=== PATIENT | female | born 1955 | race Caucasian/White ===

== ENCOUNTER → 2017-12-30 | Outpatient (CLI) | payer OTHER ==
[~2017-12-30] MED LIST: ACYC200 PO; ACYC400 PO; ACYC5TO15G TOP; ACYC800 PO; ALBU3IS INH; ALBU90I INH; ALBU90OI INH; ALBU90OI61 PO; AMIT50 PO; AMOX500 PO; ASPI325 PO; ASPI81CH PO; ASPI81EC PO; ATOR10 PO; ATOR20 PO; ATOR40TA PO; ATOR80 PO; AZIT250; AZIT250 PO; BENZ100A PO; BP MED; BUDE6HFA INH; CHOLESTEROL; CHOLESTEROL LOWERING; CHOLESTEROL MED; CHOLESTROL MED; CIPR250 PO; CIPR500 PO; CIPRO500 MG PO; CLON.2 PO; CLON2; CLOP75 PO; CONEST.625; CYCL10 PO; Crutch1 EACH MISC; DIPATR PO; DOCU100 PO; DOXY100 PO; Duoneb 2.5-0.5 M3 ML INH; ESOM20; ESOM20 PO; FAMO20 PO; FISH1000 PO; FLUT220OIA IH; FOLI1 PO; Flexeril 10 mg10 MG PO; GABA300 PO; GABA600 PO; GEMF600 PO; GLIP5 PO; HYDACE10B PO; HYDACE5 PO; HYDGUAL120 PO; HYDHCL25 PO; HYDMOR4 PO; HYDR1TAB94 PO; IBUP200 PO; IBUP800; IBUP800 PO; INS70/30I SC; INS70/30PN SC; INSDET100 SC; INSLI100I SC; INSR10I SC; INSU100I6 SC; INSU7030P SC; INSUASPI SC; INSULANI SC; INSULANPEN; INSULANPEN SC; INSULIN; INSULIN REG; LANS30EC PO; LAVAP17G PO; LEVFLO500 PO; LEVO750 PO; LIDO2L PO; LISI20 PO; LISI5 PO; LOPE2C PO; LORA.5 PO; MAGOXI400 PO; METF500; METF500 PO; METH10; METH10 PO; METO10 PO; METO50 PO; METO50ER PO; METR500 PO; MULVITA PO; MULVITMIND PO; Magnesium500 MG PO; NAPR220; NAPR500 PO; NAPR500EC PO; NAPR550 PO; NYSTRITC TOP; Novolog100 UNIT/2 SC; OMEP10ER; OMEP10ER PO; OMEP20ER PO; OMEP40CA12 PO; ONDA4ODT MM; OXYACE5T PO; OXYACE7.5T PO; OXYC10ER PO; OXYC10TA19 PO; OXYC1TAB11 PO; Omeprazole20 M1 PO; PANT20 PO; PANT40 PO; PENVK500 PO; PHENA100 PO; PIOG15; PIOG30; POTCHL20ER PO; PRAV20 PO; PRED10 PO; PRED20 PO; PRILOSEC; PROC10 PO; PROM25 PO; PROM25S PR; Percocet 10-321 EACH PO; Prednisone20 MG PO; Prednisone50 MG PO; Prinivil10 MG PO; Protonix40 MG PO; Pyridium200 MG PO; RANI150; RANI150 PO; ROBITUSSIN100 MG/5 M PO; RXCYCL10 PO; RXHYDACE PO; RXHYDGUAS PO; RXHYDMOR2 PO; RXONDA4ODT MM; RXOXYACE PO; RXPROM25 PO; RXTRAM50 PO; SUCR1 PO; SULTRIDS PO; TOPI25 PO; TOUJEO SOL300 UNIT/1 SC; TRAM50 PO; UNKNOWN CHOLESTEROL; Ultram50 MG PO; VITAMENS; VITORIN; Ventolin Soln3 ML INH; ZOLP5 PO; Zithromax250 MG PO; Zofran Odt4 MG PO; Zofran Odt4 MG SL; Zofran Odt8 MG SL; [UNRECOGNIZED DRUG - OTHER]; [UNRECOGNIZED DRUG - REMARK]
[2017-12-30 19:14] LABS: Specimen Source VAG
[2017-12-31 12:02] LABS: Source Vaginal/Cervical
== END | disposition home or self-care (01) ==
LOC: LAB UCHC 14:00
PROVIDERS: Physician Assistant
DX: R21 Rash and other nonspecific skin eruption (principal)
CPT/HCPCS: 87070; 87147; 87205; 87252; 87254; 87491; 87591

== ENCOUNTER 2018-01-12 15:26 | Emergency (ER) | payer OTHER ==
[~2018-01-12] VITALS: Ht 157.5 cm; Wt 63.5 kg
[~2018-01-12 15:26] MED LIST changes: -BUDE6HFA INH; -HYDHCL25 PO; -NYSTRITC TOP; -Prednisone50 MG PO; -Protonix40 MG PO
[2018-01-12 17:05] LABS: BASOPHILS PERCENT AUTO 1 % (0-2); EOSINOPHILS ABSOLUTE AUTO 0.44 K/mm3 (0.00-0.68); EOSINOPHILS PERCENT AUTO 4 % (0-6); Hematocrit 37.5 % (33.0-51.0); Hemoglobin 12.1 g/dL (11.5-16.0); IMMATURE GRAN ABSOLUTE AUTO 0.04 K/mm3 (0.00-0.10); IMMATURE GRAN PERCENT AUTO 0 % (0-1); LYMPHOCYTES ABSOLUTE AUTO 3.82 K/mm3 (0.84-5.20); LYMPHOCYTES PERCENT AUTO 37 % (21-46); MONOCYTES ABSOLUTE AUTO 0.89 K/mm3 (0.16-1.47); MONOCYTES PERCENT AUTO 9 % (4-13); Mean Corpuscular HGB 26.4 pg (26.0-34.0); Mean Corpuscular HGB Conc 32.3 g/dL (31.5-36.5); Mean Corpuscular Volume 82 fL (80-100); NEUTROPHILS PERCENT AUTO 49 % (41-73); RDW Coefficient Variation 14.4 % (11.7-14.2); RDW Standard Deviation 41.9 fL (35.1-46.3); Red Blood Cell Count 4.58 M/mm3 (3.80-5.20); White Blood Cell Count 10.29 K/mm3 (4.00-11.30)
[2018-01-12 17:09] LABS: Mean Platelet Volume 10.1 fL (9.1-12.4); Platelet Count 258 K/mm3 (150-400)
[2018-01-12 17:25] LABS: Alanine Aminotransfer (ALT/SGP 23 U/L (12-78); Albumin, Blood 3.4 g/dL (3.4-5.0); Albumin/Globulin Ratio 0.9 (0.8-1.8); Alk Phos 126 U/L (50-136); Anion Gap 10 mmol/L (6-16); Aspartate Aminotrans (AST/SGOT 25 U/L (12-37); Bilirubin, Total 0.2 mg/dL (0.1-1.0); Blood Urea Nitrogen 22 mg/dL (8-24); Bun/Creatinine Ratio 25.4 (12.0-20.0); CO2, Blood 22 mmol/L (21-32); Calcium, Blood 9.4 mg/dL (8.5-10.1); Chloride, Blood 108 mmol/L (98-108); Creatinine, Blood 0.87 mg/dL (0.40-1.00); Globulin, Blood 3.7 g/dL (2.2-4.0); Glomerular Filtration Rate >60 (60-); Glucose, Blood 116 mg/dL (70-99); Potassium, Blood 4.4 mmol/L (3.5-5.5); Sodium, Blood 140 mmol/L (136-145); Total Protein, Blood 7.1 g/dL (6.4-8.2)
== END 2018-01-12 18:41 | disposition home or self-care (01) ==
LOC: ER 15:26
PROVIDERS: Emergency Medicine
DX: R10.9 Unspecified abdominal pain (principal); Z88.1 Allergy status to other antibiotic agents; Z88.5 Allergy status to narcotic agent; Z88.6 Allergy status to analgesic agent; Z88.8 Allergy status to other drugs, medicaments and biological substances; Z79.899 Other long term (current) drug therapy; Z79.82 Long term (current) use of aspirin; Z79.4 Long term (current) use of insulin; Z79.891 Long term (current) use of opiate analgesic; E11.40 Type 2 diabetes mellitus with diabetic neuropathy, unspecified; K21.9 Gastro-esophageal reflux disease without esophagitis; I25.10 Atherosclerotic heart disease of native coronary artery without angina pectoris; J44.9 Chronic obstructive pulmonary disease, unspecified; E78.00 Pure hypercholesterolemia, unspecified; F17.200 Nicotine dependence, unspecified, uncomplicated
CPT/HCPCS: 36415; 74176; 80053; 81000; 83690; 85025; 96374; 96375; 99284; J1200; J2765

== ENCOUNTER 2018-10-05 12:02 | Emergency (ER) | payer OTHER ==
[~2018-10-05] VITALS: Ht 160 cm; Wt 72.6 kg
[~2018-10-05 12:02] MED LIST changes: +BUDE6HFA INH; +HYDHCL25 PO; +NYSTRITC TOP; +Protonix40 MG PO
[2018-10-05 12:53] LABS: BASOPHILS PERCENT AUTO 1 % (0-2); EOSINOPHILS ABSOLUTE AUTO 0.59 K/mm3 (0.00-0.68); EOSINOPHILS PERCENT AUTO 5 % (0-6); Hematocrit 38.3 % (33.0-51.0); Hemoglobin 12.4 g/dL (11.5-16.0); IMMATURE GRAN ABSOLUTE AUTO 0.05 K/mm3 (0.00-0.10); IMMATURE GRAN PERCENT AUTO 0 % (0-1); LYMPHOCYTES ABSOLUTE AUTO 3.13 K/mm3 (0.84-5.20); LYMPHOCYTES PERCENT AUTO 24 % (21-46); MONOCYTES ABSOLUTE AUTO 1.51 K/mm3 (0.16-1.47); MONOCYTES PERCENT AUTO 12 % (4-13); Mean Corpuscular HGB Conc 32.4 g/dL (31.5-36.5); Mean Corpuscular Volume 87 fL (80-100); Mean Platelet Volume 9.4 fL (9.1-12.4); NEUTROPHILS ABSOLUTE AUTO 7.74 K/mm3 (1.96-9.15); NEUTROPHILS PERCENT AUTO 59 % (41-73); Platelet Count 341 K/mm3 (150-400); RDW Coefficient Variation 13.2 % (11.7-14.2); RDW Standard Deviation 41.3 fL (35.1-46.3); Red Blood Cell Count 4.43 M/mm3 (3.80-5.20); White Blood Cell Count 13.12 K/mm3 (4.00-11.30)
[2018-10-05 13:50] LABS: Alanine Aminotransfer (ALT/SGP 24 U/L (12-78); Albumin, Blood 3.3 g/dL (3.4-5.0); Albumin/Globulin Ratio 0.8 (0.8-1.8); Alk Phos 137 U/L (50-136); Anion Gap 10 mmol/L (6-16); Aspartate Aminotrans (AST/SGOT 18 U/L (12-37); Bilirubin, Total 0.5 mg/dL (0.1-1.0); Blood Urea Nitrogen 12 mg/dL (8-24); Bun/Creatinine Ratio 17.3 (12.0-20.0); CO2, Blood 22 mmol/L (21-32); Calcium, Blood 9.4 mg/dL (8.5-10.1); Chloride, Blood 105 mmol/L (98-108); Creatinine, Blood 0.69 mg/dL (0.40-1.00); Globulin, Blood 4.3 g/dL (2.2-4.0); Glomerular Filtration Rate >60 (60-); Glucose, Blood 282 mg/dL (70-99); Potassium, Blood 4.1 mmol/L (3.5-5.5); Sodium, Blood 137 mmol/L (136-145); Total Protein, Blood 7.6 g/dL (6.4-8.2)
[2018-10-05] MEDS ORDERED: BENZ100A PO (15:02)
[2018-10-05] MEDS ORDERED: Zithromax250 MG PO (15:02)
[2018-10-05] MEDS ORDERED: Prednisone50 MG PO (15:02)
== END 2018-10-05 13:37 | disposition home or self-care (01) ==
LOC: ER 12:02
PROVIDERS: Physician Assistant
DX: J44.1 Chronic obstructive pulmonary disease with (acute) exacerbation (principal); B34.9 Viral infection, unspecified; E11.40 Type 2 diabetes mellitus with diabetic neuropathy, unspecified; K21.9 Gastro-esophageal reflux disease without esophagitis; I25.10 Atherosclerotic heart disease of native coronary artery without angina pectoris; I10 Essential (primary) hypertension; E78.00 Pure hypercholesterolemia, unspecified; Z79.899 Other long term (current) drug therapy; Z79.82 Long term (current) use of aspirin; Z79.4 Long term (current) use of insulin; Z79.01 Long term (current) use of anticoagulants; Z88.1 Allergy status to other antibiotic agents; Z88.5 Allergy status to narcotic agent; Z88.8 Allergy status to other drugs, medicaments and biological substances; Z87.891 Personal history of nicotine dependence
CPT/HCPCS: 36415; 71046; 80053; 85025; 93005; 93010; 94640; 96374; 99284-25; J2405

== ENCOUNTER 2018-10-24 13:54 | Observation (INO) | payer OTHER ==
[~2018-10-24] VITALS: Ht 160 cm; Wt 74.7 kg
[~2018-10-24 13:54] MED LIST changes: +Prednisone50 MG PO
[2018-10-24 15:24] LABS: BASOPHILS ABSOLUTE AUTO 0.14 K/mm3 (0.00-0.23); BASOPHILS PERCENT AUTO 1 % (0-2); EOSINOPHILS ABSOLUTE AUTO 0.43 K/mm3 (0.00-0.68); EOSINOPHILS PERCENT AUTO 3 % (0-6); Hematocrit 42.8 % (33.0-51.0); Hemoglobin 13.4 g/dL (11.5-16.0); IMMATURE GRAN ABSOLUTE AUTO 0.06 K/mm3 (0.00-0.10); IMMATURE GRAN PERCENT AUTO 1 % (0-1); LYMPHOCYTES ABSOLUTE AUTO 3.71 K/mm3 (0.84-5.20); LYMPHOCYTES PERCENT AUTO 29 % (21-46); MONOCYTES ABSOLUTE AUTO 1.14 K/mm3 (0.16-1.47); MONOCYTES PERCENT AUTO 9 % (4-13); Mean Corpuscular HGB 27.3 pg (26.0-34.0); Mean Corpuscular HGB Conc 31.3 g/dL (31.5-36.5); Mean Corpuscular Volume 87 fL (80-100); Mean Platelet Volume 9.5 fL (9.1-12.4); NEUTROPHILS ABSOLUTE AUTO 7.32 K/mm3 (1.96-9.15); NEUTROPHILS PERCENT AUTO 57 % (41-73); Platelet Count 359 K/mm3 (150-400); RDW Coefficient Variation 13.2 % (11.7-14.2); RDW Standard Deviation 41.8 fL (35.1-46.3); Red Blood Cell Count 4.91 M/mm3 (3.80-5.20)
[2018-10-24 15:44] LABS: Alanine Aminotransfer (ALT/SGP 25 U/L (12-78); Albumin, Blood 3.7 g/dL (3.4-5.0); Albumin/Globulin Ratio 0.9 (0.8-1.8); Alk Phos 176 U/L (50-136); Anion Gap 11 mmol/L (6-16); Aspartate Aminotrans (AST/SGOT 16 U/L (12-37); Bilirubin, Total 0.3 mg/dL (0.1-1.0); Blood Urea Nitrogen 19 mg/dL (8-24); CO2, Blood 20 mmol/L (21-32); Calcium, Blood 9.6 mg/dL (8.5-10.1); Chloride, Blood 101 mmol/L (98-108); Creatinine, Blood 0.73 mg/dL (0.40-1.00); Globulin, Blood 4.2 g/dL (2.2-4.0); Glomerular Filtration Rate >60 (60-); Glucose, Blood 331 mg/dL (70-99); Potassium, Blood 4.6 mmol/L (3.5-5.5); Sodium, Blood 132 mmol/L (136-145); Total Protein, Blood 7.9 g/dL (6.4-8.2); Troponin I <0.015 ng/mL (0.000-0.040)
--- NOTE | 2018-10-24 22:00 | NUR ---
ASSUMED CARE- PT ARRIVES TO PCU2 FROM ER AT APPROXIMATELY 2130. PT IS AOX4. VSS. AMBULATES WITH STANDBY ASSIST TO HOSPITAL BED WITH MINIMAL DIFFICULTY. PT CURRENTLY COMPLAINING OF MID STERNAL/EPIGASTRIC PAIN OF 8/10 AT THIS TIME. PT TO BE MEDICATED WITH FENTANYL WHILE AWAITING ORDERED GI COCKTAIL FROM PHARMACY. 2L O2 VIA NASAL CANNULA PLACED ON PATIENT FOR COMFORT- PT REPORTS THAT O2 HELPS HER RELAX AND "MAKES HER CHEST PAIN FEEL BETTER WHEN IT IS ON". PT REQUESTING SOMETHING TO EAT AND REPORTING HUNGER ON ARRIVAL TO FLOOR- PT PROVIDED WITH CRACKERS AND JALEESA MIST DUE TO NATURE OF ILLNESS. PT ORIENTED TO ROOM AND CALL LIGHT SYSTEM. WILL CONTINUE WITH ADMISSION AND MONITORING.
[2018-10-25] MEDS ORDERED: ASPI325 PO (00:05)
[2018-10-25 02:15] LABS: Hematocrit 38.7 % (33.0-51.0); Hemoglobin 12.5 g/dL (11.5-16.0); Mean Corpuscular HGB 27.6 pg (26.0-34.0); Mean Corpuscular HGB Conc 32.3 g/dL (31.5-36.5); Mean Corpuscular Volume 85 fL (80-100); Mean Platelet Volume 9.3 fL (9.1-12.4); Platelet Count 307 K/mm3 (150-400); RDW Coefficient Variation 13.1 % (11.7-14.2); RDW Standard Deviation 41.1 fL (35.1-46.3); Red Blood Cell Count 4.53 M/mm3 (3.80-5.20); White Blood Cell Count 13.17 K/mm3 (4.00-11.30)
[2018-10-25 02:37] LABS: Anion Gap 9 mmol/L (6-16); Blood Urea Nitrogen 20 mg/dL (8-24); Bun/Creatinine Ratio 22.2 (12.0-20.0); CO2, Blood 23 mmol/L (21-32); Calcium, Blood 8.7 mg/dL (8.5-10.1); Chloride, Blood 102 mmol/L (98-108); Glomerular Filtration Rate >60 (60-); Glucose, Blood 321 mg/dL (70-99); Potassium, Blood 4.1 mmol/L (3.5-5.5); Sodium, Blood 134 mmol/L (136-145)
--- NOTE | 2018-10-25 05:10 | NUR ---
PHYSICIAN CONTACTED- PT CONTINUES TO HAVE MIDSTERNAL/EPIGASTRIC PAIN THAT RATES 8/10 ON PAIN SCALE. CONTACTED DR THOMSON AND DISCUSSED PATIENT STATUS AND POSSIBILITY OF INCREASING PAIN MEDICATION FREQUENCY. PHYSICIAN INPUT ORDERS FOR MAALOX FOR GI UPSET. WILL ADMINISTER TO PATIENT AND CONTINUE TO MONITOR.
--- NOTE | 2018-10-25 06:52 | NUR ---
SHIFT SUMMARY- PT HAS REMAINED AOX4 THROUGHOUT SHIFT. VSS. PLEASANT AND COOPERATIVE WITH CARE. PT CONTINUES TO REPORT 7/10 PAIN TO MID STERNUM/ EPIGASTRIC AREA THAT IS HEAVY AND CONSTANT. STATES THAT PAIN DOES NOT RADIATE ANYWHERE, DENIES SHORTNESS OF BREATH OR NAUSEA. REPORTS THAT PAIN ONLY RELIEVES SLIGHTLY WITH ORDERED FENTANYL. PT ALSO REPORTS THAT OTHER MEDICATIONS GIVEN INCLUDING NITRO, MAALOX, GI COCKTAIL, REGLAN, AND PROTONIX DID NOT HELP WITH THE PAIN. PT DID REPORT THAT WARM BLANKET DID HELP WITH SOME OF THE DISCOMFORT, BUT DID NOT DECREASE IT VERY MUCH. PT ALSO STATED THAT SHE HAS NOT EVER BEEN GIVEN THIS TYPE OF PAIN MEDICATION BEFORE, BUT THAT IT IS HELPFUL FOR A LITTLE WHILE BUT THE PAIN ALWAYS COMES BACK. NO OTHER CHANGES NOTED FROM INTIIAL ASSESSMENT. WILL CONTINUE TO MONITOR AND REPORT TO ONCOMING RN. BED IN LOW POSITION, CALL LIGHT IN REACH.
[2018-10-25] MEDS ORDERED: OXYC5 (07:05)
--- NOTE | 2018-10-25 16:52 | NUR ---
Echocardiogram completed.
[2018-11-29] MEDS ORDERED: Lopressor 50 mg50 MG PO (14:41)
[2018-11-29] MEDS ORDERED: Neurontin600 MG PO (14:41)
[2018-11-29] MEDS ORDERED: Prinivil10 MG PO (14:41)
[2018-11-29] MEDS ORDERED: ATOR20 PO (14:41)
[2018-11-29] MEDS ORDERED: SUCR1 PO (14:42)
[2018-11-29] MEDS ORDERED: TOUJEO SOL300 UNIT/1 SC (14:42)
[2018-11-29] MEDS ORDERED: PANT40 PO (14:42)
[2018-11-29] MEDS ORDERED: CLOP75 PO (14:42)
[2018-11-29] MEDS ORDERED: ASPI325 PO (14:43)
[2018-11-29] MEDS ORDERED: Novolog Fl100 UNIT/1 SC (14:43)
[2018-11-29] MEDS ORDERED: Hydroxyzine HCl50 MG PO (14:44)
[2018-11-29] MEDS ORDERED: ALBU90OI61 INH (14:44)
[2018-11-29] MEDS ORDERED: Pedi-Dri 100,0060 GM TOP (14:44)
[2018-11-29] MEDS ORDERED: BUDE6HFA INH (14:45)
[2018-11-29] MEDS ORDERED: ALBU3IS INH (14:46)
== END 2018-10-25 11:06 | disposition home or self-care (01) ==
LOC: ER 13:54 → PCU 13:55
PROVIDERS: Nurse Practitioner Acute Care; Physician Assistant; ADMIT Internal Medicine
DX: R07.9 Chest pain, unspecified (principal); I10 Essential (primary) hypertension; E11.40 Type 2 diabetes mellitus with diabetic neuropathy, unspecified; M19.90 Unspecified osteoarthritis, unspecified site; E78.5 Hyperlipidemia, unspecified; K57.90 Diverticulosis of intestine, part unspecified, without perforation or abscess without bleeding; I73.9 Peripheral vascular disease, unspecified; J44.9 Chronic obstructive pulmonary disease, unspecified; K21.9 Gastro-esophageal reflux disease without esophagitis; Z88.5 Allergy status to narcotic agent; Z79.82 Long term (current) use of aspirin; Z79.4 Long term (current) use of insulin; Z79.899 Other long term (current) drug therapy; Z88.8 Allergy status to other drugs, medicaments and biological substances; N20.0 Calculus of kidney; K76.0 Fatty (change of) liver, not elsewhere classified; R16.0 Hepatomegaly, not elsewhere classified
CPT/HCPCS: 36415; 71046; 74176; 80048; 80053; 82947; 83036; 83880; 84484; 85025; 85027; 85379; 87081; 93005; 93010; 93306; 94640; 94760; 96372; 96374; 96375; 96376; 99285-25; G0378; J1650; J2405; J2765; J3010

== ENCOUNTER 2018-11-22 11:34 | Emergency (ER) | payer OTHER ==
[~2018-11-22] VITALS: Ht 160 cm; Wt 81.7 kg
[~2018-11-22 11:34] MED LIST changes: +OXYC5
[2018-11-22 16:11] LABS: BASOPHILS PERCENT AUTO 1 % (0-2); EOSINOPHILS ABSOLUTE AUTO 0.57 K/mm3 (0.00-0.68); EOSINOPHILS PERCENT AUTO 8 % (0-6); Hematocrit 38.8 % (33.0-51.0); Hemoglobin 12.4 g/dL (11.5-16.0); IMMATURE GRAN ABSOLUTE AUTO 0.02 K/mm3 (0.00-0.10); IMMATURE GRAN PERCENT AUTO 0 % (0-1); LYMPHOCYTES ABSOLUTE AUTO 2.33 K/mm3 (0.84-5.20); LYMPHOCYTES PERCENT AUTO 32 % (21-46); MONOCYTES ABSOLUTE AUTO 0.74 K/mm3 (0.16-1.47); MONOCYTES PERCENT AUTO 10 % (4-13); Mean Corpuscular HGB 26.6 pg (26.0-34.0); Mean Corpuscular Volume 83 fL (80-100); Mean Platelet Volume 9.2 fL (9.1-12.4); NEUTROPHILS ABSOLUTE AUTO 3.53 K/mm3 (1.96-9.15); NEUTROPHILS PERCENT AUTO 48 % (41-73); Platelet Count 268 K/mm3 (150-400); RDW Standard Deviation 39.3 fL (35.1-46.3); Red Blood Cell Count 4.66 M/mm3 (3.80-5.20); White Blood Cell Count 7.29 K/mm3 (4.00-11.30)
[2018-11-22 16:32] LABS: Alanine Aminotransfer (ALT/SGP 32 U/L (12-78); Albumin, Blood 3.6 g/dL (3.4-5.0); Albumin/Globulin Ratio 0.9 (0.8-1.8); Alk Phos 136 U/L (50-136); Anion Gap 10 mmol/L (6-16); Aspartate Aminotrans (AST/SGOT 23 U/L (12-37); Bilirubin, Total 0.4 mg/dL (0.1-1.0); Blood Urea Nitrogen 17 mg/dL (8-24); Bun/Creatinine Ratio 19.8 (12.0-20.0); CO2, Blood 24 mmol/L (21-32); Calcium, Blood 9.4 mg/dL (8.5-10.1); Chloride, Blood 105 mmol/L (98-108); Creatinine, Blood 0.86 mg/dL (0.40-1.00); Globulin, Blood 3.8 g/dL (2.2-4.0); Glomerular Filtration Rate >60 (60-); Glucose, Blood 251 mg/dL (70-99); Potassium, Blood 3.9 mmol/L (3.5-5.5); Sodium, Blood 139 mmol/L (136-145); Total Protein, Blood 7.4 g/dL (6.4-8.2); Troponin I <0.015 ng/mL (0.000-0.040)
[2018-11-23] MEDS ORDERED: LIDO700A20 TOP (08:00)
[2018-11-29] MEDS ORDERED: Prinivil10 MG PO (14:41)
[2018-11-29] MEDS ORDERED: Lopressor 50 mg50 MG PO (14:41)
[2018-11-29] MEDS ORDERED: ATOR20 PO (14:41)
[2018-11-29] MEDS ORDERED: Neurontin600 MG PO (14:41)
[2018-11-29] MEDS ORDERED: CLOP75 PO (14:42)
[2018-11-29] MEDS ORDERED: TOUJEO SOL300 UNIT/1 SC (14:42)
[2018-11-29] MEDS ORDERED: SUCR1 PO (14:42)
[2018-11-29] MEDS ORDERED: PANT40 PO (14:42)
[2018-11-29] MEDS ORDERED: ASPI325 PO (14:43)
[2018-11-29] MEDS ORDERED: Novolog Fl100 UNIT/1 SC (14:43)
[2018-11-29] MEDS ORDERED: ALBU90OI61 INH (14:44)
[2018-11-29] MEDS ORDERED: Pedi-Dri 100,0060 GM TOP (14:44)
[2018-11-29] MEDS ORDERED: Hydroxyzine HCl50 MG PO (14:44)
[2018-11-29] MEDS ORDERED: BUDE6HFA INH (14:45)
[2018-11-29] MEDS ORDERED: ALBU3IS INH (14:46)
== END 2018-11-22 17:05 | disposition home or self-care (01) ==
LOC: ER 11:34
PROVIDERS: Physician Assistant
DX: M25.512 Pain in left shoulder (principal); G89.29 Other chronic pain; E11.9 Type 2 diabetes mellitus without complications; K21.9 Gastro-esophageal reflux disease without esophagitis; J44.9 Chronic obstructive pulmonary disease, unspecified; I10 Essential (primary) hypertension; E78.00 Pure hypercholesterolemia, unspecified; Z88.1 Allergy status to other antibiotic agents; Z88.5 Allergy status to narcotic agent; Z88.6 Allergy status to analgesic agent; Z88.8 Allergy status to other drugs, medicaments and biological substances; Z79.899 Other long term (current) drug therapy; Z79.4 Long term (current) use of insulin; Z79.82 Long term (current) use of aspirin; Z79.891 Long term (current) use of opiate analgesic
CPT/HCPCS: 36415; 73030; 80053; 84484; 85025; 93005; 93010; 96374; 99284-25; J3010

== ENCOUNTER 2018-11-23 06:32 | Emergency (ER) | payer OTHER ==
[~2018-11-23] VITALS: Ht 160 cm; Wt 70.3 kg
[2018-11-23] MEDS ORDERED: LIDO700A20 TOP (08:00)
[2018-11-29] MEDS ORDERED: Prinivil10 MG PO (14:41)
[2018-11-29] MEDS ORDERED: Neurontin600 MG PO (14:41)
[2018-11-29] MEDS ORDERED: Lopressor 50 mg50 MG PO (14:41)
[2018-11-29] MEDS ORDERED: ATOR20 PO (14:41)
[2018-11-29] MEDS ORDERED: PANT40 PO (14:42)
[2018-11-29] MEDS ORDERED: CLOP75 PO (14:42)
[2018-11-29] MEDS ORDERED: SUCR1 PO (14:42)
[2018-11-29] MEDS ORDERED: TOUJEO SOL300 UNIT/1 SC (14:42)
[2018-11-29] MEDS ORDERED: Novolog Fl100 UNIT/1 SC (14:43)
[2018-11-29] MEDS ORDERED: ASPI325 PO (14:43)
[2018-11-29] MEDS ORDERED: ALBU90OI61 INH (14:44)
[2018-11-29] MEDS ORDERED: Pedi-Dri 100,0060 GM TOP (14:44)
[2018-11-29] MEDS ORDERED: Hydroxyzine HCl50 MG PO (14:44)
[2018-11-29] MEDS ORDERED: BUDE6HFA INH (14:45)
[2018-11-29] MEDS ORDERED: ALBU3IS INH (14:46)
== END 2018-11-23 08:12 | disposition home or self-care (01) ==
LOC: ER 06:32
DX: M25.512 Pain in left shoulder (principal); I10 Essential (primary) hypertension; E11.40 Type 2 diabetes mellitus with diabetic neuropathy, unspecified; K21.9 Gastro-esophageal reflux disease without esophagitis; I25.10 Atherosclerotic heart disease of native coronary artery without angina pectoris; J44.9 Chronic obstructive pulmonary disease, unspecified; E78.5 Hyperlipidemia, unspecified; Z88.1 Allergy status to other antibiotic agents; Z88.5 Allergy status to narcotic agent; Z88.8 Allergy status to other drugs, medicaments and biological substances; Z79.899 Other long term (current) drug therapy; Z79.4 Long term (current) use of insulin; Z79.82 Long term (current) use of aspirin; Z79.01 Long term (current) use of anticoagulants; Z87.442 Personal history of urinary calculi; Z87.891 Personal history of nicotine dependence
CPT/HCPCS: 71046; 99283-25

== ENCOUNTER 2019-02-07 11:56 | Emergency (ER) | payer OTHER ==
[~2019-02-07] VITALS: Ht 160 cm; Wt 74.4 kg
[~2019-02-07 11:56] MED LIST changes: +ALBU90OI61 INH; +Hydroxyzine HCl50 MG PO; +LIDO700A20 TOP; +Lopressor 50 mg50 MG PO; +NOVOLOG FL100 UNIT/1 SC; +Neurontin600 MG PO; +Pedi-Dri 100,0060 GM TOP
[2019-02-07 12:55] LABS: BASOPHILS PERCENT AUTO 1 % (0-2); EOSINOPHILS ABSOLUTE AUTO 0.76 K/mm3 (0.00-0.68); EOSINOPHILS PERCENT AUTO 10 % (0-6); Hematocrit 36.7 % (33.0-51.0); Hemoglobin 11.9 g/dL (11.5-16.0); IMMATURE GRAN ABSOLUTE AUTO 0.03 K/mm3 (0.00-0.10); IMMATURE GRAN PERCENT AUTO 0 % (0-1); LYMPHOCYTES ABSOLUTE AUTO 2.75 K/mm3 (0.84-5.20); LYMPHOCYTES PERCENT AUTO 35 % (21-46); MONOCYTES ABSOLUTE AUTO 0.61 K/mm3 (0.16-1.47); MONOCYTES PERCENT AUTO 8 % (4-13); Mean Corpuscular HGB 28.2 pg (26.0-34.0); Mean Corpuscular HGB Conc 32.4 g/dL (31.5-36.5); Mean Corpuscular Volume 87 fL (80-100); Mean Platelet Volume 9.8 fL (9.1-12.4); NEUTROPHILS ABSOLUTE AUTO 3.66 K/mm3 (1.96-9.15); NEUTROPHILS PERCENT AUTO 46 % (41-73); Platelet Count 316 K/mm3 (150-400); RDW Coefficient Variation 15.6 % (11.7-14.2); RDW Standard Deviation 49.3 fL (35.1-46.3); Red Blood Cell Count 4.22 M/mm3 (3.80-5.20); White Blood Cell Count 7.91 K/mm3 (4.00-11.30)
[2019-02-07 13:27] LABS: Alanine Aminotransfer (ALT/SGP 22 U/L (12-78); Albumin, Blood 3.5 g/dL (3.4-5.0); Alk Phos 136 U/L (50-136); Anion Gap 8 mmol/L (6-16); Aspartate Aminotrans (AST/SGOT 21 U/L (12-37); Bilirubin, Total 0.4 mg/dL (0.1-1.0); Blood Urea Nitrogen 21 mg/dL (8-24); Bun/Creatinine Ratio 29.7 (12.0-20.0); CO2, Blood 23 mmol/L (21-32); Calcium, Blood 9.6 mg/dL (8.5-10.1); Chloride, Blood 109 mmol/L (98-108); Creatinine, Blood 0.71 mg/dL (0.40-1.00); Globulin, Blood 3.4 g/dL (2.2-4.0); Glomerular Filtration Rate >60 (60-); Glucose, Blood 235 mg/dL (70-99); Potassium, Blood 4.3 mmol/L (3.5-5.5); Sodium, Blood 140 mmol/L (136-145); Total Protein, Blood 6.9 g/dL (6.4-8.2); Troponin I <0.015 ng/mL (0.000-0.040)
[2019-02-07] MEDS ORDERED: OXYC5 PO (13:51)
== END 2019-02-07 16:40 | disposition home or self-care (01) ==
LOC: ER 11:56
PROVIDERS: Emergency Medicine
DX: R07.9 Chest pain, unspecified (principal); M25.512 Pain in left shoulder; E11.42 Type 2 diabetes mellitus with diabetic polyneuropathy; E11.51 Type 2 diabetes mellitus with diabetic peripheral angiopathy without gangrene; E78.00 Pure hypercholesterolemia, unspecified; I25.10 Atherosclerotic heart disease of native coronary artery without angina pectoris; J44.9 Chronic obstructive pulmonary disease, unspecified; K21.9 Gastro-esophageal reflux disease without esophagitis; Z87.442 Personal history of urinary calculi; Z87.891 Personal history of nicotine dependence; Z88.5 Allergy status to narcotic agent; Z88.1 Allergy status to other antibiotic agents; Z88.8 Allergy status to other drugs, medicaments and biological substances; Z79.4 Long term (current) use of insulin; Z79.899 Other long term (current) drug therapy; Z79.82 Long term (current) use of aspirin
CPT/HCPCS: 36415; 71045; 80053; 83880; 84484; 85025; 93005; 93010; 96361; 96374; 99285-25; J2405; J7030

== ENCOUNTER 2019-04-29 07:05 | Emergency (ER) | payer OTHER ==
[~2019-04-29] VITALS: Ht 160 cm; Wt 74.8 kg
[~2019-04-29 07:05] MED LIST changes: +Aspirin EC81 MG PO; +OXYC5 PO
[2019-04-29 08:32] LABS: BASOPHILS ABSOLUTE AUTO 0.12 K/mm3 (0.00-0.23); BASOPHILS PERCENT AUTO 1 % (0-2); EOSINOPHILS ABSOLUTE AUTO 0.69 K/mm3 (0.00-0.68); EOSINOPHILS PERCENT AUTO 7 % (0-6); Hematocrit 34.9 % (33.0-51.0); Hemoglobin 11.2 g/dL (11.5-16.0); IMMATURE GRAN ABSOLUTE AUTO 0.05 K/mm3 (0.00-0.10); IMMATURE GRAN PERCENT AUTO 1 % (0-1); LYMPHOCYTES ABSOLUTE AUTO 3.29 K/mm3 (0.84-5.20); LYMPHOCYTES PERCENT AUTO 35 % (21-46); MONOCYTES ABSOLUTE AUTO 0.98 K/mm3 (0.16-1.47); MONOCYTES PERCENT AUTO 10 % (4-13); Mean Corpuscular HGB 28.5 pg (26.0-34.0); Mean Corpuscular HGB Conc 32.1 g/dL (31.5-36.5); Mean Corpuscular Volume 89 fL (80-100); NEUTROPHILS ABSOLUTE AUTO 4.29 K/mm3 (1.96-9.15); NEUTROPHILS PERCENT AUTO 46 % (41-73); RDW Coefficient Variation 13.8 % (11.7-14.2); RDW Standard Deviation 45.1 fL (35.1-46.3); Red Blood Cell Count 3.93 M/mm3 (3.80-5.20); White Blood Cell Count 9.42 K/mm3 (4.00-11.30)
[2019-04-29 08:50] LABS: Alanine Aminotransfer (ALT/SGP 23 U/L (12-78); Albumin, Blood 3.1 g/dL (3.4-5.0); Albumin/Globulin Ratio 0.8 (0.8-1.8); Alk Phos 137 U/L (50-136); Anion Gap 8 mmol/L (6-16); Aspartate Aminotrans (AST/SGOT 27 U/L (12-37); Bilirubin, Total 0.3 mg/dL (0.1-1.0); Blood Urea Nitrogen 16 mg/dL (8-24); Bun/Creatinine Ratio 23.1 (12.0-20.0); CO2, Blood 24 mmol/L (21-32); Chloride, Blood 107 mmol/L (98-108); Creatinine, Blood 0.69 mg/dL (0.40-1.00); Globulin, Blood 3.7 g/dL (2.2-4.0); Glomerular Filtration Rate >60 (60-); Glucose, Blood 193 mg/dL (70-99); Potassium, Blood 3.8 mmol/L (3.5-5.5); Sodium, Blood 139 mmol/L (136-145); Total Protein, Blood 6.8 g/dL (6.4-8.2); Troponin I <0.015 ng/mL (0.000-0.040)
[2019-04-29 08:54] LABS: Mean Platelet Volume 9.6 fL (9.1-12.4); Platelet Count 377 K/mm3 (150-400)
== END 2019-04-29 09:36 | disposition home or self-care (01) ==
LOC: ER 07:05
PROVIDERS: Physician Assistant
DX: R07.9 Chest pain, unspecified (principal); E11.51 Type 2 diabetes mellitus with diabetic peripheral angiopathy without gangrene; I73.9 Peripheral vascular disease, unspecified; Z88.1 Allergy status to other antibiotic agents; Z88.5 Allergy status to narcotic agent; Z88.8 Allergy status to other drugs, medicaments and biological substances; Z79.899 Other long term (current) drug therapy; Z79.4 Long term (current) use of insulin; Z79.82 Long term (current) use of aspirin; J44.9 Chronic obstructive pulmonary disease, unspecified; E78.5 Hyperlipidemia, unspecified; K21.9 Gastro-esophageal reflux disease without esophagitis; E11.9 Type 2 diabetes mellitus without complications; I25.10 Atherosclerotic heart disease of native coronary artery without angina pectoris; Z87.891 Personal history of nicotine dependence
CPT/HCPCS: 36415; 71046; 80053; 84484; 85025; 93005; 93010; 99285-25

== ENCOUNTER 2019-05-05 15:01 | Inpatient (IN) | payer OTHER ==
[~2019-05-05] VITALS: Ht 162.6 cm; Wt 74.1 kg
[2019-05-05 15:48] LABS: BASOPHILS ABSOLUTE AUTO 0.13 K/mm3 (0.00-0.23); BASOPHILS PERCENT AUTO 1 % (0-2); EOSINOPHILS ABSOLUTE AUTO 0.08 K/mm3 (0.00-0.68); EOSINOPHILS PERCENT AUTO 1 % (0-6); Hematocrit 40.7 % (33.0-51.0); Hemoglobin 13.2 g/dL (11.5-16.0); IMMATURE GRAN ABSOLUTE AUTO 0.09 K/mm3 (0.00-0.10); IMMATURE GRAN PERCENT AUTO 1 % (0-1); LYMPHOCYTES ABSOLUTE AUTO 1.91 K/mm3 (0.84-5.20); LYMPHOCYTES PERCENT AUTO 13 % (21-46); MONOCYTES ABSOLUTE AUTO 0.83 K/mm3 (0.16-1.47); MONOCYTES PERCENT AUTO 5 % (4-13); Mean Corpuscular HGB 28.8 pg (26.0-34.0); Mean Corpuscular HGB Conc 32.4 g/dL (31.5-36.5); Mean Corpuscular Volume 89 fL (80-100); Mean Platelet Volume 9.6 fL (9.1-12.4); NEUTROPHILS ABSOLUTE AUTO 12.22 K/mm3 (1.96-9.15); NEUTROPHILS PERCENT AUTO 80 % (41-73); Platelet Count 396 K/mm3 (150-400); RDW Coefficient Variation 13.8 % (11.7-14.2); RDW Standard Deviation 44.4 fL (35.1-46.3); Red Blood Cell Count 4.59 M/mm3 (3.80-5.20); White Blood Cell Count 15.26 K/mm3 (4.00-11.30)
[2019-05-05 16:04] LABS: International Normalized Ratio 1.02; Prothrombin Time Results 10.8 Sec (9.7-11.5)
[2019-05-05 16:06] LABS: Alanine Aminotransfer (ALT/SGP 26 U/L (12-78); Albumin, Blood 3.3 g/dL (3.4-5.0); Albumin/Globulin Ratio 0.9 (0.8-1.8); Alk Phos 169 U/L (50-136); Anion Gap 9 mmol/L (6-16); Aspartate Aminotrans (AST/SGOT 22 U/L (12-37); Bilirubin, Total 0.3 mg/dL (0.1-1.0); Blood Urea Nitrogen 19 mg/dL (8-24); Bun/Creatinine Ratio 28.7 (12.0-20.0); CO2, Blood 19 mmol/L (21-32); Calcium, Blood 9.6 mg/dL (8.5-10.1); Chloride, Blood 109 mmol/L (98-108); Creatinine, Blood 0.66 mg/dL (0.40-1.00); Globulin, Blood 3.7 g/dL (2.2-4.0); Glomerular Filtration Rate >60 (60-); Glucose, Blood 296 mg/dL (70-99); Potassium, Blood 4.5 mmol/L (3.5-5.5); Sodium, Blood 137 mmol/L (136-145)
[2019-05-05] MEDS ORDERED: BACL10 PO (16:55)
[2019-05-05] MEDS ORDERED: ALPR.5 PO (17:07)
[2019-05-05] MEDS ORDERED: BRINTELLIX10 MG PO (17:07)
--- NOTE | 2019-05-05 20:38 | NUR ---
1930: ASSUMED CARE OF PATIENT. POWERGLIDE IS TO BE INSTALLED. 20:20: PT C/O ABD PAIN 8/10 NUMERIC SCALE. SPOKE TO MAINFRAME DEVELOPER HOSPITALIST.
[2019-05-06 05:21] LABS: Hematocrit 36.5 % (33.0-51.0); Hemoglobin 11.8 g/dL (11.5-16.0); Mean Corpuscular HGB 28.7 pg (26.0-34.0); Mean Corpuscular HGB Conc 32.3 g/dL (31.5-36.5); Mean Corpuscular Volume 89 fL (80-100); Mean Platelet Volume 9.7 fL (9.1-12.4); Platelet Count 321 K/mm3 (150-400); RDW Coefficient Variation 14.1 % (11.7-14.2); RDW Standard Deviation 45.5 fL (35.1-46.3); Red Blood Cell Count 4.11 M/mm3 (3.80-5.20); White Blood Cell Count 10.98 K/mm3 (4.00-11.30)
[2019-05-06 05:38] LABS: Source, Urine Clean Catch
[2019-05-06 05:41] LABS: Bilirubin, Urine Neg (Neg); Blood, Urine 2+ (Neg); Glucose Qualitative, Urine 4+ (Neg); Ketones, Urine 1+ (Neg); Leukocyte Esterase, Urine 3+ (Neg); Nitrite, Urine Neg (Neg); Protein, Urine 1+ (Neg); Specific Gravity, Urine 1.015 (1.003-1.022); Urobilinogen, Urine NORM (Normal)
[2019-05-06 05:44] LABS: Anion Gap 7 mmol/L (6-16); Blood Urea Nitrogen 15 mg/dL (8-24); Bun/Creatinine Ratio 19.4 (12.0-20.0); CO2, Blood 21 mmol/L (21-32); Chloride, Blood 108 mmol/L (98-108); Creatinine, Blood 0.77 mg/dL (0.40-1.00); Glomerular Filtration Rate >60 (60-); Glucose, Blood 154 mg/dL (70-99); Magnesium, Blood 1.6 mg/dL (1.6-2.4); Potassium, Blood 3.9 mmol/L (3.5-5.5); Sodium, Blood 136 mmol/L (136-145)
[2019-05-06 05:45] LABS: Appearance, Urine Cloudy (Clear); Color, Urine Yellow (P-Yellow)
[2019-05-06 05:48] LABS: White Blood Cells, Urine TNTC /hpf (0-5)
[2019-05-06 05:49] LABS: Bacteria Many /hpf; Red Blood Cells, Urine 0-2 /hpf (0-2); Squamous Epithelial Cells Few /hpf (Few)
[2019-05-06 14:26] LABS: Adenovirus F 40/41 Not Detected (NOT DETECT); Astrovirus Not Detected (NOT DETECT); Campylobacter Sp Not Detected (NOT DETECT); Cryptosporidium Not Detected (NOT DETECT); Cyclospora Cayetanensis Not Detected (NOT DETECT); E. Coli O157 Not Detected (NOT DETECT); Entamoeba Histolytica Not Detected (NOT DETECT); Enteroaggregative E. coli-EAEC Not Detected (NOT DETECT); Enteropathogenic E. coli-EPEC Detected (NOT DETECT); Enterotoxigenic E. coli-ETEC Not Detected (NOT DETECT); Giardia Lamblia Not Detected (NOT DETECT); Norovirus GI/GII Not Detected (NOT DETECT); Plesiomonas Shigelloides Not Detected (NOT DETECT); Rotavirus A Not Detected (NOT DETECT); Salmonella Sp Not Detected (NOT DETECT); Sapovirus Not Detected (NOT DETECT); Shiga Toxin-prod E. coli-STEC Not Detected (NOT DETECT); Shigella/Enteroin E. coli-EIEC Not Detected (NOT DETECT); Vibrio Cholerae Not Detected (NOT DETECT); Vibrio Sp Not Detected (NOT DETECT); Yersinia Enterocolitica Not Detected (NOT DETECT)
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
--- NOTE | 2019-05-06 20:14 | NUR ---
1845: ASSUMED CARE OF PATIENT. GAVE 1ST DOSE OF PO VANCO. PAT STATES PAIN 03/26, DISCUSSED PAIN MED AVAILABILTY. SHIFT ASSESSMENT COMPLETED. WILL CONTINUE TO MONITOR CALL ALFRED WITHIN REACH
[2019-05-07 08:37] LABS: BASOPHILS ABSOLUTE AUTO 0.09 K/mm3 (0.00-0.23); BASOPHILS PERCENT AUTO 1 % (0-2); EOSINOPHILS ABSOLUTE AUTO 0.41 K/mm3 (0.00-0.68); EOSINOPHILS PERCENT AUTO 5 % (0-6); Hematocrit 33.3 % (33.0-51.0); Hemoglobin 10.6 g/dL (11.5-16.0); IMMATURE GRAN ABSOLUTE AUTO 0.03 K/mm3 (0.00-0.10); IMMATURE GRAN PERCENT AUTO 0 % (0-1); LYMPHOCYTES ABSOLUTE AUTO 3.27 K/mm3 (0.84-5.20); LYMPHOCYTES PERCENT AUTO 38 % (21-46); MONOCYTES ABSOLUTE AUTO 0.76 K/mm3 (0.16-1.47); MONOCYTES PERCENT AUTO 9 % (4-13); Mean Corpuscular HGB 28.1 pg (26.0-34.0); Mean Corpuscular HGB Conc 31.8 g/dL (31.5-36.5); Mean Corpuscular Volume 88 fL (80-100); Mean Platelet Volume 9.7 fL (9.1-12.4); NEUTROPHILS ABSOLUTE AUTO 3.99 K/mm3 (1.96-9.15); NEUTROPHILS PERCENT AUTO 47 % (41-73); Platelet Count 291 K/mm3 (150-400); RDW Coefficient Variation 14.2 % (11.7-14.2); RDW Standard Deviation 45.3 fL (35.1-46.3); Red Blood Cell Count 3.77 M/mm3 (3.80-5.20); White Blood Cell Count 8.55 K/mm3 (4.00-11.30)
[2019-05-07 09:53] LABS: Alanine Aminotransfer (ALT/SGP 24 U/L (12-78); Albumin/Globulin Ratio 0.9 (0.8-1.8); Alk Phos 118 U/L (50-136); Anion Gap 7 mmol/L (6-16); Aspartate Aminotrans (AST/SGOT 30 U/L (12-37); Bilirubin, Total 0.5 mg/dL (0.1-1.0); Blood Urea Nitrogen 9 mg/dL (8-24); Bun/Creatinine Ratio 13.8 (12.0-20.0); CO2, Blood 21 mmol/L (21-32); Calcium, Blood 8.6 mg/dL (8.5-10.1); Chloride, Blood 111 mmol/L (98-108); Creatinine, Blood 0.65 mg/dL (0.40-1.00); Globulin, Blood 3.2 g/dL (2.2-4.0); Glomerular Filtration Rate >60 (60-); Glucose, Blood 171 mg/dL (70-99); Potassium, Blood 3.7 mmol/L (3.5-5.5); Sodium, Blood 139 mmol/L (136-145); Total Protein, Blood 6.2 g/dL (6.4-8.2)
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
--- NOTE | 2019-05-07 19:37 | NUR ---
SHIFT SUMMARY: NO ACUTE CHANGES TO REPORT THIS SHIFT. PT A&O; CALM AND COOPERATIVE WITH CARE; INDEPENDENT TO BATHROOM. MEDICATED FOR LLQ PAIN PER EMAR; CLEAR LIQUIDS CONTINUING. EXPECTED GI SCOPE ONCE BLOOD THINNERS HAVE CLEARED. REPORT GIVEN TO ONCOMING RN.
[2019-05-08 05:21] LABS: BASOPHILS ABSOLUTE AUTO 0.09 K/mm3 (0.00-0.23); BASOPHILS PERCENT AUTO 1 % (0-2); EOSINOPHILS ABSOLUTE AUTO 0.44 K/mm3 (0.00-0.68); EOSINOPHILS PERCENT AUTO 5 % (0-6); Hematocrit 32.9 % (33.0-51.0); Hemoglobin 10.6 g/dL (11.5-16.0); IMMATURE GRAN ABSOLUTE AUTO 0.03 K/mm3 (0.00-0.10); IMMATURE GRAN PERCENT AUTO 0 % (0-1); LYMPHOCYTES PERCENT AUTO 40 % (21-46); MONOCYTES ABSOLUTE AUTO 0.83 K/mm3 (0.16-1.47); MONOCYTES PERCENT AUTO 9 % (4-13); Mean Corpuscular HGB 28.2 pg (26.0-34.0); Mean Corpuscular HGB Conc 32.2 g/dL (31.5-36.5); Mean Corpuscular Volume 88 fL (80-100); Mean Platelet Volume 9.5 fL (9.1-12.4); NEUTROPHILS ABSOLUTE AUTO 4.06 K/mm3 (1.96-9.15); NEUTROPHILS PERCENT AUTO 45 % (41-73); Platelet Count 315 K/mm3 (150-400); RDW Coefficient Variation 13.6 % (11.7-14.2); RDW Standard Deviation 43.5 fL (35.1-46.3); Red Blood Cell Count 3.76 M/mm3 (3.80-5.20); White Blood Cell Count 9.05 K/mm3 (4.00-11.30)
[2019-05-08 05:46] LABS: Alanine Aminotransfer (ALT/SGP 26 U/L (12-78); Albumin/Globulin Ratio 0.9 (0.8-1.8); Alk Phos 118 U/L (50-136); Anion Gap 8 mmol/L (6-16); Aspartate Aminotrans (AST/SGOT 30 U/L (12-37); Bilirubin, Total 0.7 mg/dL (0.1-1.0); Blood Urea Nitrogen 9 mg/dL (8-24); Bun/Creatinine Ratio 14.2 (12.0-20.0); CO2, Blood 22 mmol/L (21-32); Calcium, Blood 8.7 mg/dL (8.5-10.1); Chloride, Blood 111 mmol/L (98-108); Creatinine, Blood 0.63 mg/dL (0.40-1.00); Globulin, Blood 3.2 g/dL (2.2-4.0); Glomerular Filtration Rate >60 (60-); Glucose, Blood 124 mg/dL (70-99); Potassium, Blood 3.5 mmol/L (3.5-5.5); Sodium, Blood 141 mmol/L (136-145); Total Protein, Blood 6.2 g/dL (6.4-8.2)
--- NOTE | 2019-05-08 07:01 | NUR ---
SHIFT SUMMARY PT A/O INDEPENDENT. C/O PAIN X3 AND MEDICATED PER EMAR.SHE DENIED ANY BLOOD IN STOOL. SHE WAS ABLE TO DOZE ON AND OFF T/O NIGHT. CALL LIGHT IN REACH.
--- NOTE | 2019-05-08 11:08 | NUR ---
Patient is lying in bed and resting, but easily awakens to the sound of her name. I continue our conversation from the prior day and discuss negotiating through all the grief, financial pressure, family dynamics and health issues. I listen empathically, provide emotional support and prayer. Patient voices appreciation for the visit and states that I can come backk anytime.
--- NOTE | 2019-05-08 19:29 | NUR ---
SHIFT SUMMARY: NO ACUTE CHANGES TO REPORT THIS SHIFT. PT A&O; ANXIETY R/T RECENT LOSS; COOPERATIVE WITH CARE. MEDICATED FOR LLQ PAIN PER EMAR; GI MEDS PER EMAR; FULL LIQUID DIET-PT TOLERATING WELL. GI (DR MC) RESTARTED ASA 81 & PLAVIX THIS SHIFT - MONITOR FOR NEW GI BLEEDS. REPORT GIVEN TO ONCOMING RN.
[2019-05-09 05:00] LABS: BASOPHILS ABSOLUTE AUTO 0.12 K/mm3 (0.00-0.23); BASOPHILS PERCENT AUTO 1 % (0-2); EOSINOPHILS ABSOLUTE AUTO 0.45 K/mm3 (0.00-0.68); EOSINOPHILS PERCENT AUTO 5 % (0-6); Hematocrit 34.4 % (33.0-51.0); IMMATURE GRAN ABSOLUTE AUTO 0.03 K/mm3 (0.00-0.10); IMMATURE GRAN PERCENT AUTO 0 % (0-1); LYMPHOCYTES ABSOLUTE AUTO 3.47 K/mm3 (0.84-5.20); LYMPHOCYTES PERCENT AUTO 41 % (21-46); MONOCYTES ABSOLUTE AUTO 0.84 K/mm3 (0.16-1.47); MONOCYTES PERCENT AUTO 10 % (4-13); Mean Corpuscular HGB 28.2 pg (26.0-34.0); Mean Corpuscular Volume 88 fL (80-100); NEUTROPHILS ABSOLUTE AUTO 3.65 K/mm3 (1.96-9.15); NEUTROPHILS PERCENT AUTO 43 % (41-73); Platelet Count 267 K/mm3 (150-400); RDW Coefficient Variation 14.5 % (11.7-14.2); RDW Standard Deviation 43.2 fL (35.1-46.3); White Blood Cell Count 8.56 K/mm3 (4.00-11.30)
--- NOTE | 2019-05-09 06:54 | NUR ---
SHIFT SUMMARY NO ACUTE EVENTS OVERNIGHT. PATIENT PLACED ON CONTACT PRECAUTIONS FOR ESBL. PATEINT REQUIRED PAIN MEDICATIONS OFTEN ORDERED. PATEINT WALKED IN HALLWAY APPROX 30 FEET. NO BM OVERNIGHT
[2019-05-09 08:05] LABS: Alanine Aminotransfer (ALT/SGP 38 U/L (12-78); Albumin, Blood 3.3 g/dL (3.4-5.0); Alk Phos 156 U/L (50-136); Anion Gap 5 mmol/L (6-16); Aspartate Aminotrans (AST/SGOT 56 U/L (12-37); Bilirubin, Total 0.5 mg/dL (0.1-1.0); Blood Urea Nitrogen 9 mg/dL (8-24); Bun/Creatinine Ratio 14.4 (12.0-20.0); CO2, Blood 24 mmol/L (21-32); Calcium, Blood 9.3 mg/dL (8.5-10.1); Chloride, Blood 110 mmol/L (98-108); Creatinine, Blood 0.63 mg/dL (0.40-1.00); Globulin, Blood 3.4 g/dL (2.2-4.0); Glomerular Filtration Rate >60 (60-); Glucose, Blood 136 mg/dL (70-99); Potassium, Blood 3.6 mmol/L (3.5-5.5); Sodium, Blood 139 mmol/L (136-145); Total Protein, Blood 6.7 g/dL (6.4-8.2)
[2019-05-09] MEDS ORDERED: Lipitor20 MG PO (14:16)
[2019-05-09] MEDS ORDERED: Bactrim Ds Tab1 EACH PO (14:17)
--- NOTE | 2019-05-09 14:51 | NUR ---
D/C INSTRUCTIONS PROVIDED AND EXPLAINED TO PT. POWER GLIDE REMOVED. PT D/C VIA WHEELCHAIR WITH JOB COACHING AT 1450.
== END 2019-05-09 14:50 | disposition home or self-care (01) | DRG 372 ==
LOC: ER 15:01 → MEDS 15:02
PROVIDERS: Nurse Practitioner Acute Care; Physician Assistant; ADMIT Internal Medicine
DX: A04.72 Enterocolitis due to Clostridium difficile, not specified as recurrent (principal); K55.9 Vascular disorder of intestine, unspecified; I69.351 Hemiplegia and hemiparesis following cerebral infarction affecting right dominant side; R65.10 Systemic inflammatory response syndrome (SIRS) of non-infectious origin without acute organ dysfunction; A04.0 Enteropathogenic Escherichia coli infection; Z79.01 Long term (current) use of anticoagulants; Z79.4 Long term (current) use of insulin; Z79.82 Long term (current) use of aspirin; I25.10 Atherosclerotic heart disease of native coronary artery without angina pectoris; K21.9 Gastro-esophageal reflux disease without esophagitis; J44.9 Chronic obstructive pulmonary disease, unspecified; E11.51 Type 2 diabetes mellitus with diabetic peripheral angiopathy without gangrene; K44.9 Diaphragmatic hernia without obstruction or gangrene; E78.5 Hyperlipidemia, unspecified; Z95.5 Presence of coronary angioplasty implant and graft; E66.3 Overweight; Z68.24 Body mass index [BMI] 24.0-24.9, adult; F41.1 Generalized anxiety disorder; Z99.81 Dependence on supplemental oxygen; I10 Essential (primary) hypertension; K57.30 Diverticulosis of large intestine without perforation or abscess without bleeding; F17.210 Nicotine dependence, cigarettes, uncomplicated
CPT/HCPCS: 0097U; 36415; 71046; 74176; 80048; 80053; 81001; 82947; 83735; 85025; 85027; 85610; 85730; 87077; 87086; 87186; 87324; 94640; 94760; 96361; 96374; 96375; 96376; 99285-25; A9270; C9113; G0378; J1170; J2405; J3010; J7030

== ENCOUNTER 2019-05-23 13:18 | Inpatient (IN) | payer OTHER ==
[~2019-05-23] VITALS: Ht 160 cm; Wt 74.2 kg
[~2019-05-23 13:18] MED LIST changes: +ALPR.5 PO; +BACL10 PO; +BRINTELLIX10 MG PO; +Bactrim Ds Tab1 EACH PO; +Lipitor20 MG PO
[2019-05-23 13:50] LABS: Calcium, Ionized (POC) 0.97 mmol/L (1.10-1.46); Chloride (POC) 111 mmol/L (98-108); Creatinine (POC) 0.9 mg/dL (0.6-1.0); Glucose (ISTAT POC) 612 mg/dL (70-99); Hemoglobin (POC) 17.3 g/dL (12.0-16.0); Potassium (POC) 5.2 mmol/L (3.5-5.5); Sodium (POC) 130 mmol/L (135-148); Total CO2 (POC) 13 mmol/L (21-32)
[2019-05-23 14:11] LABS: BASOPHILS ABSOLUTE AUTO 0.09 K/mm3 (0.00-0.23); BASOPHILS PERCENT AUTO 1 % (0-2); EOSINOPHILS ABSOLUTE AUTO 0.43 K/mm3 (0.00-0.68); EOSINOPHILS PERCENT AUTO 3 % (0-6); Hematocrit 43.7 % (33.0-51.0); Hemoglobin 14.2 g/dL (11.5-16.0); IMMATURE GRAN ABSOLUTE AUTO 0.09 K/mm3 (0.00-0.10); IMMATURE GRAN PERCENT AUTO 1 % (0-1); LYMPHOCYTES ABSOLUTE AUTO 4.64 K/mm3 (0.84-5.20); LYMPHOCYTES PERCENT AUTO 33 % (21-46); MONOCYTES ABSOLUTE AUTO 0.79 K/mm3 (0.16-1.47); MONOCYTES PERCENT AUTO 6 % (4-13); Mean Corpuscular HGB 28.5 pg (26.0-34.0); Mean Corpuscular HGB Conc 32.5 g/dL (31.5-36.5); Mean Corpuscular Volume 88 fL (80-100); Mean Platelet Volume 10.2 fL (9.1-12.4); NEUTROPHILS PERCENT AUTO 57 % (41-73); Platelet Count 418 K/mm3 (150-400); RDW Coefficient Variation 13.7 % (11.7-14.2); RDW Standard Deviation 43.9 fL (35.1-46.3); Red Blood Cell Count 4.99 M/mm3 (3.80-5.20); White Blood Cell Count 14.14 K/mm3 (4.00-11.30)
[2019-05-23 14:29] LABS: Alanine Aminotransfer (ALT/SGP 26 U/L (12-78); Albumin, Blood 3.3 g/dL (3.4-5.0); Albumin/Globulin Ratio 0.9 (0.8-1.8); Alk Phos 182 U/L (50-136); Anion Gap 12 mmol/L (6-16); Aspartate Aminotrans (AST/SGOT 30 U/L (12-37); Bilirubin, Total 0.3 mg/dL (0.1-1.0); Blood Urea Nitrogen 30 mg/dL (8-24); Bun/Creatinine Ratio 32.6 (12.0-20.0); CO2, Blood 18 mmol/L (21-32); Calcium, Blood 9.6 mg/dL (8.5-10.1); Chloride, Blood 104 mmol/L (98-108); Creatinine, Blood 0.92 mg/dL (0.40-1.00); Globulin, Blood 3.6 g/dL (2.2-4.0); Glomerular Filtration Rate >60 (60-); Glucose, Blood 640 mg/dL (70-99); Sodium, Blood 134 mmol/L (136-145); Total Protein, Blood 6.9 g/dL (6.4-8.2)
[2019-05-23] MEDS ORDERED: NOVOLOG FL100 UNIT/1 SC (16:01)
--- NOTE | 2019-05-23 21:30 | NUR ---
Carter of Care: Patient arrived to unit via stretcher, accompanied by ED nurse. Stood and transferred to ICU bed without difficulty. Denies dyspnea/SOB, O2-94-96% on RA, VSS. C/o Lt mid/upper ABD pain 7-10. Patient states prn fentanyl given in ED was helpful but still requiring additional pain interventions. Ice pack given at this time, plan to call hospitalist to request change in fentanyl frequency. Power-glide to LISA patent and intact. Infusing NS at 125ml/hr without difficulty. Removed bilateral 18g IV's in patient feet upon arrival. Patient voided using toilet in ED, will monitor. Call light in reach, able to adjust own position in bed. Will continue to monitor for pain, comfort, safety.
--- NOTE | 2019-05-23 21:45 | NUR ---
Call to Simona Lama: Call placed to Simona CITY PLANT SUPERVISOR regarding patient's continue pain and nausea. Simona change prn fentanyl order from 25-50mcg q4 to q2hr. Will give additional prn fentanyl dose and monitor for effect.
--- NOTE | 2019-05-24 02:30 | NUR ---
Pain/ Call to Dr. Queen: Call placed to Dr. Queen, patient continues in moderate to severe pain. Prn fentanyl effective for only short amount of time. Patient also continues to be nauseous, prn Zofran also only effective for short amount of time. Received orders for prn Dilaudid and prn phenergan. Will give new prn orders and monitor for effect.
[2019-05-24 04:35] LABS: Hematocrit 35.1 % (33.0-51.0); Hemoglobin 11.4 g/dL (11.5-16.0); Mean Corpuscular HGB 28.6 pg (26.0-34.0); Mean Corpuscular HGB Conc 32.5 g/dL (31.5-36.5); Mean Corpuscular Volume 88 fL (80-100); Mean Platelet Volume 9.9 fL (9.1-12.4); Platelet Count 308 K/mm3 (150-400); RDW Standard Deviation 45.1 fL (35.1-46.3); Red Blood Cell Count 3.99 M/mm3 (3.80-5.20); White Blood Cell Count 10.12 K/mm3 (4.00-11.30)
[2019-05-24 04:56] LABS: Alanine Aminotransfer (ALT/SGP 24 U/L (12-78); Albumin, Blood 3.1 g/dL (3.4-5.0); Alk Phos 114 U/L (50-136); Anion Gap 12 mmol/L (6-16); Aspartate Aminotrans (AST/SGOT 22 U/L (12-37); Bilirubin, Total 0.2 mg/dL (0.1-1.0); Blood Urea Nitrogen 21 mg/dL (8-24); Bun/Creatinine Ratio 28.8 (12.0-20.0); CO2, Blood 20 mmol/L (21-32); Calcium, Blood 8.4 mg/dL (8.5-10.1); Chloride, Blood 111 mmol/L (98-108); Creatinine, Blood 0.73 mg/dL (0.40-1.00); Globulin, Blood 3.1 g/dL (2.2-4.0); Glomerular Filtration Rate >60 (60-); Glucose, Blood 237 mg/dL (70-99); Sodium, Blood 143 mmol/L (136-145); Total Protein, Blood 6.2 g/dL (6.4-8.2)
--- NOTE | 2019-05-24 06:22 | NUR ---
Shift Summary: Patient slept on/off throughout shift. Requiring frequent prn doses of dilaudid of fentanyl for ABD pain control. Dilaudid appears to be more effective and longer lasting. Patient also received x3 doses of prn antinausea medications with good effect noted, no vomiting. Insulin gtt started at 2230 hr, titrated between 1-2.5u/hr, blood glucose decreased to low 200's. Will continue to monitor blood glucose and d/c insulin gtt when sugars below 200. Voiding using toilet in bed without difficulty. Call light in reach, makes needs known. Will continue to monitor until report to day shift RN.
--- NOTE | 2019-05-24 07:30 | NUR ---
BEGINNING OF SHIFT Assumed care at 0700 with Radha RETANA. Bedside report received from Ryan RETANA. Pt on room air. Fine bibasilar crackles noted. IS provided to pt. Pt instructed on use and demonstrates correct usage. Pt verbalizes understanding of importance for using IS. SR per monitor. BP 140s-150s systolic. Pt states abdominal pain and nausea. No emesis. Plan to administer nausea and pain meds per orders. Pt receives phone call from daughter and becomes tearful; pt states she misses her boyfriend and wishes he was here. Pt tells this RN that she does not have any family locally. She states that her daughter, Lindsey, who lives on the [facility] is her decision-maker. This RN placed call to Dr Escobar to notify of positive blood cultures. New orders given.
--- NOTE | 2019-05-24 09:27 | NUR ---
AM MEDICATIONS PO medications held as pt continues to experience nausea and severe abdominal pain. Additionally, potential for surgical intervention today. Plan to manage hypertension/tachycardia with IV medication, if necessary.
--- NOTE | 2019-05-24 10:24 | NUR ---
UPDATE Dr Motta in to see patient at 1015. Provider states no plans for surgical intervention at this time. Provider aware that pt has GI consultation; states pt likely needs colonoscopy. Pt asks provider if she can have ice chips, provider states "yes". Dr Escobar in to see pt 1022. Discussed S1 murmur auscultated during shift assessment. Orders for echocardiogram. Plans to start subcutaneous insulin and DC drip. Potential to transfer to PCU today. Provider states pt okay for clear liquid diet. Provider states pt okay to have ASA and plavix. Lovenox to be discontinued. SCDs to be placed for VTE prophylaxis.
--- NOTE | 2019-05-24 10:45 | NUR ---
CALL PLACED TO DR CROCKER Provider states he is aware of consult and plans on visiting pt this evening. Case discussed, no plans for endoscopy today.
--- NOTE | 2019-05-24 12:25 | NUR ---
UPDATE GIVEN TO PT'S DAUGHTER Pt in room speaking to daughter on phone. Pt hands phone to this RN and requests daughter is updated on plan of care. Daughter updated. No additional requests from pt or daughter at this time.
--- NOTE | 2019-05-24 12:30 | NUR ---
CALL PLACED TO DR RODRIGUEZ Provider entered order for dilaudid. This RN clarified order as pt is already receiving dilaudid. Discussed amount of medication pt is requiring for pain managment. Provider states to discontinue most recent order.
--- NOTE | 2019-05-24 13:14 | NUR ---
MUSIC THERAPY Dionisio is at patient's bedside, providing music for pt per her request.
--- NOTE | 2019-05-24 14:13 | NUR ---
CALL PLACED TO DR RODRIGUEZ Updated provider on pt condition. Provider states pt okay to be medical floor status with telemetry. Pt updated. Pt requests this RN updates her sister, Sharon. This RN updated sister to pt and sister's satisfaction.
--- NOTE | 2019-05-24 15:02 | NUR ---
Per admit trigger, I met with Disha to offer prayer and spiritual children counselor. She told me about the loss of her SO just a few weeks ago. She was tearful and said she felt forgotten by God. I provided bereavement children counselor and spiritual direction to good effect. We prayed together for healing. I will continue to see Disha as schedule permits.
--- NOTE | 2019-05-24 18:10 | NUR ---
SUMMARY Pt has not had any visitors this shift. Remains on room air. Pt had one full cup of broth today. States she is not having nausea, however she states her abdomial pain is not improving with pain medication. PO fluids taken away. Pt verbalizes understanding. Pt has not had any emesis this shift. Pt has not had visitors this shift.
--- NOTE | 2019-05-24 19:48 | NUR ---
Jim [place]ogg of Care: Patient alert and oriented x4, sitting upright in bed watching T.V. Denies dyspnea/SOB, O2-97% on RA, VSS. Denies N/V at this time, tolerating PO fluids without difficulty. Continues to c/o pain to ABD, but states pain has been much better controlled throughout the day. X1 dose prn Dilaudid given at this time. Power-glide to LISA patent and intact. Voids using toilet in room without difficulty. Call light in reach, makes needs known. Will continue to monitor for pain, comfort, safety.
[2019-05-25 03:53] LABS: BASOPHILS ABSOLUTE AUTO 0.07 K/mm3 (0.00-0.23); BASOPHILS PERCENT AUTO 1 % (0-2); EOSINOPHILS ABSOLUTE AUTO 0.69 K/mm3 (0.00-0.68); EOSINOPHILS PERCENT AUTO 7 % (0-6); Hematocrit 30.6 % (33.0-51.0); Hemoglobin 9.7 g/dL (11.5-16.0); IMMATURE GRAN ABSOLUTE AUTO 0.03 K/mm3 (0.00-0.10); IMMATURE GRAN PERCENT AUTO 0 % (0-1); LYMPHOCYTES ABSOLUTE AUTO 3.15 K/mm3 (0.84-5.20); LYMPHOCYTES PERCENT AUTO 31 % (21-46); MONOCYTES PERCENT AUTO 8 % (4-13); Mean Corpuscular HGB 28.4 pg (26.0-34.0); Mean Corpuscular HGB Conc 31.7 g/dL (31.5-36.5); Mean Corpuscular Volume 90 fL (80-100); Mean Platelet Volume 9.4 fL (9.1-12.4); NEUTROPHILS ABSOLUTE AUTO 5.53 K/mm3 (1.96-9.15); NEUTROPHILS PERCENT AUTO 54 % (41-73); Platelet Count 232 K/mm3 (150-400); RDW Coefficient Variation 14.2 % (11.7-14.2); Red Blood Cell Count 3.42 M/mm3 (3.80-5.20); White Blood Cell Count 10.27 K/mm3 (4.00-11.30)
[2019-05-25 04:12] LABS: Alanine Aminotransfer (ALT/SGP 19 U/L (12-78); Alk Phos 95 U/L (50-136); Anion Gap 5 mmol/L (6-16); Aspartate Aminotrans (AST/SGOT 21 U/L (12-37); Bilirubin, Total 0.3 mg/dL (0.1-1.0); Blood Urea Nitrogen 12 mg/dL (8-24); Bun/Creatinine Ratio 19.7 (12.0-20.0); CO2, Blood 23 mmol/L (21-32); Calcium, Blood 8.4 mg/dL (8.5-10.1); Chloride, Blood 113 mmol/L (98-108); Creatinine, Blood 0.61 mg/dL (0.40-1.00); Globulin, Blood 2.9 g/dL (2.2-4.0); Glomerular Filtration Rate >60 (60-); Glucose, Blood 103 mg/dL (70-99); Potassium, Blood 4.5 mmol/L (3.5-5.5); Sodium, Blood 141 mmol/L (136-145); Total Protein, Blood 5.9 g/dL (6.4-8.2)
--- NOTE | 2019-05-25 05:56 | NUR ---
Shift Summary: Patient slept on/off throughout shift. VSS, O2-96-98% on RA. Pain better controlled throughout shift r/t last NOC. PRN Dilaudid 1mg doses effective to manage c/o ABD pain. X1 prn dose of phenergan effective to manage c/o nausea. Tolerating PO fluids without difficulty. Transferring to toilet in room without difficulty. Adjusting own position in bed, makes needs known. Will continue monitor until report to day shift RN.
--- NOTE | 2019-05-25 09:00 | NUR ---
ASSESSMENT- PT AWAKE, ALERT, COOPERATIVE. C/O PAIN ACROSS ABDOMEN, VERY TENDER TO TOUCH. REQUESTING RX-GIVEN. EXPLAINED PLAN OF CARE, NEED FOR INCREASED ACTIVITY TO ASSIST WITH GAS RELIEF, STATES UNDERSTANDING. NO S/S BLEEDING. VSS. BLOOD SUGAR STABLE. ANTIBIOTICS STARTED
--- NOTE | 2019-05-25 10:26 | NUR ---
REPORT TO VICENTA RETANA, PT TRANSFERRED TO MEDICAL FLOOR IN WHEELCHAIR. TOLERATED WELL. STATES PAIN BETTER, HAS BEEN ABLE TO SLEEP.
--- NOTE | 2019-05-25 17:27 | NUR ---
SHIFT SUMMARY NO ACUTE CONCERNS AT THIS ITME. SHE IS FOCUSED ON PAIN MANAGEMENT. SHE GOT ONE TIME DOSE OF 2MG OF DILAUDID AND IS MANAGED NOW WITH THE 1MG OF DILAUDID Q2. AT THIS TIME SHE IS COMFORTABLE. SHE WAS RECENTLY MEDICATED.
--- NOTE | 2019-05-26 03:32 | NUR ---
NOC SHIFT SUMMARY PT IS PLEASANT AND COOPERATIVE WITH CARE. SHE HAS SLEPT OFF AND ON THROUGH THE NIGHT. HER ONGOING ABD PAIN HAS BEEN TREATED PER EMAR. PASSING FLATUS. STATES SHE "HAS NEVER BEEN THIS GASY BEFORE". PRESENTLY DOES NOT APPEARS IN ANY ACUTE DISTRESS. WILL CONTINUE TO MONITOR.
[2019-05-26 07:22] LABS: BASOPHILS ABSOLUTE AUTO 0.07 K/mm3 (0.00-0.23); BASOPHILS PERCENT AUTO 1 % (0-2); EOSINOPHILS ABSOLUTE AUTO 0.58 K/mm3 (0.00-0.68); EOSINOPHILS PERCENT AUTO 8 % (0-6); Hemoglobin 9.9 g/dL (11.5-16.0); IMMATURE GRAN ABSOLUTE AUTO 0.02 K/mm3 (0.00-0.10); IMMATURE GRAN PERCENT AUTO 0 % (0-1); LYMPHOCYTES ABSOLUTE AUTO 2.56 K/mm3 (0.84-5.20); LYMPHOCYTES PERCENT AUTO 35 % (21-46); MONOCYTES ABSOLUTE AUTO 0.79 K/mm3 (0.16-1.47); MONOCYTES PERCENT AUTO 11 % (4-13); Mean Corpuscular HGB 28.4 pg (26.0-34.0); Mean Corpuscular HGB Conc 31.9 g/dL (31.5-36.5); Mean Corpuscular Volume 89 fL (80-100); Mean Platelet Volume 9.7 fL (9.1-12.4); NEUTROPHILS PERCENT AUTO 46 % (41-73); Platelet Count 246 K/mm3 (150-400); RDW Coefficient Variation 13.7 % (11.7-14.2); RDW Standard Deviation 44.8 fL (35.1-46.3); Red Blood Cell Count 3.48 M/mm3 (3.80-5.20); White Blood Cell Count 7.42 K/mm3 (4.00-11.30)
[2019-05-26 07:43] LABS: Alanine Aminotransfer (ALT/SGP 20 U/L (12-78); Albumin/Globulin Ratio 0.9 (0.8-1.8); Alk Phos 113 U/L (50-136); Anion Gap 6 mmol/L (6-16); Aspartate Aminotrans (AST/SGOT 29 U/L (12-37); Bilirubin, Total 0.3 mg/dL (0.1-1.0); Blood Urea Nitrogen 9 mg/dL (8-24); Bun/Creatinine Ratio 15.1 (12.0-20.0); CO2, Blood 25 mmol/L (21-32); Calcium, Blood 9.3 mg/dL (8.5-10.1); Chloride, Blood 111 mmol/L (98-108); Globulin, Blood 3.3 g/dL (2.2-4.0); Glomerular Filtration Rate >60 (60-); Glucose, Blood 170 mg/dL (70-99); Magnesium, Blood 1.6 mg/dL (1.6-2.4); Potassium, Blood 4.6 mmol/L (3.5-5.5); Sodium, Blood 142 mmol/L (136-145); Total Protein, Blood 6.3 g/dL (6.4-8.2)
--- NOTE | 2019-05-26 13:12 | NUR ---
AFTER LUNCH PATIENT COMPLAINED OF SIGNIFICANT PAIN IN HER ABDOMEN, RATING THIS PAIN 10/10 INSTEAD OF THE REGULAR 8/10. THE PATIENT IS UNDER SIGNIFICANT EMOTIONAL DISTRESS AT THIS TIME, OBVIOUSLY ANXIOUS, AND NOTED HER ABDOMEN HURT MORE AFTER EATING. THIS TIME I SPOKE WITH THE PATIENT AND SHE NEEDED THE FENTANYL WHICH SHE HAS NOT BEEN USING.
--- NOTE | 2019-05-26 16:51 | NUR ---
SHIFT SUMMARY PATIENT IS DOING WELL TODAY. NOT IN MUCH NEED OF PAIN MEDICATION. SHE WAS GIVEN GAS MEDICATION THIS AFTERNOON WHICH HAS SEEMED TO HELP WITH THE PATIENTS PAIN AT THIS TIME, NO ACTE CONCERNS OF RIGHT NOW.
--- NOTE | 2019-05-27 03:44 | NUR ---
NOC SHIFT SUMMARY PT PLEASANT AND COOPERATIVE WITH CARE. SHE HAS BEEN TREATED THROUGHOUT THE NIGHT FOR PAIN AND GAS PER EMAR. VSS. TELE PRESENLTY NSR RATE 68 PER FOREST ECONOMIST. PT IS PRESENTLY SNORING SOFTLY AND APPEARS IN NO ACUTE DISTRESS. WILL CONTINUE TO MONITOR.
[2019-05-27 04:36] LABS: BASOPHILS ABSOLUTE AUTO 0.05 K/mm3 (0.00-0.23); BASOPHILS PERCENT AUTO 1 % (0-2); EOSINOPHILS ABSOLUTE AUTO 0.54 K/mm3 (0.00-0.68); EOSINOPHILS PERCENT AUTO 8 % (0-6); Hematocrit 31.2 % (33.0-51.0); Hemoglobin 10.2 g/dL (11.5-16.0); IMMATURE GRAN ABSOLUTE AUTO 0.02 K/mm3 (0.00-0.10); IMMATURE GRAN PERCENT AUTO 0 % (0-1); LYMPHOCYTES ABSOLUTE AUTO 2.83 K/mm3 (0.84-5.20); LYMPHOCYTES PERCENT AUTO 41 % (21-46); MONOCYTES ABSOLUTE AUTO 0.75 K/mm3 (0.16-1.47); MONOCYTES PERCENT AUTO 11 % (4-13); Mean Corpuscular HGB 28.4 pg (26.0-34.0); Mean Corpuscular HGB Conc 32.7 g/dL (31.5-36.5); Mean Corpuscular Volume 87 fL (80-100); Mean Platelet Volume 9.8 fL (9.1-12.4); NEUTROPHILS ABSOLUTE AUTO 2.64 K/mm3 (1.96-9.15); NEUTROPHILS PERCENT AUTO 39 % (41-73); Platelet Count 277 K/mm3 (150-400); RDW Coefficient Variation 13.4 % (11.7-14.2); RDW Standard Deviation 42.5 fL (35.1-46.3); Red Blood Cell Count 3.59 M/mm3 (3.80-5.20); White Blood Cell Count 6.83 K/mm3 (4.00-11.30)
[2019-05-27 04:55] LABS: Alanine Aminotransfer (ALT/SGP 27 U/L (12-78); Albumin/Globulin Ratio 0.9 (0.8-1.8); Alk Phos 147 U/L (50-136); Anion Gap 6 mmol/L (6-16); Aspartate Aminotrans (AST/SGOT 36 U/L (12-37); Bilirubin, Total 0.3 mg/dL (0.1-1.0); Blood Urea Nitrogen 12 mg/dL (8-24); CO2, Blood 27 mmol/L (21-32); Calcium, Blood 9.9 mg/dL (8.5-10.1); Chloride, Blood 107 mmol/L (98-108); Creatinine, Blood 0.63 mg/dL (0.40-1.00); Globulin, Blood 3.5 g/dL (2.2-4.0); Glomerular Filtration Rate >60 (60-); Glucose, Blood 220 mg/dL (70-99); Potassium, Blood 4.3 mmol/L (3.5-5.5); Sodium, Blood 140 mmol/L (136-145); Total Protein, Blood 6.5 g/dL (6.4-8.2)
--- NOTE | 2019-05-27 17:53 | NUR ---
SHIFT SUMMARY PATIENT HAS BEEN PLEASANT. ALERT AND ORIENTED IN THE ROOM. NO ACUTE CONCERNS FROM THE PATIENT. SHE HAS BEEN MEDICATED AND IS EATING WELL. SHE IS DOING BETTER WITH HER PSYCHOSOCIAL DISTRESS TODAY SHE HAS WORKED ON ALTERNATIVE THERAPIES IN THE ROOM SHE WAS ALREADY PRACTICING MEDITATION.
--- NOTE | 2019-05-28 03:16 | NUR ---
NOC SHIFT SUMMARY PT IS PLEASANT AND COOPERATIVE WITH CARE. SHE HAS BEEN TREATED THROUGH THE NIGHT FOR NAUSEA, PAIN, AND GAS PER EMAR. SHE RELATED THAT THE SIMETHICONE HAS HELPED QUITE A LOT WITH THE GAS. SHE HAS SLEPT ON AND OFF THIS NIGHT. VSS. WAS BROUGHT A WARM BLANKET TO HELP HER SLEEP. PRESENTLY APPEARS IN NO ACUTE DISTRESS. WILL CONTINUE TO MONITOR.
[2019-05-28 04:25] LABS: BASOPHILS ABSOLUTE AUTO 0.07 K/mm3 (0.00-0.23); BASOPHILS PERCENT AUTO 1 % (0-2); EOSINOPHILS ABSOLUTE AUTO 0.64 K/mm3 (0.00-0.68); EOSINOPHILS PERCENT AUTO 9 % (0-6); Hematocrit 32.7 % (33.0-51.0); Hemoglobin 10.8 g/dL (11.5-16.0); IMMATURE GRAN ABSOLUTE AUTO 0.01 K/mm3 (0.00-0.10); IMMATURE GRAN PERCENT AUTO 0 % (0-1); LYMPHOCYTES ABSOLUTE AUTO 3.57 K/mm3 (0.84-5.20); LYMPHOCYTES PERCENT AUTO 48 % (21-46); MONOCYTES ABSOLUTE AUTO 0.79 K/mm3 (0.16-1.47); MONOCYTES PERCENT AUTO 11 % (4-13); Mean Corpuscular HGB 28.7 pg (26.0-34.0); Mean Corpuscular Volume 87 fL (80-100); Mean Platelet Volume 9.4 fL (9.1-12.4); NEUTROPHILS ABSOLUTE AUTO 2.35 K/mm3 (1.96-9.15); NEUTROPHILS PERCENT AUTO 32 % (41-73); Platelet Count 302 K/mm3 (150-400); RDW Coefficient Variation 13.5 % (11.7-14.2); RDW Standard Deviation 42.1 fL (35.1-46.3); Red Blood Cell Count 3.76 M/mm3 (3.80-5.20); White Blood Cell Count 7.43 K/mm3 (4.00-11.30)
[2019-05-28 04:48] LABS: Alanine Aminotransfer (ALT/SGP 36 U/L (12-78); Albumin, Blood 3.2 g/dL (3.4-5.0); Albumin/Globulin Ratio 0.9 (0.8-1.8); Alk Phos 167 U/L (50-136); Anion Gap 5 mmol/L (6-16); Aspartate Aminotrans (AST/SGOT 46 U/L (12-37); Bilirubin, Total 0.3 mg/dL (0.1-1.0); Blood Urea Nitrogen 17 mg/dL (8-24); Bun/Creatinine Ratio 26.4 (12.0-20.0); CO2, Blood 31 mmol/L (21-32); Chloride, Blood 105 mmol/L (98-108); Creatinine, Blood 0.65 mg/dL (0.40-1.00); Globulin, Blood 3.6 g/dL (2.2-4.0); Glomerular Filtration Rate >60 (60-); Glucose, Blood 90 mg/dL (70-99); Potassium, Blood 3.8 mmol/L (3.5-5.5); Sodium, Blood 141 mmol/L (136-145); Total Protein, Blood 6.8 g/dL (6.4-8.2)
--- NOTE | 2019-05-28 19:31 | NUR ---
SHIFT SUMMARY MEDICATED FOR PAIN SEVERAL TIMES THIS SHIFT PER EMAR. PT C/O NAUSEA THIS SHIFT BUT NO EMESIS. PT AMBULATED IN [place] X1 THIS SHIFT AND FELT WEAK AFTER. ENCOURAGED PT TO MOVE MORE. NO ACUTE CHANGES THIS SHIFT. WILL CONTINUE TO MONITOR AND REPORT TO ONCOMING RN. CALL LIGHT IN REACH.
[2019-05-28 20:10] LABS: Vancomycin, Trough 23.1 ug/mL (5.0-10.0)
[2019-05-29 05:17] LABS: BASOPHILS PERCENT AUTO 1 % (0-2); EOSINOPHILS ABSOLUTE AUTO 0.77 K/mm3 (0.00-0.68); EOSINOPHILS PERCENT AUTO 8 % (0-6); Hematocrit 35.4 % (33.0-51.0); Hemoglobin 11.2 g/dL (11.5-16.0); IMMATURE GRAN ABSOLUTE AUTO 0.04 K/mm3 (0.00-0.10); IMMATURE GRAN PERCENT AUTO 0 % (0-1); LYMPHOCYTES ABSOLUTE AUTO 4.35 K/mm3 (0.84-5.20); LYMPHOCYTES PERCENT AUTO 43 % (21-46); MONOCYTES ABSOLUTE AUTO 1.05 K/mm3 (0.16-1.47); MONOCYTES PERCENT AUTO 11 % (4-13); Mean Corpuscular HGB 28.5 pg (26.0-34.0); Mean Corpuscular HGB Conc 31.6 g/dL (31.5-36.5); Mean Platelet Volume 9.5 fL (9.1-12.4); NEUTROPHILS ABSOLUTE AUTO 3.71 K/mm3 (1.96-9.15); NEUTROPHILS PERCENT AUTO 37 % (41-73); Platelet Count 371 K/mm3 (150-400); RDW Coefficient Variation 13.5 % (11.7-14.2); RDW Standard Deviation 44.1 fL (35.1-46.3); Red Blood Cell Count 3.93 M/mm3 (3.80-5.20); White Blood Cell Count 10.02 K/mm3 (4.00-11.30)
[2019-05-29 05:19] LABS: Mean Corpuscular Volume 90 fL (80-100)
[2019-05-29 05:35] LABS: Alanine Aminotransfer (ALT/SGP 38 U/L (12-78); Albumin, Blood 3.4 g/dL (3.4-5.0); Albumin/Globulin Ratio 0.9 (0.8-1.8); Alk Phos 179 U/L (50-136); Anion Gap 6 mmol/L (6-16); Aspartate Aminotrans (AST/SGOT 50 U/L (12-37); Bilirubin, Total 0.2 mg/dL (0.1-1.0); Blood Urea Nitrogen 16 mg/dL (8-24); Bun/Creatinine Ratio 24.1 (12.0-20.0); CO2, Blood 30 mmol/L (21-32); Calcium, Blood 9.6 mg/dL (8.5-10.1); Chloride, Blood 105 mmol/L (98-108); Creatinine, Blood 0.66 mg/dL (0.40-1.00); Globulin, Blood 3.8 g/dL (2.2-4.0); Glomerular Filtration Rate >60 (60-); Glucose, Blood 157 mg/dL (70-99); Sodium, Blood 141 mmol/L (136-145); Total Protein, Blood 7.2 g/dL (6.4-8.2)
[2019-05-29 05:36] LABS: Vancomycin, Random 14.3 ug/mL
--- NOTE | 2019-05-29 06:01 | NUR ---
SUMMARY: A/OX4, SPECIFIES NEEDS AND COOPERATIVE W/CARE. SHE CONT'S TO BE ANXIOUS AND CALLS FREQUENTLY FOR ASSIST AND MEDS. PT WAS MEDICATED REGULARLY T/O NOCTE FOR LLQ ABDO PAIN W/DILUADID IV X3 DOSES AND FENTANYL IV X2 DOSES PRN. SHE ALSO RECIVED XANAX PRN AT BEDTIME TO "HELP HER SHUT DOWN HER MIND". SHE WAS TEARFUL THIS SHIFT RE: THE RECENT PASSING OF HER SIGNIFICANT OTHER W/SUPPORT PROVIDED. PT USED BSC W/SBA TO VOID AND HAD X2 SOFT BM'S THIS SHIFT. VANCOMYCIN WAS HELD D/T CRITICAL VANC TROUGH OF 23.1 BUT MEROPENUM WAS RECIEVED. NO ACUTE CHANGES, VSS AND AFEBRILE. WCTM AND REPORT TO DAY RN.
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
--- NOTE | 2019-05-29 16:39 | NUR ---
SHIFT SUMMARY MEDICATED FOR PAIN SEVERAL TIMES THIS SHIFT PER EMAR. PT HAS BEEN CHANGED TO SOFT FOOD AND TOLERATING IT WELL. PT TOOK A SHOWER THIS AFTERNOON. NO ACUTE CHANGES THIS SHIFT. PLANS FOR PT TO HAVE PROCEDURE WITH DR. CANALES IN THE AM. PT TO BE NPO AFTER MIDNIGHT AND PT AWARE OF THIS. CALL LIGHT IN REACH. WILL CONTINUE TO MONITOR AND REPORT TO ONCOMING RN.
[2019-05-30 05:20] LABS: BASOPHILS ABSOLUTE AUTO 0.09 K/mm3 (0.00-0.23); BASOPHILS PERCENT AUTO 1 % (0-2); EOSINOPHILS ABSOLUTE AUTO 0.61 K/mm3 (0.00-0.68); EOSINOPHILS PERCENT AUTO 8 % (0-6); Hematocrit 31.4 % (33.0-51.0); Hemoglobin 10.2 g/dL (11.5-16.0); IMMATURE GRAN ABSOLUTE AUTO 0.03 K/mm3 (0.00-0.10); IMMATURE GRAN PERCENT AUTO 0 % (0-1); LYMPHOCYTES ABSOLUTE AUTO 3.22 K/mm3 (0.84-5.20); LYMPHOCYTES PERCENT AUTO 40 % (21-46); MONOCYTES ABSOLUTE AUTO 0.81 K/mm3 (0.16-1.47); MONOCYTES PERCENT AUTO 10 % (4-13); Mean Corpuscular HGB 28.4 pg (26.0-34.0); Mean Corpuscular HGB Conc 32.5 g/dL (31.5-36.5); Mean Corpuscular Volume 88 fL (80-100); Mean Platelet Volume 9.5 fL (9.1-12.4); NEUTROPHILS ABSOLUTE AUTO 3.28 K/mm3 (1.96-9.15); NEUTROPHILS PERCENT AUTO 41 % (41-73); Platelet Count 317 K/mm3 (150-400); RDW Coefficient Variation 13.4 % (11.7-14.2); RDW Standard Deviation 42.8 fL (35.1-46.3); Red Blood Cell Count 3.59 M/mm3 (3.80-5.20); White Blood Cell Count 8.04 K/mm3 (4.00-11.30)
[2019-05-30 05:48] LABS: Alanine Aminotransfer (ALT/SGP 29 U/L (12-78); Albumin/Globulin Ratio 0.8 (0.8-1.8); Alk Phos 177 U/L (50-136); Anion Gap 6 mmol/L (6-16); Aspartate Aminotrans (AST/SGOT 21 U/L (12-37); Bilirubin, Total 0.2 mg/dL (0.1-1.0); Blood Urea Nitrogen 21 mg/dL (8-24); Bun/Creatinine Ratio 35.4 (12.0-20.0); CO2, Blood 29 mmol/L (21-32); Calcium, Blood 9.6 mg/dL (8.5-10.1); Chloride, Blood 104 mmol/L (98-108); Creatinine, Blood 0.59 mg/dL (0.40-1.00); Globulin, Blood 3.6 g/dL (2.2-4.0); Glomerular Filtration Rate >60 (60-); Glucose, Blood 283 mg/dL (70-99); Sodium, Blood 139 mmol/L (136-145); Total Protein, Blood 6.6 g/dL (6.4-8.2)
--- NOTE | 2019-05-30 06:23 | NUR ---
SHIFT SUMMARY: 58 Y/O FEMALE RESTED COMFORTABLY ALL SHIFT, PT ABD ABD PAIN X 2 LAST NIGHT RATED 6/10 WITH NORCO 5/325MG X 2 TABLETS PO GIVEN WITH RELIEF FELT, NPO AFTER MIDNIGHT FOR ANGIO PROCEDURE TODAY, HAPPY AND COOPERATIVE, DENIES NAUSEA, BED LOW POSITION, CALL LIGHT AT SIDE.
[2019-05-30 11:40] LABS: C DIFFICILE BY DNA AMP Positive (Negative)
--- NOTE | 2019-05-30 13:45 | NUR ---
PT. TO WIRE MESH GATE ASSEMBLER FOR ANGIOGRAM MESENTERIC, DR. SANCHEZ NOTIFIED ALSO LET HER KNOW PT. CAME BACK POSITIVE FOR C-DIFF AND THAT SHE WILL BE GOING TO PCU AFTER PROCEDURE.
--- NOTE | 2019-05-30 15:18 | NUR ---
PT ARRIVAL. PT ARRIVED ON UNIT VIA HER BED, PT IS S/P ANGIO WITH RIGHT GROIN SITE AND STENT PLACEMENT TO THE ILLIAC AXIS. RIGHT GROIN SITE IS C/D/I, NO SWELLING, BLOOD OR HEMATOMA NOTED. PT DENIES PAIN TO THE SITE. PER ORDERS IS TO BE FLAT UNTIL 1800. PT IS C/O OF PAIN TO THE LLQ. WILL CONTINUE TO MONITOR.
--- NOTE | 2019-05-30 15:46 | NUR ---
PT. IN ROOM PCU-2 CALLED REPORT TO BONNIE ABDALLA RN. MEDS TUBED TO PCU FLOOR. PT. TRANSFERRED AFTER MESENTERIC ANGIOGRAM.
--- NOTE | 2019-05-30 16:25 | NUR ---
Pal Spiritual CAre inital note: Disha was tearful when I entered room. She expressed fear of upcoming proceedure. She also spoke at length about the loss of her SO just a few weeks ago. Disha is know to me from previous hospitalizations and is deeply appreciaitve of spiritual quitline counselor and prayer. I was able to calm her down and we prayed together for a successful proceedure. I was with her when staff came to take her for intervention. She has very little support here as her biological family mostly live in [place]. Disha would benefit from on-going bereavement quitline counselor. I will continue to visit as schedule permits.
--- NOTE | 2019-05-30 18:16 | NUR ---
SHIFT SUMMARY. NO ACUTE CHANGES NOTED SINCE PT TRANSFER TO THIS UNIT. PT'S VS STABLE. PT'S GROIN SITE STABLE, NO BLEEDING, SWELLING OR HEMATOMA NOTED. PT IS C/O OF SEVERE PAIN 7/10 TO HER LEFT LOWER ABD AREA, ABD IS SLIGHLTY FIRM AND LLQ IS TENDER TO TOUCH PER PT. PT HAS BEEN MEDICATED PER EMAR WITH "NO RESULTS" PER PT. PT WAS SEEN RESTING PEACEFULLY AND RELAXED WITH EYES CLOSED PRIOR TO PT MAKING THE THAT STATEMENT. WILL CONTINUE TO MONITOR UNTIL REPORT IS GIVEN TO ONCOMING RN.
[2019-05-31 03:45] LABS: BASOPHILS PERCENT AUTO 1 % (0-2); EOSINOPHILS ABSOLUTE AUTO 0.56 K/mm3 (0.00-0.68); EOSINOPHILS PERCENT AUTO 7 % (0-6); Hematocrit 32.7 % (33.0-51.0); Hemoglobin 10.3 g/dL (11.5-16.0); IMMATURE GRAN ABSOLUTE AUTO 0.03 K/mm3 (0.00-0.10); IMMATURE GRAN PERCENT AUTO 0 % (0-1); LYMPHOCYTES ABSOLUTE AUTO 3.04 K/mm3 (0.84-5.20); LYMPHOCYTES PERCENT AUTO 40 % (21-46); MONOCYTES ABSOLUTE AUTO 0.77 K/mm3 (0.16-1.47); MONOCYTES PERCENT AUTO 10 % (4-13); Mean Corpuscular HGB 28.5 pg (26.0-34.0); Mean Corpuscular HGB Conc 31.5 g/dL (31.5-36.5); Mean Corpuscular Volume 91 fL (80-100); Mean Platelet Volume 9.5 fL (9.1-12.4); NEUTROPHILS PERCENT AUTO 42 % (41-73); Platelet Count 307 K/mm3 (150-400); RDW Coefficient Variation 13.4 % (11.7-14.2); RDW Standard Deviation 44.9 fL (35.1-46.3); Red Blood Cell Count 3.61 M/mm3 (3.80-5.20)
[2019-05-31 04:04] LABS: Alanine Aminotransfer (ALT/SGP 30 U/L (12-78); Albumin, Blood 3.1 g/dL (3.4-5.0); Albumin/Globulin Ratio 0.9 (0.8-1.8); Alk Phos 179 U/L (50-136); Anion Gap 8 mmol/L (6-16); Aspartate Aminotrans (AST/SGOT 26 U/L (12-37); Bilirubin, Total 0.1 mg/dL (0.1-1.0); Blood Urea Nitrogen 18 mg/dL (8-24); CO2, Blood 26 mmol/L (21-32); Chloride, Blood 105 mmol/L (98-108); Creatinine, Blood 0.55 mg/dL (0.40-1.00); Globulin, Blood 3.4 g/dL (2.2-4.0); Glomerular Filtration Rate >60 (60-); Glucose, Blood 359 mg/dL (70-99); Potassium, Blood 4.1 mmol/L (3.5-5.5); Sodium, Blood 139 mmol/L (136-145); Total Protein, Blood 6.5 g/dL (6.4-8.2)
--- NOTE | 2019-05-31 05:18 | NUR ---
SHIFT SUMMARY PT SLEEPING IN ROOM COMFORTABLY AT THIS TIME. OPT HAD NO ACUTE CHANGES T/O NIGHT. PT DID C/O PAIN IN L ABD EARLY IN SHIFT AND CONTINUED TO ASK FOR IV PAIN MEDS. PT WAS FINALLY ABLE TO PASS LARGE AMOUNT OF FLATUS AND REPORTED "WOW THAT FEELS SO MUCH BETTER NOW!". PT WAS MEDICATED ONCE MORE FOR PAIN PER REQUEST, AND GIVEN ICE PACK PT REPORTS "THE ICE JUST FEELS GOOD ON MY STOMACHE". RESP EVEN UNLBAORED ON RA W/ SATS >92%. ANGIO-EAL SITE TO R GROIN WNL, NO HEMATOMAS NOTED. PT WAS ABLE TO STAND AND AMBULATE TO RR AND ANGIO SITE REMAINED WNL, NO BLEEDING. CALL LIGHT IN REACH.
--- NOTE | 2019-05-31 09:25 | NUR ---
AM NOTE. ASSUMED CARE OF PT APROX 0700, PT IS A&Ox4 AND IND IN THE ROOM. PT IS S/P STENT PLACEMENT W/RIGHT GROIN ACCESS AND ANGIO SEAL. SITE IS C/D/I, NO SWELLING, REDNESS, BLEEDING OR HEMATOMA NOTE. PT DENIES CHEST PAIN/PRESSURE, N/V OR SOB. VS STABLE AT THIS TIME. PT C/O OF 7/10 PAIN TO THE LLQ OF HER ABD. PT IS ON CONTACT ISO FOR C.DIFF, BT HYPERACTIVE, ABD IS SLIGHTLY FRIM AND TENDER TO PALP IN THE LLQ. FIRMNESS HAS IMPROVED FROM YESTERDAY. CALL LIGHT IN REACH, BED IS LOCKED AND LOW WILL CONTINUE TO MONITOR.
--- NOTE | 2019-05-31 14:47 | NUR ---
Pal Spiritual Care note: Disha was relaxed and tired. She tells me she feels releif that proceedure went well and she feels hope for the future. We prayed together for continued healing. No concerns or fears presented. She is appreciaitive of spiritual support. Plan to D/C tomorrow. Direct Marketing Manager services will remain available.
--- NOTE | 2019-05-31 18:28 | NUR ---
PT TRANSFER TO MED FLOOR. REPORT WAS CALLED TO RECEIVING RN. PT'S BELONGINGS AND MEDS WERE PACKED AND PT WAS TRANSFERED TO MEDICAL FLOOR. VS STABLE.
--- NOTE | 2019-05-31 18:37 | NUR ---
PT. ARRIVED TO FLOOR FROM PCU-2 VIA AT 1820. A&O, INDEPENDANT. PT, IS POST MESENTERIC ANGIOGRAM FROM YESTERDAY.STINT PLACED IN INCELIAC ACCESS.
--- NOTE | 2019-06-01 04:29 | NUR ---
SHIFT SUMMARY: 63 Y/O FEMALE RESTED COMFORTABLY ALL SHIFT, C/O FREQUENT ABD PAIN RATED 6/10 WITH NORCO 5/325 GIVEN WITH PAIN RELIEF FELT, ABLE TRANSFER AND AMBULATE BATHROOM PER SELF WITH GAIT SLOW AND STEADY, RIGHT GROIN DRESSING DRY AND INTACT, BED LOW POSITION, CALL LIGHT AT SIDE, REPORT GIVEN TO LAINEY HOLLIS.
--- NOTE | 2019-06-01 04:30 | NUR ---
SHIFT SUMMARY PT CARE TRANSFERED TO THIS RN AT 0415. PT IS AWAKE IN NO DISTRESS. NO ISSUES REPORTED. CALL LIGHT IN REACH.
[2019-06-01 05:43] LABS: BASOPHILS ABSOLUTE AUTO 0.08 K/mm3 (0.00-0.23); BASOPHILS PERCENT AUTO 1 % (0-2); EOSINOPHILS ABSOLUTE AUTO 0.56 K/mm3 (0.00-0.68); EOSINOPHILS PERCENT AUTO 7 % (0-6); Hematocrit 30.3 % (33.0-51.0); IMMATURE GRAN ABSOLUTE AUTO 0.02 K/mm3 (0.00-0.10); IMMATURE GRAN PERCENT AUTO 0 % (0-1); LYMPHOCYTES ABSOLUTE AUTO 3.18 K/mm3 (0.84-5.20); LYMPHOCYTES PERCENT AUTO 42 % (21-46); MONOCYTES ABSOLUTE AUTO 0.85 K/mm3 (0.16-1.47); MONOCYTES PERCENT AUTO 11 % (4-13); Mean Corpuscular HGB 29.4 pg (26.0-34.0); Mean Corpuscular Volume 89 fL (80-100); Mean Platelet Volume 9.6 fL (9.1-12.4); NEUTROPHILS ABSOLUTE AUTO 2.87 K/mm3 (1.96-9.15); NEUTROPHILS PERCENT AUTO 38 % (41-73); Platelet Count 318 K/mm3 (150-400); RDW Coefficient Variation 13.3 % (11.7-14.2); RDW Standard Deviation 43.4 fL (35.1-46.3); White Blood Cell Count 7.56 K/mm3 (4.00-11.30)
[2019-06-01 06:06] LABS: Alanine Aminotransfer (ALT/SGP 29 U/L (12-78); Albumin/Globulin Ratio 0.9 (0.8-1.8); Alk Phos 211 U/L (50-136); Anion Gap 10 mmol/L (6-16); Aspartate Aminotrans (AST/SGOT 24 U/L (12-37); Bilirubin, Total 0.2 mg/dL (0.1-1.0); Blood Urea Nitrogen 22 mg/dL (8-24); Bun/Creatinine Ratio 40.7 (12.0-20.0); CO2, Blood 27 mmol/L (21-32); Calcium, Blood 8.8 mg/dL (8.5-10.1); Chloride, Blood 103 mmol/L (98-108); Creatinine, Blood 0.54 mg/dL (0.40-1.00); Globulin, Blood 3.4 g/dL (2.2-4.0); Glomerular Filtration Rate >60 (60-); Glucose, Blood 328 mg/dL (70-99); Potassium, Blood 3.9 mmol/L (3.5-5.5); Sodium, Blood 140 mmol/L (136-145); Total Protein, Blood 6.4 g/dL (6.4-8.2)
[2019-06-01] MEDS ORDERED: CITA20 PO (10:44)
[2019-06-01] MEDS ORDERED: HYDR1TAB94 PO (10:44)
[2019-06-01] MEDS ORDERED: Lopressor 25 mg25 MG PO (10:45)
[2019-06-01] MEDS ORDERED: ONDA4ODT MM (10:46)
[2019-06-01] MEDS ORDERED: Gas Relief80 MG PO (10:46)
--- NOTE | 2019-06-01 11:58 | NUR ---
DISCHARGE SUMMARY PATIENT IS PLEASANT, ALL DISCAHRGE INSTRUCTIONS GIVNE TO THE PATIENT AND HER NEW MEDICATION LIST. ALL QUESTIONS ANSWERED PRIOR TO DISCHARGE. PATIENTS POWERGLIDE WAS REMOVED AND FOLLOW UP APPOINTMENT DONE PRIOR TO DISCHARGE WELL. PATIENT IS AWARE THAT HER DOCTORS OFFICE WILL CALL IF ANYTHING CHANGES.
== END 2019-06-01 11:07 | disposition home or self-care (01) | DRG 854 ==
LOC: ER 13:18 → ICUW 19:22 → PCU 19:22 → ICUE 19:22 → MEDS 05-25 10:08 → PCU 05-30 15:22 → MEDS 05-31 18:21 → ENPENDDIS 06-01 09:50 → MEDS 06-01 11:07
PROVIDERS: Emergency Medicine; Internal Medicine; ADMIT Internal Medicine
PROC: 04713DZ Dilation of Celiac Artery with Intraluminal Device, Percutaneous Approach (ICD-10-PCS; principal; 2019-05-30)
DX: A41.9 Sepsis, unspecified organism (principal); K55.9 Vascular disorder of intestine, unspecified; I77.4 Celiac artery compression syndrome; I25.10 Atherosclerotic heart disease of native coronary artery without angina pectoris; I10 Essential (primary) hypertension; E11.51 Type 2 diabetes mellitus with diabetic peripheral angiopathy without gangrene; Z79.4 Long term (current) use of insulin; K21.9 Gastro-esophageal reflux disease without esophagitis; J44.9 Chronic obstructive pulmonary disease, unspecified; Z86.73 Personal history of transient ischemic attack (TIA), and cerebral infarction without residual deficits; K57.30 Diverticulosis of large intestine without perforation or abscess without bleeding; E11.65 Type 2 diabetes mellitus with hyperglycemia
CPT/HCPCS: 36415; 37236; 74174; 74176; 75625; 75726; 80047; 80053; 80202; 82272; 82947; 83690; 83735; 85014; 85025; 85027; 86850; 86900; 86901; 87040; 87324; 87493; 93306; 94640; 94760; 96361; 96365; 96375; 96376; 99152; 99153; 99285-25; A9270; A9270-GY; C1751; C1760; C1769; C1876; C1887; C1894; J1170; J1644; J1815; J1956; J2185; J2250; J2405; J2550; J3010; J3370; J7030; J7050; Q9967

== ENCOUNTER → 2019-06-05 | Outpatient (CLI) | payer OTHER ==
[~2019-06-05] MED LIST changes: +CITA20 PO; +Gas Relief80 MG PO; +Lopressor 25 mg25 MG PO
== END | disposition home or self-care (01) ==
LOC: LAB 19:27 → LAB SHORT 19:27
DX: R30.0 Dysuria (principal)
CPT/HCPCS: 87077; 87086; 87186

== ENCOUNTER 2019-08-30 15:01 | Emergency (ER) | payer OTHER ==
[~2019-08-30] VITALS: Ht 160 cm; Wt 78.9 kg
[2019-08-30 17:19] LABS: BASOPHILS ABSOLUTE AUTO 0.12 K/mm3 (0.00-0.23); BASOPHILS PERCENT AUTO 1 % (0-2); EOSINOPHILS ABSOLUTE AUTO 0.58 K/mm3 (0.00-0.68); EOSINOPHILS PERCENT AUTO 6 % (0-6); Hematocrit 33.8 % (33.0-51.0); Hemoglobin 10.3 g/dL (11.5-16.0); IMMATURE GRAN ABSOLUTE AUTO 0.08 K/mm3 (0.00-0.10); IMMATURE GRAN PERCENT AUTO 1 % (0-1); LYMPHOCYTES ABSOLUTE AUTO 3.63 K/mm3 (0.84-5.20); LYMPHOCYTES PERCENT AUTO 34 % (21-46); MONOCYTES ABSOLUTE AUTO 0.88 K/mm3 (0.16-1.47); MONOCYTES PERCENT AUTO 8 % (4-13); Mean Corpuscular HGB 25.7 pg (26.0-34.0); Mean Corpuscular HGB Conc 30.5 g/dL (31.5-36.5); Mean Corpuscular Volume 84 fL (80-100); Mean Platelet Volume 10.1 fL (9.1-12.4); NEUTROPHILS PERCENT AUTO 50 % (41-73); Platelet Count 333 K/mm3 (150-400); RDW Coefficient Variation 14.6 % (11.7-14.2); RDW Standard Deviation 44.8 fL (35.1-46.3); Red Blood Cell Count 4.01 M/mm3 (3.80-5.20); White Blood Cell Count 10.59 K/mm3 (4.00-11.30)
[2019-08-30 17:43] LABS: Troponin I <0.015 ng/mL (0.000-0.040)
[2019-08-30 17:51] LABS: Alanine Aminotransfer (ALT/SGP 46 U/L (12-78); Albumin, Blood 3.3 g/dL (3.4-5.0); Albumin/Globulin Ratio 0.9 (0.8-1.8); Alk Phos 123 U/L (50-136); Anion Gap 10 mmol/L (6-16); Aspartate Aminotrans (AST/SGOT 89 U/L (12-37); Bilirubin, Total 0.3 mg/dL (0.1-1.0); Blood Urea Nitrogen 25 mg/dL (8-24); Bun/Creatinine Ratio 32.4 (12.0-20.0); CO2, Blood 19 mmol/L (21-32); Calcium, Blood 9.2 mg/dL (8.5-10.1); Chloride, Blood 107 mmol/L (98-108); Creatinine, Blood 0.77 mg/dL (0.40-1.00); Globulin, Blood 3.5 g/dL (2.2-4.0); Glomerular Filtration Rate >60 (60-); Glucose, Blood 264 mg/dL (70-99); Potassium, Blood 4.2 mmol/L (3.5-5.5); Sodium, Blood 136 mmol/L (136-145); Total Protein, Blood 6.8 g/dL (6.4-8.2)
[2019-08-30 18:15] LABS: Source, Urine Clean Catch
[2019-08-30 18:32] LABS: Bilirubin, Urine Neg (Neg); Blood, Urine Neg (Neg); Glucose Qualitative, Urine 4+ (Neg); Ketones, Urine 2+ (Neg); Leukocyte Esterase, Urine Neg (Neg); Nitrite, Urine Neg (Neg); Protein, Urine Neg (Neg); Urobilinogen, Urine NORM (Normal)
[2019-08-30 18:49] LABS: Appearance, Urine Clear (Clear); Color, Urine Yellow (P-Yellow)
[2019-08-30] MEDS ORDERED: ONDA4ODT MM (19:03)
== END 2019-08-30 19:24 | disposition home or self-care (01) ==
LOC: ER 15:01
PROVIDERS: Emergency Medicine
DX: K76.0 Fatty (change of) liver, not elsewhere classified (principal); K57.30 Diverticulosis of large intestine without perforation or abscess without bleeding; I25.10 Atherosclerotic heart disease of native coronary artery without angina pectoris; I10 Essential (primary) hypertension; J44.9 Chronic obstructive pulmonary disease, unspecified; E11.40 Type 2 diabetes mellitus with diabetic neuropathy, unspecified; E78.00 Pure hypercholesterolemia, unspecified; Z87.442 Personal history of urinary calculi; Z86.73 Personal history of transient ischemic attack (TIA), and cerebral infarction without residual deficits; Z87.891 Personal history of nicotine dependence; Z88.5 Allergy status to narcotic agent; Z88.1 Allergy status to other antibiotic agents; Z88.8 Allergy status to other drugs, medicaments and biological substances; Z79.899 Other long term (current) drug therapy; Z79.4 Long term (current) use of insulin; Z79.82 Long term (current) use of aspirin; Z79.891 Long term (current) use of opiate analgesic
CPT/HCPCS: 74176; 80053; 81003; 83690; 84484; 85025; 93005; 93010; 96361; 96374; 96375; 96376; 99284-25; J1170; J2405; J2765; J7120

== ENCOUNTER 2019-10-28 15:04 | Emergency (ER) | payer OTHER ==
[~2019-10-28] VITALS: Ht 160 cm; Wt 77.1 kg
[2019-10-28] MEDS ORDERED: METPRE4DP PO (16:40)
== END 2019-10-28 17:13 | disposition home or self-care (01) ==
LOC: ER 15:04
DX: M54.12 Radiculopathy, cervical region (principal); I10 Essential (primary) hypertension; E11.40 Type 2 diabetes mellitus with diabetic neuropathy, unspecified; I25.10 Atherosclerotic heart disease of native coronary artery without angina pectoris; K21.9 Gastro-esophageal reflux disease without esophagitis; J44.9 Chronic obstructive pulmonary disease, unspecified; Z88.1 Allergy status to other antibiotic agents; Z88.5 Allergy status to narcotic agent; Z88.8 Allergy status to other drugs, medicaments and biological substances; Z79.899 Other long term (current) drug therapy; Z79.4 Long term (current) use of insulin; Z79.01 Long term (current) use of anticoagulants; Z79.51 Long term (current) use of inhaled steroids; Z95.5 Presence of coronary angioplasty implant and graft
CPT/HCPCS: 96372; 99283-25; J1100; J1170

== ENCOUNTER 2019-10-28 19:30 | Emergency (ER) | payer OTHER ==
[~2019-10-28] VITALS: Ht 160 cm; Wt 77.1 kg
[~2019-10-28 19:30] MED LIST changes: +METPRE4DP PO
[2019-10-28 21:46] LABS: BASOPHILS ABSOLUTE AUTO 0.08 K/mm3 (0.00-0.23); BASOPHILS PERCENT AUTO 1 % (0-2); EOSINOPHILS ABSOLUTE AUTO 0.06 K/mm3 (0.00-0.68); EOSINOPHILS PERCENT AUTO 1 % (0-6); Hematocrit 38.4 % (33.0-51.0); Hemoglobin 11.7 g/dL (11.5-16.0); IMMATURE GRAN ABSOLUTE AUTO 0.03 K/mm3 (0.00-0.10); IMMATURE GRAN PERCENT AUTO 0 % (0-1); LYMPHOCYTES ABSOLUTE AUTO 1.25 K/mm3 (0.84-5.20); LYMPHOCYTES PERCENT AUTO 18 % (21-46); MONOCYTES PERCENT AUTO 2 % (4-13); Mean Corpuscular HGB 25.8 pg (26.0-34.0); Mean Corpuscular HGB Conc 30.5 g/dL (31.5-36.5); Mean Corpuscular Volume 85 fL (80-100); Mean Platelet Volume 10.1 fL (9.1-12.4); NEUTROPHILS ABSOLUTE AUTO 5.29 K/mm3 (1.96-9.15); NEUTROPHILS PERCENT AUTO 78 % (41-73); Platelet Count 378 K/mm3 (150-400); RDW Coefficient Variation 15.9 % (11.7-14.2); RDW Standard Deviation 48.8 fL (35.1-46.3); Red Blood Cell Count 4.54 M/mm3 (3.80-5.20); White Blood Cell Count 6.81 K/mm3 (4.00-11.30)
[2019-10-28 22:02] LABS: Alanine Aminotransfer (ALT/SGP 43 U/L (12-78); Albumin, Blood 3.7 g/dL (3.4-5.0); Albumin/Globulin Ratio 0.8 (0.8-1.8); Alk Phos 130 U/L (50-136); Anion Gap 9 mmol/L (6-16); Aspartate Aminotrans (AST/SGOT 76 U/L (12-37); Beta-hydroxybutyrate 2.2 mg/dL (0.2-2.8); Bilirubin, Total 0.2 mg/dL (0.1-1.0); Blood Urea Nitrogen 24 mg/dL (8-24); CO2, Blood 20 mmol/L (21-32); Calcium, Blood 10.1 mg/dL (8.5-10.1); Chloride, Blood 105 mmol/L (98-108); Creatinine, Blood 0.86 mg/dL (0.40-1.00); Globulin, Blood 4.5 g/dL (2.2-4.0); Glomerular Filtration Rate >60 (60-); Glucose, Blood 422 mg/dL (70-99); Potassium, Blood 4.6 mmol/L (3.5-5.5); Sodium, Blood 134 mmol/L (136-145); Total Protein, Blood 8.2 g/dL (6.4-8.2)
== END 2019-10-28 22:30 | disposition home or self-care (01) ==
LOC: ER 19:30
PROVIDERS: Physician Assistant
DX: E11.65 Type 2 diabetes mellitus with hyperglycemia (principal); M54.5 Low back pain; I10 Essential (primary) hypertension; K21.9 Gastro-esophageal reflux disease without esophagitis; I25.10 Atherosclerotic heart disease of native coronary artery without angina pectoris; J44.9 Chronic obstructive pulmonary disease, unspecified; Z88.1 Allergy status to other antibiotic agents; Z88.5 Allergy status to narcotic agent; Z88.8 Allergy status to other drugs, medicaments and biological substances; Z79.899 Other long term (current) drug therapy; Z79.4 Long term (current) use of insulin; Z79.01 Long term (current) use of anticoagulants; Z79.82 Long term (current) use of aspirin; Z79.51 Long term (current) use of inhaled steroids; Z87.442 Personal history of urinary calculi; Z95.5 Presence of coronary angioplasty implant and graft; Z86.73 Personal history of transient ischemic attack (TIA), and cerebral infarction without residual deficits; Z87.891 Personal history of nicotine dependence
CPT/HCPCS: 80053; 82010; 82947; 85025; 96374; 96375; 99283-25; J1885; J2405

== ENCOUNTER 2019-11-14 23:09 | Emergency (ER) | payer OTHER ==
[~2019-11-14] VITALS: Ht 160 cm; Wt 77.1 kg
[2019-11-14] MEDS ORDERED: Metoprolol Tart50 MG PO (23:22)
[2019-11-15 00:43] LABS: BASOPHILS ABSOLUTE AUTO 0.09 K/mm3 (0.00-0.23); BASOPHILS PERCENT AUTO 1 % (0-2); EOSINOPHILS ABSOLUTE AUTO 0.45 K/mm3 (0.00-0.68); EOSINOPHILS PERCENT AUTO 5 % (0-6); Hematocrit 34.5 % (33.0-51.0); Hemoglobin 10.7 g/dL (11.5-16.0); IMMATURE GRAN ABSOLUTE AUTO 0.03 K/mm3 (0.00-0.10); IMMATURE GRAN PERCENT AUTO 0 % (0-1); LYMPHOCYTES ABSOLUTE AUTO 4.31 K/mm3 (0.84-5.20); LYMPHOCYTES PERCENT AUTO 44 % (21-46); MONOCYTES PERCENT AUTO 11 % (4-13); Mean Corpuscular HGB 26.2 pg (26.0-34.0); Mean Corpuscular Volume 84 fL (80-100); NEUTROPHILS ABSOLUTE AUTO 3.87 K/mm3 (1.96-9.15); NEUTROPHILS PERCENT AUTO 39 % (41-73); RDW Coefficient Variation 15.6 % (11.7-14.2); RDW Standard Deviation 48.3 fL (35.1-46.3); Red Blood Cell Count 4.09 M/mm3 (3.80-5.20); White Blood Cell Count 9.85 K/mm3 (4.00-11.30)
[2019-11-15 00:48] LABS: Mean Platelet Volume 10.5 fL (9.1-12.4); Platelet Count 346 K/mm3 (150-400)
[2019-11-15 01:00] LABS: Alanine Aminotransfer (ALT/SGP 23 U/L (12-78); Albumin, Blood 3.6 g/dL (3.4-5.0); Albumin/Globulin Ratio 0.9 (0.8-1.8); Alk Phos 135 U/L (50-136); Anion Gap 9 mmol/L (6-16); Aspartate Aminotrans (AST/SGOT 25 U/L (12-37); Bilirubin, Total 0.2 mg/dL (0.1-1.0); Blood Urea Nitrogen 22 mg/dL (8-24); Bun/Creatinine Ratio 29.9 (12.0-20.0); CO2, Blood 22 mmol/L (21-32); Calcium, Blood 9.7 mg/dL (8.5-10.1); Chloride, Blood 107 mmol/L (98-108); Creatinine, Blood 0.74 mg/dL (0.40-1.00); Globulin, Blood 3.9 g/dL (2.2-4.0); Glomerular Filtration Rate >60 (60-); Glucose, Blood 203 mg/dL (70-99); Potassium, Blood 4.3 mmol/L (3.5-5.5); Sodium, Blood 138 mmol/L (136-145); Total Protein, Blood 7.5 g/dL (6.4-8.2)
== END 2019-11-15 01:52 | disposition home or self-care (01) ==
LOC: ER 23:09
PROVIDERS: Emergency Medicine
DX: R10.12 Left upper quadrant pain (principal); E11.40 Type 2 diabetes mellitus with diabetic neuropathy, unspecified; K21.9 Gastro-esophageal reflux disease without esophagitis; J44.9 Chronic obstructive pulmonary disease, unspecified; I10 Essential (primary) hypertension; Z86.73 Personal history of transient ischemic attack (TIA), and cerebral infarction without residual deficits; Z87.891 Personal history of nicotine dependence; Z88.1 Allergy status to other antibiotic agents; Z88.5 Allergy status to narcotic agent; Z88.8 Allergy status to other drugs, medicaments and biological substances; Z79.4 Long term (current) use of insulin; Z79.899 Other long term (current) drug therapy; Z79.82 Long term (current) use of aspirin
CPT/HCPCS: 36415; 80053; 83690; 85025; 93005; 93010; 96374; 99284-25; J1630; J2405

== ENCOUNTER 2020-01-25 13:16 | Emergency (ER) | payer OTHER ==
[~2020-01-25] VITALS: Ht 160 cm; Wt 75.3 kg
[~2020-01-25 13:16] MED LIST changes: +Augmentin 500-1 EACH PO; +Metoprolol Tart50 MG PO
[2020-01-25 14:50] LABS: BASOPHILS PERCENT AUTO 1 % (0-2); EOSINOPHILS ABSOLUTE AUTO 0.42 K/mm3 (0.00-0.68); EOSINOPHILS PERCENT AUTO 5 % (0-6); Hematocrit 33.1 % (33.0-51.0); IMMATURE GRAN ABSOLUTE AUTO 0.03 K/mm3 (0.00-0.10); IMMATURE GRAN PERCENT AUTO 0 % (0-1); LYMPHOCYTES ABSOLUTE AUTO 3.07 K/mm3 (0.84-5.20); LYMPHOCYTES PERCENT AUTO 34 % (21-46); MONOCYTES ABSOLUTE AUTO 0.75 K/mm3 (0.16-1.47); MONOCYTES PERCENT AUTO 8 % (4-13); Mean Corpuscular HGB Conc 30.2 g/dL (31.5-36.5); Mean Corpuscular Volume 83 fL (80-100); Mean Platelet Volume 10.5 fL (9.1-12.4); NEUTROPHILS ABSOLUTE AUTO 4.57 K/mm3 (1.96-9.15); NEUTROPHILS PERCENT AUTO 51 % (41-73); Platelet Count 385 K/mm3 (150-400); RDW Coefficient Variation 14.6 % (11.7-14.2); RDW Standard Deviation 44.2 fL (35.1-46.3); White Blood Cell Count 8.94 K/mm3 (4.00-11.30)
[2020-01-25 15:11] LABS: Alanine Aminotransfer (ALT/SGP 33 U/L (12-78); Albumin, Blood 3.3 g/dL (3.4-5.0); Albumin/Globulin Ratio 0.9 (0.8-1.8); Alk Phos 157 U/L (50-136); Anion Gap 9 mmol/L (6-16); Aspartate Aminotrans (AST/SGOT 37 U/L (12-37); Bilirubin, Total 0.2 mg/dL (0.1-1.0); Blood Urea Nitrogen 21 mg/dL (8-24); Bun/Creatinine Ratio 24.6 (12.0-20.0); CO2, Blood 23 mmol/L (21-32); Calcium, Blood 9.3 mg/dL (8.5-10.1); Chloride, Blood 107 mmol/L (98-108); Creatinine, Blood 0.85 mg/dL (0.40-1.00); Globulin, Blood 3.6 g/dL (2.2-4.0); Glomerular Filtration Rate >60 (60-); Glucose, Blood 316 mg/dL (70-99); Potassium, Blood 4.1 mmol/L (3.5-5.5); Sodium, Blood 139 mmol/L (136-145); Total Protein, Blood 6.9 g/dL (6.4-8.2); Troponin I <0.015 ng/mL (0.000-0.040)
[2020-01-25 18:25] LABS: Appearance, Urine Clear (Clear); Bilirubin, Urine Neg (Neg); Blood, Urine Neg (Neg); Color, Urine Yellow (P-Yellow); Glucose Qualitative, Urine 4+ (Neg); Ketones, Urine Neg (Neg); Leukocyte Esterase, Urine Neg (Neg); Nitrite, Urine Neg (Neg); Protein, Urine Neg (Neg); Urobilinogen, Urine NORM (Normal)
== END 2020-01-25 17:09 | disposition home or self-care (01) ==
LOC: ER 13:16
PROVIDERS: Emergency Medicine; Physician Assistant
DX: E11.65 Type 2 diabetes mellitus with hyperglycemia (principal); N39.0 Urinary tract infection, site not specified; J44.9 Chronic obstructive pulmonary disease, unspecified; I10 Essential (primary) hypertension; M54.5 Low back pain; G89.29 Other chronic pain; I25.10 Atherosclerotic heart disease of native coronary artery without angina pectoris; Z87.891 Personal history of nicotine dependence; Z88.5 Allergy status to narcotic agent; Z88.1 Allergy status to other antibiotic agents; Z88.8 Allergy status to other drugs, medicaments and biological substances; Z79.4 Long term (current) use of insulin; Z79.82 Long term (current) use of aspirin; Z79.899 Other long term (current) drug therapy
CPT/HCPCS: 80053; 81003; 83690; 84484; 85025; 93005; 93010; 96365; 96375; 99284-25; J1335; J2405; J7030

== ENCOUNTER 2020-01-25 14:08 | Day surgery (SDC) | payer OTHER | END 2020-01-25 22:36 | disposition home or self-care (01) | LOC: ATC 14:08 | DX: N39.0 Urinary tract infection, site not specified (principal); I12.9 Hypertensive chronic kidney disease with stage 1 through stage 4 chronic kidney disease, or unspecified chronic kidney disease; N18.2 Chronic kidney disease, stage 2 (mild); D63.1 Anemia in chronic kidney disease; E11.22 Type 2 diabetes mellitus with diabetic chronic kidney disease; N25.81 Secondary hyperparathyroidism of renal origin; D50.9 Iron deficiency anemia, unspecified; I70.1 Atherosclerosis of renal artery; G60.9 Hereditary and idiopathic neuropathy, unspecified; Z79.02 Long term (current) use of antithrombotics/antiplatelets; Z79.4 Long term (current) use of insulin; Z79.51 Long term (current) use of inhaled steroids; Z79.82 Long term (current) use of aspirin; Z79.899 Other long term (current) drug therapy; Z88.1 Allergy status to other antibiotic agents; Z88.5 Allergy status to narcotic agent | CPT/HCPCS: J1335 ==

== ENCOUNTER 2020-03-10 12:41 | Emergency (ER) | payer OTHER ==
[~2020-03-10] VITALS: Ht 160 cm; Wt 77.1 kg
[2020-03-10 14:58] LABS: BASOPHILS ABSOLUTE AUTO 0.12 K/mm3 (0.00-0.23); BASOPHILS PERCENT AUTO 1 % (0-2); EOSINOPHILS ABSOLUTE AUTO 0.53 K/mm3 (0.00-0.68); EOSINOPHILS PERCENT AUTO 5 % (0-6); Hematocrit 35.6 % (33.0-51.0); Hemoglobin 10.7 g/dL (11.5-16.0); IMMATURE GRAN ABSOLUTE AUTO 0.03 K/mm3 (0.00-0.10); IMMATURE GRAN PERCENT AUTO 0 % (0-1); LYMPHOCYTES ABSOLUTE AUTO 3.59 K/mm3 (0.84-5.20); LYMPHOCYTES PERCENT AUTO 35 % (21-46); MONOCYTES PERCENT AUTO 9 % (4-13); Mean Corpuscular HGB 23.6 pg (26.0-34.0); Mean Corpuscular HGB Conc 30.1 g/dL (31.5-36.5); Mean Corpuscular Volume 79 fL (80-100); Mean Platelet Volume 9.9 fL (9.1-12.4); NEUTROPHILS ABSOLUTE AUTO 5.22 K/mm3 (1.96-9.15); NEUTROPHILS PERCENT AUTO 50 % (41-73); Platelet Count 336 K/mm3 (150-400); RDW Coefficient Variation 14.9 % (11.7-14.2); RDW Standard Deviation 42.7 fL (35.1-46.3); Red Blood Cell Count 4.53 M/mm3 (3.80-5.20); White Blood Cell Count 10.39 K/mm3 (4.00-11.30)
[2020-03-10 15:17] LABS: Alanine Aminotransfer (ALT/SGP 31 U/L (12-78); Albumin, Blood 3.4 g/dL (3.4-5.0); Albumin/Globulin Ratio 0.9 (0.8-1.8); Alk Phos 142 U/L (50-136); Anion Gap 9 mmol/L (6-16); Aspartate Aminotrans (AST/SGOT 36 U/L (12-37); Bilirubin, Total 0.3 mg/dL (0.1-1.0); Blood Urea Nitrogen 19 mg/dL (8-24); Bun/Creatinine Ratio 26.9 (12.0-20.0); CO2, Blood 23 mmol/L (21-32); Calcium, Blood 9.2 mg/dL (8.5-10.1); Chloride, Blood 105 mmol/L (98-108); Creatinine, Blood 0.71 mg/dL (0.40-1.00); Globulin, Blood 3.8 g/dL (2.2-4.0); Glomerular Filtration Rate >60 (60-); Glucose, Blood 294 mg/dL (70-99); Potassium, Blood 4.4 mmol/L (3.5-5.5); Sodium, Blood 137 mmol/L (136-145); Total Protein, Blood 7.2 g/dL (6.4-8.2)
[2020-03-11] MEDS ORDERED: Bactrim Ds Tab1 EACH PO (21:21)
== END 2020-03-10 15:56 | disposition home or self-care (01) ==
LOC: ER 12:41
PROVIDERS: Emergency Medicine
DX: R10.30 Lower abdominal pain, unspecified (principal); I10 Essential (primary) hypertension; E11.9 Type 2 diabetes mellitus without complications; I25.10 Atherosclerotic heart disease of native coronary artery without angina pectoris; E78.5 Hyperlipidemia, unspecified; K21.9 Gastro-esophageal reflux disease without esophagitis; J44.9 Chronic obstructive pulmonary disease, unspecified; Z88.1 Allergy status to other antibiotic agents; Z88.5 Allergy status to narcotic agent; Z88.8 Allergy status to other drugs, medicaments and biological substances; Z79.899 Other long term (current) drug therapy; Z79.4 Long term (current) use of insulin; Z79.02 Long term (current) use of antithrombotics/antiplatelets; Z79.82 Long term (current) use of aspirin; Z87.891 Personal history of nicotine dependence
CPT/HCPCS: 36415; 80053; 83690; 85025; 93005; 93010; 96361; 96374; 99284-25; J2405; J7030

== ENCOUNTER 2020-03-11 18:21 | Emergency (ER) | payer OTHER ==
[~2020-03-11] VITALS: Ht 160 cm; Wt 77.1 kg
[2020-03-11 19:06] LABS: BASOPHILS ABSOLUTE AUTO 0.11 K/mm3 (0.00-0.23); BASOPHILS PERCENT AUTO 1 % (0-2); EOSINOPHILS ABSOLUTE AUTO 0.44 K/mm3 (0.00-0.68); EOSINOPHILS PERCENT AUTO 5 % (0-6); Hematocrit 32.7 % (33.0-51.0); Hemoglobin 9.9 g/dL (11.5-16.0); IMMATURE GRAN ABSOLUTE AUTO 0.03 K/mm3 (0.00-0.10); IMMATURE GRAN PERCENT AUTO 0 % (0-1); LYMPHOCYTES ABSOLUTE AUTO 3.19 K/mm3 (0.84-5.20); LYMPHOCYTES PERCENT AUTO 36 % (21-46); MONOCYTES ABSOLUTE AUTO 0.68 K/mm3 (0.16-1.47); MONOCYTES PERCENT AUTO 8 % (4-13); Mean Corpuscular HGB Conc 30.3 g/dL (31.5-36.5); Mean Corpuscular Volume 79 fL (80-100); Mean Platelet Volume 10.4 fL (9.1-12.4); NEUTROPHILS ABSOLUTE AUTO 4.48 K/mm3 (1.96-9.15); NEUTROPHILS PERCENT AUTO 50 % (41-73); Platelet Count 321 K/mm3 (150-400); RDW Standard Deviation 43.6 fL (35.1-46.3); Red Blood Cell Count 4.13 M/mm3 (3.80-5.20); White Blood Cell Count 8.93 K/mm3 (4.00-11.30)
[2020-03-11 19:17] LABS: Alanine Aminotransfer (ALT/SGP 33 U/L (12-78); Albumin, Blood 3.2 g/dL (3.4-5.0); Albumin/Globulin Ratio 0.9 (0.8-1.8); Alk Phos 146 U/L (50-136); Anion Gap 12 mmol/L (6-16); Aspartate Aminotrans (AST/SGOT 46 U/L (12-37); Bilirubin, Total 0.1 mg/dL (0.1-1.0); Blood Urea Nitrogen 16 mg/dL (8-24); Bun/Creatinine Ratio 19.1 (12.0-20.0); CO2, Blood 18 mmol/L (21-32); Calcium, Blood 9.4 mg/dL (8.5-10.1); Chloride, Blood 106 mmol/L (98-108); Creatinine, Blood 0.84 mg/dL (0.40-1.00); Globulin, Blood 3.7 g/dL (2.2-4.0); Glomerular Filtration Rate >60 (60-); Glucose, Blood 311 mg/dL (70-99); Sodium, Blood 136 mmol/L (136-145); Total Protein, Blood 6.9 g/dL (6.4-8.2)
[2020-03-11 20:58] LABS: Source, Urine Clean Catch
[2020-03-11 21:00] LABS: Bilirubin, Urine Neg (Neg); Blood, Urine 1+ (Neg); Glucose Qualitative, Urine 4+ (Neg); Ketones, Urine Neg (Neg); Leukocyte Esterase, Urine 3+ (Neg); Nitrite, Urine Pos (Neg); Protein, Urine Neg (Neg); Urobilinogen, Urine NORM (Normal)
[2020-03-11 21:06] LABS: Appearance, Urine Hazy (Clear); Color, Urine Yellow (P-Yellow)
[2020-03-11 21:07] LABS: Bacteria Many /hpf; Squamous Epithelial Cells Rare /hpf (Few); White Blood Cells, Urine 25-50 /hpf (0-5)
[2020-03-11 21:08] LABS: Red Blood Cells, Urine 0-2 /hpf (0-2)
[2020-03-11] MEDS ORDERED: Bactrim Ds Tab1 EACH PO (21:21)
== END 2020-03-11 21:51 | disposition home or self-care (01) ==
LOC: ER 18:21
PROVIDERS: Physician Assistant
DX: K52.9 Noninfective gastroenteritis and colitis, unspecified (principal); N39.0 Urinary tract infection, site not specified; E11.40 Type 2 diabetes mellitus with diabetic neuropathy, unspecified; E11.51 Type 2 diabetes mellitus with diabetic peripheral angiopathy without gangrene; I73.9 Peripheral vascular disease, unspecified; I10 Essential (primary) hypertension; K21.9 Gastro-esophageal reflux disease without esophagitis; I25.10 Atherosclerotic heart disease of native coronary artery without angina pectoris; J44.9 Chronic obstructive pulmonary disease, unspecified; E78.5 Hyperlipidemia, unspecified; F17.210 Nicotine dependence, cigarettes, uncomplicated; Z88.1 Allergy status to other antibiotic agents; Z88.5 Allergy status to narcotic agent; Z88.8 Allergy status to other drugs, medicaments and biological substances; Z79.899 Other long term (current) drug therapy; Z79.4 Long term (current) use of insulin; Z79.82 Long term (current) use of aspirin; Z79.02 Long term (current) use of antithrombotics/antiplatelets
CPT/HCPCS: 74177; 80053; 81001; 82947; 83690; 85025; 87077; 87086; 87186; 93005; 93010; 96374-59; 96375; 96376; 99285-25; A9270-GY; J1170; J2405; Q9967

== ENCOUNTER 2020-06-09 14:43 | Emergency (ER) | payer OTHER ==
[~2020-06-09] VITALS: Ht 160 cm; Wt 77.1 kg
[2020-06-09 15:26] LABS: BASOPHILS ABSOLUTE AUTO 0.11 K/mm3 (0.00-0.23); BASOPHILS PERCENT AUTO 1 % (0-2); EOSINOPHILS ABSOLUTE AUTO 0.91 K/mm3 (0.00-0.68); EOSINOPHILS PERCENT AUTO 8 % (0-6); Hematocrit 44.3 % (33.0-51.0); Hemoglobin 14.6 g/dL (11.5-16.0); IMMATURE GRAN ABSOLUTE AUTO 0.03 K/mm3 (0.00-0.10); IMMATURE GRAN PERCENT AUTO 0 % (0-1); LYMPHOCYTES ABSOLUTE AUTO 3.84 K/mm3 (0.84-5.20); LYMPHOCYTES PERCENT AUTO 33 % (21-46); MONOCYTES ABSOLUTE AUTO 1.17 K/mm3 (0.16-1.47); MONOCYTES PERCENT AUTO 10 % (4-13); Mean Corpuscular HGB 28.9 pg (26.0-34.0); Mean Corpuscular Volume 88 fL (80-100); Mean Platelet Volume 10.6 fL (9.1-12.4); NEUTROPHILS ABSOLUTE AUTO 5.66 K/mm3 (1.96-9.15); NEUTROPHILS PERCENT AUTO 48 % (41-73); Platelet Count 317 K/mm3 (150-400); RDW Coefficient Variation 19.3 % (11.7-14.2); RDW Standard Deviation 60.7 fL (35.1-46.3); Red Blood Cell Count 5.06 M/mm3 (3.80-5.20); White Blood Cell Count 11.72 K/mm3 (4.00-11.30)
[2020-06-09 15:59] LABS: Alanine Aminotransfer (ALT/SGP 38 U/L (12-78); Albumin, Blood 3.7 g/dL (3.4-5.0); Albumin/Globulin Ratio 0.9 (0.8-1.8); Alk Phos 161 U/L (50-136); Anion Gap 9 mmol/L (6-16); Aspartate Aminotrans (AST/SGOT 41 U/L (12-37); Bilirubin, Total 0.2 mg/dL (0.1-1.0); Blood Urea Nitrogen 16 mg/dL (8-24); Bun/Creatinine Ratio 24.6 (12.0-20.0); CO2, Blood 23 mmol/L (21-32); Calcium, Blood 9.8 mg/dL (8.5-10.1); Chloride, Blood 106 mmol/L (98-108); Creatinine, Blood 0.65 mg/dL (0.40-1.00); Globulin, Blood 4.2 g/dL (2.2-4.0); Glomerular Filtration Rate >60 (60-); Glucose, Blood 349 mg/dL (70-99); Potassium, Blood 3.6 mmol/L (3.5-5.5); Sodium, Blood 138 mmol/L (136-145); Total Protein, Blood 7.9 g/dL (6.4-8.2); Troponin I <0.015 ng/mL (0.000-0.040)
[2020-06-09 17:19] LABS: Percent Saturation 43.5 % (15.0-50.0)
[2020-06-09 19:08] LABS: Source, Urine Clean Catch
[2020-06-09 19:21] LABS: Bilirubin, Urine Neg (Neg); Blood, Urine 1+ (Neg); Glucose Qualitative, Urine 4+ (Neg); Ketones, Urine Neg (Neg); Leukocyte Esterase, Urine 2+ (Neg); Nitrite, Urine Neg (Neg); Protein, Urine Neg (Neg); Specific Gravity, Urine 1.015 (1.003-1.022); Urobilinogen, Urine NORM (Normal)
[2020-06-09 19:27] LABS: Appearance, Urine Cloudy (Clear); Color, Urine Yellow (P-Yellow); White Blood Cells, Urine TNTC /hpf (0-5)
[2020-06-09 19:28] LABS: Bacteria Many /hpf; Squamous Epithelial Cells Few /hpf (Few)
[2020-06-09] MEDS ORDERED: CIPR500 PO (19:34)
== END 2020-06-09 20:06 | disposition home or self-care (01) ==
LOC: ER 14:43
PROVIDERS: Emergency Medicine
DX: N39.0 Urinary tract infection, site not specified (principal); R53.1 Weakness; Z20.828 Contact with and (suspected) exposure to other viral communicable diseases; Z88.1 Allergy status to other antibiotic agents; Z88.5 Allergy status to narcotic agent; Z88.8 Allergy status to other drugs, medicaments and biological substances; Z91.09 Other allergy status, other than to drugs and biological substances; Z79.899 Other long term (current) drug therapy; Z79.4 Long term (current) use of insulin; Z79.82 Long term (current) use of aspirin; E11.9 Type 2 diabetes mellitus without complications; K21.9 Gastro-esophageal reflux disease without esophagitis; I10 Essential (primary) hypertension; E78.5 Hyperlipidemia, unspecified; J44.9 Chronic obstructive pulmonary disease, unspecified; F17.210 Nicotine dependence, cigarettes, uncomplicated
CPT/HCPCS: 36415; 71046; 80053; 81001; 82728; 82947; 83540; 83550; 84484; 85025; 85379; 87077; 87086; 87186; 93005; 93010; 96374; 99285-25; J2405; U0003

== ENCOUNTER 2020-07-20 02:50 | Emergency (ER) | payer OTHER ==
[~2020-07-20] VITALS: Ht 160 cm; Wt 77.1 kg
[2020-07-20] MEDS ORDERED: MYRBETRIQ50 MG PO (06:47)
[2020-07-20] MEDS ORDERED: PREGABALIN50 MG PO (06:47)
[2020-07-20] MEDS ORDERED: NOVOLOG FL100 UNIT/3 SC (06:48)
[2020-07-20] MEDS ORDERED: ALLERCLEAR10 MG PO (06:50)
[2020-07-20] MEDS ORDERED: ACYCLOVIR400 MG PO (06:50)
[2020-07-20] MEDS ORDERED: PRED20 PO (08:49)
[2020-07-20] MEDS ORDERED: Robaxin-750750 MG PO (08:49)
[2020-07-20] MEDS ORDERED: TRAM50 PO (08:49)
== END 2020-07-20 09:24 | disposition home or self-care (01) ==
LOC: ER 02:50
DX: M54.12 Radiculopathy, cervical region (principal); K21.9 Gastro-esophageal reflux disease without esophagitis; E11.9 Type 2 diabetes mellitus without complications; I25.10 Atherosclerotic heart disease of native coronary artery without angina pectoris; I10 Essential (primary) hypertension; E78.5 Hyperlipidemia, unspecified; J44.9 Chronic obstructive pulmonary disease, unspecified; Z88.1 Allergy status to other antibiotic agents; Z88.6 Allergy status to analgesic agent; Z88.5 Allergy status to narcotic agent; Z88.8 Allergy status to other drugs, medicaments and biological substances; Z79.4 Long term (current) use of insulin; Z79.51 Long term (current) use of inhaled steroids; Z79.02 Long term (current) use of antithrombotics/antiplatelets; Z79.82 Long term (current) use of aspirin; Z95.5 Presence of coronary angioplasty implant and graft; Z91.041 Radiographic dye allergy status; Z79.899 Other long term (current) drug therapy
CPT/HCPCS: 72040; 93005; 93010; 99284-25; J7512

== ENCOUNTER 2020-09-17 19:18 | Emergency (ER) | payer OTHER ==
[~2020-09-17] VITALS: Ht 165.1 cm; Wt 65.8 kg
[~2020-09-17 19:18] MED LIST changes: +ACYCLOVIR400 MG PO; +ALLERCLEAR10 MG PO; +MYRBETRIQ50 MG PO; +NOVOLOG FL100 UNIT/3 SC; +PREGABALIN50 MG PO; +Robaxin-750750 MG PO
[2020-09-17] MEDS ORDERED: GABA100 PO (20:00)
== END 2020-09-17 21:23 | disposition home or self-care (01) ==
LOC: ER 19:18
DX: S06.0X0A Concussion without loss of consciousness, initial encounter (principal); J44.9 Chronic obstructive pulmonary disease, unspecified; E11.9 Type 2 diabetes mellitus without complications; K21.9 Gastro-esophageal reflux disease without esophagitis; I25.10 Atherosclerotic heart disease of native coronary artery without angina pectoris; I10 Essential (primary) hypertension; F17.200 Nicotine dependence, unspecified, uncomplicated; Z79.4 Long term (current) use of insulin; Z79.82 Long term (current) use of aspirin; Z79.02 Long term (current) use of antithrombotics/antiplatelets; Z88.1 Allergy status to other antibiotic agents; Z88.5 Allergy status to narcotic agent; Z88.6 Allergy status to analgesic agent; Z91.041 Radiographic dye allergy status; Z79.899 Other long term (current) drug therapy; Z95.5 Presence of coronary angioplasty implant and graft; W20.8XXA Other cause of strike by thrown, projected or falling object, initial encounter
CPT/HCPCS: 70450; 82947; 99284-25; A9270-GY

== ENCOUNTER 2020-10-07 02:49 | Emergency (ER) | payer OTHER ==
[~2020-10-07] VITALS: Ht 160 cm; Wt 72.6 kg
[~2020-10-07 02:49] MED LIST changes: +GABA100 PO
[2020-10-07 03:56] LABS: Source, Urine Clean Catch
[2020-10-07 03:59] LABS: Bilirubin, Urine Neg (Neg); Blood, Urine Neg (Neg); Glucose Qualitative, Urine 4+ (Neg); Ketones, Urine Neg (Neg); Leukocyte Esterase, Urine Neg (Neg); Nitrite, Urine Neg (Neg); Protein, Urine 1+ (Neg); Specific Gravity, Urine 1.015 (1.003-1.022); Urobilinogen, Urine NORM (Normal)
[2020-10-07 04:15] LABS: Appearance, Urine Clear (Clear); Color, Urine Yellow (P-Yellow)
[2020-10-07] MEDS ORDERED: DICY20 PO (05:07)
== END 2020-10-07 05:32 | disposition home or self-care (01) ==
LOC: ER 02:49
PROVIDERS: Emergency Medicine
DX: R10.32 Left lower quadrant pain (principal); R11.0 Nausea; K21.9 Gastro-esophageal reflux disease without esophagitis; E11.9 Type 2 diabetes mellitus without complications; I25.10 Atherosclerotic heart disease of native coronary artery without angina pectoris; I10 Essential (primary) hypertension; E78.5 Hyperlipidemia, unspecified; J44.9 Chronic obstructive pulmonary disease, unspecified; F17.200 Nicotine dependence, unspecified, uncomplicated; Z95.5 Presence of coronary angioplasty implant and graft; Z79.4 Long term (current) use of insulin; Z79.51 Long term (current) use of inhaled steroids; Z79.02 Long term (current) use of antithrombotics/antiplatelets; Z79.82 Long term (current) use of aspirin; Z79.899 Other long term (current) drug therapy
CPT/HCPCS: 36415; 74176; 93005; 93010; 99284-25; A9270

== ENCOUNTER 2020-11-28 11:31 | Emergency (ER) | payer OTHER ==
[~2020-11-28] VITALS: Ht 160 cm; Wt 77.1 kg
[~2020-11-28 11:31] MED LIST changes: +CLOP75; +DICY20 PO
[2020-11-28 12:26] LABS: BASOPHILS ABSOLUTE AUTO 0.13 K/mm3 (0.00-0.23); BASOPHILS PERCENT AUTO 1 % (0-2); EOSINOPHILS ABSOLUTE AUTO 0.71 K/mm3 (0.00-0.68); EOSINOPHILS PERCENT AUTO 8 % (0-6); Hematocrit 41.8 % (33.0-51.0); Hemoglobin 14.1 g/dL (11.5-16.0); IMMATURE GRAN ABSOLUTE AUTO 0.04 K/mm3 (0.00-0.10); IMMATURE GRAN PERCENT AUTO 0 % (0-1); LYMPHOCYTES ABSOLUTE AUTO 3.17 K/mm3 (0.84-5.20); LYMPHOCYTES PERCENT AUTO 34 % (21-46); MONOCYTES ABSOLUTE AUTO 0.84 K/mm3 (0.16-1.47); MONOCYTES PERCENT AUTO 9 % (4-13); Mean Corpuscular HGB 30.6 pg (26.0-34.0); Mean Corpuscular HGB Conc 33.7 g/dL (31.5-36.5); Mean Corpuscular Volume 91 fL (80-100); Mean Platelet Volume 10.7 fL (9.1-12.4); NEUTROPHILS ABSOLUTE AUTO 4.35 K/mm3 (1.96-9.15); NEUTROPHILS PERCENT AUTO 47 % (41-73); Platelet Count 270 K/mm3 (150-400); RDW Coefficient Variation 12.5 % (11.7-14.2); RDW Standard Deviation 41.1 fL (35.1-46.3); Red Blood Cell Count 4.61 M/mm3 (3.80-5.20); White Blood Cell Count 9.24 K/mm3 (4.00-11.30)
[2020-11-28 12:32] LABS: Alanine Aminotransfer (ALT/SGP 46 U/L (12-78); Albumin, Blood 3.5 g/dL (3.4-5.0); Albumin/Globulin Ratio 0.9 (0.8-1.8); Alk Phos 167 U/L (50-136); Anion Gap 12 mmol/L (6-16); Aspartate Aminotrans (AST/SGOT 65 U/L (12-37); Bilirubin, Total 0.3 mg/dL (0.1-1.0); Blood Urea Nitrogen 22 mg/dL (8-24); Bun/Creatinine Ratio 29.3 (12.0-20.0); CO2, Blood 20 mmol/L (21-32); Calcium, Blood 9.6 mg/dL (8.5-10.1); Chloride, Blood 105 mmol/L (98-108); Creatinine, Blood 0.75 mg/dL (0.40-1.00); Glomerular Filtration Rate >60 (60-); Glucose, Blood 301 mg/dL (70-99); Potassium, Blood 4.5 mmol/L (3.5-5.5); Sodium, Blood 137 mmol/L (136-145); Total Protein, Blood 7.5 g/dL (6.4-8.2)
[2020-11-28 13:03] LABS: Source, Urine Clean Catch
[2020-11-28 13:15] LABS: Appearance, Urine Clear (Clear); Bilirubin, Urine Neg (Neg); Blood, Urine Neg (Neg); Color, Urine Yellow (P-Yellow); Glucose Qualitative, Urine 4+ (Neg); Ketones, Urine Neg (Neg); Leukocyte Esterase, Urine Neg (Neg); Nitrite, Urine Neg (Neg); Protein, Urine Neg (Neg); Specific Gravity, Urine 1.015 (1.003-1.022); Urobilinogen, Urine NORM (Normal)
== END 2020-11-28 17:02 | disposition home or self-care (01) ==
LOC: ER 11:31
PROVIDERS: Emergency Medicine
DX: K59.00 Constipation, unspecified (principal); K44.9 Diaphragmatic hernia without obstruction or gangrene; K21.9 Gastro-esophageal reflux disease without esophagitis; E11.9 Type 2 diabetes mellitus without complications; I10 Essential (primary) hypertension; I25.10 Atherosclerotic heart disease of native coronary artery without angina pectoris; E78.5 Hyperlipidemia, unspecified; J44.9 Chronic obstructive pulmonary disease, unspecified; F17.200 Nicotine dependence, unspecified, uncomplicated; Z79.02 Long term (current) use of antithrombotics/antiplatelets; Z79.82 Long term (current) use of aspirin; Z88.1 Allergy status to other antibiotic agents; Z88.5 Allergy status to narcotic agent; Z88.6 Allergy status to analgesic agent; Z88.8 Allergy status to other drugs, medicaments and biological substances; Z79.4 Long term (current) use of insulin; Z91.041 Radiographic dye allergy status; Z79.899 Other long term (current) drug therapy
CPT/HCPCS: 36415; 74177; 80053; 81003; 83690; 85025; 93005; 93010; 96374-59; 96375; 99284-25; J1170; J1200; J2405; J2765; Q9967

== ENCOUNTER 2020-12-28 15:33 | Emergency (ER) | payer OTHER ==
[~2020-12-28] VITALS: Ht 162.6 cm; Wt 63.5 kg
[2020-12-28] MEDS ORDERED: Levaquin750 MG PO (17:56)
[2020-12-28] MEDS ORDERED: ONDA4ODT MM (17:56)
[2020-12-28 18:09] LABS: BASOPHILS ABSOLUTE AUTO 0.08 K/mm3 (0.00-0.23); BASOPHILS PERCENT AUTO 1 % (0-2); EOSINOPHILS ABSOLUTE AUTO 0.24 K/mm3 (0.00-0.68); EOSINOPHILS PERCENT AUTO 1 % (0-6); Hematocrit 45.9 % (33.0-51.0); Hemoglobin 15.5 g/dL (11.5-16.0); IMMATURE GRAN ABSOLUTE AUTO 0.13 K/mm3 (0.00-0.10); IMMATURE GRAN PERCENT AUTO 1 % (0-1); LYMPHOCYTES ABSOLUTE AUTO 2.22 K/mm3 (0.84-5.20); LYMPHOCYTES PERCENT AUTO 13 % (21-46); MONOCYTES ABSOLUTE AUTO 1.99 K/mm3 (0.16-1.47); MONOCYTES PERCENT AUTO 11 % (4-13); Mean Corpuscular HGB Conc 33.8 g/dL (31.5-36.5); Mean Corpuscular Volume 89 fL (80-100); Mean Platelet Volume 11.2 fL (9.1-12.4); NEUTROPHILS ABSOLUTE AUTO 13.11 K/mm3 (1.96-9.15); NEUTROPHILS PERCENT AUTO 74 % (41-73); Platelet Count 274 K/mm3 (150-400); RDW Coefficient Variation 12.5 % (11.7-14.2); RDW Standard Deviation 40.8 fL (35.1-46.3); Red Blood Cell Count 5.16 M/mm3 (3.80-5.20); White Blood Cell Count 17.77 K/mm3 (4.00-11.30)
== END 2020-12-28 19:47 | disposition home or self-care (01) ==
LOC: ER 15:33
PROVIDERS: Physician Assistant
DX: J18.9 Pneumonia, unspecified organism (principal); Z79.02 Long term (current) use of antithrombotics/antiplatelets; Z79.82 Long term (current) use of aspirin; Z79.899 Other long term (current) drug therapy; Z79.4 Long term (current) use of insulin
CPT/HCPCS: 36415; 71046; 85025; 93005; 93010; 94640; 96374; 99285-25; A9270; J2405

== ENCOUNTER 2021-01-05 13:30 | Observation (INO) | payer OTHER ==
[~2021-01-05] VITALS: Ht 160 cm; Wt 71.7 kg
[~2021-01-05 13:30] MED LIST changes: +Levaquin750 MG PO
[2021-01-05 14:54] LABS: BASOPHILS PERCENT AUTO 1 % (0-2); EOSINOPHILS ABSOLUTE AUTO 0.32 K/mm3 (0.00-0.68); EOSINOPHILS PERCENT AUTO 3 % (0-6); Hemoglobin 13.6 g/dL (11.5-16.0); IMMATURE GRAN ABSOLUTE AUTO 0.15 K/mm3 (0.00-0.10); IMMATURE GRAN PERCENT AUTO 1 % (0-1); LYMPHOCYTES ABSOLUTE AUTO 3.02 K/mm3 (0.84-5.20); LYMPHOCYTES PERCENT AUTO 27 % (21-46); MONOCYTES ABSOLUTE AUTO 0.79 K/mm3 (0.16-1.47); MONOCYTES PERCENT AUTO 7 % (4-13); Mean Corpuscular HGB 30.5 pg (26.0-34.0); Mean Corpuscular HGB Conc 34.9 g/dL (31.5-36.5); Mean Corpuscular Volume 87 fL (80-100); Mean Platelet Volume 10.1 fL (9.1-12.4); NEUTROPHILS ABSOLUTE AUTO 6.65 K/mm3 (1.96-9.15); NEUTROPHILS PERCENT AUTO 60 % (41-73); Platelet Count 476 K/mm3 (150-400); RDW Coefficient Variation 12.2 % (11.7-14.2); RDW Standard Deviation 39.2 fL (35.1-46.3); Red Blood Cell Count 4.46 M/mm3 (3.80-5.20); White Blood Cell Count 11.03 K/mm3 (4.00-11.30)
[2021-01-05 15:07] LABS: Prothrombin Time Results 10.7 Sec (9.7-11.5)
[2021-01-05 15:15] LABS: Troponin I <0.015 ng/mL (0.000-0.040)
[2021-01-05 15:26] LABS: Alanine Aminotransfer (ALT/SGP 35 U/L (12-78); Albumin, Blood 2.8 g/dL (3.4-5.0); Albumin/Globulin Ratio 0.6 (0.8-1.8); Alk Phos 371 U/L (50-136); Anion Gap 10 mmol/L (6-16); Aspartate Aminotrans (AST/SGOT 37 U/L (12-37); Bilirubin, Total 0.2 mg/dL (0.1-1.0); Blood Urea Nitrogen 35 mg/dL (8-24); Bun/Creatinine Ratio 44.1 (12.0-20.0); CO2, Blood 23 mmol/L (21-32); Calcium, Blood 10.2 mg/dL (8.5-10.1); Chloride, Blood 100 mmol/L (98-108); Creatinine, Blood 0.79 mg/dL (0.40-1.00); Globulin, Blood 4.6 g/dL (2.2-4.0); Glomerular Filtration Rate >60 (60-); Glucose, Blood 632 mg/dL (70-99); Potassium, Blood 4.5 mmol/L (3.5-5.5); Sodium, Blood 133 mmol/L (136-145); Total Protein, Blood 7.4 g/dL (6.4-8.2)
[2021-01-05] MEDS ORDERED: ALPR.5 PO (16:02)
[2021-01-05] MEDS ORDERED: LISI10 PO (16:03)
[2021-01-05] MEDS ORDERED: NOVOLOG FL100 UNIT/3 SC (16:03)
[2021-01-05] MEDS ORDERED: ALBU90OI INH (16:04)
[2021-01-05] MEDS ORDERED: OXYC5 PO (16:05)
[2021-01-05] MEDS ORDERED: PANT40 PO (16:05)
[2021-01-05] MEDS ORDERED: ACYCLOVIR400 MG PO (16:06)
[2021-01-05] MEDS ORDERED: CLOP75 PO (16:06)
[2021-01-05] MEDS ORDERED: TOUJEO SOL300 UNIT/2 SC (16:06)
[2021-01-05] MEDS ORDERED: METO50 PO (16:07)
[2021-01-05] MEDS ORDERED: Aspir 8181 MG PO (16:08)
[2021-01-05] MEDS ORDERED: FERROUS SULFAT325 M3 PO (16:08)
[2021-01-05] MEDS ORDERED: SYMBICORT 160-4.6 GM INH (16:08)
[2021-01-05] MEDS ORDERED: IPRAT-ALBUT 0.5-3 ML NEB (16:09)
--- NOTE | 2021-01-05 17:26 | NUR ---
Echocardiogram completed.
--- NOTE | 2021-01-05 17:26 | NUR ---
Echocardiogram completed.
--- NOTE | 2021-01-05 18:52 | NUR ---
PT ADMIT TO PCU FROM ER VIA STRETCHER AT 1755. TRANSFER FROM BED WITH SBA. ON ROOM AIR SATING ABOVE 92%. TELE SHOWING SINUS WITH HR 69. DENIES ANY CHEST PAIN. PAIN VIA LEFT LEG THAT IS DESCRIBED SHARP AND SHOOTING. PT ALSO COMPLAINS OF HEADACHE. DR. WOODS NOTIFIED, NEW ORDERS PLACED TO RESUME HOME NARCOTICS. RIGHT ANKLE IV SALINE FLUSHED AND NS INFUSING AT 125 ML/HR. VITAL SIGNS STABLE. TALKING ON PHONE WITH FAMILY. PT EDUCATED FORMING ROLL OPERATOR LIGHT, UNIT, FALL PREVENTION, SAFETY AND MEDICATIONS. REPORTED OFF TO ROUTE DRIVER SALESPERSON NURSE.
--- NOTE | 2021-01-06 06:20 | NUR ---
SHIFT SUMMARY PATIENT IS ALERT AND ORIENTED X4, CAN BE FORGETFUL. PATIENT UP TO BSC, ASSISTANCE WITH REPOSITIONING NEEDED. CBG [phone] @[phone] CALLED TO HOSPITALIST, MEDICATED PER EMAR, CBG 295 @3655. PATIENT MEDICATED FOR LEFT FOOT PAIN AND HEADACHE, SEE EMAR. SLIGHT LEFT SIDED WEAKNESS. NO CHANGES THROUGHOUT SHIFT. VSS, NO ACUTE CHANGES. 02 SATS >95% ON RA. CALL LIGHT IN REACH.
--- NOTE | 2021-01-06 13:36 | NUR ---
Spiritual care visit conduted. Patient is lying in bed and alert. Patient tells me about her stroke, her recent illness and then the falls that led to this hospitalization. Patient talks at length about her daughter and all she has accomplished and the trip they will take together in April. She tells me about her [employer] upbringing and how she still leans on the jose as she deals with her medical issues. Patient repeats herself in our conversation enough to make me notice but not terribly. I normalize patient's expeience and provide therapeutic listening and prayer. Patient responds well and shows signs of an elevated mood. She voices appreciation for the visit. I will continue to remain available to patient and family
--- NOTE | 2021-01-06 14:57 | NUR ---
PT DECLINING MRI, STATING SHE IS SCARED DUE TO THE STENTS AND BEING DENIED FOR MRI IN THE PAST. EDUCATED PT ON STENT REVIEW. NOTIFIED DR WOODS. WILL CONTINUE TO MONITOR.
--- NOTE | 2021-01-06 16:34 | NUR ---
TRANSFER NOTED DAUGHTER AT BEDSIDE, EXPRESSING CONCERNS REGARDING PT TESTING FOR COVID 2 WEEKS AGO AND PNEUMONIA 1 WEEK AGO AND UNSURE IF PATIENT COMPLETED ANTIBIOTICS. DAUGHTER EXPRESSED CONCERNS REGARDING CHANGES TO PT VOICE OVER THE LAST COUPLE OF DAYS. NOTIFIED DR WOODS; NEW ORDERS FOR COVID TEST, CHEST XRAY AND SPEECH THERAPY EVAL. PT BEING TRANSFERED TO ROOM 343. REPORT GIVEN TO LAINEY DUARTE. PT A&Ox4; FORGETFUL AT TIMES. PT 1 PERSON ASSIST TO BSC/CHAIR. PT REPROTS BURNING, SHARP PAIN TO LEFT FOOT; MEDICATED PER EMAR. PT REPORTS LIGHTHEADEDNESS WHEN INITIALLY SITTING UP; VSS. PT DENIES SOB AND NAUSEA. NO OTHER ACUTE CHANGES NOTED. PT LEFT ROOM AT 1632 VIA BED.
[2021-01-06 17:35] LABS: Influenza A, PCR NEGATIVE (NEGATIVE); Influenza B, PCR NEGATIVE (NEGATIVE); Resp Syncytial Virus, PCR NEGATIVE (NEGATIVE); SARS-Cov-2 (COVID-19) PCR, MMC NEGATIVE (NEGATIVE)
--- NOTE | 2021-01-06 18:28 | NUR ---
SHIFT SUMMARY PT AXO, PLEASANT AND COOPERATIVE WITH CARE THOUGH PT'S DAUGHTER STATES THAT IS IS FORGETFUL. PT COMPLAINS OF PAIN IN HER RIGHT FLANK AND LEFT FOOT, STATES THAT SHE "FEELS LIKE SHE MIGHT BE GETTING A UTI." MEDICATED FOR PAIN PER EMAR. PT TRANSFERRED FROM PCU THIS SHIFT. BED IN LOW POSITION, CALL LIGHT WITHIN REACH. TELE ON, NSR AT 80. DR WOODS NOTIFIED OF CBG OF 449, MEDICATED PER EMAR.
--- NOTE | 2021-01-06 19:53 | NUR ---
RETURNED FROM X RAY, VOICED PAIN IN LEFT FOOT. RECEIVED TYLENOL PER MD ORDERS - SEE MAR FOR DETAILS. HOB AT 30 DEGREES. WATCHING TV. CALL LIGHT IN REACH
[2021-01-07] MEDS ORDERED: ALPR.5 PO (04:58)
--- NOTE | 2021-01-07 05:56 | NUR ---
SHIFT SUMMARY HAS BEEN RESTING QUIETLY WIT INTERMITTENT VOICED COMPLAINTS OF PAIN IN FOOT. SEE MAR FOR DETAILS WHEN MEDICATED FOR PAIN. CALL LIGHT IN REACH, CURRENTLY AWAKE AND VOICED FELT "BETTER".
--- NOTE | 2021-01-07 09:00 | NUR ---
PT PLEASANT COOP A/O STATES WANTS TO GO HOME, BOYFRIEND THERE. STATES FEELS HAS MUCH TO DO AT HOME. H/R REG, NO MURMER NOTED. PER TELE NSR AT 62. LUNGS CLEAR UPPER AND MID, CRACKLES LOW BILAT. RESP EASY, UNLABORED. ON R.A. BT X4 LAST BM TODAY. VIODS PER BATHOOM. 1 ASST FWW TO BATHROOM. BED IN LOW POSITION, CALL LITE IN REACH, CALLS APPROP
--- NOTE | 2021-01-07 12:50 | NUR ---
PT AMBULATED TO BATHROOM SBA WITH FWW. NO ISSUES NOTED.
[2021-01-07] MEDS ORDERED: GABA100 PO (12:52)
[2021-01-07] MEDS ORDERED: Prinivil10 MG PO (12:53)
[2021-01-07] MEDS ORDERED: LIDO700A20 TOP (12:53)
--- NOTE | 2021-01-07 14:24 | NUR ---
IV PULLED INTACT. TELE REMOVED AND RETURNED. DISCHARGE REVIVEWED WITH PT AND DAUGHTER (WITH VERBAL AUTH.) PT VERBALIZED UNDERSTANDING MEDS AND INST. HANDED RX FOR OXY. DAUGHTER PLACED IN HER BAG. TRANSPORT CALLED AND WILL WHEEL PT TO DOOR. OUT AT [phone]
== END 2021-01-07 14:28 | disposition home health service (06) ==
LOC: ER 13:30 → MEDS 13:31 → PCU 13:31 → ER 16:24 → PCU 17:14 → MEDS 01-06 16:35
PROVIDERS: Emergency Medicine; ADMIT Internal Medicine
DX: R53.1 Weakness (principal); M79.605 Pain in left leg; E11.51 Type 2 diabetes mellitus with diabetic peripheral angiopathy without gangrene; I73.9 Peripheral vascular disease, unspecified; E11.65 Type 2 diabetes mellitus with hyperglycemia; I25.10 Atherosclerotic heart disease of native coronary artery without angina pectoris; F19.90 Other psychoactive substance use, unspecified, uncomplicated; Z87.891 Personal history of nicotine dependence; Z79.4 Long term (current) use of insulin; Z88.1 Allergy status to other antibiotic agents; Z88.5 Allergy status to narcotic agent; Z88.8 Allergy status to other drugs, medicaments and biological substances; Z20.822 Contact with and (suspected) exposure to COVID-19; Z86.73 Personal history of transient ischemic attack (TIA), and cerebral infarction without residual deficits
CPT/HCPCS: 0241U; 36415; 70450; 71046; 80053; 82947; 84145; 84484; 85025; 85610; 85730; 92523; 93005; 93010; 93306; 97110; 97116; 97162; 97166; 97530; 97535; 99285-25; A9270; G0008; G0378; J1815; J7030; Q2038

== ENCOUNTER 2021-02-20 18:05 | Emergency (ER) | payer OTHER ==
[~2021-02-20] VITALS: Ht 160 cm; Wt 77.1 kg
[~2021-02-20 18:05] MED LIST changes: +Aspir 8181 MG PO; +FERROUS SULFAT325 M3 PO; +IPRAT-ALBUT 0.5-3 ML NEB; +LISI10 PO; +SYMBICORT 160-4.6 GM INH; +TOUJEO SOL300 UNIT/2 SC
[2021-02-20 18:43] LABS: BASOPHILS ABSOLUTE AUTO 0.11 K/mm3 (0.00-0.23); BASOPHILS PERCENT AUTO 1 % (0-2); EOSINOPHILS ABSOLUTE AUTO 0.59 K/mm3 (0.00-0.68); EOSINOPHILS PERCENT AUTO 6 % (0-6); Hematocrit 42.3 % (33.0-51.0); Hemoglobin 13.9 g/dL (11.5-16.0); IMMATURE GRAN ABSOLUTE AUTO 0.03 K/mm3 (0.00-0.10); IMMATURE GRAN PERCENT AUTO 0 % (0-1); LYMPHOCYTES ABSOLUTE AUTO 3.34 K/mm3 (0.84-5.20); LYMPHOCYTES PERCENT AUTO 35 % (21-46); MONOCYTES ABSOLUTE AUTO 0.94 K/mm3 (0.16-1.47); MONOCYTES PERCENT AUTO 10 % (4-13); Mean Corpuscular HGB 30.7 pg (26.0-34.0); Mean Corpuscular HGB Conc 32.9 g/dL (31.5-36.5); Mean Corpuscular Volume 93 fL (80-100); Mean Platelet Volume 10.4 fL (9.1-12.4); NEUTROPHILS ABSOLUTE AUTO 4.58 K/mm3 (1.96-9.15); NEUTROPHILS PERCENT AUTO 48 % (41-73); Platelet Count 275 K/mm3 (150-400); RDW Coefficient Variation 13.2 % (11.7-14.2); RDW Standard Deviation 45.3 fL (35.1-46.3); Red Blood Cell Count 4.53 M/mm3 (3.80-5.20); White Blood Cell Count 9.59 K/mm3 (4.00-11.30)
[2021-02-20 19:27] LABS: Alanine Aminotransfer (ALT/SGP 30 U/L (12-78); Albumin, Blood 3.2 g/dL (3.4-5.0); Albumin/Globulin Ratio 0.8 (0.8-1.8); Alk Phos 180 U/L (50-136); Anion Gap 8 mmol/L (6-16); Aspartate Aminotrans (AST/SGOT 26 U/L (12-37); Bilirubin, Total 0.3 mg/dL (0.1-1.0); Blood Urea Nitrogen 18 mg/dL (8-24); Bun/Creatinine Ratio 23.9 (12.0-20.0); CO2, Blood 24 mmol/L (21-32); Calcium, Blood 9.1 mg/dL (8.5-10.1); Chloride, Blood 104 mmol/L (98-108); Creatinine, Blood 0.75 mg/dL (0.40-1.00); Globulin, Blood 3.9 g/dL (2.2-4.0); Glomerular Filtration Rate >60 (60-); Glucose, Blood 333 mg/dL (70-99); Potassium, Blood 4.2 mmol/L (3.5-5.5); Sodium, Blood 136 mmol/L (136-145); Total Protein, Blood 7.1 g/dL (6.4-8.2)
== END 2021-02-20 19:18 | disposition left against medical advice (07) ==
LOC: ER 18:05
PROVIDERS: Physician Assistant
DX: R10.32 Left lower quadrant pain (principal); Z53.21 Procedure and treatment not carried out due to patient leaving prior to being seen by health care provider; Z79.02 Long term (current) use of antithrombotics/antiplatelets; Z79.899 Other long term (current) drug therapy; Z79.82 Long term (current) use of aspirin; Z79.4 Long term (current) use of insulin
CPT/HCPCS: 36415; 80053; 83690; 85025; 99283

== ENCOUNTER → 2021-05-13 | Outpatient (CLI) | payer OTHER | END | disposition home or self-care (01) | LOC: LAB 13:36 → LAB SHORT 13:36 | DX: L60.2 Onychogryphosis (principal); B35.1 Tinea unguium | CPT/HCPCS: 88305; 88312 ==

== ENCOUNTER 2021-05-20 08:28 | Day surgery (SDC) | payer OTHER ==
[~2021-05-20] VITALS: Ht 162.6 cm; Wt 79.5 kg
--- NOTE | 2021-05-20 09:42 | NUR ---
05/20/21 0942 True,Elton FIRST IV IN RIGHT HAND BLEW SECOND IV IN LEFT HAND BLEW THIRD IV IN LEFT HAND BLEW FOURTH IV IN RIGHT FOOT WORKED
== END 2021-05-20 10:51 | disposition home or self-care (01) ==
LOC: ORSCSDS 08:28
PROVIDERS: Internal Medicine Gastroenterology
PROC: 0D757ZZ Dilation of Esophagus, Via Natural or Artificial Opening (ICD-10-PCS; principal; 2021-05-20 10:00)
PROC: 0D758ZZ Dilation of Esophagus, Via Natural or Artificial Opening Endoscopic (ICD-10-PCS; principal; 2021-05-20 10:00)
DX: R13.10 Dysphagia, unspecified (principal); D64.9 Anemia, unspecified; R10.13 Epigastric pain; K44.9 Diaphragmatic hernia without obstruction or gangrene; K22.2 Esophageal obstruction; E11.9 Type 2 diabetes mellitus without complications; K76.0 Fatty (change of) liver, not elsewhere classified; I10 Essential (primary) hypertension; F17.210 Nicotine dependence, cigarettes, uncomplicated; Z79.82 Long term (current) use of aspirin; Z79.4 Long term (current) use of insulin; Z79.899 Other long term (current) drug therapy
CPT/HCPCS: 82947; C1726; J2704; J7120

== ENCOUNTER → 2021-07-22 | Outpatient (CLI) | payer OTHER | LOC: LAB SHORT 19:09 → LAB 19:09 | DX: N39.0 Urinary tract infection, site not specified (principal) | CPT/HCPCS: 87077; 87086; 87186 ==

== ENCOUNTER 2021-08-14 | Emergency (ER) | payer OTHER ==
[~2021-08-14] VITALS: Ht 162.6 cm; Wt 74.8 kg
[2021-08-14] MEDS ORDERED: HYDR1TAB94 PO (02:17)
== END 2021-08-14 03:44 | disposition home or self-care (01) ==
LOC: ER
DX: M25.551 Pain in right hip (principal); M54.6 Pain in thoracic spine; I25.10 Atherosclerotic heart disease of native coronary artery without angina pectoris; J44.9 Chronic obstructive pulmonary disease, unspecified; E11.51 Type 2 diabetes mellitus with diabetic peripheral angiopathy without gangrene; I10 Essential (primary) hypertension; K21.9 Gastro-esophageal reflux disease without esophagitis; Z87.891 Personal history of nicotine dependence; Z88.5 Allergy status to narcotic agent; Z88.1 Allergy status to other antibiotic agents; Z91.048 Other nonmedicinal substance allergy status; Z88.8 Allergy status to other drugs, medicaments and biological substances; Z79.899 Other long term (current) drug therapy; Z79.4 Long term (current) use of insulin; Z79.82 Long term (current) use of aspirin
CPT/HCPCS: 72100; 73502; 96372; 99283-25; A9270

== ENCOUNTER 2021-08-24 01:45 | Emergency (ER) | payer OTHER ==
[~2021-08-24] VITALS: Ht 160 cm; Wt 74.8 kg
[2021-08-24 03:02] LABS: BASOPHILS ABSOLUTE AUTO 0.07 K/mm3 (0.00-0.23); BASOPHILS PERCENT AUTO 1 % (0-2); EOSINOPHILS ABSOLUTE AUTO 0.63 K/mm3 (0.00-0.68); EOSINOPHILS PERCENT AUTO 8 % (0-6); Hematocrit 41.4 % (33.0-51.0); IMMATURE GRAN ABSOLUTE AUTO 0.03 K/mm3 (0.00-0.10); IMMATURE GRAN PERCENT AUTO 0 % (0-1); LYMPHOCYTES ABSOLUTE AUTO 2.87 K/mm3 (0.84-5.20); LYMPHOCYTES PERCENT AUTO 34 % (21-46); MONOCYTES ABSOLUTE AUTO 0.88 K/mm3 (0.16-1.47); MONOCYTES PERCENT AUTO 11 % (4-13); Mean Corpuscular HGB 29.7 pg (26.0-34.0); Mean Corpuscular HGB Conc 33.8 g/dL (31.5-36.5); Mean Corpuscular Volume 88 fL (80-100); NEUTROPHILS ABSOLUTE AUTO 3.86 K/mm3 (1.96-9.15); NEUTROPHILS PERCENT AUTO 46 % (41-73); RDW Coefficient Variation 11.9 % (11.7-14.2); RDW Standard Deviation 38.4 fL (35.1-46.3); Red Blood Cell Count 4.71 M/mm3 (3.80-5.20); White Blood Cell Count 8.34 K/mm3 (4.00-11.30)
[2021-08-24 03:08] LABS: Mean Platelet Volume 10.9 fL (9.1-12.4); Platelet Count 181 K/mm3 (150-400)
[2021-08-24 03:22] LABS: Alanine Aminotransfer (ALT/SGP 33 U/L (12-78); Albumin, Blood 3.2 g/dL (3.4-5.0); Albumin/Globulin Ratio 0.8 (0.8-1.8); Alk Phos 241 U/L (50-136); Anion Gap 9 mmol/L (6-16); Aspartate Aminotrans (AST/SGOT 41 U/L (12-37); Bilirubin, Total 0.2 mg/dL (0.1-1.0); Blood Urea Nitrogen 23 mg/dL (8-24); Bun/Creatinine Ratio 32.3 (12.0-20.0); CO2, Blood 22 mmol/L (21-32); Calcium, Blood 9.5 mg/dL (8.5-10.1); Chloride, Blood 106 mmol/L (98-108); Creatinine, Blood 0.71 mg/dL (0.40-1.00); Globulin, Blood 3.8 g/dL (2.2-4.0); Glomerular Filtration Rate >60 (60-); Glucose, Blood 340 mg/dL (70-99); Magnesium, Blood 1.3 mg/dL (1.6-2.4); Potassium, Blood 4.2 mmol/L (3.5-5.5); Sodium, Blood 137 mmol/L (136-145); Troponin I <0.015 ng/mL (0.000-0.040)
== END 2021-08-24 07:02 | disposition home or self-care (01) ==
LOC: ER 01:45
PROVIDERS: Student in an Organized Health Care Education/Training Program
DX: E83.42 Hypomagnesemia (principal); R00.2 Palpitations; K21.9 Gastro-esophageal reflux disease without esophagitis; E11.9 Type 2 diabetes mellitus without complications; I10 Essential (primary) hypertension; E78.5 Hyperlipidemia, unspecified; J44.9 Chronic obstructive pulmonary disease, unspecified; F17.200 Nicotine dependence, unspecified, uncomplicated; Z88.5 Allergy status to narcotic agent; Z79.899 Other long term (current) drug therapy
CPT/HCPCS: 80053; 82947; 83735; 84484; 85025; 93005; 93010; 96365; 96366; 99285-25; A9270; J3475

== ENCOUNTER → 2021-09-03 | Outpatient (CLI) | payer OTHER | END | disposition home or self-care (01) | LOC: LAB SHORT 18:54 → LAB 18:54 | DX: R30.9 Painful micturition, unspecified (principal) | CPT/HCPCS: 87086 ==

== ENCOUNTER 2021-12-28 03:18 | Inpatient (IN) | payer OTHER ==
[~2021-12-28] VITALS: Ht 160 cm; Wt 79.4 kg
[2021-12-28 04:11] LABS: Alanine Aminotransfer (ALT/SGP 36 U/L (12-78); Albumin, Blood 3.1 g/dL (3.4-5.0); Albumin/Globulin Ratio 0.8 (0.8-1.8); Alk Phos 201 U/L (50-136); Anion Gap 11 mmol/L (6-16); Aspartate Aminotrans (AST/SGOT 46 U/L (12-37); Bilirubin, Total 0.3 mg/dL (0.1-1.0); Blood Urea Nitrogen 22 mg/dL (8-24); Bun/Creatinine Ratio 29.2 (12.0-20.0); CO2, Blood 20 mmol/L (21-32); Calcium, Blood 9.5 mg/dL (8.5-10.1); Chloride, Blood 106 mmol/L (98-108); Creatinine, Blood 0.75 mg/dL (0.40-1.00); Globulin, Blood 3.9 g/dL (2.2-4.0); Glomerular Filtration Rate >60 (60-); Glucose, Blood 309 mg/dL (70-99); Potassium, Blood 4.4 mmol/L (3.5-5.5); Sodium, Blood 137 mmol/L (136-145)
[2021-12-28 04:22] LABS: BASOPHILS ABSOLUTE AUTO 0.14 K/mm3 (0.00-0.23); BASOPHILS PERCENT AUTO 1 % (0-2); EOSINOPHILS ABSOLUTE AUTO 0.63 K/mm3 (0.00-0.68); EOSINOPHILS PERCENT AUTO 6 % (0-6); Hematocrit 42.3 % (33.0-51.0); Hemoglobin 13.8 g/dL (11.5-16.0); Mean Corpuscular HGB 28.7 pg (26.0-34.0); Mean Corpuscular HGB Conc 32.6 g/dL (31.5-36.5); Mean Corpuscular Volume 88 fL (80-100); Mean Platelet Volume 10.4 fL (9.1-12.4); Platelet Count 275 K/mm3 (150-400); RDW Coefficient Variation 13.2 % (11.7-14.2); RDW Standard Deviation 43.1 fL (35.1-46.3); Red Blood Cell Count 4.81 M/mm3 (3.80-5.20); White Blood Cell Count 10.75 K/mm3 (4.00-11.30)
[2021-12-28 04:24] LABS: IMMATURE GRAN ABSOLUTE AUTO 0.04 K/mm3 (0.00-0.10); IMMATURE GRAN PERCENT AUTO 0 % (0-1); LYMPHOCYTES ABSOLUTE AUTO 4.46 K/mm3 (0.84-5.20); LYMPHOCYTES PERCENT AUTO 42 % (21-46); MONOCYTES ABSOLUTE AUTO 0.88 K/mm3 (0.16-1.47); MONOCYTES PERCENT AUTO 8 % (4-13); NEUTROPHILS PERCENT AUTO 43 % (41-73)
[2021-12-28 07:20] LABS: Cholesterol 295 mg/dL (50-200); HDL Cholesterol 37 mg/dL (>39); LDL/HDL RATIO Unable to Calculate; Low Density Lipoprotein Chol Unable to Calculate mg/dL (0-110); Triglycerides 483 mg/dL (30-160); Very Low Density Lipoprot Chol Unable to Calculate mg/dL (6-32)
[2021-12-28 08:01] LABS: Source, Urine Clean Catch
[2021-12-28 08:06] LABS: Appearance, Urine Clear (Clear); Bilirubin, Urine Neg (Neg); Blood, Urine Neg (Neg); Color, Urine Yellow (P-Yellow); Glucose Qualitative, Urine 4+ (Neg); Ketones, Urine Neg (Neg); Leukocyte Esterase, Urine Neg (Neg); Nitrite, Urine Neg (Neg); Protein, Urine Neg (Neg); Specific Gravity, Urine 1.015 (1.003-1.022); Urobilinogen, Urine NORM (Normal)
--- NOTE | 2021-12-28 08:20 | NUR ---
PT ARRIVED TO THE UNIT AT APPROXIMATELY 0820. PAIN MANAGED WITH IV PAIN MEDICATION. PT REPORTED MILD NAUSEA BUT NO VOMITING. PT IS A SBA IN THE ROOM. WILL CONTINUE TO MONITOR.
[2021-12-28] MEDS ORDERED: GLIP10 PO (09:32)
--- NOTE | 2021-12-28 10:47 | NUR ---
Upon receiving a spiritual care referral, I visit pt. Pt is lying in bed and alert. She immediately tells me about her current symptoms and the hopes she has moving forward. We talk about the stress she has due to being in a hospital and being unsure what to expect. We explore activities and people that inspire and encourage her, her spiritual journey and what is meaningful to her today. I encourage self-care, reinforce helpful attitudes and perspectives and provide therapeutic listening, gentle nurses' association counselor and prayer. Pt states that the prayer is what is meaningful and states her appreciation for it. I will continue to remain available to patient and family.
--- NOTE | 2021-12-28 18:48 | NUR ---
SHIFT SUMMARY PT REMAINS IN THE HOSPITAL FOR MEDICAL MANAGEMENT. SHE IS INDEPENDENT IN HER ROOM. PAIN MANAGED WITH IV PAIN MEDICATION. PT TRIED A REGULAR DIET WHICH CAUSED INCREASED PAIN AND NAUSEA. PT CHANGED TO CLEAR LIQUID DIET AND ADVANCE TOLERATED. PT EDUCATED TO REMAIN NPO IF FOOD/FLUIDS INCREASE PAIN AND NAUSEA. WILL MONITOR UNTIL REPORT TO NOC RN.
--- NOTE | 2021-12-29 01:09 | NUR ---
0050: BERE FROM TELE CALLED STATING PT HAD AN EPISODE OF 12B RUNNING SVT. CAME TO SEE PT IN ROOM. PT REPORTS EPIGASTRIC BURNING PAIN. SHE STS THAT SHE FELT HER HEART RACING WHEN SHE WOKE UP AND NAUSEATED. PT DENIES CHEST PAIN, SOB, NUMBNESS, TINGLING SENSATION. VITALS CHECKED. 150/60 BP, 67 HR, CALLED TELE AFTER 2 MINS REASSESSING PT. TELE CONFIRM THAT PT IS BACK ON NSR. MEDICATED PT WITH PAIN, FENTANYL 50MCG AND REGLAN 5MG. MILD RELIEF WITH PAIN. AND NAUSEA RESOLVED. PT ALERT AND ORIENTED X4. VERY RESPONSIVE. CALLED DR. PAUL. NOTIFIED OF THE INCIDENT. WILL KEEP MONITORING PT. CALL LIGHT WITHIN REACH.
--- NOTE | 2021-12-29 03:42 | NUR ---
SHIFT SUMMARY PT ADMITTED FOR LUQ PAIN UNK ETIOLOGY R/O PEPTIC ULCER VS ISCHEMIC COLITIS VS PANCREATITIS. PT REMAIN TO BE PAINFUL T/O SHIFT. PAIN LEVEL FROM 6-9/10 PAIN LEVEL. PAIN MANAGED WITH FENTANYL 25-50MCG Q2. WITH MINIMAL RELIEF. PT REPORTS MILD NAUSEA INTERMITTENTLY. ZOFRAN AND PHENEGRAN ADMINISTERED. DENIES VOMITING. BT PRESENT. FLUIDS INFUSING. NPO AFTER MIDNIGHT. PT ALSO HAD 1 EPISODE OF SVT (SEE EMR FOR NOTES). DENIES CHEST PAIN AND SOB. NOTIFIED HOSPITALIST (DR. PAUL). PT CONVERT BACK TO NSR RIGHT AWAY. I ALSO BROUGHT KPAD FOR PAIN RELIEF. AMBULATES IN THE BATHROOM, SBA. VOIDING WITHOUT ISSUE. CALL LIGHT WITHIN REACH. WILL PROVIDE REPORT TO ONCOMING NURSE.
[2021-12-29 08:50] LABS: Hematocrit 42.9 % (33.0-51.0); Hemoglobin 13.7 g/dL (11.5-16.0); Mean Corpuscular HGB 28.5 pg (26.0-34.0); Mean Corpuscular HGB Conc 31.9 g/dL (31.5-36.5); Mean Corpuscular Volume 89 fL (80-100); Mean Platelet Volume 10.1 fL (9.1-12.4); Platelet Count 254 K/mm3 (150-400); RDW Coefficient Variation 13.2 % (11.7-14.2); RDW Standard Deviation 43.7 fL (35.1-46.3); Red Blood Cell Count 4.81 M/mm3 (3.80-5.20)
[2021-12-29] MEDS ORDERED: PREG50 PO (10:15)
[2021-12-29] MEDS ORDERED: Norco 5-325 Ta1 EACH PO (10:47)
[2021-12-29] MEDS ORDERED: HYDHCL25 PO (10:48)
[2021-12-29] MEDS ORDERED: ALLERCLEAR10 MG PO (10:48)
--- NOTE | 2021-12-29 13:52 | NUR ---
SPOKE WITH DR. CASTILLO REGARDING PT'S CONTINUED ELEVATED PAIN LEVELS. SHE CONTINUES TO REPORT LUQ PAIN. PT REPORTS HER PAIN IS CONSTANT SHE APPEARS TO DISTRACT FROM PAIN WHEN TALKING WITH STAFF BUT DOES APPEAR TO HAVE INTERMITTENT INTENSE PAINS. DR. CASTILLO ORDERED DILAUDID X1 TO SEE IF PT PAIN RESPONDS TO THAT MEDICATION. DR. CASTILLO NOTIFIED THAT PT REPORTS DISCOMFORT WHEN SWALLOWING CLEAR LIQUIDS AND PILLS AND THE SENSATION OF FEELING THAT A PILL IS STUCK IN HER THROAT. DR. CASTILLO VERBALIZED HE WOULD ATTEMPT TO CONTACT GI SINCE GI IS NOT MGMT CONSULTANT UNTIL 01/01. WILL CONTINUE TO MONITOR.
--- NOTE | 2021-12-29 17:38 | NUR ---
SHIFT SUMMARY PT CONTINUES TO HAVE LUQ PAIN. PT WAS GETTING FENTANYL FOR PAIN WITH LITTLE RELIEF, CHANGED TO DILAUDID PT APPEARS MORE COMFORTABLE AND REPORTS BETTER PAIN MANAGEMENT. SHE APPEARS TO HAVE INCREASED PAIN PAIN WHEN SHE TAKES PO, SHE HAS ONLY TAKEN CLEAR LIQUIDS WITH MEDICATIONS TODAY. SHE IS ATTEMPTING SOME SIPS OF WATER THIS EVENING. PT HAS BEEN A SBA TO HELP WITH LINES AND TUBES WHILE OOB. PLAN FOR DR. MC TO CONSULT TOMORROW. WILL MONITOR UNTIL REPORT TO NOC RN.
--- NOTE | 2021-12-29 19:27 | NUR ---
PT WAS GIVEN A FULL LIQUID DIET FOR DINNER PER DR. MC'S ORDERS. PT IS NOW COMPLAINING OF INCREASED PAIN AND NAUSEA AFTER EATING. NOC LAINEY TAYLOR UPDATED REGARDING NAUSEA AND PAIN.
--- NOTE | 2021-12-29 21:14 | NUR ---
BP: PT BP CONT TO TREND UP. CALL PLACED TO HOSPITALISTY, DISCUSSED VITALS AND HOME MEDS W/DR SCHRADER. NEW ORDER FOR HOME DOSE OF LISINOPRIL REC.
--- NOTE | 2021-12-30 06:20 | NUR ---
PT AWAKE IN ROOM THIS AM. BP IMPROVED AFTER LISINOPRIL GIVEN. PT CONT TO C/O LUQ ABD PAIN, REP RELIEF W/PRN MEDS. PT C/O NAUSEA AND OCC BURNING SENSATION THIS AM. PT NPO X ICE CHIPS POST MIDNIGHT FOR EGD THIS AFTERNOON. IVF CONT PER ORDERS, PT INDEP IN ROOM
[2021-12-30 08:19] LABS: Influenza A, PCR NEGATIVE (NEGATIVE); Influenza B, PCR NEGATIVE (NEGATIVE); Resp Syncytial Virus, PCR NEGATIVE (NEGATIVE); SARS-Cov-2 (COVID-19) PCR, MMC NEGATIVE (NEGATIVE)
--- NOTE | 2021-12-30 10:51 | NUR ---
LOWER BACK PAIN PATIENT REPORTED LOWER BACK PAIN UNCONTROLLED BY IV PAIN MEDS. SHOP MANAGER VENUS RAMIRES CALLED DR GROVES AND OBTAINED ORDERS FOR 0.5 DILAUDID IV NOW AND A LIDOCAINE PATCH FOR HER LOWER BACK. BOTH ADMINISTERED. WILL CONTINUE TO MONITOR.
--- NOTE | 2021-12-30 16:08 | NUR ---
Patient immediately tells me that she is having nausea and pain. She says that she has received medications for these syptoms but is not feeling the relief she had hoped for yet. I say a quick prayer and allow her to return to her meditative state to work through it. I will continue to remain available.
--- NOTE | 2021-12-30 16:47 | NUR ---
THE PATIENT WAS BROUGHT TO DAY SURGERY FOR HER PROCEDURE
--- NOTE | 2021-12-30 18:06 | NUR ---
12/30/21 1806 Roshan Seals PATIENT DETERMINED TO BE ASA APPROPRIATE FOR PROPOFOL SEDATION PRIOR TO START OF PROCEDURE BY DR. guerra. Bite Block Placed 3-LEAD EKG REVIEWED WITH PHYSICIAN PRIOR TO START OF PROCEDURE. Patient to ENDO 1 History, Chart, Medications and Allergies reviewed before start of procedure. MONITOR INTACT WITH CONTINUOUS PULSE OXIMETRY AND INTERMITTENT BP. O2 VIA N/C INTACT THROUGHOUT SEDATION/PROCEDURE.
--- NOTE | 2021-12-30 19:42 | NUR ---
SHIFT SUMMARY PATIENT ALERT AND ORIENTED THROUGHOUT SHIFT. ABD MILDLY DISTENDED AND TENDER. SEVERE LOWER BACK PAIN COMES AND GOES. TRAVELS THROUGH BUTTOCKS INTO THIGHS BILAT. LYRICA TID ORDERED, NORCO ORDERED. EGD WITH DR MC NEGATIVE. PLAN TO DISCHARGE PATIENT 12/31/21. SBA IN ROOM TO BATHROOM. REPORT GIVEN TO SEWER CLEANER RN.
--- NOTE | 2021-12-31 01:15 | NUR ---
SHIFT SUMMARY: PT. IS AOX4, AMBULATES TO THE COMMODE ON SBA WITHOUT PROBLEMS. PAIN CONTROL IS A BIG ISSUE PT. WOULD SUDDENLY CALL & CRYING FOR SO MUCH PAIN WHEN PAIN MED WAS JUST GIVEN 2 HRS AGO. NOT ENOUGH PRN PAIN MEDICINE THAT COULD CONTROL HER PAIN. AT TIMES PT. WOULD REPOSITION SELF & SEEMED HELPING THE PIN, ADVISED TO FIND A GOOD POSITION FOR HER TO ALLEVIATE THE PAIN, PT. VERBALIZED UNDERSTANDING. VOIDING WELL AT THE BSC. NEEDS ATTENDED TO, ROUNDING PER PROTOCOL DONE.NO S/S OF RESP./CV DISTRESS NOTED.
--- NOTE | 2021-12-31 13:41 | NUR ---
DISCHARGE SUMMARY A/O X4, VSS, TOLERATING PO, AMBULATING, VOIDING, PAIN MANAGED PER EMAR. DISCUSSED DISCHARGE INSTRUCTIONS, HOME CARE, AND FOLLOW UP REFERRALS c PT. PT REPORTED ALREADY CALLING HER PCP AND JUST WAITING ON A CALL BACK FOR AN APPOINTMENT. HARD SCRIPT GIVEN FOR PAIN MEDICATIONS, ALL OTHER HOME MEDICATIONS CONTINUED c NO ADDITIONAL MEDICATIONS ORDERED AT THIS TIME. PT REPORTS UNDERSTANDING ALL INSTRUCTIONS AND HAS NO QUESTIONS AT THIS TIME. IV ACCESS REMOVED AND NO OTHER ACCESS DEVICES IN PLACE. PT ESCORTED OUT VIA WC WITH ALL PERSONAL POSSESSIONS.
== END 2021-12-31 13:12 | disposition home health service (06) | DRG 394 ==
LOC: ER 03:18 → SURS 03:19 → MEDS 03:19 → SURS 08:25
PROVIDERS: Hospitalist; Internal Medicine Gastroenterology; Student in an Organized Health Care Education/Training Program; ADMIT Family Medicine
PROC: 0DB78ZX Excision of Stomach, Pylorus, Via Natural or Artificial Opening Endoscopic, Diagnostic (ICD-10-PCS; principal; 2021-12-30 15:30)
DX: K55.9 Vascular disorder of intestine, unspecified (principal); E87.2 Acidosis; R10.12 Left upper quadrant pain; K21.9 Gastro-esophageal reflux disease without esophagitis; I25.10 Atherosclerotic heart disease of native coronary artery without angina pectoris; I10 Essential (primary) hypertension; E78.5 Hyperlipidemia, unspecified; K31.7 Polyp of stomach and duodenum; M54.10 Radiculopathy, site unspecified; J44.9 Chronic obstructive pulmonary disease, unspecified; G89.29 Other chronic pain; F32.A Depression, unspecified; E66.9 Obesity, unspecified; M19.90 Unspecified osteoarthritis, unspecified site; E11.42 Type 2 diabetes mellitus with diabetic polyneuropathy; Z20.822 Contact with and (suspected) exposure to COVID-19; F41.1 Generalized anxiety disorder; E11.51 Type 2 diabetes mellitus with diabetic peripheral angiopathy without gangrene; F17.210 Nicotine dependence, cigarettes, uncomplicated; M54.50 Low back pain, unspecified; Z91.041 Radiographic dye allergy status; Z95.1 Presence of aortocoronary bypass graft; Z88.5 Allergy status to narcotic agent; Z79.899 Other long term (current) drug therapy; Z91.09 Other allergy status, other than to drugs and biological substances; Z88.1 Allergy status to other antibiotic agents; Z79.2 Long term (current) use of antibiotics; Z79.82 Long term (current) use of aspirin; Z79.4 Long term (current) use of insulin; Z86.73 Personal history of transient ischemic attack (TIA), and cerebral infarction without residual deficits; Z98.890 Other specified postprocedural states; Z90.710 Acquired absence of both cervix and uterus; Z87.442 Personal history of urinary calculi; Z68.31 Body mass index [BMI] 31.0-31.9, adult
CPT/HCPCS: 0241U; 36415; 74176; 80053; 80061; 81003; 82947; 83036; 83605; 83690; 84484; 85025; 85027; 88305; 88342; 93005; 93010; 94760; 96365; 96366; 96375; 96376; 99285-25; A9270; C9113; G0378; J1170; J1650; J1815; J2405; J2543; J2704; J2765; J3010; J7030; J7120

== ENCOUNTER 2022-02-05 01:12 | Inpatient (IN) | payer OTHER ==
[~2022-02-05] VITALS: Ht 160 cm; Wt 79.2 kg
[~2022-02-05 01:12] MED LIST changes: +GLIP5ER PO; +PREG50 PO
[2022-02-05 03:36] LABS: BASOPHILS ABSOLUTE AUTO 0.07 K/mm3 (0.00-0.23); BASOPHILS PERCENT AUTO 0 % (0-2); EOSINOPHILS ABSOLUTE AUTO 0.06 K/mm3 (0.00-0.68); EOSINOPHILS PERCENT AUTO 0 % (0-6); Hemoglobin 14.8 g/dL (11.5-16.0); IMMATURE GRAN ABSOLUTE AUTO 0.07 K/mm3 (0.00-0.10); IMMATURE GRAN PERCENT AUTO 0 % (0-1); LYMPHOCYTES ABSOLUTE AUTO 4.52 K/mm3 (0.84-5.20); LYMPHOCYTES PERCENT AUTO 29 % (21-46); MONOCYTES ABSOLUTE AUTO 1.56 K/mm3 (0.16-1.47); MONOCYTES PERCENT AUTO 10 % (4-13); Mean Corpuscular HGB 28.9 pg (26.0-34.0); Mean Corpuscular HGB Conc 32.9 g/dL (31.5-36.5); Mean Corpuscular Volume 88 fL (80-100); Mean Platelet Volume 10.7 fL (9.1-12.4); NEUTROPHILS ABSOLUTE AUTO 9.37 K/mm3 (1.96-9.15); NEUTROPHILS PERCENT AUTO 60 % (41-73); Platelet Count 328 K/mm3 (150-400); RDW Coefficient Variation 13.2 % (11.7-14.2); RDW Standard Deviation 42.5 fL (35.1-46.3); Red Blood Cell Count 5.12 M/mm3 (3.80-5.20); White Blood Cell Count 15.65 K/mm3 (4.00-11.30)
[2022-02-05 04:11] LABS: Alanine Aminotransfer (ALT/SGP 44 U/L (12-78); Albumin, Blood 3.9 g/dL (3.4-5.0); Albumin/Globulin Ratio 0.8 (0.8-1.8); Alk Phos 326 U/L (50-136); Anion Gap 11 mmol/L (6-16); Aspartate Aminotrans (AST/SGOT 45 U/L (12-37); Bilirubin, Total 0.4 mg/dL (0.1-1.0); Blood Urea Nitrogen 32 mg/dL (8-24); CO2, Blood 24 mmol/L (21-32); Calcium, Blood 10.4 mg/dL (8.5-10.1); Chloride, Blood 99 mmol/L (98-108); Creatinine, Blood 0.87 mg/dL (0.40-1.00); Globulin, Blood 4.7 g/dL (2.2-4.0); Glomerular Filtration Rate >60 (60-); Glucose, Blood 569 mg/dL (70-99); Potassium, Blood 4.4 mmol/L (3.5-5.5); Sodium, Blood 134 mmol/L (136-145); Total Protein, Blood 8.6 g/dL (6.4-8.2)
[2022-02-05 04:13] LABS: Ethanol (Alcohol), Blood, Med <3 mg/dL
--- NOTE | 2022-02-05 08:30 | NUR ---
PT ARRIVED TO ROOM 303 FROM ER VIA GURNEY, TRANSFERRED TO BED USING SLIDER, C/O OF PAIN TO LEFT LEG AND ABD. PT WAS MEDICATED WITH IV FENTANYL BEFORE LEAVING ER. IVF BOLUS INFUSING, PT A/O, ORIENTED TO ROOM, PHONES AND CALL SYSTEM. CALL ALFRED IN REACH AND BED IN LOWEST POSITION. WILL CONTINUE TO MONITOR
[2022-02-05] MEDS ORDERED: ROSUVASTATIN CAL5 MG PO (11:01)
[2022-02-05 13:00] LABS: Glucose, Blood 584 mg/dL (70-99)
[2022-02-05 17:35] LABS: Source, Urine Clean Catch
[2022-02-05 18:06] LABS: Appearance, Urine Clear (Clear); Bilirubin, Urine Neg (Neg); Blood, Urine Neg (Neg); Color, Urine Yellow (P-Yellow); Glucose Qualitative, Urine 4+ (Neg); Ketones, Urine Neg (Neg); Leukocyte Esterase, Urine Neg (Neg); Nitrite, Urine Neg (Neg); Protein, Urine Neg (Neg); Urobilinogen, Urine NORM (Normal)
[2022-02-05 18:30] LABS: U Amphetamine Screen Not Detected; U Barbituate Screen Not Detected; U Benzodiazapine Screen Not Detected; U Buprenorphine Screen Not Detected; U Cannabinoids Screen Not Detected; U Cocaine Screen Not Detected; U Methadone Screen Not Detected; U Methamphetamine Screen Not Detected; U Opiates Screen DETECTED; U Oxycodone Screen Not Detected; U Phencyclidine Screen Not Detected; U Propoxyphene Screen Not Detected
--- NOTE | 2022-02-05 20:30 | NUR ---
CRADIAC: SCORED A 2 ON VIEWS FOR BRADYCARDIA, 49, APICAL [address] RODRIGUEZ WAS NOTIFIED OF HEART RATE AND UNABLE TO GIVE LOPRESSOR DUE TO BRADYCARDIA. REQUESTED PARAMETERS FOR ADMIN OF FENTANYL WITH BRADYCARDIA PRESENT. ORDER FOR TELI IS OBTAINED AND ORDER TO GIVE FENTANYL REGUARDLESS OT HEART RATE WITH TELI IN PLACE.
--- NOTE | 2022-02-06 06:28 | NUR ---
SHIFT SUMMARY: PATIENT CONTINUES TO HAVE LLE BURNING PAIN. PRN NORCO AND IV FENTANYL WERE GIVE WITH GOOD EFFECT. NAUSEA X1 EPISODE WAS TREATED WITH ZOFRAN WITH GOOD EFFECT. UNABLE TO GIVEN LOPRESSOR AT HS DUE TO BRADYCARDIA, PT HAS BEEN ASYMPTOMATIC. HS BLOOD GLUCOSE WAS 425. DR RODRIGUEZ WAS NOTIFIED, NO NEW ORDERS GIVEN. GAVE SCHEDULED LONG ACTING AND 6 UNITS PER SCALE.
[2022-02-06] MEDS ORDERED: ACYC400 PO (11:50)
[2022-02-06] MEDS ORDERED: ANASPAZ0.125 MG PO (11:51)
[2022-02-06] MEDS ORDERED: Prinivil10 MG PO (11:51)
--- NOTE | 2022-02-06 14:47 | NUR ---
DISCHARGE SUMMARY IV AND TELE REMOVED PRIOR TO DISCHARGE. DISCHARGE EDUCATION REVIEWED WITH AND SIGNED BY PATIENT. PT TRANSPORTED VIA WHEELCHAIR BY TRANSPORTATION COMPANY TO TRANSPORTATION [facility] WITH PERSONAL BELONGINGS. PAPER RX SENT HOME WITH PT FOR PAIN MEDICATION VIA MD, OTHER MEDS FAXED INTO PHARMACY.
== END 2022-02-06 14:00 | disposition home health service (06) | DRG 556 ==
LOC: ER 01:12 → MEDS 06:35
PROVIDERS: Internal Medicine; Student in an Organized Health Care Education/Training Program; ADMIT Internal Medicine
DX: M62.81 Muscle weakness (generalized) (principal); E86.0 Dehydration; E83.52 Hypercalcemia; M79.606 Pain in leg, unspecified; R10.9 Unspecified abdominal pain; I25.10 Atherosclerotic heart disease of native coronary artery without angina pectoris; E11.65 Type 2 diabetes mellitus with hyperglycemia; M54.50 Low back pain, unspecified; G89.29 Other chronic pain; I10 Essential (primary) hypertension; E78.5 Hyperlipidemia, unspecified; J44.9 Chronic obstructive pulmonary disease, unspecified; K21.9 Gastro-esophageal reflux disease without esophagitis; F17.200 Nicotine dependence, unspecified, uncomplicated; Z88.1 Allergy status to other antibiotic agents; Z88.8 Allergy status to other drugs, medicaments and biological substances; Z88.5 Allergy status to narcotic agent; Z86.73 Personal history of transient ischemic attack (TIA), and cerebral infarction without residual deficits; Z91.041 Radiographic dye allergy status; Z79.4 Long term (current) use of insulin; Z79.02 Long term (current) use of antithrombotics/antiplatelets; Z79.82 Long term (current) use of aspirin; Z79.899 Other long term (current) drug therapy; Z98.890 Other specified postprocedural states; Z90.710 Acquired absence of both cervix and uterus; Z95.5 Presence of coronary angioplasty implant and graft
CPT/HCPCS: 36415; 70450; 70496; 70498; 70551; 74018; 80053; 81003; 82947; 85025; 85730; 93005; 93010; 93306; 93971; 94760; 96374-59; 96375-59; 97110; 97162; 97166; 97530; 97535; 99285-25; A9270; G0480; J1200; J1650; J1815; J2405; J2930; J3010; J7030; Q9967

== ENCOUNTER 2022-04-04 20:29 | Emergency (ER) | payer OTHER ==
[~2022-04-04] VITALS: Ht 162.6 cm; Wt 77.1 kg
[~2022-04-04 20:29] MED LIST changes: +ANASPAZ0.125 MG PO; +ROSUVASTATIN CAL5 MG PO
[2022-04-04 20:55] LABS: Hemoglobin 14.5 g/dL (11.5-16.0); Mean Corpuscular HGB 28.6 pg (26.0-34.0); Mean Corpuscular Volume 87 fL (80-100); Mean Platelet Volume 10.3 fL (9.1-12.4); Platelet Count 351 K/mm3 (150-400); RDW Coefficient Variation 13.1 % (11.7-14.2); RDW Standard Deviation 41.1 fL (35.1-46.3); Red Blood Cell Count 5.07 M/mm3 (3.80-5.20); White Blood Cell Count 10.82 K/mm3 (4.00-11.30)
[2022-04-04 21:12] LABS: Albumin, Blood 3.5 g/dL (3.4-5.0); Albumin/Globulin Ratio 0.8 (0.8-1.8); Bilirubin, Total 0.2 mg/dL (0.1-1.0); Bun/Creatinine Ratio 30.2 (12.0-20.0); Calcium, Blood 10.2 mg/dL (8.5-10.1); Creatinine, Blood 0.8 mg/dL (0.40-1.00); Globulin, Blood 4.3 g/dL (2.2-4.0); Potassium, Blood 4.2 mmol/L (3.5-5.5); Total Protein, Blood 7.8 g/dL (6.4-8.2)
[2022-04-04 21:16] LABS: BASOPHILS PERCENT MAN 1 % (0-2); EOSINOPHILS ABSOLUTE MAN 0.43 K/mm3 (0.00-0.68); EOSINOPHILS PERCENT MAN 4 % (0-6); LYMPHOCYTES % ATYPICAL MANUAL 2 % (0-0); LYMPHOCYTES ABSOLUTE MAN 4.32 K/mm3 (0.84-5.20); LYMPHOCYTES PERCENT MAN 38 % (21-46); MONOCYTES ABSOLUTE MAN 0.86 K/mm3 (0.16-1.47); MONOCYTES PERCENT MAN 8 % (4-13); NEUTROPHILS ABSOLUTE MAN 5.08 K/mm3 (1.96-9.15); SEG NEUTROPHILS PERCENT MAN 47 % (41-73); TOTAL CELLS COUNTED 100
== END 2022-04-04 22:00 | disposition home or self-care (01) ==
LOC: ER 20:29
PROVIDERS: Emergency Medicine
DX: E11.65 Type 2 diabetes mellitus with hyperglycemia (principal); I10 Essential (primary) hypertension; K21.9 Gastro-esophageal reflux disease without esophagitis; I25.10 Atherosclerotic heart disease of native coronary artery without angina pectoris; J44.9 Chronic obstructive pulmonary disease, unspecified; F17.210 Nicotine dependence, cigarettes, uncomplicated; Z79.4 Long term (current) use of insulin; Z88.5 Allergy status to narcotic agent; Z88.6 Allergy status to analgesic agent; Z88.1 Allergy status to other antibiotic agents; Z91.041 Radiographic dye allergy status; Z79.899 Other long term (current) drug therapy
CPT/HCPCS: 80053; 82947; 85025

== ENCOUNTER 2022-05-24 11:22 | Inpatient (IN) | payer OTHER ==
[~2022-05-24] VITALS: Ht 162.6 cm; Wt 83.3 kg
[2022-05-24 11:46] LABS: BASOPHILS ABSOLUTE AUTO 0.11 K/mm3 (0.00-0.23); BASOPHILS PERCENT AUTO 1 % (0-2); EOSINOPHILS ABSOLUTE AUTO 0.37 K/mm3 (0.00-0.68); EOSINOPHILS PERCENT AUTO 4 % (0-6); Hemoglobin 14.1 g/dL (11.5-16.0); IMMATURE GRAN ABSOLUTE AUTO 0.06 K/mm3 (0.00-0.10); IMMATURE GRAN PERCENT AUTO 1 % (0-1); LYMPHOCYTES ABSOLUTE AUTO 2.66 K/mm3 (0.84-5.20); LYMPHOCYTES PERCENT AUTO 30 % (21-46); MONOCYTES ABSOLUTE AUTO 0.83 K/mm3 (0.16-1.47); MONOCYTES PERCENT AUTO 9 % (4-13); Mean Corpuscular HGB 28.4 pg (26.0-34.0); Mean Corpuscular HGB Conc 32.8 g/dL (31.5-36.5); Mean Corpuscular Volume 87 fL (80-100); Mean Platelet Volume 10.4 fL (9.1-12.4); NEUTROPHILS ABSOLUTE AUTO 4.76 K/mm3 (1.96-9.15); NEUTROPHILS PERCENT AUTO 54 % (41-73); Platelet Count 250 K/mm3 (150-400); RDW Coefficient Variation 12.5 % (11.7-14.2); RDW Standard Deviation 39.6 fL (35.1-46.3); Red Blood Cell Count 4.96 M/mm3 (3.80-5.20); White Blood Cell Count 8.79 K/mm3 (4.00-11.30)
[2022-05-24 12:22] LABS: Albumin, Blood 3.2 g/dL (3.4-5.0); Albumin/Globulin Ratio 0.9 (0.8-1.8); Bilirubin, Total 0.4 mg/dL (0.1-1.0); Bun/Creatinine Ratio 28.4 (12.0-20.0); Calcium, Blood 9.3 mg/dL (8.5-10.1); Creatinine, Blood 0.63 mg/dL (0.40-1.00); Globulin, Blood 3.7 g/dL (2.2-4.0); Potassium, Blood 3.9 mmol/L (3.5-5.5); Total Protein, Blood 6.9 g/dL (6.4-8.2)
[2022-05-24 14:00] LABS: CHOL/HDL RATIO 7.7; Cholesterol 293 mg/dL (50-200); HDL Cholesterol 38 mg/dL (>39); LDL/HDL RATIO Unable to Calculate; Low Density Lipoprotein Chol Unable to Calculate mg/dL (0-110); Triglycerides 467 mg/dL (30-160); Very Low Density Lipoprot Chol Unable to Calculate mg/dL (6-32)
--- NOTE | 2022-05-24 18:54 | NUR ---
SHIFT SUMMARY: PT A/O X4 BEDREST AT THIS TIME. PT ADMITTED TO MEDICAL FLOOR WITH SYMPTOMS OF R SIDE WEAKNESS. PT REPORTS L SIDE THROBBING MONTELONGO PAIN 04/25. FENTANYL WAS EFFECTIVE IN TREATING PAIN. PT DID REFUSE TYLENOL SUPPOSITORY WHEN OFFERED. R SIDE IS SLIGHTLY WEAKER THAN LEFT SIDE. PT SLURS WORDS SLIGHTLY. PT CBG AT 1800 WAS 107 AND REPORTED SHE FELT SHAKY. ORDER RECEIVED FOR HYPOGLYCEMIA PROTOCOL. WILL REPORT TO ONCOMING RN TO MONITOR FOR SYMPTOMS AND TREAT NEEDED. PT IN BED AT THIS TIME USING BEDPAN, BUSINESS ASSOCIATE IN WITH PT AT THIS TIME AND REPORTS MONTELONGO PAIN IS WORSENING. WILL OFFER TYLENOL SUPPOSITORY FOR PAIN AGAIN IT IS TOO EARLY TO GIVE PRN FENTANYL.
[2022-05-25] MEDS ORDERED: PREG150 PO (02:02)
[2022-05-25 04:52] LABS: Hematocrit 40.7 % (33.0-51.0); Hemoglobin 13.2 g/dL (11.5-16.0); Mean Corpuscular HGB Conc 32.4 g/dL (31.5-36.5); Mean Corpuscular Volume 86 fL (80-100); Mean Platelet Volume 10.6 fL (9.1-12.4); Platelet Count 259 K/mm3 (150-400); RDW Coefficient Variation 12.6 % (11.7-14.2); Red Blood Cell Count 4.71 M/mm3 (3.80-5.20); White Blood Cell Count 8.88 K/mm3 (4.00-11.30)
[2022-05-25 05:03] LABS: Bun/Creatinine Ratio 17.7 (12.0-20.0); Calcium, Blood 8.3 mg/dL (8.5-10.1); Creatinine, Blood 0.62 mg/dL (0.40-1.00); Magnesium, Blood 1.4 mg/dL (1.6-2.4); Potassium, Blood 4.4 mmol/L (3.5-5.5)
--- NOTE | 2022-05-25 05:21 | NUR ---
SUMMARY: PT A/OX4, IS PLEASANT AND COOPERATIVE W/CARE AND CALLS APPROPRIATELY TO SPECIFY NEEDS. SLURRED SPEECH HAS ENTIRELY RESOLVED AND BEDSIDE SWALLOW EVAL WAS COMPLETED PER D/T TRENDING DOWNWARD CBG. PT SHOWED NO DIFFICULTY SWALLOWING OR S/S ASPIRATION SO WAS COMMENCED ON CLEAR LIQ DIET (NO PO MEDS) PENDING ST EVAL THIS AM. PT HAD BROTH AND JUICE FOR IMPROVEMENT OF BLOOD SUGARS, NO INSULIN PROVIDED THIS SHIFT D/T HYPOGLYCEMIA W/SHAKINESS OBSERVED. NEURO OBS WERE STABLE. PT HAS SLIGHT R.SIDE WEAKNESS BUT IS ABLE TO USE R.HAND W/O ISSUE AND BEAR WT TO T/F TO BSC W/1PA. L.FRONTAL MONTELONGO HAS BEEN PERSISTANT T/O NOCTE W/PRN FENTANYL RECIEVED Q2-3H FOR BRIEF RELIEF. SHE ALSO RECIEVED X1 DOSE IMMITREX RECENTLY, AFFECT BEING ASSESSED. HER OTHER MAIN COMPLAINT IS 9/10 NUMBNESS/TINGLING TO HANDS AND FEET. PT TAKES LYRICA BID BUT BOTH DOSES WERE MISSED ON 05/24/22. MED WILL LIKELY NEED RESUMED IF PT CLEARS ST EVAL FENTANYL IS ONLY MILDLY EFFECTIVE TO RELIEVE THIS PAIN, WILL ENSURE DAY STAFF ARE AWARE. NO ACUTE CHANGES, VSS/AFEBRILE. SHE REMAINS NSR AT 60'S BPM ON TELEMETRY. WCTM AND REPORT TO DAY RN.
--- NOTE | 2022-05-25 15:34 | NUR ---
1440 PT C/O DIARRHEA TODAY. HAS TAKEN IMODIUM IN PAST. CALLED DR PALENCIA. ORDERS MADE.
--- NOTE | 2022-05-25 15:34 | NUR ---
Supportive visit this afternoon. Pt resting in bed and initially reports 4/10 headache. She reports current regimen is managing her pain. At end of visit Pt reports pain has decreased to 3/10. Offered therapeutic listening as Pt reports being unsure of therapy's recommendation for SNF. Discussed potential coonsequences, pros and cons. Pt reports having a supportive SO at. She reports her siblings and cousins all live in [facility]. Pt reports having one daughter who lives in [place]. Continued supportive visit. Spoke with Primary RN Tommy and discussed case. Palliative Care will remain available.
--- NOTE | 2022-05-25 18:58 | NUR ---
PT PLEASANT TODAY. PAIN MEDS WERE INCREASED TODAY. HAS STATED HEACACHE IS BIG CONCERN. IN SPEAKING TO DR, WE STARTED IMETREX. ALSO HAD BOUTS OF DIARRHEA TODAY. IMODIUM STARTED. PT HAS WEAKNESS IN RT HAND AND MINIMAL IN RT FOOT. N/T IN RT FACE, HAND, ARM, AND FOOT. STATES SOME IMPROVEMENT TODAY. NO OTHER CONCERNS NOTED TODAY. BED IN LOW POSITION, CALL LITE IN REACH, CALLS APPROP
--- NOTE | 2022-05-26 05:29 | NUR ---
AIRCRAFT MAINTENANCE TECHNICIAN SUMMARY PT A/OX4. PLEASANT AND COOPERATIVE. PT IS TEARY AT TIMES AND EXPRESSED FEAR/CONCERN OVER HEADACHE AND HAVING REPEAT CVA. PT HX OF CVA, CAD, HTN, COPD, DMT2. PT C/O OF INTENSE PAIN FROM HEADACHE. MANAGING PAIN W/PRN FENTANYL Q4 HOURS. PT RECIEVED IMATREXA AND REPORTED NO RELIEF. INJECTION SITE WAS SWOLLEN AND TENDER UNDER RIGHT ARM. PT NEURO ASSESSMENTS HAVE REMAINED CONSISTANT; RIGHT SIDED WEAKNESS IN HAND/FOOT. PT REPORTS NUMBNESS ON RT SIDE/FACE AND EXTREMITIES. PT REPORTS SUBSTANTIAL RELIEF WITH GABAPENTIN. SYS BP ABOVE 150. WILL PASS TO DAY SHIFT TO REVIEW W/DOC FOR BP MEDS. PT STATED SHE IS WILLING TO GO TO REHAB FOR CONT CARE. PT RECV NS 100MLS/HR. PT IS OREINTED TO CALL LIGHT AND USING APPROPRIATELY. PT IS 1 PERSON ASSIST TO BSC.
[2022-05-26 06:18] LABS: BASOPHILS PERCENT AUTO 1 % (0-2); EOSINOPHILS ABSOLUTE AUTO 0.37 K/mm3 (0.00-0.68); EOSINOPHILS PERCENT AUTO 5 % (0-6); Hematocrit 40.8 % (33.0-51.0); IMMATURE GRAN ABSOLUTE AUTO 0.03 K/mm3 (0.00-0.10); IMMATURE GRAN PERCENT AUTO 0 % (0-1); LYMPHOCYTES ABSOLUTE AUTO 3.11 K/mm3 (0.84-5.20); LYMPHOCYTES PERCENT AUTO 44 % (21-46); MONOCYTES ABSOLUTE AUTO 0.93 K/mm3 (0.16-1.47); MONOCYTES PERCENT AUTO 13 % (4-13); Mean Corpuscular HGB Conc 31.9 g/dL (31.5-36.5); Mean Corpuscular Volume 88 fL (80-100); Mean Platelet Volume 10.4 fL (9.1-12.4); NEUTROPHILS ABSOLUTE AUTO 2.53 K/mm3 (1.96-9.15); NEUTROPHILS PERCENT AUTO 36 % (41-73); Platelet Count 255 K/mm3 (150-400); RDW Coefficient Variation 12.3 % (11.7-14.2); RDW Standard Deviation 39.5 fL (35.1-46.3); Red Blood Cell Count 4.64 M/mm3 (3.80-5.20); White Blood Cell Count 7.07 K/mm3 (4.00-11.30)
[2022-05-26 06:40] LABS: Bun/Creatinine Ratio 16.5 (12.0-20.0); Calcium, Blood 8.9 mg/dL (8.5-10.1); Creatinine, Blood 0.55 mg/dL (0.40-1.00); Magnesium, Blood 1.8 mg/dL (1.6-2.4); Potassium, Blood 4.1 mmol/L (3.5-5.5)
--- NOTE | 2022-05-26 17:13 | NUR ---
SUMMARY PT SITTING UP IN BED TALKING ON THE PHONE AND WATCHING TV, PT HAS WORKED WITH PT/OT/ST TODAY, MED PER EMAR SEVERAL TIMES FOR A HEADACHE THAT PERSISTED FOR MOST OF THE DAY, PT EXPRESSING RELIEF JUST NOW, PT AGREEABLE TO GO TO SNF, CARE MANAGEMENT AWARE, PT HOPEFUL TO DC SOON, VSS, WILL CONT TO MONITOR
--- NOTE | 2022-05-26 20:15 | NUR ---
SPOKE TO DR. RODRIGUEZ VIA TELEPHONE - UPDATED ON CBG OF 391 WITH 4UNITS SLOW ACTING SS COVERAGE - NO NEW ORDERS.
[2022-05-27 05:05] LABS: Bun/Creatinine Ratio 26.5 (12.0-20.0); Calcium, Blood 9.3 mg/dL (8.5-10.1); Creatinine, Blood 0.68 mg/dL (0.40-1.00); Potassium, Blood 4.4 mmol/L (3.5-5.5)
--- NOTE | 2022-05-27 06:25 | NUR ---
SHIFT SUMMARY - PT MEDICATED SEVERAL TIMES THROUGHOUT THE NIGHT FOR HEADACHE PAIN/RIGHT HAND PAIN - SEE EMAR FOR PAIN MANAGEMENT. PT REQUESTED ICE PACKS TO HOLD ONTO FOR HER RIGHT HAND X2, MEDICATED WITH NEURONTIN X1. PT REQUESTING POPSICLES THROUGHOUT THE NIGHT. PT TO BE DISCHARGED TO SNF WHEN MEDICALLY READY. PT MEDICATED X1 FOR NAUSEA WITH GOOD RELIEF WITH ZOFRAN. FLUIDS AT BEDSIDE. CALL LIGHT WITHIN REACH. BED IN LOW POSITION. WILL CONTINUE TO MONITOR UNTIL AM SHIFT CHANGE.
[2022-05-27] MEDS ORDERED: ATOR80 PO (15:24)
[2022-05-27] MEDS ORDERED: Amitriptyline H10 MG PO (15:24)
[2022-05-27] MEDS ORDERED: Calcium Carbon500 MG PO (15:25)
[2022-05-27 15:59] LABS: Influenza A, PCR NEGATIVE (NEGATIVE); Influenza B, PCR NEGATIVE (NEGATIVE); Resp Syncytial Virus, PCR NEGATIVE (NEGATIVE); SARS-Cov-2 (COVID-19) PCR, MMC NEGATIVE (NEGATIVE)
--- NOTE | 2022-05-27 17:46 | NUR ---
SUMMARY/DISCHARGE PT DISCHARGED TO [facility] REPORT GIVEN TO JONATHAN RETANA, PT TAKEN SAFELY VIA WHEELCHAIR
== END 2022-05-27 17:34 | DRG 65 ==
LOC: ER 11:22 → MEDS 13:23
PROVIDERS: Emergency Medicine; Family Medicine; Internal Medicine; Nurse Practitioner Acute Care; ADMIT Internal Medicine
DX: I63.81 Other cerebral infarction due to occlusion or stenosis of small artery (principal); G81.91 Hemiplegia, unspecified affecting right dominant side; I25.10 Atherosclerotic heart disease of native coronary artery without angina pectoris; I77.9 Disorder of arteries and arterioles, unspecified; J44.9 Chronic obstructive pulmonary disease, unspecified; K21.9 Gastro-esophageal reflux disease without esophagitis; R51.9 Headache, unspecified; E78.00 Pure hypercholesterolemia, unspecified; I10 Essential (primary) hypertension; Z20.822 Contact with and (suspected) exposure to COVID-19; E83.42 Hypomagnesemia; E66.9 Obesity, unspecified; R13.10 Dysphagia, unspecified; E78.2 Mixed hyperlipidemia; R29.810 Facial weakness; M54.50 Low back pain, unspecified; G89.29 Other chronic pain; K58.9 Irritable bowel syndrome, unspecified; F17.210 Nicotine dependence, cigarettes, uncomplicated; E11.65 Type 2 diabetes mellitus with hyperglycemia; E11.51 Type 2 diabetes mellitus with diabetic peripheral angiopathy without gangrene; M51.36 Other intervertebral disc degeneration, lumbar region; Z88.5 Allergy status to narcotic agent; Z88.1 Allergy status to other antibiotic agents; Z88.8 Allergy status to other drugs, medicaments and biological substances; Z79.51 Long term (current) use of inhaled steroids; Z79.4 Long term (current) use of insulin; Z79.82 Long term (current) use of aspirin; Z95.828 Presence of other vascular implants and grafts; Z87.19 Personal history of other diseases of the digestive system; Z79.899 Other long term (current) drug therapy; Z79.891 Long term (current) use of opiate analgesic; Z79.811 Long term (current) use of aromatase inhibitors; Z79.2 Long term (current) use of antibiotics; Z87.442 Personal history of urinary calculi; Z68.29 Body mass index [BMI] 29.0-29.9, adult; Z98.890 Other specified postprocedural states; Z90.710 Acquired absence of both cervix and uterus; Z95.5 Presence of coronary angioplasty implant and graft
CPT/HCPCS: 0241U; 36415; 70450; 70551; 80048; 80053; 80061; 82947; 83735; 85025; 85027; 92526; 92610; 93005; 93010; 93880; 94640; 94664; 94760; 96374; 96375; 97110; 97112; 97116; 97162; 97165; 97530; 97535; 99285-25; A9270; C9113; J0780; J1200; J1650; J1815; J2405; J3010; J3030; J3475; J7030

== ENCOUNTER 2022-05-29 13:35 | Emergency (ER) | payer OTHER ==
[~2022-05-29] VITALS: Ht 162.6 cm; Wt 79.4 kg
[~2022-05-29 13:35] MED LIST changes: +Amitriptyline H10 MG PO; +Calcium Carbon500 MG PO; +PREG150 PO
[2022-05-29 14:37] LABS: BASOPHILS PERCENT AUTO 1 % (0-2); EOSINOPHILS ABSOLUTE AUTO 0.48 K/mm3 (0.00-0.68); EOSINOPHILS PERCENT AUTO 5 % (0-6); Hematocrit 37.7 % (33.0-51.0); Hemoglobin 12.2 g/dL (11.5-16.0); IMMATURE GRAN ABSOLUTE AUTO 0.04 K/mm3 (0.00-0.10); IMMATURE GRAN PERCENT AUTO 0 % (0-1); LYMPHOCYTES ABSOLUTE AUTO 2.88 K/mm3 (0.84-5.20); LYMPHOCYTES PERCENT AUTO 32 % (21-46); MONOCYTES ABSOLUTE AUTO 1.08 K/mm3 (0.16-1.47); MONOCYTES PERCENT AUTO 12 % (4-13); Mean Corpuscular HGB 28.3 pg (26.0-34.0); Mean Corpuscular HGB Conc 32.4 g/dL (31.5-36.5); Mean Corpuscular Volume 88 fL (80-100); Mean Platelet Volume 10.5 fL (9.1-12.4); NEUTROPHILS ABSOLUTE AUTO 4.47 K/mm3 (1.96-9.15); NEUTROPHILS PERCENT AUTO 50 % (41-73); Platelet Count 256 K/mm3 (150-400); RDW Coefficient Variation 12.6 % (11.7-14.2); RDW Standard Deviation 40.1 fL (35.1-46.3); Red Blood Cell Count 4.31 M/mm3 (3.80-5.20); White Blood Cell Count 9.05 K/mm3 (4.00-11.30)
[2022-05-29 14:44] LABS: Source, Urine Fem Cath
[2022-05-29] MEDS ORDERED: GABA300 PO (14:48)
[2022-05-29] MEDS ORDERED: HYDR1TAB94 PO (14:50)
[2022-05-29] MEDS ORDERED: PROAIR RESPICL90 MCG INH (14:52)
[2022-05-29 14:58] LABS: Albumin, Blood 2.9 g/dL (3.4-5.0); Albumin/Globulin Ratio 0.8 (0.8-1.8); Bilirubin, Total 0.2 mg/dL (0.1-1.0); Bun/Creatinine Ratio 35.9 (12.0-20.0); Calcium, Blood 9.2 mg/dL (8.5-10.1); Creatinine, Blood 0.86 mg/dL (0.40-1.00); Globulin, Blood 3.6 g/dL (2.2-4.0); Potassium, Blood 4.6 mmol/L (3.5-5.5); Total Protein, Blood 6.5 g/dL (6.4-8.2)
[2022-05-29 15:12] LABS: Appearance, Urine Clear (Clear); Bilirubin, Urine Neg (Neg); Blood, Urine Neg (Neg); Glucose Qualitative, Urine 4+ (Neg); Ketones, Urine Neg (Neg); Leukocyte Esterase, Urine Neg (Neg); Nitrite, Urine Neg (Neg); Protein, Urine Neg (Neg); Urobilinogen, Urine NORM (Normal)
[2022-05-29 16:01] LABS: Color, Urine Pale Yellow (P-Yellow)
== END 2022-05-29 17:50 | disposition home or self-care (01) ==
LOC: ER 13:35
PROVIDERS: Student in an Organized Health Care Education/Training Program
DX: M54.12 Radiculopathy, cervical region (principal); K21.9 Gastro-esophageal reflux disease without esophagitis; E11.9 Type 2 diabetes mellitus without complications; I25.10 Atherosclerotic heart disease of native coronary artery without angina pectoris; I10 Essential (primary) hypertension; E78.5 Hyperlipidemia, unspecified; J44.9 Chronic obstructive pulmonary disease, unspecified; F17.210 Nicotine dependence, cigarettes, uncomplicated; Z88.5 Allergy status to narcotic agent; Z91.041 Radiographic dye allergy status; Z88.8 Allergy status to other drugs, medicaments and biological substances; Z79.4 Long term (current) use of insulin; Z79.82 Long term (current) use of aspirin
CPT/HCPCS: 36415; 72125; 80053; 81003; 85025; 93005; 93010; A9270; J1815; J7030

== ENCOUNTER 2022-07-02 15:47 | Emergency (ER) | payer OTHER ==
[~2022-07-02] VITALS: Ht 162.6 cm; Wt 79.4 kg
[~2022-07-02 15:47] MED LIST changes: +NITR100CA PO; +PROAIR RESPICL90 MCG INH
[2022-07-02 16:58] LABS: Hematocrit 44.7 % (33.0-51.0); Hemoglobin 14.1 g/dL (11.5-16.0); Mean Corpuscular HGB 28.6 pg (26.0-34.0); Mean Corpuscular HGB Conc 31.5 g/dL (31.5-36.5); Mean Corpuscular Volume 91 fL (80-100); Mean Platelet Volume 10.4 fL (9.1-12.4); Platelet Count 280 K/mm3 (150-400); RDW Coefficient Variation 14.2 % (11.7-14.2); RDW Standard Deviation 47.3 fL (35.1-46.3); Red Blood Cell Count 4.93 M/mm3 (3.80-5.20); White Blood Cell Count 11.18 K/mm3 (4.00-11.30)
[2022-07-02 17:18] LABS: Albumin, Blood 3.7 g/dL (3.4-5.0); Albumin/Globulin Ratio 0.9 (0.8-1.8); Bilirubin, Total 0.4 mg/dL (0.1-1.0); Bun/Creatinine Ratio 31.1 (12.0-20.0); Creatinine, Blood 1.22 mg/dL (0.40-1.00); Globulin, Blood 4.1 g/dL (2.2-4.0); Potassium, Blood 5.4 mmol/L (3.5-5.5); Total Protein, Blood 7.8 g/dL (6.4-8.2)
[2022-07-02 18:25] LABS: Magnesium, Blood 1.4 mg/dL (1.6-2.4); Thyroid Stimulating Hormone 3.16 uIU/mL (0.360-4.800)
[2022-07-02 18:35] LABS: BASOPHILS ABSOLUTE MAN 0.11 K/mm3 (0.00-0.23); BASOPHILS PERCENT MAN 1 % (0-2); EOSINOPHILS PERCENT MAN 9 % (0-6); LYMPHOCYTES % ATYPICAL MANUAL 2 % (0-0); LYMPHOCYTES ABSOLUTE MAN 5.25 K/mm3 (0.84-5.20); LYMPHOCYTES PERCENT MAN 45 % (21-46); MONOCYTES PERCENT MAN 9 % (4-13); MYELOCYTE ABSOLUTE MAN 0.11 K/mm3 (0.00-0.00); MYELOCYTE PERCENT MAN 1 % (0-0); NEUTROPHILS ABSOLUTE MAN 3.68 K/mm3 (1.96-9.15); SEG NEUTROPHILS PERCENT MAN 33 % (41-73); TOTAL CELLS COUNTED 100
[2022-07-02 18:50] LABS: Source, Urine Straight Cath
[2022-07-02 18:57] LABS: Appearance, Urine Clear (Clear); Bilirubin, Urine Neg (Neg); Blood, Urine Neg (Neg); Color, Urine Yellow (P-Yellow); Glucose Qualitative, Urine Neg (Neg); Ketones, Urine Neg (Neg); Leukocyte Esterase, Urine 1+ (Neg); Nitrite, Urine Neg (Neg); Protein, Urine 1+ (Neg); Urobilinogen, Urine NORM (Normal)
[2022-07-02 19:13] LABS: Bacteria Few /hpf; Red Blood Cells, Urine 0-2 /hpf (0-2); Squamous Epithelial Cells Few /hpf (Few)
[2022-07-02 19:56] LABS: Influenza A, PCR NEGATIVE (NEGATIVE); Influenza B, PCR NEGATIVE (NEGATIVE); Resp Syncytial Virus, PCR NEGATIVE (NEGATIVE); SARS-Cov-2 (COVID-19) PCR, MMC NEGATIVE (NEGATIVE)
[2022-07-02] MEDS ORDERED: ONDA4ODT MM (23:25)
== END 2022-07-02 23:32 | disposition home or self-care (01) ==
LOC: ER 15:47
PROVIDERS: Student in an Organized Health Care Education/Training Program
DX: R51.9 Headache, unspecified (principal); N17.9 Acute kidney failure, unspecified; I95.9 Hypotension, unspecified; I25.10 Atherosclerotic heart disease of native coronary artery without angina pectoris; E11.9 Type 2 diabetes mellitus without complications; I10 Essential (primary) hypertension; E78.5 Hyperlipidemia, unspecified; J44.9 Chronic obstructive pulmonary disease, unspecified; Z95.5 Presence of coronary angioplasty implant and graft; F17.210 Nicotine dependence, cigarettes, uncomplicated; Z79.4 Long term (current) use of insulin; Z79.899 Other long term (current) drug therapy; Z79.82 Long term (current) use of aspirin; Z79.02 Long term (current) use of antithrombotics/antiplatelets; Z88.5 Allergy status to narcotic agent; Z88.6 Allergy status to analgesic agent; Z91.041 Radiographic dye allergy status; Z20.822 Contact with and (suspected) exposure to COVID-19
CPT/HCPCS: 0241U; 36415; 70450; 80053; 81001; 83605; 83735; 83880; 84443; 84484; 85025; 93005; 93010; J1200; J2405; J2765; J7030

== ENCOUNTER 2022-11-05 09:42 | Emergency (ER) | payer MEDICARE, OTHER ==
[~2022-11-05] VITALS: Ht 165.1 cm; Wt 79.4 kg
[2022-11-05 11:02] LABS: Albumin, Blood 3.6 g/dL (3.4-5.0); Albumin/Globulin Ratio 0.9 (0.8-1.8); Bilirubin, Total 0.3 mg/dL (0.1-1.0); Calcium, Blood 10.3 mg/dL (8.5-10.1); Creatinine, Blood 0.65 mg/dL (0.40-1.00); Potassium, Blood 4.1 mmol/L (3.5-5.5); Total Protein, Blood 7.6 g/dL (6.4-8.2)
[2022-11-05] MEDS ORDERED: Prednisone20 MG PO (12:14)
[2022-11-05] MEDS ORDERED: Norco 5-325 Ta1 EACH PO (12:14)
== END 2022-11-05 12:27 | disposition home or self-care (01) ==
LOC: ER 09:42
PROVIDERS: Emergency Medicine
DX: R09.1 Pleurisy (principal); K21.9 Gastro-esophageal reflux disease without esophagitis; E11.9 Type 2 diabetes mellitus without complications; I25.10 Atherosclerotic heart disease of native coronary artery without angina pectoris; I10 Essential (primary) hypertension; E78.5 Hyperlipidemia, unspecified; J44.9 Chronic obstructive pulmonary disease, unspecified; F17.210 Nicotine dependence, cigarettes, uncomplicated; Z88.5 Allergy status to narcotic agent; Z88.1 Allergy status to other antibiotic agents; Z91.041 Radiographic dye allergy status; Z88.8 Allergy status to other drugs, medicaments and biological substances; Z79.4 Long term (current) use of insulin; Z79.82 Long term (current) use of aspirin; Z79.899 Other long term (current) drug therapy; Z95.5 Presence of coronary angioplasty implant and graft
CPT/HCPCS: 71045; 80053; 93005; 93010; 94640; 94664; A9270

== ENCOUNTER 2023-03-25 13:46 | Emergency (ER) | payer OTHER ==
[~2023-03-25] VITALS: Ht 162.6 cm; Wt 77.1 kg
[~2023-03-25 13:46] MED LIST changes: +BACTRIM DS TAB1 EAC1 PO; +JARDIANCE10 MG; +Norco 5-325 Ta1 EACH PO; +Norco 7.5-3251 EACH
[2023-03-25] MEDS ORDERED: OXYC5 PO (15:23)
[2023-03-25] MEDS ORDERED: HYDMOR2 PO (15:23)
[2023-03-25 15:42] LABS: Source, Urine Clean Catch
[2023-03-25 15:52] LABS: Appearance, Urine Clear (Clear); Bilirubin, Urine Neg (Neg); Blood, Urine Neg (Neg); Color, Urine Yellow (P-Yellow); Glucose Qualitative, Urine 4+ (Neg); Ketones, Urine 1+ (Neg); Leukocyte Esterase, Urine Neg (Neg); Nitrite, Urine Neg (Neg); Protein, Urine 1+ (Neg); Specific Gravity, Urine 1.005 (1.003-1.022); Urobilinogen, Urine NORM (Normal)
[2023-03-25 16:11] LABS: BASOPHILS ABSOLUTE AUTO 0.12 K/mm3 (0.00-0.23); BASOPHILS PERCENT AUTO 1 % (0-2); EOSINOPHILS ABSOLUTE AUTO 0.51 K/mm3 (0.00-0.68); EOSINOPHILS PERCENT AUTO 3 % (0-6); Hematocrit 47.1 % (33.0-51.0); Hemoglobin 14.8 g/dL (11.5-16.0); IMMATURE GRAN ABSOLUTE AUTO 0.08 K/mm3 (0.00-0.10); IMMATURE GRAN PERCENT AUTO 1 % (0-1); LYMPHOCYTES ABSOLUTE AUTO 3.47 K/mm3 (0.84-5.20); LYMPHOCYTES PERCENT AUTO 21 % (21-46); MONOCYTES ABSOLUTE AUTO 2.17 K/mm3 (0.16-1.47); MONOCYTES PERCENT AUTO 13 % (4-13); Mean Corpuscular HGB 26.2 pg (26.0-34.0); Mean Corpuscular HGB Conc 31.4 g/dL (31.5-36.5); Mean Corpuscular Volume 83 fL (80-100); Mean Platelet Volume 9.7 fL (9.1-12.4); NEUTROPHILS ABSOLUTE AUTO 10.53 K/mm3 (1.96-9.15); NEUTROPHILS PERCENT AUTO 62 % (41-73); Platelet Count 410 K/mm3 (150-400); RDW Coefficient Variation 13.6 % (11.7-14.2); RDW Standard Deviation 41.5 fL (35.1-46.3); Red Blood Cell Count 5.65 M/mm3 (3.80-5.20); White Blood Cell Count 16.88 K/mm3 (4.00-11.30)
[2023-03-25 16:43] LABS: Albumin, Blood 3.1 g/dL (3.4-5.0); Albumin/Globulin Ratio 0.7 (0.8-1.8); Bilirubin, Total 0.4 mg/dL (0.1-1.0); Bun/Creatinine Ratio 24.5 (12.0-20.0); Calcium, Blood 9.9 mg/dL (8.5-10.1); Creatinine, Blood 0.74 mg/dL (0.40-1.00); Globulin, Blood 4.6 g/dL (2.2-4.0); Potassium, Blood 4.8 mmol/L (3.5-5.5); Total Protein, Blood 7.7 g/dL (6.4-8.2)
[2023-03-25] MEDS ORDERED: PROM25 PO (17:29)
[2023-03-25] MEDS ORDERED: METR500 PO (17:29)
[2023-03-25] MEDS ORDERED: CIPR500 PO (17:29)
[2023-03-25] MEDS ORDERED: Percocet 5-3251 EACH PO (17:29)
[2023-03-25 19:00] VITALS: BP 196/69
== END 2023-03-25 21:00 | disposition home or self-care (01) ==
LOC: ER 13:46
PROVIDERS: Emergency Medicine
DX: K57.32 Diverticulitis of large intestine without perforation or abscess without bleeding (principal); G89.18 Other acute postprocedural pain; E11.9 Type 2 diabetes mellitus without complications; I25.10 Atherosclerotic heart disease of native coronary artery without angina pectoris; E78.5 Hyperlipidemia, unspecified; K21.9 Gastro-esophageal reflux disease without esophagitis; J44.9 Chronic obstructive pulmonary disease, unspecified; Z87.442 Personal history of urinary calculi; Z88.5 Allergy status to narcotic agent; Z88.1 Allergy status to other antibiotic agents; Z88.8 Allergy status to other drugs, medicaments and biological substances; Z88.6 Allergy status to analgesic agent; Z91.041 Radiographic dye allergy status; Z79.82 Long term (current) use of aspirin; Z79.52 Long term (current) use of systemic steroids; Z79.02 Long term (current) use of antithrombotics/antiplatelets; Z79.4 Long term (current) use of insulin; Z79.84 Long term (current) use of oral hypoglycemic drugs; Z79.899 Other long term (current) drug therapy; Z87.891 Personal history of nicotine dependence
CPT/HCPCS: 74176; 80053; 83605; 83690; 85025; A9270; J1170; J3010; J7030

== ENCOUNTER 2023-04-26 08:24 | Emergency (ER) | payer OTHER ==
[~2023-04-26] VITALS: Ht 162.6 cm; Wt 74.8 kg
[~2023-04-26 08:24] MED LIST changes: +HYDMOR2 PO; +Percocet 5-3251 EACH PO
[2023-04-26 09:23] LABS: BASOPHILS ABSOLUTE AUTO 0.14 K/mm3 (0.00-0.23); BASOPHILS PERCENT AUTO 1 % (0-2); EOSINOPHILS PERCENT AUTO 9 % (0-6); Hematocrit 42.5 % (33.0-51.0); Hemoglobin 13.5 g/dL (11.5-16.0); IMMATURE GRAN ABSOLUTE AUTO 0.08 K/mm3 (0.00-0.10); IMMATURE GRAN PERCENT AUTO 1 % (0-1); LYMPHOCYTES ABSOLUTE AUTO 3.19 K/mm3 (0.84-5.20); LYMPHOCYTES PERCENT AUTO 30 % (21-46); MONOCYTES ABSOLUTE AUTO 1.15 K/mm3 (0.16-1.47); MONOCYTES PERCENT AUTO 11 % (4-13); Mean Corpuscular HGB 25.4 pg (26.0-34.0); Mean Corpuscular HGB Conc 31.8 g/dL (31.5-36.5); Mean Corpuscular Volume 80 fL (80-100); Mean Platelet Volume 9.7 fL (9.1-12.4); NEUTROPHILS ABSOLUTE AUTO 5.27 K/mm3 (1.96-9.15); NEUTROPHILS PERCENT AUTO 49 % (41-73); Platelet Count 404 K/mm3 (150-400); RDW Coefficient Variation 14.4 % (11.7-14.2); RDW Standard Deviation 41.7 fL (35.1-46.3); Red Blood Cell Count 5.32 M/mm3 (3.80-5.20); White Blood Cell Count 10.83 K/mm3 (4.00-11.30)
[2023-04-26 09:29] VITALS: BP 119/65
[2023-04-26 09:48] LABS: Albumin, Blood 2.8 g/dL (3.4-5.0); Albumin/Globulin Ratio 0.6 (0.8-1.8); Bilirubin, Total 0.3 mg/dL (0.1-1.0); Bun/Creatinine Ratio 24.7 (12.0-20.0); Calcium, Blood 9.4 mg/dL (8.5-10.1); Creatinine, Blood 0.77 mg/dL (0.40-1.00); Globulin, Blood 4.4 g/dL (2.2-4.0); Potassium, Blood 4.4 mmol/L (3.5-5.5); Total Protein, Blood 7.2 g/dL (6.4-8.2)
[2023-04-26] MEDS ORDERED: OXAYDO5 M1 PO (11:31)
[2023-04-26] MEDS ORDERED: AMOCLA875 PO (11:31)
== END 2023-04-26 11:44 | disposition home or self-care (01) ==
LOC: ER 08:24
PROVIDERS: Physician Assistant
DX: K57.92 Diverticulitis of intestine, part unspecified, without perforation or abscess without bleeding (principal); E11.9 Type 2 diabetes mellitus without complications; I25.10 Atherosclerotic heart disease of native coronary artery without angina pectoris; I10 Essential (primary) hypertension; E78.5 Hyperlipidemia, unspecified; J44.9 Chronic obstructive pulmonary disease, unspecified; Z87.891 Personal history of nicotine dependence; Z88.5 Allergy status to narcotic agent; Z88.1 Allergy status to other antibiotic agents; Z91.041 Radiographic dye allergy status; Z79.899 Other long term (current) drug therapy; Z79.4 Long term (current) use of insulin; Z79.82 Long term (current) use of aspirin
CPT/HCPCS: 74176; 80053; 85025; 96374; 96375; 99284-25; J2405; J3010

== ENCOUNTER 2023-05-10 13:57 | Emergency (ER) | payer OTHER ==
[~2023-05-10] VITALS: Ht 160 cm; Wt 73.0 kg
[~2023-05-10 13:57] MED LIST changes: +AMOCLA875 PO; +DULCOLAX400 MG/51 PO; -JARDIANCE10 MG; +JARDIANCE10 MG PO; -Norco 7.5-3251 EACH; +Norco 7.5-3251 EACH PO; +OXAYDO5 M1 PO; +VISBIOME 112.51 EACH PO
[2023-05-10 14:12] VITALS: BP 130/72
[2023-05-10] MEDS ORDERED: PROM25 PO (15:38)
== END 2023-05-10 15:53 | disposition home or self-care (01) ==
LOC: ER 13:57
DX: K57.92 Diverticulitis of intestine, part unspecified, without perforation or abscess without bleeding (principal); Z87.891 Personal history of nicotine dependence
CPT/HCPCS: 96374; 99283-25; A9270

== ENCOUNTER 2023-07-17 04:58 | Emergency (ER) | payer OTHER ==
[~2023-07-17] VITALS: Ht 162.6 cm; Wt 79.4 kg
[2023-07-17 06:29] LABS: BASOPHILS ABSOLUTE AUTO 0.14 K/mm3 (0.00-0.23); BASOPHILS PERCENT AUTO 1 % (0-2); EOSINOPHILS ABSOLUTE AUTO 0.77 K/mm3 (0.00-0.68); EOSINOPHILS PERCENT AUTO 8 % (0-6); Hematocrit 41.6 % (33.0-51.0); Hemoglobin 13.4 g/dL (11.5-16.0); IMMATURE GRAN ABSOLUTE AUTO 0.07 K/mm3 (0.00-0.10); IMMATURE GRAN PERCENT AUTO 1 % (0-1); LYMPHOCYTES ABSOLUTE AUTO 3.23 K/mm3 (0.84-5.20); LYMPHOCYTES PERCENT AUTO 33 % (21-46); MONOCYTES ABSOLUTE AUTO 1.23 K/mm3 (0.16-1.47); MONOCYTES PERCENT AUTO 13 % (4-13); Mean Corpuscular HGB 26.4 pg (26.0-34.0); Mean Corpuscular HGB Conc 32.2 g/dL (31.5-36.5); Mean Corpuscular Volume 82 fL (80-100); Mean Platelet Volume 9.6 fL (9.1-12.4); NEUTROPHILS ABSOLUTE AUTO 4.36 K/mm3 (1.96-9.15); NEUTROPHILS PERCENT AUTO 44 % (41-73); Platelet Count 392 K/mm3 (150-400); RDW Coefficient Variation 16.1 % (11.7-14.2); RDW Standard Deviation 47.8 fL (35.1-46.3); Red Blood Cell Count 5.07 M/mm3 (3.80-5.20)
[2023-07-17 06:46] LABS: Albumin, Blood 3.3 g/dL (3.4-5.0); Albumin/Globulin Ratio 0.8 (0.8-1.8); Bilirubin, Total 0.3 mg/dL (0.1-1.0); Bun/Creatinine Ratio 34.4 (12.0-20.0); Calcium, Blood 9.3 mg/dL (8.5-10.1); Creatinine, Blood 0.73 mg/dL (0.40-1.00); Potassium, Blood 4.4 mmol/L (3.5-5.5); Total Protein, Blood 7.3 g/dL (6.4-8.2)
[2023-07-17 08:47] LABS: Source, Urine Clean Catch
[2023-07-17 08:53] LABS: Appearance, Urine Clear (Clear); Bilirubin, Urine Neg (Neg); Blood, Urine Neg (Neg); Color, Urine Yellow (P-Yellow); Glucose Qualitative, Urine 4+ (Neg); Ketones, Urine Neg (Neg); Leukocyte Esterase, Urine Neg (Neg); Nitrite, Urine Neg (Neg); Protein, Urine Neg (Neg); Specific Gravity, Urine 1.015 (1.003-1.022); Urobilinogen, Urine NORM (Normal)
[2023-07-17 10:28] VITALS: BP 149/59
== END 2023-07-17 10:45 | disposition home or self-care (01) ==
LOC: ER 04:58
PROVIDERS: Emergency Medicine; Student in an Organized Health Care Education/Training Program
DX: K59.00 Constipation, unspecified (principal); Z88.5 Allergy status to narcotic agent; Z91.041 Radiographic dye allergy status; Z88.6 Allergy status to analgesic agent; Z88.8 Allergy status to other drugs, medicaments and biological substances; Z79.899 Other long term (current) drug therapy; Z79.4 Long term (current) use of insulin; Z79.82 Long term (current) use of aspirin; K21.9 Gastro-esophageal reflux disease without esophagitis; E11.9 Type 2 diabetes mellitus without complications; I25.10 Atherosclerotic heart disease of native coronary artery without angina pectoris; E78.5 Hyperlipidemia, unspecified; J44.9 Chronic obstructive pulmonary disease, unspecified; Z87.891 Personal history of nicotine dependence
CPT/HCPCS: 74177; 80053; 81003; 83690; 85025; 93005; 93010; 96374; 96375; 96376; 99284-25; A9270; J1170; J1200; J1885; J2405; J2930; J7030; Q9967

== ENCOUNTER 2023-08-15 11:44 | Day surgery (SDC) | payer OTHER ==
[~2023-08-15] VITALS: Ht 162.6 cm; Wt 74.5 kg
[2023-08-15] MEDS ORDERED: ACYC400 (12:40)
[2023-08-15] MEDS ORDERED: ONDA4 (12:42)
[2023-08-15 14:49] VITALS: BP 130/56
--- NOTE | 2023-08-15 14:55 | NUR ---
08/15/23 Grisel Calloway PT REPORTED SOME PAIN IN LEFT LOWER ABDOMEN AND STATED IT WAS THE SAME BEFORE THE PROCEDURE AND HAD NOT INCREASED OR CHANGED. PATIENT REPORTED SHE USUALLY HAS THAT PAIN AND SAID "ITS OKAY." PATIENT DOES NOT APPEAR CONCERNED. PATIENT SUPPLIED DISCHARGE INSTRUCTIONS AND INFORMED TO CALL DR CHAVEZ OFFICE WITH ANY ISSUES, PAIN/INCREASED PAIN, BLEEDING, OR DEVELOPMENT OF FEVER OR CHILLS. PATIENT VERBALIZED UNDERSTANDING AND EXPRESSED READINESS TO GO HOME.
== END 2023-08-15 14:15 | disposition home or self-care (01) ==
LOC: ORSCSDS 11:44
PROVIDERS: Specialist
PROC: 0DJD8ZZ Inspection of Lower Intestinal Tract, Via Natural or Artificial Opening Endoscopic (ICD-10-PCS; principal; 2023-08-15 13:30)
DX: R10.32 Left lower quadrant pain (principal); Z87.19 Personal history of other diseases of the digestive system; K21.9 Gastro-esophageal reflux disease without esophagitis; K64.8 Other hemorrhoids; I73.9 Peripheral vascular disease, unspecified; D50.9 Iron deficiency anemia, unspecified; I77.4 Celiac artery compression syndrome; E11.9 Type 2 diabetes mellitus without complications; I10 Essential (primary) hypertension; Z79.899 Other long term (current) drug therapy
CPT/HCPCS: 82947; J2704; J7120

== ENCOUNTER → 2023-08-16 | Outpatient (CLI) | payer OTHER ==
[~2023-08-16] MED LIST changes: +ACYC400; +ONDA4
[2023-08-16 17:14] LABS: Bacteria Mod /hpf; Mucus Light (0-Heavy); Red Blood Cells, Urine 0-2 /hpf (0-2); Squamous Epithelial Cells Rare /hpf (Few); White Blood Cells, Urine TNTC /hpf (0-5)
[2023-08-16 18:42] LABS: Candida species (DNA Probe) Positive (NEGATIVE); G. vaginalis (DNA Probe) Positive (NEGATIVE); T. vaginalis (DNA Probe) Negative (NEGATIVE)
[2023-08-18 01:07] LABS: CHLAMYDIA TRACHOMATIS, NAA Negative (Negative)
== END | disposition home or self-care (01) ==
LOC: LAB SHORT 15:00 → LAB 15:00
PROVIDERS: Family Medicine
DX: R10.2 Pelvic and perineal pain (principal)
CPT/HCPCS: 81015; 87086; 87480; 87491; 87510; 87591; 87660

== ENCOUNTER 2023-08-24 05:30 | Emergency (ER) | payer OTHER ==
[~2023-08-24] VITALS: Ht 160 cm; Wt 74.8 kg
[2023-08-24 06:10] LABS: BASOPHILS ABSOLUTE AUTO 0.12 K/mm3 (0.00-0.23); BASOPHILS PERCENT AUTO 1 % (0-2); EOSINOPHILS ABSOLUTE AUTO 0.45 K/mm3 (0.00-0.68); EOSINOPHILS PERCENT AUTO 3 % (0-6); Hematocrit 41.8 % (33.0-51.0); Hemoglobin 13.5 g/dL (11.5-16.0); IMMATURE GRAN ABSOLUTE AUTO 0.05 K/mm3 (0.00-0.10); IMMATURE GRAN PERCENT AUTO 0 % (0-1); LYMPHOCYTES ABSOLUTE AUTO 2.62 K/mm3 (0.84-5.20); LYMPHOCYTES PERCENT AUTO 18 % (21-46); MONOCYTES ABSOLUTE AUTO 1.65 K/mm3 (0.16-1.47); MONOCYTES PERCENT AUTO 11 % (4-13); Mean Corpuscular HGB 26.8 pg (26.0-34.0); Mean Corpuscular HGB Conc 32.3 g/dL (31.5-36.5); Mean Corpuscular Volume 83 fL (80-100); Mean Platelet Volume 10.3 fL (9.1-12.4); NEUTROPHILS ABSOLUTE AUTO 10.05 K/mm3 (1.96-9.15); NEUTROPHILS PERCENT AUTO 67 % (41-73); Platelet Count 349 K/mm3 (150-400); RDW Coefficient Variation 14.5 % (11.7-14.2); RDW Standard Deviation 43.2 fL (35.1-46.3); Red Blood Cell Count 5.04 M/mm3 (3.80-5.20); White Blood Cell Count 14.94 K/mm3 (4.00-11.30)
[2023-08-24 06:23] LABS: Alanine Aminotransfer (ALT/SGP 24 U/L (12-78); Albumin, Blood 3.1 g/dL (3.4-5.0); Albumin/Globulin Ratio 0.7 (0.8-1.8); Alk Phos 171 U/L (50-136); Anion Gap 10 mmol/L (6-16); Aspartate Aminotrans (AST/SGOT 33 U/L (12-37); Beta-hydroxybutyrate 14.5 mg/dL (0.2-2.8); Bilirubin, Total 0.4 mg/dL (0.1-1.0); Blood Urea Nitrogen 12 mg/dL (8-24); CO2, Blood 22 mmol/L (21-32); Calcium, Blood 9.7 mg/dL (8.5-10.1); Chloride, Blood 106 mmol/L (98-108); Creatinine, Blood 0.63 mg/dL (0.40-1.00); Ethanol (Alcohol), Blood, Med <3 mg/dL; Globulin, Blood 4.3 g/dL (2.2-4.0); Glomerular Filtration Rate 97 (60-); Glucose, Blood 368 mg/dL (70-99); Magnesium, Blood 1.5 mg/dL (1.6-2.4); Potassium, Blood 4.2 mmol/L (3.5-5.5); Sodium, Blood 138 mmol/L (136-145); Total Protein, Blood 7.4 g/dL (6.4-8.2)
[2023-08-24 07:45] VITALS: BP 162/56
== END 2023-08-24 09:08 | disposition home or self-care (01) ==
LOC: ER 05:30
PROVIDERS: Emergency Medicine
DX: R10.30 Lower abdominal pain, unspecified (principal); G89.29 Other chronic pain; K21.9 Gastro-esophageal reflux disease without esophagitis; E11.9 Type 2 diabetes mellitus without complications; I25.10 Atherosclerotic heart disease of native coronary artery without angina pectoris; J44.9 Chronic obstructive pulmonary disease, unspecified; Z88.5 Allergy status to narcotic agent; Z91.041 Radiographic dye allergy status; Z88.1 Allergy status to other antibiotic agents; Z88.8 Allergy status to other drugs, medicaments and biological substances; Z79.4 Long term (current) use of insulin; Z79.82 Long term (current) use of aspirin; Z79.899 Other long term (current) drug therapy; Z87.891 Personal history of nicotine dependence
CPT/HCPCS: 74176; 80053; 82010; 82947; 83605; 83690; 83735; 85025; 96361; 96374; 96375; 99284-25; J0780; J1170; J7030

== ENCOUNTER 2023-11-06 10:04 | Inpatient (IN) | payer OTHER ==
[2023-11-06] VITALS (15 sets, daily range): BP systolic 96–174; BP diastolic 49–95
[~2023-11-06] VITALS: Ht 162.6 cm; Wt 65.8 kg
[~2023-11-06 10:04] MED LIST changes: -ACYC400
[2023-11-06 11:26] LABS: SARS-Cov-2 (COVID-19) PCR, MMC NEGATIVE (NEGATIVE)
[2023-11-06 11:40] LABS: Influenza A Negative (NEGATIVE); Influenza B Negative (NEGATIVE)
[2023-11-06 11:47] LABS: Source, Urine Clean Catch
[2023-11-06 11:53] LABS: Appearance, Urine Clear (Clear); Bilirubin, Urine Neg (Neg); Blood, Urine 1+ (Neg); Color, Urine Yellow (P-Yellow); Glucose Qualitative, Urine 4+ (Neg); Ketones, Urine 4+ (Neg); Leukocyte Esterase, Urine Neg (Neg); Nitrite, Urine Neg (Neg); Protein, Urine 3+ (Neg); Urobilinogen, Urine NORM (Normal)
[2023-11-06 12:03] LABS: Bacteria Rare /hpf; Red Blood Cells, Urine 0-2 /hpf (0-2); Squamous Epithelial Cells Few /hpf (Few); White Blood Cells, Urine 0-2 /hpf (0-5)
[2023-11-06 12:04] LABS: Yeast/Fungi Urine Rare /hpf
[2023-11-06 12:34] LABS: BASOPHILS PERCENT AUTO 1 % (0-2); EOSINOPHILS ABSOLUTE AUTO 0.01 K/mm3 (0.00-0.68); EOSINOPHILS PERCENT AUTO 0 % (0-6); Hematocrit 47.9 % (33.0-51.0); Hemoglobin 15.4 g/dL (11.5-16.0); IMMATURE GRAN ABSOLUTE AUTO 0.11 K/mm3 (0.00-0.10); IMMATURE GRAN PERCENT AUTO 1 % (0-1); LYMPHOCYTES PERCENT AUTO 12 % (21-46); MONOCYTES ABSOLUTE AUTO 0.69 K/mm3 (0.16-1.47); MONOCYTES PERCENT AUTO 4 % (4-13); Mean Corpuscular HGB 25.4 pg (26.0-34.0); Mean Corpuscular HGB Conc 32.2 g/dL (31.5-36.5); Mean Corpuscular Volume 79 fL (80-100); Mean Platelet Volume 10.4 fL (9.1-12.4); NEUTROPHILS ABSOLUTE AUTO 13.58 K/mm3 (1.96-9.15); NEUTROPHILS PERCENT AUTO 83 % (41-73); Platelet Count 499 K/mm3 (150-400); RDW Coefficient Variation 14.2 % (11.7-14.2); Red Blood Cell Count 6.06 M/mm3 (3.80-5.20); White Blood Cell Count 16.39 K/mm3 (4.00-11.30)
[2023-11-06 13:00] LABS: Albumin, Blood 3.9 g/dL (3.4-5.0); Albumin/Globulin Ratio 0.8 (0.8-1.8); Bilirubin, Total 0.8 mg/dL (0.1-1.0); Bun/Creatinine Ratio 32.8 (12.0-20.0); Calcium, Blood 10.3 mg/dL (8.5-10.1); Creatinine, Blood 0.89 mg/dL (0.40-1.00); Globulin, Blood 4.9 g/dL (2.2-4.0); Potassium, Blood 4.6 mmol/L (3.5-5.5); Total Protein, Blood 8.8 g/dL (6.4-8.2)
[2023-11-06 13:32] LABS: Beta-hydroxybutyrate 94.8 mg/dL (0.2-2.8)
[2023-11-06 15:16] LABS: Glucose, Blood 578 mg/dL (70-99)
[2023-11-06 16:02] LABS: Glucose, Blood 550 mg/dL (70-99)
--- NOTE | 2023-11-06 18:17 | NUR ---
SHIFT SUMMARY PT RECEIVING INSULIN 6UNITS/HR AND NS 200ML/HR. PT ARRIVED TO ICU 15 AT 1520. PT TRANSFERRED SELF TO ICU BED WITH MINIMAL ASSISTANCE. SHE IS ALERT AND ORIENTED, ABLE TO ANSWER ADMISSION QUESTIONS. PT STS "MY HEART IS GOING TOO FAST". SINUS TACH ON MONITOR, RATE 112 AT TIME OF THIS STATEMENT. PROVIDED REASSURANCE AND ENCOURAGED DEEP BREATHING, PT REPORTS RELIEF. SHE REQUESTS WATER. PROVIDED SMALL CUP OF ICE CHIPS AND WATER. SHE REPORTS NOT FEELING WELL WITH NAUSEA AND VOMITING FOR APPROX 5-6 DAYS AND UNABLE TO EAT/DRINK SINCE THEN. SHE IS HAVING 8/10 EPIGASTRIC AND LUQ PAIN THAT IS DESCRIBED CRAMPING/STABBING. HR NOW 80S-90S, SBP 130S-140S. SHE DENIES CP. SHE IS ON RA WITH SPO2 >94%, DENIES SOB. PT PROVIDED DINNER TRAY AND INSTRUCTED TO DRINK SLOWLY. PT QUICKLY DRANK LIQUID, RESULTING IN NAUSEA AND ONE EPISODE OF 50ML EMESIS THAT WAS CLEAR AND BROWN LIQUID. TRAY AND FLUIDS REMOVED, SMALL AMOUNT OF ICE CHIPS LEFT WITH PT. PT ASSISTED WITH ATTENDS UPON ARRIVAL AND HAS NOT VOIDED SINCE ARRIVAL TO UNIT. PT REPORTS SHE FEELS THAT SHE CANNOT LIVE AT HOME ALONE MUCH LONGER AND STS HER DAUGHTER IN [place] HAS OFFERED PT TO LIVE WITH HER. BED IN LOW POSITION, CALL LIGHT WITHIN REACH.
[2023-11-06 18:38] LABS: Bun/Creatinine Ratio 39.7 (12.0-20.0); Calcium, Blood 9.2 mg/dL (8.5-10.1); Creatinine, Blood 0.73 mg/dL (0.40-1.00); Potassium, Blood 3.4 mmol/L (3.5-5.5)
--- NOTE | 2023-11-06 20:00 | NUR ---
ASSUMED CARE ASSUMED CARE AT 1900. PT A/O X 3. FOLLOWS COMMANDS . INSULIN GTT AT 6U/KG/HR AND NS AT 200ML/HR. LABS CALLED TO HOSP AND ORDER RECEIVED FOR 40MEQ KCL. IV INFILTRATED AND INSULIN STOPPED TO PLACE PG. CBG THEN GREATER THEN 500. AFTER PLACEMENT LABS DRAWN AND INSULIN RESTARTED. PT C/O PAIN IN LUQ/LLQ. MEDICATED PER EMAR. PT ALSO C/O "CRAMPING IN RECTUM". NO BM AT THIS TIME. AFEBRILE. VSS. ON RA. SR/SB 50'S-60'S. ONE PERSON ASSIST TO BSC. CALL LIGHT IN REACH.
[2023-11-06 22:11] LABS: Bun/Creatinine Ratio 35.6 (12.0-20.0); Calcium, Blood 8.7 mg/dL (8.5-10.1); Creatinine, Blood 0.9 mg/dL (0.40-1.00); Potassium, Blood 4.1 mmol/L (3.5-5.5)
[2023-11-07] VITALS (14 sets, daily range): BP systolic 109–153; BP diastolic 36–108
[2023-11-07 02:23] LABS: BASOPHILS ABSOLUTE AUTO 0.04 K/mm3 (0.00-0.23); BASOPHILS PERCENT AUTO 0 % (0-2); Base Excess Venous -4.3 mmol/L; Bicarbonate Venous 20.9 mmol/L (24.0-30.0); EOSINOPHILS ABSOLUTE AUTO 0.03 K/mm3 (0.00-0.68); EOSINOPHILS PERCENT AUTO 0 % (0-6); Hematocrit 36.1 % (33.0-51.0); Hemoglobin 11.5 g/dL (11.5-16.0); IMMATURE GRAN PERCENT AUTO 1 % (0-1); LYMPHOCYTES ABSOLUTE AUTO 3.12 K/mm3 (0.84-5.20); LYMPHOCYTES PERCENT AUTO 17 % (21-46); MONOCYTES ABSOLUTE AUTO 2.87 K/mm3 (0.16-1.47); MONOCYTES PERCENT AUTO 15 % (4-13); Mean Corpuscular HGB Conc 31.9 g/dL (31.5-36.5); Mean Corpuscular Volume 79 fL (80-100); Mean Platelet Volume 9.8 fL (9.1-12.4); NEUTROPHILS PERCENT AUTO 67 % (41-73); PCO2 Venous 40.7 mmHg (38-42); Platelet Count 374 K/mm3 (150-400); RDW Coefficient Variation 14.2 % (11.7-14.2); RDW Standard Deviation 40.8 fL (35.1-46.3); White Blood Cell Count 18.76 K/mm3 (4.00-11.30); pH Blood Venous 7.33 (7.34-7.37)
[2023-11-07 02:48] LABS: Bun/Creatinine Ratio 36.5 (12.0-20.0); Calcium, Blood 8.8 mg/dL (8.5-10.1); Creatinine, Blood 0.82 mg/dL (0.40-1.00)
--- NOTE | 2023-11-07 06:37 | NUR ---
SHIFT SUMMARY NO ACUTE EVENTS T/O NIGHT. REMAINS ON INSULIN GTT AND D5 1/2 NS. GAP CORRECTED. PT C/O PAIN T/O NIGHT. MEDICATED PER EMAR. MEDICATED FOR NAUSEA ONE TIME. VSS. SR/SB. PT C/O FEELING THE NEED TO VOID AND NOT BEING ABLE TO. BLADDER SCAN WITH 31MLS. ONE ASSIST TO BSC. CALL LIGHT IN REACH. WILL REPORT OFF TO ONCOMING RN.
[2023-11-07 06:59] LABS: Bun/Creatinine Ratio 33.5 (12.0-20.0); Calcium, Blood 8.6 mg/dL (8.5-10.1); Creatinine, Blood 0.78 mg/dL (0.40-1.00); Potassium, Blood 3.5 mmol/L (3.5-5.5)
--- NOTE | 2023-11-07 07:25 | NUR ---
ASSUMED CARE: PT RESTING IN BED AT THIS TIME, ON RA. SINUS EMILEE IN THE 50S ON TELE. D5 1/2NS RUNNING WELL INSULIN GTT AT 5 UNITS/ HOUR. DENIES NEEDS OR CONCERNS AT THIS TIME.
--- NOTE | 2023-11-07 08:12 | NUR ---
DR HENDERSON CAME TO SEE PT AND DISCUSSED WITH HIM TRANSITIONING OFF OF INSULIN GTT AND SWITCHING TO SQ. ALSO WAS TOLD THAT PT WAS REQUIRING DILAUDID FREQUENTLY. STATES HE WILL DISCUSS PT WITH SURGERY AND PLACE ORDERS FOR MEDS. EATING BREAKFAST AT THIS TIME. NO ACUTE NEEDS OR CONCERNS.
--- NOTE | 2023-11-07 09:15 | NUR ---
FAMILY CALLED STAFF TO BEDSIDE, UPSET THAT SCDS HAD NOT BEEN REMOVED AND THAT REPOSITIONING HAD NOT BEEN COMPLETED. STAFF REPOSITIONED PT AND COMPLETED MED PASS AND CALLED CARGO WORKER TO BEDSIDE. DIRECTOR HAS ALSO BEEN CALLED TO SPEAK WITH FAMILY. FAMILY AWARE THAT DR ALSTON IS NOT HERE YET TO DETERMINE IF HE OR IR WILL BE PLACING DIALYSIS CATH.
--- NOTE | 2023-11-07 11:00 | NUR ---
FAMILY CALLED STAFF IN BECAUSE ETT ADHESIVE AND SECUREMENT DEVICE WERE LOOSE. CALL TO RT. DR ALSTON AT BEDSIDE WITH ULTRASOUND TO DETERMINE PLACEMENT OF CATH. INSTRUCTED FOR 1L BOLUS OF FLUIDS AND ALBUMIN TO BE ADMINISTERED. ORDERS PLACED.
--- NOTE | 2023-11-07 11:32 | NUR ---
NURSE AT BEDSIDE TO START 1L BOLUS PER ORDERS. FAMILY DECLINED REPOSITION AND ORAL CARE AT THIS TIME BECAUSE THEY FELT PT LOOKED COMFORTABLE. AWAITING ALBUMIN TO START THAT MED WELL.
--- NOTE | 2023-11-07 12:05 | NUR ---
CALL TO DR HENDERSON TO RELAY LUNCH CBG. NEW ORDERS. STATUS CHANGE ORDERED, RAKER BUFFING WHEEL AWARE
--- NOTE | 2023-11-07 18:28 | NUR ---
SHIFT SUMMARY: PT RESTING IN BED, MEDICATED FOR PAIN AND NAUSEA SEVERAL TIMES THIS SHIFT. ON SC INSULIN AT THIS TIME AND TOLERATIN WELL. PAIN AND NAUSEA WITH CLEAR LIQUID DIET. NO VOMITING THIS SHIFT.
[2023-11-08 04:40] LABS: Hemoglobin 11.2 g/dL (11.5-16.0); Mean Corpuscular HGB 25.2 pg (26.0-34.0); Mean Corpuscular Volume 79 fL (80-100); Mean Platelet Volume 9.9 fL (9.1-12.4); Platelet Count 315 K/mm3 (150-400); RDW Coefficient Variation 14.2 % (11.7-14.2); RDW Standard Deviation 40.5 fL (35.1-46.3); Red Blood Cell Count 4.44 M/mm3 (3.80-5.20); White Blood Cell Count 12.55 K/mm3 (4.00-11.30)
--- NOTE | 2023-11-08 05:01 | NUR ---
PATIENT IS ALERT AND ORIENT, ON ROOM AIR. MAINTAINED ON CLEAR LIQUIDS. WITH ONGOING IV FLUIDS OF LR 1 L AT 150 ML/HR INFUSING WELL. BLOOD SUGAR CHECK DONE AND DUE INSULIN GIVEN. ON SBA AND USES BSC. COMPLAINT OF PAIN AND NAUSEA, MEDICATED ACCORDINGLY. SLEPT FAIRLY AFTER PAIN MEDS WERE GIVEN. NEEDS ATTENDED. CALL LIGHT WITHIN PATIENT'S REACH. WILL CONTINUE TO MONITOR.
[2023-11-08 05:14] LABS: Albumin, Blood 2.6 g/dL (3.4-5.0); Albumin/Globulin Ratio 0.8 (0.8-1.8); Bilirubin, Total 0.6 mg/dL (0.1-1.0); Bun/Creatinine Ratio 25.2 (12.0-20.0); Calcium, Blood 8.8 mg/dL (8.5-10.1); Creatinine, Blood 0.64 mg/dL (0.40-1.00); Globulin, Blood 3.3 g/dL (2.2-4.0)
[2023-11-08 05:15] LABS: Total Protein, Blood 5.9 g/dL (6.4-8.2)
[2023-11-08 07:29] LABS: BAND PERCENT MAN 1 % (0-8); BASOPHILS PERCENT MAN 0 % (0-2); EOSINOPHILS ABSOLUTE MAN 0.62 K/mm3 (0.00-0.68); EOSINOPHILS PERCENT MAN 5 % (0-6); LYMPHOCYTES ABSOLUTE MAN 4.39 K/mm3 (0.84-5.20); LYMPHOCYTES PERCENT MAN 35 % (21-46); MONOCYTES ABSOLUTE MAN 0.87 K/mm3 (0.16-1.47); MONOCYTES PERCENT MAN 7 % (4-13); NEUTROPHILS ABSOLUTE MAN 6.65 K/mm3 (1.96-9.15); SEG NEUTROPHILS PERCENT MAN 52 % (41-73); TOTAL CELLS COUNTED 100
[2023-11-08 08:26] VITALS: BP 155/46
[2023-11-08 14:59] VITALS: BP 133/42
--- NOTE | 2023-11-08 17:19 | NUR ---
SHIFT SUMMARY PT TRIALLED ON FULL LIQ DIET TODAY. ABD PAIN INCREASED AFTER THIS WITH NAUSEA. PT REQUIRING A LOT OF PAIN MEDS FOR MANAGEMENT. SEE EMAR. KPAD IN PLACE TO HELP WITH PAIN WELL. ABD CT COMPLETED TODAY. NO OTHER ACUTE CHANGES IN ASSESSMENT AT THIS TIME. VS REVIEWED. CALL LIGHT IN REACH. DENIES OTHER NEEDS AT THIS TIME. CALL LIGHT IN REACH.
[2023-11-08 20:03] VITALS: BP 134/50
[2023-11-09 05:13] VITALS: BP 120/96
--- NOTE | 2023-11-09 05:18 | NUR ---
Shift Summary Ms. Chavez complains of abdominal pain and continues to require frequent PRN pain medication. She has a power glide in her LISA and periferal line in LAC.LR is infusing to power glide at 125ml/hr. She is alert and oriented x 4. She uses her call light appropriately. Respirations are regular and unlabored on room air. Has has been asssisted up to void several times during the night. She has clear, yellow urine. Her bedtime blood sugar was 312. She got 3 units of Humulog in addition to her routine bedtime Glargine 30 u. Her bed is in low position and call light is in reach.
[2023-11-09 05:24] LABS: BASOPHILS ABSOLUTE AUTO 0.08 K/mm3 (0.00-0.23); BASOPHILS PERCENT AUTO 1 % (0-2); EOSINOPHILS ABSOLUTE AUTO 0.75 K/mm3 (0.00-0.68); EOSINOPHILS PERCENT AUTO 7 % (0-6); Hematocrit 33.1 % (33.0-51.0); Hemoglobin 10.7 g/dL (11.5-16.0); IMMATURE GRAN ABSOLUTE AUTO 0.02 K/mm3 (0.00-0.10); IMMATURE GRAN PERCENT AUTO 0 % (0-1); LYMPHOCYTES ABSOLUTE AUTO 5.04 K/mm3 (0.84-5.20); LYMPHOCYTES PERCENT AUTO 47 % (21-46); MONOCYTES ABSOLUTE AUTO 1.02 K/mm3 (0.16-1.47); MONOCYTES PERCENT AUTO 10 % (4-13); Mean Corpuscular HGB 25.4 pg (26.0-34.0); Mean Corpuscular HGB Conc 32.3 g/dL (31.5-36.5); Mean Corpuscular Volume 79 fL (80-100); NEUTROPHILS ABSOLUTE AUTO 3.75 K/mm3 (1.96-9.15); NEUTROPHILS PERCENT AUTO 35 % (41-73); Platelet Count 287 K/mm3 (150-400); RDW Coefficient Variation 13.9 % (11.7-14.2); RDW Standard Deviation 39.6 fL (35.1-46.3); Red Blood Cell Count 4.21 M/mm3 (3.80-5.20); White Blood Cell Count 10.66 K/mm3 (4.00-11.30)
[2023-11-09 06:13] LABS: Bun/Creatinine Ratio 18.3 (12.0-20.0); Calcium, Blood 8.9 mg/dL (8.5-10.1); Creatinine, Blood 0.6 mg/dL (0.40-1.00); Percent Saturation 30.7 % (15.0-50.0); Potassium, Blood 4.2 mmol/L (3.5-5.5)
[2023-11-09 07:19] VITALS: BP 155/57
[2023-11-09 14:53] VITALS: BP 139/45
--- NOTE | 2023-11-09 18:03 | NUR ---
NO ACUTE CHANGES, ENCOURAGED TO ONLY USE PO DIALUDID BY DR WOODS AND THIS RN, POSSIBLE DISCHARGE HOME TOMORROW, STAND BY ASSIST WITH FWW TO BATHROOM, DIET IS ADVANCE TOLERATE, NO NV ON FULL LIQUIDS, LR INFUSING 125 ML/HR, BS 250-376 COVERED WITH SHORT ACTING, MAKES NEEDS KNOWN, CALL LIGHT WITH IN REACH, WILL RELAY TO PM RN
[2023-11-09 20:07] VITALS: BP 143/48
[2023-11-10 03:30] VITALS: BP 156/58
--- NOTE | 2023-11-10 05:10 | NUR ---
Shift Summary Ms. Chavez is alert and oriented x 4. Respirations regular and unlabored. Patient is on room air. Skin is warm and dry.She has an IV in her left AC and a power glide in her left upper arm with Lactated Ringers infusing at 75ml/hr. She has required po pain medications throughout the night but has not needed the IV prn medication for pain. She is able to get up to the bedside commode with standby assistance. She is cooperative with care and uses her call light appropriately. Bed in low postion.
[2023-11-10 07:15] VITALS: BP 173/67
[2023-11-10] MEDS ORDERED: HYDMOR2 PO (12:37)
[2023-11-10] MEDS ORDERED: CIPR500 PO (12:38)
--- NOTE | 2023-11-10 15:40 | NUR ---
DISCHARGE NOTE: DISCHARGE DISCUSSED WITH PATIENT. HARD SCRIPT PROVIDED TO PATIENT AND NOTIFIED TO TAKE IT TO THE PHARMACY TO GET IT FILLED. PATIENT VOICED UNDERSTANDING. HER IV AND POWERGLIDE WERE D/C'D, HER BELONGINGS WERE COLLECTED AND SHE DRESSED HERSELF. [facility] ARRIVED FOR MEDICAL TRANSPORT AND FACESHEET PROVIDED. PATIENT WAS ABLE TO AMBULATE TO THE WHEELCHAIR. NO SIGNS OR SYMPTOMS OF DISTRESS DURING DISCHARGE.
== END 2023-11-10 15:36 | disposition home health service (06) | DRG 637 ==
LOC: ER 10:04 → ICUE 14:28 → MEDS 11-07 20:15
PROVIDERS: Emergency Medicine; Nurse Practitioner Acute Care; Student in an Organized Health Care Education/Training Program; ADMIT Internal Medicine
DX: E11.10 Type 2 diabetes mellitus with ketoacidosis without coma (principal); A41.9 Sepsis, unspecified organism; K65.9 Peritonitis, unspecified; K57.32 Diverticulitis of large intestine without perforation or abscess without bleeding; J44.9 Chronic obstructive pulmonary disease, unspecified; M19.90 Unspecified osteoarthritis, unspecified site; K52.9 Noninfective gastroenteritis and colitis, unspecified; Z87.442 Personal history of urinary calculi; G89.29 Other chronic pain; E78.5 Hyperlipidemia, unspecified; K21.9 Gastro-esophageal reflux disease without esophagitis; M54.50 Low back pain, unspecified; E11.51 Type 2 diabetes mellitus with diabetic peripheral angiopathy without gangrene; I25.10 Atherosclerotic heart disease of native coronary artery without angina pectoris; I10 Essential (primary) hypertension; E86.0 Dehydration; R10.12 Left upper quadrant pain; R10.13 Epigastric pain; R11.2 Nausea with vomiting, unspecified; Z11.52 Encounter for screening for COVID-19; Z87.19 Personal history of other diseases of the digestive system; Z86.73 Personal history of transient ischemic attack (TIA), and cerebral infarction without residual deficits; Z90.710 Acquired absence of both cervix and uterus; Z95.5 Presence of coronary angioplasty implant and graft; Z79.899 Other long term (current) drug therapy; Z88.1 Allergy status to other antibiotic agents; Z88.5 Allergy status to narcotic agent; Z88.8 Allergy status to other drugs, medicaments and biological substances; Z91.041 Radiographic dye allergy status; Z79.02 Long term (current) use of antithrombotics/antiplatelets; Z79.4 Long term (current) use of insulin; Z79.82 Long term (current) use of aspirin; Z79.891 Long term (current) use of opiate analgesic; Z87.891 Personal history of nicotine dependence
CPT/HCPCS: 36415; 71045; 74176; 80048; 80053; 81001; 82010; 82728; 82803; 82947; 83540; 83550; 83605; 83690; 83930; 84100; 85025; 86850; 86900; 86901; 87040; 87804; 87807; 93005; 93010; 94762; 96361; 96365; 96374; 96375; 96376; 97116; 97162; 99284-25; 99285-25; A9270; C1751; C9113; J0744; J1170; J1790; J1815; J2185; J2405; J3010; J3480; J7030; J7042; J7050; J7060; J7120; U0002

== ENCOUNTER 2024-02-03 23:08 | Emergency (ER) | payer OTHER ==
[~2024-02-03] VITALS: Ht 162.6 cm; Wt 77.1 kg
[~2024-02-03 23:08] MED LIST changes: +PROM12.5S PR; +PROMETHAZINE12.5 M1 PO
[2024-02-03 23:35] LABS: BASOPHILS PERCENT AUTO 1 % (0-2); EOSINOPHILS ABSOLUTE AUTO 0.25 K/mm3 (0.00-0.68); EOSINOPHILS PERCENT AUTO 2 % (0-6); Hematocrit 37.3 % (33.0-51.0); Hemoglobin 11.8 g/dL (11.5-16.0); IMMATURE GRAN ABSOLUTE AUTO 0.07 K/mm3 (0.00-0.10); IMMATURE GRAN PERCENT AUTO 1 % (0-1); LYMPHOCYTES ABSOLUTE AUTO 3.86 K/mm3 (0.84-5.20); LYMPHOCYTES PERCENT AUTO 31 % (21-46); MONOCYTES ABSOLUTE AUTO 1.22 K/mm3 (0.16-1.47); MONOCYTES PERCENT AUTO 10 % (4-13); Mean Corpuscular HGB 26.5 pg (26.0-34.0); Mean Corpuscular HGB Conc 31.6 g/dL (31.5-36.5); Mean Corpuscular Volume 84 fL (80-100); Mean Platelet Volume 9.8 fL (9.1-12.4); NEUTROPHILS ABSOLUTE AUTO 6.92 K/mm3 (1.96-9.15); NEUTROPHILS PERCENT AUTO 56 % (41-73); Platelet Count 418 K/mm3 (150-400); Red Blood Cell Count 4.45 M/mm3 (3.80-5.20); White Blood Cell Count 12.42 K/mm3 (4.00-11.30)
[2024-02-03] MEDS ORDERED: Ketorolac Tromethamine 30mg Vial IV ONE (23:35)
[2024-02-03] MEDS ORDERED: Lidocaine 4% 1 Patch TOP ONE (23:35)
[2024-02-03 23:40] LABS: Bicarbonate Venous 20.4 mmol/L (24.0-30.0); PCO2 Venous 36.5 mmHg (38-42); pH Blood Venous 7.35 (7.34-7.37)
[2024-02-03 23:41] LABS: Base Excess Venous -5.2 mmol/L
[2024-02-03 23:52] LABS: Magnesium, Blood 1.4 mg/dL (1.6-2.4)
[2024-02-04 00:01] LABS: Albumin, Blood 3.2 g/dL (3.4-5.0); Albumin/Globulin Ratio 0.8 (0.8-1.8); Bilirubin, Total 0.2 mg/dL (0.1-1.0); Bun/Creatinine Ratio 30.1 (12.0-20.0); Calcium, Blood 9.3 mg/dL (8.5-10.1); Creatinine, Blood 1.03 mg/dL (0.40-1.00); Total Protein, Blood 7.2 g/dL (6.4-8.2)
[2024-02-04] MEDS ORDERED: NS 1,000 ML IV SCH (00:10)
[2024-02-04] MEDS ORDERED: Mag Sulfate 1 GM/D5% 100ML 100 ML IV ONE (00:10)
[2024-02-04] MEDS ORDERED: Insulin Regular 100 Unit/ML 1ML Dose SC ONE (00:55)
[2024-02-04] MEDS ORDERED: HYDROmorphone HCl/Pf 1MG SYR IV ONE (01:00)
[2024-02-04 02:00] VITALS: BP 116/70
[2024-02-04] MEDS ORDERED: LIDO700A20 TOP (02:17)
== END 2024-02-04 03:03 | disposition home or self-care (01) ==
LOC: ER 23:08
PROVIDERS: Student in an Organized Health Care Education/Training Program
DX: M25.511 Pain in right shoulder (principal); E11.65 Type 2 diabetes mellitus with hyperglycemia; K21.9 Gastro-esophageal reflux disease without esophagitis; J44.9 Chronic obstructive pulmonary disease, unspecified; I10 Essential (primary) hypertension; E78.5 Hyperlipidemia, unspecified; Z88.5 Allergy status to narcotic agent; Z79.4 Long term (current) use of insulin; Z88.1 Allergy status to other antibiotic agents; Z88.8 Allergy status to other drugs, medicaments and biological substances; Z79.82 Long term (current) use of aspirin; Z79.899 Other long term (current) drug therapy; Z91.041 Radiographic dye allergy status
CPT/HCPCS: 73030; 80053; 82803; 82947; 83735; 85025; 93005; 93010; 96365; 96375; 99285-25; A9270; J1170; J1815; J1885; J3475; J7030

== ENCOUNTER 2024-07-27 14:30 | Emergency (ER) | payer OTHER ==
[~2024-07-27] VITALS: Ht 160 cm; Wt 78.5 kg
[~2024-07-27 14:30] MED LIST changes: +ESTRADIOL42.5 GM VAG; +GABAPENTIN600 MG PO; +HUMALOG KW100 UNIT/1 SC; +LANTUS SOL100 UNIT/1 SC; +LOSA25 PO; +METO25 PO; -TOUJEO SOL300 UNIT/2 SC
[2024-07-27 15:36] LABS: BASOPHILS PERCENT AUTO 1 % (0-2); EOSINOPHILS ABSOLUTE AUTO 0.36 K/mm3 (0.00-0.68); EOSINOPHILS PERCENT AUTO 4 % (0-6); Hematocrit 33.3 % (33.0-51.0); IMMATURE GRAN ABSOLUTE AUTO 0.07 K/mm3 (0.00-0.10); IMMATURE GRAN PERCENT AUTO 1 % (0-1); LYMPHOCYTES ABSOLUTE AUTO 2.81 K/mm3 (0.84-5.20); LYMPHOCYTES PERCENT AUTO 31 % (21-46); MONOCYTES ABSOLUTE AUTO 1.04 K/mm3 (0.16-1.47); MONOCYTES PERCENT AUTO 11 % (4-13); Mean Corpuscular HGB 27.4 pg (26.0-34.0); Mean Corpuscular Volume 83 fL (80-100); Mean Platelet Volume 10.4 fL (9.1-12.4); NEUTROPHILS PERCENT AUTO 52 % (41-73); NRBC ABSOLUTE 0.02 K/mm3 (0.00-0.02); NRBC Auto 0.2 /100 WBC (0.0-0.2); Platelet Count 227 K/mm3 (150-400); RDW Coefficient Variation 14.5 % (11.7-14.2); RDW Standard Deviation 43.8 fL (35.1-46.3); Red Blood Cell Count 4.02 M/mm3 (3.80-5.20); White Blood Cell Count 9.18 K/mm3 (4.00-11.30)
[2024-07-27 15:43] LABS: Albumin, Blood 3.1 g/dL (3.4-5.0); Albumin/Globulin Ratio 0.8 (0.8-1.8); Bilirubin, Total 0.3 mg/dL (0.1-1.0); Bun/Creatinine Ratio 31.7 (12.0-20.0); Creatinine, Blood 0.76 mg/dL (0.40-1.00); Globulin, Blood 3.9 g/dL (2.2-4.0); Potassium, Blood 4.3 mmol/L (3.5-5.5)
[2024-07-27] MEDS ORDERED: Insulin Regular 100 Unit/ML 1ML Dose SC ONE (16:05)
[2024-07-27 16:34] LABS: Source, Urine Clean Catch
[2024-07-27 16:49] LABS: Appearance, Urine Clear (Clear); Bilirubin, Urine Neg (Neg); Blood, Urine Neg (Neg); Color, Urine Yellow (P-Yellow); Glucose Qualitative, Urine 4+ (Neg); Ketones, Urine Neg (Neg); Leukocyte Esterase, Urine Neg (Neg); Nitrite, Urine Neg (Neg); Protein, Urine Neg (Neg); Specific Gravity, Urine 1.015 (1.003-1.022); Urobilinogen, Urine NORM (Normal)
[2024-07-27] MEDS ORDERED: Metoclopramide HCl 5MG / ML 2ML Vial IV ONE (17:05)
[2024-07-27] MEDS ORDERED: Ketorolac Tromethamine 15mg Vial IV ONE (17:05)
[2024-07-27] MEDS ORDERED: DiphenhydrAMINE HCl 50 MG/ML 1ML Vial IV ONE (17:05)
[2024-07-27] MEDS ORDERED: [UNRECOGNIZED DRUG - OTHER] SC ONE (17:35)
[2024-07-27] MEDS ORDERED: INSULIN NPH HUM SC ONE (17:35)
[2024-07-27 19:45] VITALS: BP 148/55
== END 2024-07-27 20:15 | disposition home or self-care (01) ==
LOC: ER 14:30
PROVIDERS: Emergency Medicine
DX: R51.9 Headache, unspecified (principal); R07.89 Other chest pain; E11.65 Type 2 diabetes mellitus with hyperglycemia; K21.9 Gastro-esophageal reflux disease without esophagitis; I10 Essential (primary) hypertension; E78.5 Hyperlipidemia, unspecified; J44.9 Chronic obstructive pulmonary disease, unspecified; Z87.891 Personal history of nicotine dependence; Z79.82 Long term (current) use of aspirin; Z79.4 Long term (current) use of insulin; Z79.02 Long term (current) use of antithrombotics/antiplatelets; Z79.899 Other long term (current) drug therapy; Z88.5 Allergy status to narcotic agent; Z91.041 Radiographic dye allergy status; Z88.6 Allergy status to analgesic agent; Z88.8 Allergy status to other drugs, medicaments and biological substances
CPT/HCPCS: 70450; 71045; 80053; 81003; 82947; 84484; 85025; 93005; 93010; 99285-25; J1200; J1815; J1885; J2765

== ENCOUNTER 2024-07-29 08:43 | Observation (INO) | payer OTHER ==
[~2024-07-29] VITALS: Ht 160 cm; Wt 77.3 kg
[2024-07-29] MEDS ORDERED: Ondansetron 4 MG SoluTab SL ONE (08:55)
[2024-07-29] MEDS ORDERED: Aspirin 325 MG Tab PO ONE (08:55)
[2024-07-29 09:26] LABS: BASOPHILS ABSOLUTE AUTO 0.08 K/mm3 (0.00-0.23); BASOPHILS PERCENT AUTO 1 % (0-2); EOSINOPHILS ABSOLUTE AUTO 0.47 K/mm3 (0.00-0.68); EOSINOPHILS PERCENT AUTO 6 % (0-6); Hematocrit 35.5 % (33.0-51.0); Hemoglobin 11.4 g/dL (11.5-16.0); IMMATURE GRAN ABSOLUTE AUTO 0.04 K/mm3 (0.00-0.10); IMMATURE GRAN PERCENT AUTO 1 % (0-1); LYMPHOCYTES ABSOLUTE AUTO 2.05 K/mm3 (0.84-5.20); LYMPHOCYTES PERCENT AUTO 24 % (21-46); MONOCYTES ABSOLUTE AUTO 0.98 K/mm3 (0.16-1.47); MONOCYTES PERCENT AUTO 12 % (4-13); Mean Corpuscular HGB 27.5 pg (26.0-34.0); Mean Corpuscular HGB Conc 32.1 g/dL (31.5-36.5); Mean Corpuscular Volume 86 fL (80-100); Mean Platelet Volume 9.9 fL (9.1-12.4); NEUTROPHILS ABSOLUTE AUTO 4.91 K/mm3 (1.96-9.15); NEUTROPHILS PERCENT AUTO 58 % (41-73); Platelet Count 273 K/mm3 (150-400); RDW Coefficient Variation 14.6 % (11.7-14.2); RDW Standard Deviation 45.1 fL (35.1-46.3); Red Blood Cell Count 4.14 M/mm3 (3.80-5.20); White Blood Cell Count 8.53 K/mm3 (4.00-11.30)
[2024-07-29] MEDS ORDERED: NS 1,000 ML IV SCH (09:40)
[2024-07-29 09:49] LABS: Albumin/Globulin Ratio 0.8 (0.8-1.8); Bilirubin, Total 0.3 mg/dL (0.1-1.0); Bun/Creatinine Ratio 35.4 (12.0-20.0); Calcium, Blood 10.2 mg/dL (8.5-10.1); Creatinine, Blood 0.73 mg/dL (0.40-1.00)
[2024-07-29] MEDS ORDERED: Nitroglycerin 1 INCH/GM PKT TOP ONE (11:05)
[2024-07-29] MEDS ORDERED: Zolpidem Tartrate 5 MG Tab PO PRN (11:25)
[2024-07-29] MEDS ORDERED: Ondansetron 4 MG TAB PO PRN (11:25)
[2024-07-29] MEDS ORDERED: FLU VACC TS2024-25(6MOS UP)/PF 45 MCG/0.5 ML SYRINGE IM SCH (11:25)
[2024-07-29] MEDS ORDERED: Magnesium Hydroxide Conc 10 ML UDC PO PRN (11:25)
[2024-07-29] MEDS ORDERED: Bisacodyl 10 MG Supp PR PRN (11:25)
[2024-07-29] MEDS ORDERED: Acetaminophen 325 MG TABLET PO PRN (11:30)
[2024-07-29] MEDS ORDERED: HYDROmorphone HCl/Pf 1MG SYR IV SCH (12:00)
[2024-07-29 14:01] VITALS: BP 128/50
[2024-07-29] MEDS ORDERED: HYDROmorphone HCl/Pf 1MG SYR IV PRN (14:58)
--- NOTE | 2024-07-29 15:04 | NUR ---
CALLED DR SAHU- PT STATED SHE HAD 7/10 PAIN IN HER HEAD WHEN SHE ARRIVED ON MEDICAL FLOOR. SHE HAS ALREADY RECIEVED IV DILAUDID AND TYLENOL WITH LITTLE TO NO EFFECT. NITRO PASTE IN PLACE ON THE LEFT CHEST. CRITICAL LAB TROPONIN OF [address] SAHU. RECIEVED A ORDER TO REMOVE NITRO PASTE. DR AWARE OF THE TROPONIN, NITRO PASTE IS LIKELY THE CAUSE OF THE PT HEADACHE. PT HAS NO NEW SYMPTOMS, SHE STATES SHE STILL HAS THE PRESSURE BUT NO REAL CHEST PAIN. NITRO PASTE REMOVED AT 1500.
[2024-07-29 16:25] VITALS: BP 146/59
[2024-07-29] MEDS ORDERED: Insulin Human Lispro 100 Units/ML 3ML Syringe SC SCH (16:30)
--- NOTE | 2024-07-29 19:10 | NUR ---
SHIFT SUMMARY- PT ADMITTED FOR CP THROUGH THE ED. DILAUDID AND TYLENOL DID NOT HELP THE HEADACHE THAT STARTED AFTER THE NITRO PATCH WAS PLACED. NITRO PATCH WAS DC'D AT 1500 PER MD ORDER. PT HAD A STAT CT HEAD TO R/O ACUTE STROKE. PT WAS MEDICATED AT THE TIME OF BEDSIDE REPORT WITH NIGHT RN . PT HAS ORDERS FOR A CARDIOLYTE STRESS TEST FOR TOMORROW. PT ALERT AND ORIENTED ALTHOUGH SHE WAS HAVING TROUBLE WITH HER HISTORY BECAUSE HER HEAD WAS HURTING SHE SAID. PT IN BED, CALL LIGHT IN REACH NO S&S OF DISTRESS AT THE TIME BEDSIDE RPEORT WAS COMPLETED, BED ALARM SET FOR SAFETY. PT ON TELE NSR IN THE 70'S WITH OCCASSIONAL PVC'S.
[2024-07-29 19:33] VITALS: BP 138/49
[2024-07-29] MEDS ORDERED: Famotidine 20 MG Tab PO SCH (21:00)
[2024-07-29] MEDS ORDERED: Metoprolol Tartrate 25 MG Tab PO SCH (21:00)
[2024-07-29] MEDS ORDERED: Gabapentin 300 MG Cap PO SCH (21:00)
[2024-07-29] MEDS ORDERED: Insulin Glargine-Yfgn 100 Unit/mL 3 ML SYR SC SCH (21:00)
[2024-07-29] MEDS ORDERED: Lactobacil 2-S.Thermo-Bifido 1 1 Cap PO SCH (21:00)
[2024-07-30 03:41] VITALS: BP 150/57
--- NOTE | 2024-07-30 05:32 | NUR ---
Patient alert and oriented x2-3 overnight, noting she "feels confused sometimes," also notes visual hallucinations of people walking through her room. VSS, patient requiring 2-3L oxygen at times while sleeping, continuous pulse ox in place. Patient able to stand and pivot with mod assistance to bedside commode, unsteady on feet, stumbling at times.
[2024-07-30 07:18] VITALS: BP 152/57
[2024-07-30 07:34] LABS: Calcium, Blood 9.5 mg/dL (8.5-10.1); Creatinine, Blood 0.66 mg/dL (0.40-1.00); Magnesium, Blood 1.4 mg/dL (1.6-2.4); Potassium, Blood 4.3 mmol/L (3.5-5.5)
[2024-07-30] MEDS ORDERED: Magnesium Sulf 2 GM/Water 50ML 50 ML IV STA (07:52)
[2024-07-30] MEDS ORDERED: Aspirin 81 MG Chew PO SCH (09:00)
[2024-07-30] MEDS ORDERED: Atorvastatin 40 MG Tab PO SCH (09:00)
[2024-07-30] MEDS ORDERED: Losartan Potassium 25 MG Tab PO SCH (09:00)
[2024-07-30] MEDS ORDERED: Heparin Sodium,Porcine 5,000 UNIT/0.5 ML SDV SC SCH (09:00)
[2024-07-30] MEDS ORDERED: Clopidogrel Bisulfate 75 MG Tab PO SCH (09:00)
[2024-07-30 11:51] LABS: BASOPHILS ABSOLUTE AUTO 0.08 K/mm3 (0.00-0.23); BASOPHILS PERCENT AUTO 1 % (0-2); EOSINOPHILS ABSOLUTE AUTO 0.54 K/mm3 (0.00-0.68); EOSINOPHILS PERCENT AUTO 6 % (0-6); Hematocrit 34.2 % (33.0-51.0); Hemoglobin 10.8 g/dL (11.5-16.0); IMMATURE GRAN ABSOLUTE AUTO 0.05 K/mm3 (0.00-0.10); IMMATURE GRAN PERCENT AUTO 1 % (0-1); LYMPHOCYTES ABSOLUTE AUTO 3.22 K/mm3 (0.84-5.20); LYMPHOCYTES PERCENT AUTO 37 % (21-46); MONOCYTES ABSOLUTE AUTO 1.03 K/mm3 (0.16-1.47); MONOCYTES PERCENT AUTO 12 % (4-13); Mean Corpuscular HGB 27.3 pg (26.0-34.0); Mean Corpuscular HGB Conc 31.6 g/dL (31.5-36.5); Mean Corpuscular Volume 87 fL (80-100); Mean Platelet Volume 9.9 fL (9.1-12.4); NEUTROPHILS ABSOLUTE AUTO 3.76 K/mm3 (1.96-9.15); NEUTROPHILS PERCENT AUTO 43 % (41-73); Platelet Count 281 K/mm3 (150-400); RDW Coefficient Variation 14.3 % (11.7-14.2); RDW Standard Deviation 45.6 fL (35.1-46.3); Red Blood Cell Count 3.95 M/mm3 (3.80-5.20); White Blood Cell Count 8.68 K/mm3 (4.00-11.30)
[2024-07-30] MEDS ORDERED: Regadenoson 0.4 MG/5 ML SYRINGE ONE (13:26)
[2024-07-30] MEDS ORDERED: Aminophylline 250MG / 10ML 10 ML Vial ONE (13:26)
--- NOTE | 2024-07-30 18:08 | NUR ---
PATIENT'S BLOOD SUGAR THIS EVENING 480. GIVEN 10u PER SLIDING SCALE. CALL TO DR. SAHU: TO FOR ADDITIONAL 5u FOR TOTAL OF 15u HUMALOG.
[2024-07-30 19:14] VITALS: BP 143/52
--- NOTE | 2024-07-30 19:24 | NUR ---
END OF SHIFT SUMMARY: A&Ox4. PLEASANT AND COOPERATIVE WITH CARE. CALLS APPROPRIATELY AND IS ABLE TO ADVOCATE NEEDS EFFECTIVELY. 1PA c FWW FOR AMBULATION; VERY UNSTEADY ON FEET. STAND-PIVOT TO BSC. BiOx FOR IV DILAUDID D/T C/O HEADACHE AND BODY ACHES. TELE NSR c PVCs. MEDS WHOLE WITH FLUIDS. STRESS TEST COMPLETED TODAY. POWERGLIDE PLACED LUE D/T BAD IV AND PATIENT DIFFICULTY WITH NEEDLESTICKS. BED IN LOWEST POSITION. CALL LIGHT WITHIN REACH. ALL NEEDS MET. REPORT TO ONCOMING NURSE.
[2024-07-31 03:29] VITALS: BP 164/57
--- NOTE | 2024-07-31 04:45 | NUR ---
SHIFT SUMMARY 68 YR F ADMITTED ON 07/29/24. FULL CODE. NO ACUTE CHANGES THIS SHIFT. PT C/O HEADACHE AND PAIN IN HER LEFT KNEE. PAIN MEDS GIVEN TWICE PER EMAR. PT IS PLEASANT AND COOPERATIVE WITH CARE. SHE STATES SHE IS WORRIED THAT SHE WILL HAVE TO MOVE OUT OF HER HOUSE BECAUSE SHE "CANT REMEMBER ANYTHING ANYMORE". NO C/O CHEST PAIN THIS SHIFT. NO ADVERSE EVENTS REPORTED BY IT LEAD. BED IN LOW POSITION AND CALL LIGHT IN REACH.
[2024-07-31 07:22] VITALS: BP 100/58
[2024-07-31 07:27] LABS: Magnesium, Blood 1.4 mg/dL (1.6-2.4)
[2024-07-31 07:28] LABS: Bun/Creatinine Ratio 24.3 (12.0-20.0); Creatinine, Blood 0.66 mg/dL (0.40-1.00); Potassium, Blood 3.6 mmol/L (3.5-5.5)
[2024-07-31 07:40] LABS: Hematocrit 33.8 % (33.0-51.0); Hemoglobin 10.7 g/dL (11.5-16.0)
[2024-07-31] MEDS ORDERED: Magnesium Sulf 2 GM/Water 50ML 50 ML IV ONE (08:20)
[2024-07-31] MEDS ORDERED: OxyCODONE HCL 5 MG TAB PO PRN (08:50)
[2024-07-31] MEDS ORDERED: Famotidine 20 MG Tab PO SCH (09:00)
[2024-07-31] MEDS ORDERED: HYDHCL25 PO (10:50)
[2024-07-31] MEDS ORDERED: Norco 7.5-3251 EACH PO (10:51)
[2024-07-31] MEDS ORDERED: ATOR20 PO (13:03)
--- NOTE | 2024-07-31 14:11 | NUR ---
DISCHARGE SUMMARY: A&Ox4. PLEASANT AND COOPERATIVE WITH CARE. CALLS APPROPRIATELY AND IS ABLE TO ADVOCATE NEEDS EFFECTIVELY. AMBULATED WITH PT TODAY AND DEEMED INDEPENDENT WT AMBULATION, BUT DOES NEED SOME WORK FOR STRENGTHENING; RECOMMENDED HOME HEALTH AT DISCHARGE. CONTINENT OF BOWEL AND BLADDER. LBM 07/30/24. MEDS WHOLE WITH FLUIDS. TELE SINUS IN 80s. CONTINUED C/O BODY PAIN AND HEADACHE FOR WHICH SHE WAS GIVEN ONE DOSE OF HYDROMORPHONE BEFORE CHANGED TO PO OXYCODONE. ONE DOSE OXYCODONE ADMINISTERED PRIOR TO LEAVING. MED REC FAXED TO [facility]. INSTRUCTED TO FOLLOW-UP WITH CARDIOLOGY 08/21/24 AND PCP THIS WEEK. LEFT FLOOR AT WITH ALL BELONGINGS AND DISCHARGE PACKET, ESCORTED BY [facility]. TRANSPORTATION PROVIDED BY [employer].
== END 2024-07-31 14:01 | disposition home health service (06) ==
LOC: ER 08:43 → MEDS 08:44 → ENPENDDIS 07-31 13:03 → MEDS 07-31 14:01
PROVIDERS: Emergency Medicine; ADMIT Hospitalist
DX: R07.89 Other chest pain (principal); I25.10 Atherosclerotic heart disease of native coronary artery without angina pectoris; E11.9 Type 2 diabetes mellitus without complications; K21.9 Gastro-esophageal reflux disease without esophagitis; J44.9 Chronic obstructive pulmonary disease, unspecified; I10 Essential (primary) hypertension; K58.9 Irritable bowel syndrome, unspecified; G89.29 Other chronic pain; R10.9 Unspecified abdominal pain; M54.50 Low back pain, unspecified; Z87.891 Personal history of nicotine dependence; Z79.82 Long term (current) use of aspirin; Z79.4 Long term (current) use of insulin; Z79.02 Long term (current) use of antithrombotics/antiplatelets; Z79.899 Other long term (current) drug therapy; Z91.041 Radiographic dye allergy status; Z88.5 Allergy status to narcotic agent; Z88.1 Allergy status to other antibiotic agents; Z88.8 Allergy status to other drugs, medicaments and biological substances; Z95.5 Presence of coronary angioplasty implant and graft; Z90.49 Acquired absence of other specified parts of digestive tract; Z86.73 Personal history of transient ischemic attack (TIA), and cerebral infarction without residual deficits
CPT/HCPCS: 36415; 70450; 71045; 78452; 80048; 80053; 82947; 83036; 83735; 84484; 85014; 85018; 85025; 93005; 93010; 93017; 94760; 94762; 96361; 96365; 96366; 96372; 96374; 96375; 96376; 97110; 97116; 97162; 97165; 99285-25; A9270; A9500; C1751; G0378; J0280; J1170; J1644; J1815; J2785; J3475; J7030

== ENCOUNTER 2024-08-08 14:45 | Inpatient (IN) | payer OTHER ==
[~2024-08-08] VITALS: Ht 160 cm; Wt 73.5 kg
[2024-08-08] MEDS ORDERED: NOVOLOG100 UNIT/3 SC (15:58)
[2024-08-08 16:28] LABS: BASOPHILS ABSOLUTE AUTO 0.17 K/mm3 (0.00-0.23); BASOPHILS PERCENT AUTO 1 % (0-2); EOSINOPHILS ABSOLUTE AUTO 0.73 K/mm3 (0.00-0.68); EOSINOPHILS PERCENT AUTO 5 % (0-6); Hemoglobin 13.1 g/dL (11.5-16.0); IMMATURE GRAN ABSOLUTE AUTO 0.07 K/mm3 (0.00-0.10); IMMATURE GRAN PERCENT AUTO 1 % (0-1); LYMPHOCYTES ABSOLUTE AUTO 4.31 K/mm3 (0.84-5.20); LYMPHOCYTES PERCENT AUTO 30 % (21-46); MONOCYTES ABSOLUTE AUTO 1.03 K/mm3 (0.16-1.47); MONOCYTES PERCENT AUTO 7 % (4-13); Mean Corpuscular HGB 27.3 pg (26.0-34.0); Mean Corpuscular HGB Conc 32.8 g/dL (31.5-36.5); Mean Corpuscular Volume 84 fL (80-100); Mean Platelet Volume 9.5 fL (9.1-12.4); NEUTROPHILS ABSOLUTE AUTO 8.25 K/mm3 (1.96-9.15); NEUTROPHILS PERCENT AUTO 57 % (41-73); Platelet Count 470 K/mm3 (150-400); RDW Coefficient Variation 14.2 % (11.7-14.2); RDW Standard Deviation 43.3 fL (35.1-46.3); Red Blood Cell Count 4.79 M/mm3 (3.80-5.20); White Blood Cell Count 14.56 K/mm3 (4.00-11.30)
[2024-08-08] MEDS ORDERED: FentaNYL Citrate 50 MCG/ML 2 ML Injection IV ONE ×2 (16:45→19:20)
[2024-08-08] MEDS ORDERED: Lidocaine 2% Viscous Soln 15 ML UDC PO ONE (16:50)
[2024-08-08 16:54] LABS: Albumin, Blood 3.2 g/dL (3.4-5.0); Albumin/Globulin Ratio 0.8 (0.8-1.8); Bilirubin, Total 0.5 mg/dL (0.1-1.0); Bun/Creatinine Ratio 24.1 (12.0-20.0); Calcium, Blood 9.4 mg/dL (8.5-10.1); Creatinine, Blood 0.87 mg/dL (0.40-1.00); Globulin, Blood 4.1 g/dL (2.2-4.0); Potassium, Blood 4.6 mmol/L (3.5-5.5); Total Protein, Blood 7.3 g/dL (6.4-8.2)
[2024-08-08] MEDS ORDERED: Acetaminophen 500 MG Tab PO ONE (19:20)
[2024-08-08] MEDS ORDERED: Ondansetron HCl 2 MG / ML 2ML Vial IV ONE (19:20)
[2024-08-08] MEDS ORDERED: Albuterol 2.5 MG/3 ML VIAL INH PRN (20:20)
[2024-08-08] MEDS ORDERED: NS 1,000 ML IV ONE (20:21)
[2024-08-08] MEDS ORDERED: HYDROcodone 7.5-APAP 325 TAB PO PRN (20:25)
[2024-08-08] MEDS ORDERED: Metoclopramide HCl 5MG / ML 2ML Vial IV PRN (20:25)
[2024-08-08] MEDS ORDERED: HydrOXYzine Pamoate 25 MG Cap PO PRN (20:25)
[2024-08-08 20:29] LABS: Source, Urine Clean Catch
[2024-08-08 20:34] LABS: Appearance, Urine Cloudy (Clear); Bilirubin, Urine Neg (Neg); Blood, Urine 1+ (Neg); Color, Urine Yellow (P-Yellow); Glucose Qualitative, Urine 4+ (Neg); Ketones, Urine Neg (Neg); Leukocyte Esterase, Urine 3+ (Neg); Nitrite, Urine Neg (Neg); Protein, Urine 2+ (Neg); Urobilinogen, Urine NORM (Normal)
[2024-08-08 20:36] LABS: C-REACTIVE PROTEIN, EXT RANGE <0.290 mg/dL (0.000-0.300)
[2024-08-08 20:44] LABS: Bacteria Many /hpf; Squamous Epithelial Cells Few /hpf (Few); White Blood Cells, Urine 25-50 /hpf (0-5)
[2024-08-08 20:49] LABS: Magnesium, Blood 1.1 mg/dL (1.6-2.4)
[2024-08-08] MEDS ORDERED: Magnesium Sulf 2 GM/Water 50ML 50 ML IV ONE (20:55)
[2024-08-08 20:59] LABS: Base Excess Venous -2.4 mmol/L; Bicarbonate Venous 22.2 mmol/L (24.0-30.0); PCO2 Venous 42.4 mmHg (38-42); pH Blood Venous 7.35 (7.34-7.37)
[2024-08-08] MEDS ORDERED: Gabapentin 300 MG Cap PO SCH (21:00)
[2024-08-08] MEDS ORDERED: Metoprolol Tartrate 25 MG Tab PO SCH (21:00)
[2024-08-08] MEDS ORDERED: Lactobacil 2-S.Thermo-Bifido 1 1 Cap PO SCH (21:00)
[2024-08-08] MEDS ORDERED: Insulin Glargine-Yfgn 100 Unit/mL 3 ML SYR SC SCH (21:00)
[2024-08-08] MEDS ORDERED: Insulin Human Lispro 100 Units/ML 3ML Syringe SC ONE (21:00)
[2024-08-08 21:36] VITALS: BP 109/58
[2024-08-08 21:46] LABS: Anti-Xa UFH, PHA Monitoring <0.10 IU/mL; International Normalized Ratio 1.08; Prothrombin Time Results 11.5 Sec (9.7-11.5)
[2024-08-08] MEDS ORDERED: Ciprofloxacin 400MG/D5 200ML 200 ML IV SCH (22:00)
[2024-08-08] MEDS ORDERED: Heparin Sodium,Porcine/0.5 NS 500 ML IV SCH (22:00)
[2024-08-08] MEDS ORDERED: Heparin Sodium 5000 Units/ML 1ML MDV IV ONE (22:00)
--- NOTE | 2024-08-08 22:16 | NUR ---
DISCUSSION WITH HOSPITALIST XIN REGARDING POSSILE PAIN MEDICATIONS FOR PT. PT WAS COMPLAINING OF CHEST/NECK PAIN, MANAGED VIA EMAR. DISCUSSED POSSIBILITY OF PT REQUESTING MORE PAIN MEDICATIONS BEFORE PREVIOUSLY ORDERED PAIN MEDICATION IS DUE AGAIN. XIN DIRECTED TO ORDER NITRO 0.4 MG Q 5 MINUTES X3 FOR COMPLAINTS OF CHEST PAIN, IF THIS DOES NOT ALLEVIATE PAIN OKAY TO ORDER FENTANYL 25-50 MCG Q4P FOR PAIN MANAGEMENT. DIRECTED TO TRY AND AVOID FENTANYL ADMINISTRATION UNLESS CURRENT PAIN MANAGEMENT PLAN IS INADEQUATE. CONTINUING TO MONITOR.
[2024-08-08] MEDS ORDERED: Nitroglycerin 0.4 MG SUBL SL PRN (22:20)
[2024-08-08] MEDS ORDERED: FentaNYL Citrate 50 MCG/ML 2 ML Injection IV PRN (22:20)
[2024-08-08] MEDS ORDERED: FLU VACC TS2024-25(6MOS UP)/PF 45 MCG/0.5 ML SYRINGE IM ONE (23:00)
[2024-08-08] MEDS ORDERED: NS 1,000 ML IV SCH (23:30)
[2024-08-08 23:41] VITALS: BP 122/67
[2024-08-09] VITALS (7 sets, daily range): BP systolic 90–133; BP diastolic 49–71
[2024-08-09] MEDS ORDERED: Insulin Human Lispro 100 Units/ML 3ML Syringe SC SCH
--- NOTE | 2024-08-09 00:11 | NUR ---
late note. pt arrived on unit @ 213. aox4, pleasant, cooperative, able to make needs known. very anxious. reporting significant chest pain. since alleviated via emar as pt rests comfortably at this time. administered 0.4 mg nitro sl ot but pt refused second dose as it caused her to have a mild headadche. pt npo @ 0000. continent. vitals stable. no tele. skin assessment unremarkable. admission assessment completed per protocol. pt now resting comfortably in bed . bed locked in lowest position. call light left within reach. continuing to monitor.
[2024-08-09 00:13] LABS: Bun/Creatinine Ratio 25.1 (12.0-20.0); Calcium, Blood 8.7 mg/dL (8.5-10.1); Creatinine, Blood 0.84 mg/dL (0.40-1.00); Potassium, Blood 4.2 mmol/L (3.5-5.5); Salicylate 2.2 mg/dL (2.8-20.0)
[2024-08-09] MEDS ORDERED: Insulin Human Lispro 100 Units/ML 3ML Syringe SC ONE ×2 (03:00→17:45)
--- NOTE | 2024-08-09 04:44 | NUR ---
PT SLEEPING IN ROOM AT TIME OF BEING WOKEN FOR 0400 VITALS. UPON BEING WOKEN, PT REPORTS 8/10 PAIN AND NAUSEA. TREATED VIA EMAR. HAS USED BATHROOM ONCE THIS SHIFT THUS FAR, WAS ABLE TO VOID BUT URINE WAS NOT MEASURED OR COLLECTED. URINE HAT PUT IN PLACE FOR FURTHER VOIDS AND FOR URINE COLLECTION FOR UNCOLLECTED SAMPLE. PT HAS BEEN NPO SINCE MIDNIGHT. VITALS REMAIN STABLE. PT REMAINS ORIENTED. BED LOCKED IN LOWEST POSITION. CALL LIGHT LEFT WITHIN REACH. CONTINUING TO MONITOR.
[2024-08-09 05:22] LABS: Hematocrit 32.3 % (33.0-51.0); Hemoglobin 10.6 g/dL (11.5-16.0); Mean Corpuscular HGB 27.5 pg (26.0-34.0); Mean Corpuscular HGB Conc 32.8 g/dL (31.5-36.5); Mean Corpuscular Volume 84 fL (80-100); Mean Platelet Volume 9.7 fL (9.1-12.4); Platelet Count 404 K/mm3 (150-400); RDW Coefficient Variation 14.3 % (11.7-14.2); RDW Standard Deviation 43.5 fL (35.1-46.3); Red Blood Cell Count 3.86 M/mm3 (3.80-5.20); White Blood Cell Count 10.63 K/mm3 (4.00-11.30)
[2024-08-09 05:48] LABS: Bun/Creatinine Ratio 26.1 (12.0-20.0); Calcium, Blood 8.7 mg/dL (8.5-10.1); Creatinine, Blood 0.81 mg/dL (0.40-1.00); Magnesium, Blood 1.6 mg/dL (1.6-2.4); Potassium, Blood 4.6 mmol/L (3.5-5.5)
[2024-08-09] MEDS ORDERED: Dose Adjust by Pharmacy XX STA (05:55)
[2024-08-09] MEDS ORDERED: Pantoprazole Sodium 40 MG Tab PO SCH (06:00)
[2024-08-09] MEDS ORDERED: Heparin Sodium 1000 Units/ML 10ML MDV ONE (08:57)
[2024-08-09] MEDS ORDERED: Verapamil HCL 2.5 MG/ML 2ML Injection ONE (08:57)
[2024-08-09] MEDS ORDERED: NS 1,000 ML IV ONE ×2 (08:57→09:05)
[2024-08-09] MEDS ORDERED: NS 250 ML IV ONE (08:57)
[2024-08-09] MEDS ORDERED: Nitroglycerin 2 MG/20 ML BTL ONE (08:58)
[2024-08-09] MEDS ORDERED: Aspirin 81 MG Chew PO SCH (09:00)
[2024-08-09] MEDS ORDERED: Enoxaparin 40 MG/0.4 ML SYR SC SCH (09:00)
[2024-08-09] MEDS ORDERED: Clopidogrel Bisulfate 75 MG Tab PO SCH (09:00)
[2024-08-09] MEDS ORDERED: Atorvastatin 40 MG Tab PO SCH (09:00)
[2024-08-09] MEDS ORDERED: FentaNYL Citrate 50 MCG/ML 2 ML Injection ONE (09:04)
[2024-08-09] MEDS ORDERED: Midazolam HCl 1MG / ML 2ML Vial ONE (09:04)
[2024-08-09] MEDS ORDERED: Hydrocortisone Sod Succinate 100 MG Vial ONE (09:21)
[2024-08-09] MEDS ORDERED: DiphenhydrAMINE HCl 50 MG/ML 1ML Vial ONE (09:21)
[2024-08-09] MEDS ORDERED: Famotidine 10 MG/ML 2ML Vial ONE (09:22)
[2024-08-09] MEDS ORDERED: Ondansetron HCl 2 MG / ML 2ML Vial ONE (09:28)
[2024-08-09 09:56] LABS: U Amphetamine Screen Not Detected; U Barbituate Screen Not Detected; U Benzodiazapine Screen Not Detected; U Buprenorphine Screen Not Detected; U Cannabinoids Screen Not Detected; U Cocaine Screen Not Detected; U Methadone Screen Not Detected; U Methamphetamine Screen Not Detected; U Opiates Screen DETECTED; U Oxycodone Screen Not Detected; U Phencyclidine Screen Not Detected
--- NOTE | 2024-08-09 09:56 | NUR ---
ASSUMPTION OF CARE PT ALERT AND ORIENTED, ANXIOUS, COOPERATIVE TO CARE, SKIN INTACT. TRANSFERS WITH SBA FOR CORD MANAGMENT, SHE IS ABLE TO EXPRESS HER NEEDS. HR IN THE 70'S SINUS RHYTHM, INTERMITTENT CP THAT RADIATES TO HER NECK, MEDICATING PER EMAR, 02 >92% ON RA, L/S CLEAR T/O, +BS, DENIES N/V AT THIS TIME. HEPARIN RUNNING PER ORDER. CARDIOLOGY TO BEDSIDE TO DISCUSS PLAN OF CARE FOR PT, DISCUSSED ANGIOGRAM AND PT AGREEABLE CONSENT SIGNED. ECHO TO BESIDE AND COMPLETED THIS AM. [facility] ARRIVED TO PCU, PT WAS TRANSPORTED TO [facility] AT APPROX 0920.
--- NOTE | 2024-08-09 10:33 | NUR ---
BEDSIDE REPORT GIVEN TO BABITA RETANA. ULNAR ARTERY TR BAND IN PLACE, SITE REVIEWED. SITE C/D/I SOFT/NONTENDER, NO EVIDENCE OF BLEEDING. VSS ON RA. PATIENT CONVERSING NORMALLY.
[2024-08-09 11:46] LABS: BASOPHILS ABSOLUTE AUTO 0.15 K/mm3 (0.00-0.23); BASOPHILS PERCENT AUTO 2 % (0-2); EOSINOPHILS PERCENT AUTO 6 % (0-6); Hematocrit 33.6 % (33.0-51.0); Hemoglobin 11.1 g/dL (11.5-16.0); IMMATURE GRAN ABSOLUTE AUTO 0.06 K/mm3 (0.00-0.10); IMMATURE GRAN PERCENT AUTO 1 % (0-1); LYMPHOCYTES ABSOLUTE AUTO 2.68 K/mm3 (0.84-5.20); LYMPHOCYTES PERCENT AUTO 32 % (21-46); MONOCYTES ABSOLUTE AUTO 0.43 K/mm3 (0.16-1.47); MONOCYTES PERCENT AUTO 5 % (4-13); Mean Corpuscular HGB 28.1 pg (26.0-34.0); Mean Corpuscular Volume 85 fL (80-100); Mean Platelet Volume 9.7 fL (9.1-12.4); NEUTROPHILS PERCENT AUTO 54 % (41-73); Platelet Count 427 K/mm3 (150-400); RDW Coefficient Variation 14.1 % (11.7-14.2); RDW Standard Deviation 43.9 fL (35.1-46.3); Red Blood Cell Count 3.95 M/mm3 (3.80-5.20); White Blood Cell Count 8.32 K/mm3 (4.00-11.30)
--- NOTE | 2024-08-09 12:39 | NUR ---
URIAH FROM [facility] PT ARRIVED TO PCU FROM [facility] AT APRROX 1028. RIGHT ULNAR ARTERY SITE, TR BAND IN PLACE, 9CC IN BAND, NO BLEEDING, BRUSING OR HEMATOMA NOTED, ARMBOARD IN PLACE. VSS. SEQUENCE VITALS SETUP. WILL DEFLATE TR BAND AFTER A FEW HOURS IF SITE STILL WNL. WILL MONITOR PT.
--- NOTE | 2024-08-09 18:36 | NUR ---
SHIFT SUMMARY PT ALERT AND ORIENTED, CALM, COOPERATIVE TO CARE. HR IN THE 60'S, INTEMITTENT CHEST PAIN/NECK PAIN, SBP'S HAVE SOFT IN THE 80'S TO 90'S FLUIDS WERE OFF, TURNED THEM BACK ON WITH SOME IMPROVEMENT IN SBP, PT ASYMPTOMATIC. PT WENT TO PLISSE MACHINE OPERATOR THIS AM, ANGIOGRAM COMPLETED, RIGHT ULNAR SITE, TR BAND FULLY RECOEVERD, CLEAR TEGADERM AND ARMBOARD IN PLACE, NO BLEEDING, BRUISING, OR HEMATOMA NOTED. [facility], RECEIVED ROOM PLACMENT FOR PT, AWAITING TRANSPORT TO BE SET UP, WILL MONITOR PT AND REPORT TO RN ASSUMING CARE FOR PT.
--- NOTE | 2024-08-09 19:15 | NUR ---
TRANSFER SUMMARY REPORT GIVEN TO SAUL SMITH RN AT 191. PT TRANSFERED FROM PCU BED TO [facility], PT LEFT AT 1900 VIA [facility]. PUMP TRANSPORTED WITH PT NS RUNNING AT 75 ML/HR.
== END 2024-08-09 19:00 | disposition short-term general hospital (02) | DRG 287 ==
LOC: ER 14:45 → PCU 14:46
PROVIDERS: Nurse Practitioner Acute Care; Student in an Organized Health Care Education/Training Program; ADMIT Student in an Organized Health Care Education/Training Program
PROC: 4A023N7 Measurement of Cardiac Sampling and Pressure, Left Heart, Percutaneous Approach (ICD-10-PCS; principal; 2024-08-09)
PROC: B2111ZZ Fluoroscopy of Multiple Coronary Arteries using Low Osmolar Contrast (ICD-10-PCS; 2024-08-09)
DX: T82.855A Stenosis of coronary artery stent, initial encounter (principal); E87.20 Acidosis, unspecified; I25.110 Atherosclerotic heart disease of native coronary artery with unstable angina pectoris; N39.0 Urinary tract infection, site not specified; I10 Essential (primary) hypertension; K21.9 Gastro-esophageal reflux disease without esophagitis; E83.42 Hypomagnesemia; J44.9 Chronic obstructive pulmonary disease, unspecified; F41.9 Anxiety disorder, unspecified; E11.42 Type 2 diabetes mellitus with diabetic polyneuropathy; E78.00 Pure hypercholesterolemia, unspecified; E11.51 Type 2 diabetes mellitus with diabetic peripheral angiopathy without gangrene; Z95.828 Presence of other vascular implants and grafts; Z95.5 Presence of coronary angioplasty implant and graft; Z79.4 Long term (current) use of insulin; Z86.73 Personal history of transient ischemic attack (TIA), and cerebral infarction without residual deficits; Z87.891 Personal history of nicotine dependence; Z79.82 Long term (current) use of aspirin; Z79.899 Other long term (current) drug therapy; Z88.1 Allergy status to other antibiotic agents; Z88.5 Allergy status to narcotic agent; Z88.8 Allergy status to other drugs, medicaments and biological substances; Z91.013 Allergy to seafood; Z79.02 Long term (current) use of antithrombotics/antiplatelets; Z86.19 Personal history of other infectious and parasitic diseases; Z90.49 Acquired absence of other specified parts of digestive tract
CPT/HCPCS: 71045; 76937; 80048; 80053; 81001; 82803; 82947; 83605; 83735; 84484; 85025; 85027; 85520; 85610; 85651; 85730; 86140; 93005; 93010; 93308; 93321; 93454; 94760; 96365; 96366; 96374; 96375; 96376; 99152; 99153; 99285-25; A9270; C1769; C1887; C1894; G0378; G0480; J0744; J1200; J1644; J1720; J1815; J2250; J2405; J2765; J3010; J3475; J7030; J7050; Q0177; Q9967

== ENCOUNTER 2024-08-14 17:21 | Inpatient (IN) | payer OTHER ==
[~2024-08-14] VITALS: Ht 160 cm; Wt 79.5 kg
[~2024-08-14 17:21] MED LIST changes: +Insulin Glargine-Yfgn 100 Unit/mL 3 ML SYR SC SCH; +NOVOLOG100 UNIT/3 SC
[2024-08-14] MEDS ORDERED: Ondansetron HCl 2 MG / ML 2ML Vial IV ONE (20:15)
[2024-08-14] MEDS ORDERED: FentaNYL Citrate 50 MCG/ML 2 ML Injection IV ONE (20:15)
[2024-08-14 20:43] LABS: Influenza A, PCR NEGATIVE (NEGATIVE); Influenza B, PCR NEGATIVE (NEGATIVE); Resp Syncytial Virus, PCR NEGATIVE (NEGATIVE); SARS-Cov-2 (COVID-19) PCR, MMC NEGATIVE (NEGATIVE)
[2024-08-14 21:49] LABS: BASOPHILS ABSOLUTE AUTO 0.18 K/mm3 (0.00-0.23); BASOPHILS PERCENT AUTO 1 % (0-2); EOSINOPHILS ABSOLUTE AUTO 0.89 K/mm3 (0.00-0.68); EOSINOPHILS PERCENT AUTO 6 % (0-6); Hematocrit 39.1 % (33.0-51.0); IMMATURE GRAN ABSOLUTE AUTO 0.08 K/mm3 (0.00-0.10); IMMATURE GRAN PERCENT AUTO 1 % (0-1); LYMPHOCYTES ABSOLUTE AUTO 7.33 K/mm3 (0.84-5.20); LYMPHOCYTES PERCENT AUTO 50 % (21-46); MONOCYTES ABSOLUTE AUTO 1.27 K/mm3 (0.16-1.47); MONOCYTES PERCENT AUTO 9 % (4-13); Mean Corpuscular HGB 27.8 pg (26.0-34.0); Mean Corpuscular HGB Conc 33.2 g/dL (31.5-36.5); Mean Corpuscular Volume 84 fL (80-100); Mean Platelet Volume 10.1 fL (9.1-12.4); NEUTROPHILS ABSOLUTE AUTO 5.01 K/mm3 (1.96-9.15); NEUTROPHILS PERCENT AUTO 34 % (41-73); Platelet Count 559 K/mm3 (150-400); RDW Coefficient Variation 14.2 % (11.7-14.2); RDW Standard Deviation 43.2 fL (35.1-46.3); Red Blood Cell Count 4.67 M/mm3 (3.80-5.20); White Blood Cell Count 14.76 K/mm3 (4.00-11.30)
[2024-08-14] MEDS ORDERED: DiphenhydrAMINE HCl 50 MG/ML 1ML Vial IV ONE (21:50)
[2024-08-14] MEDS ORDERED: Droperidol 5 mg/2 ml Vial IV ONE (21:50)
[2024-08-14 22:07] LABS: Anti-Xa UFH, PHA Monitoring <0.10 IU/mL; International Normalized Ratio 1.02; Prothrombin Time Results 10.9 Sec (9.7-11.5)
[2024-08-14 22:08] LABS: Albumin, Blood 3.3 g/dL (3.4-5.0); Albumin/Globulin Ratio 0.8 (0.8-1.8); Bilirubin, Total 0.4 mg/dL (0.1-1.0); Bun/Creatinine Ratio 25.4 (12.0-20.0); Calcium, Blood 9.8 mg/dL (8.5-10.1); Creatinine, Blood 0.83 mg/dL (0.40-1.00); Globulin, Blood 3.9 g/dL (2.2-4.0); Potassium, Blood 4.2 mmol/L (3.5-5.5); Total Protein, Blood 7.2 g/dL (6.4-8.2)
[2024-08-14] MEDS ORDERED: Ketorolac Tromethamine 30mg Vial IV ONE (23:40)
[2024-08-14] MEDS ORDERED: FLU VACC TS2024-25(6MOS UP)/PF 45 MCG/0.5 ML SYRINGE IM ONE (23:45)
[2024-08-14] MEDS ORDERED: Ondansetron HCl 2 MG / ML 2ML Vial IV PRN (23:55)
[2024-08-15] MEDS ORDERED: Acetaminophen 325 MG TABLET PO PRN (01:00)
[2024-08-15] MEDS ORDERED: Acetaminophen 325 MG TABLET PO ONE (01:00)
[2024-08-15 02:13] VITALS: BP 137/56
--- NOTE | 2024-08-15 02:33 | NUR ---
ADMIT NOTE ADMITTED FROM THE ER THIS SHIFT. HANDOFF RECEIVED FROM MANAGER COMPENSATION NELIA. PT ORIENTED TO UNIT. CALL BUTTON WITHIN REACH.
--- NOTE | 2024-08-15 03:52 | NUR ---
SHIFT SUMMARY ADMITTED THIS SHIFT FOR HYPERGLYCEMIA, STROKE-LIKE SYMPTOMS. DNR CODE. AC CBG'S. PLAN IS FOR AN MRI. SHE IS A&O X4. SHE IS ON RA. CARDIAC DIET. CT SCAN OF HEAD, AND CTA OF HEAD/NECK ARE WNL. TYLENOL GIVEN THIS SHIFT FOR HEADACHE. HX OF FALLS. SHE LIVES ALONE.
[2024-08-15 05:33] LABS: BASOPHILS ABSOLUTE AUTO 0.21 K/mm3 (0.00-0.23); BASOPHILS PERCENT AUTO 2 % (0-2); EOSINOPHILS ABSOLUTE AUTO 0.93 K/mm3 (0.00-0.68); EOSINOPHILS PERCENT AUTO 7 % (0-6); Hematocrit 39.1 % (33.0-51.0); Hemoglobin 12.8 g/dL (11.5-16.0); IMMATURE GRAN PERCENT AUTO 1 % (0-1); LYMPHOCYTES ABSOLUTE AUTO 4.87 K/mm3 (0.84-5.20); LYMPHOCYTES PERCENT AUTO 35 % (21-46); MONOCYTES ABSOLUTE AUTO 1.57 K/mm3 (0.16-1.47); MONOCYTES PERCENT AUTO 11 % (4-13); Mean Corpuscular HGB 27.4 pg (26.0-34.0); Mean Corpuscular HGB Conc 32.7 g/dL (31.5-36.5); Mean Corpuscular Volume 84 fL (80-100); Mean Platelet Volume 9.9 fL (9.1-12.4); NEUTROPHILS ABSOLUTE AUTO 6.23 K/mm3 (1.96-9.15); NEUTROPHILS PERCENT AUTO 45 % (41-73); Platelet Count 525 K/mm3 (150-400); RDW Coefficient Variation 14.2 % (11.7-14.2); RDW Standard Deviation 43.2 fL (35.1-46.3); Red Blood Cell Count 4.67 M/mm3 (3.80-5.20); White Blood Cell Count 13.91 K/mm3 (4.00-11.30)
[2024-08-15 05:39] VITALS: BP 146/62
[2024-08-15] MEDS ORDERED: Pantoprazole Sodium 40 MG Tab PO SCH (06:00)
[2024-08-15 06:01] LABS: Alanine Aminotransfer (ALT/SGP 20 U/L (12-78); Albumin, Blood 3.2 g/dL (3.4-5.0); Albumin/Globulin Ratio 0.8 (0.8-1.8); Alk Phos 170 U/L (50-136); Anion Gap 13 mmol/L (3-11); Aspartate Aminotrans (AST/SGOT 22 U/L (12-37); Bilirubin, Total 0.4 mg/dL (0.1-1.0); Blood Urea Nitrogen 19 mg/dL (8-24); Bun/Creatinine Ratio 24.5 (12.0-20.0); CHOL/HDL RATIO 4.6; CO2, Blood 19 mmol/L (21-32); Calcium, Blood 9.3 mg/dL (8.5-10.1); Chloride, Blood 110 mmol/L (98-108); Cholesterol 206 mg/dL (50-200); Creatinine, Blood 0.78 mg/dL (0.40-1.00); Globulin, Blood 3.8 g/dL (2.2-4.0); Glomerular Filtration Rate 82 (60-); Glucose, Blood 320 mg/dL (70-99); HDL Cholesterol 45 mg/dL (>39); LDL/HDL RATIO 2.3; Low Density Lipoprotein Chol 105 mg/dL (0-110); Magnesium, Blood 1.4 mg/dL (1.6-2.4); Sodium, Blood 138 mmol/L (136-145); Triglycerides 280 mg/dL (30-160); Very Low Density Lipoprot Chol 56 mg/dL (6-32)
[2024-08-15] MEDS ORDERED: Insulin Human Lispro 100 Units/ML 3ML Syringe SC SCH (07:30)
[2024-08-15 08:28] VITALS: BP 140/60
[2024-08-15] MEDS ORDERED: Atorvastatin 40 MG Tab PO SCH (09:00)
[2024-08-15] MEDS ORDERED: Aspirin 81 MG Chew PO SCH (09:00)
[2024-08-15] MEDS ORDERED: Metoprolol Tartrate 25 MG Tab PO SCH (09:00)
[2024-08-15] MEDS ORDERED: Gabapentin 300 MG Cap PO SCH (09:00)
[2024-08-15] MEDS ORDERED: Clopidogrel Bisulfate 75 MG Tab PO SCH (09:00)
[2024-08-15] MEDS ORDERED: HYDROcodone 7.5-APAP 325 TAB PO PRN (09:05)
[2024-08-15] MEDS ORDERED: SUMAtriptan succinate 50 MG Tab PO PRN (10:55)
--- NOTE | 2024-08-15 12:49 | NUR ---
Patient is sitting up in bed and alert. She explains about the events that led to her admission to the hospital and how she has improved already. She talk about her kittens and her concerns for them and about her Sabianist jose and requests that I say a prayer. I gladly provided prayer and patient voiced her appreciation for the kindness and prayers. I will contiue to remain available to patient and family.
[2024-08-15] MEDS ORDERED: Magnesium Sulf 2 GM/Water 50ML 50 ML IV ONE (15:50)
--- NOTE | 2024-08-15 19:10 | NUR ---
SHIFT SUMMARY: PT A&O X4. PLEASANT AND COOPERATIVE WITH CARE. TELE PLACED THIS SHIFT RUNNING SINUS TACH @100 BPM. MRI COMPLETED TODAY SHOWING INFARCT ON RIGHT AND LEFT SIDE; LEFT BIGGER THAN RIGHT. PT C/O MIGRAINE T/O SHIFT. SPOKE WITH DR. LAZO AND ABLE TO GET HOME NORCO ADDED TO EMAR WELL ONE TIME IMITREX. PT REFUSED IMITREX STATING SHE HAS TAKEN IT IN THE PAST AND MADE HER "FEEL WEIRD." DR. LAZO AWARE OF REFUSAL. BLOOD SUGARS REMAIN ELEVATED THIS SHIFT. EDUCATED PT ON DIET CHOICES SHE HAS BEEN ASKING FOR SNACKS T/O SHIFT. CALL LIGHT IN REACH. BED IN LOWEST POSITION.
[2024-08-15 19:21] VITALS: BP 140/57
[2024-08-15] MEDS ORDERED: Insulin Glargine-Yfgn 100 Unit/mL 3 ML SYR SC SCH (21:00)
[2024-08-16 01:17] VITALS: BP 138/56
--- NOTE | 2024-08-16 03:06 | NUR ---
0247 PT REQUESTED AND RECIEVED PAIN MEDS, WILL LET PRIMARY RN KNOW TO EVAL FOR EFFECT. DENIES NEED FOR ANYTHING ELSE. CALL LIGHT IS IN REACH.
--- NOTE | 2024-08-16 04:07 | NUR ---
SHIFT SUMMARY ADMITTED FOR HYPERGLYCEMIA. CVA R/O. DNR CODE. MRI REVEALS NEW AND SUBACUTE CVA'S. WE ARE ARE USING MEDICATIONS TO MANAGE THIS. SHE IS ON PLAVIX. TELEMETRY: NSR @ 87 BPM. ACHS CBG'S, MEDIUM SS. ST/PT/OT ARE ASSISTING WITH CARE. 1 ASSIST W/BRP. KAVYA IS SCHEDULED FOR PAIN. HX: STENTS, CVA X2. SHE LIVES ALONE. SHE HAS BEEN IN THIS HOSPITAL AND [facility] RECENTLY.
[2024-08-16 05:01] VITALS: BP 132/53
[2024-08-16 07:34] VITALS: BP 126/62
[2024-08-16 12:38] LABS: BASOPHILS ABSOLUTE AUTO 0.13 K/mm3 (0.00-0.23); BASOPHILS PERCENT AUTO 1 % (0-2); EOSINOPHILS ABSOLUTE AUTO 0.73 K/mm3 (0.00-0.68); EOSINOPHILS PERCENT AUTO 7 % (0-6); Hematocrit 34.5 % (33.0-51.0); Hemoglobin 11.4 g/dL (11.5-16.0); IMMATURE GRAN ABSOLUTE AUTO 0.04 K/mm3 (0.00-0.10); IMMATURE GRAN PERCENT AUTO 0 % (0-1); LYMPHOCYTES ABSOLUTE AUTO 4.44 K/mm3 (0.84-5.20); LYMPHOCYTES PERCENT AUTO 41 % (21-46); MONOCYTES ABSOLUTE AUTO 1.02 K/mm3 (0.16-1.47); MONOCYTES PERCENT AUTO 10 % (4-13); Mean Corpuscular HGB 27.3 pg (26.0-34.0); Mean Corpuscular Volume 83 fL (80-100); NEUTROPHILS ABSOLUTE AUTO 4.43 K/mm3 (1.96-9.15); NEUTROPHILS PERCENT AUTO 41 % (41-73); Platelet Count 443 K/mm3 (150-400); RDW Standard Deviation 42.3 fL (35.1-46.3); Red Blood Cell Count 4.17 M/mm3 (3.80-5.20); White Blood Cell Count 10.79 K/mm3 (4.00-11.30)
[2024-08-16] MEDS ORDERED: HYDROcodone 5-APAP 325 TAB PO PRN (13:45)
[2024-08-16] MEDS ORDERED: FentaNYL Citrate 50 MCG/ML 2 ML Injection IV ONE (14:00)
[2024-08-16 15:49] VITALS: BP 140/81
--- NOTE | 2024-08-16 16:16 | NUR ---
SHIFT SUMMARY PT A&OX4, COOPERATIVE, ABLE TO MAKE NEEDS KNOWN. MAIN COMPLAINT TODAY WAS CONSTANT HEADACHE NOT RELIEVED BY PAIN MEDICATION. THIS RN INFORMED , ADJUSTED EMAR TO ACCOMODATE PT NEEDS. NO SYMPTOMS OF STROKE NOTICED BY THIS RN BESIDES WEAKNESS IN BILATERAL EXTREMITIES. EXPRESSED DESIRE TO GO HOME, TALKED TO PT ABOUT STAYING OVERNIGHT. BED IN LOWEST POSITION, CALL LIGHT WITHIN REACH.
[2024-08-16] MEDS ORDERED: Insulin Human Lispro 100 Units/ML 3ML Syringe SC SCH (16:30)
[2024-08-16 19:50] LABS: Bun/Creatinine Ratio 34.4 (12.0-20.0); Calcium, Blood 9.3 mg/dL (8.5-10.1); Creatinine, Blood 0.81 mg/dL (0.40-1.00); Potassium, Blood 4.2 mmol/L (3.5-5.5)
[2024-08-16 19:54] VITALS: BP 137/65
[2024-08-16] MEDS ORDERED: Insulin Glargine-Yfgn 100 Unit/mL 3 ML SYR SC SCH (21:00)
[2024-08-17] MEDS ORDERED: HYDROcodone 7.5-APAP 325 TAB PO PRN (02:45)
[2024-08-17 03:03] VITALS: BP 140/54
--- NOTE | 2024-08-17 05:39 | NUR ---
SHIFT SUMMARY NOC PT A/O X 4. PLEASANT AND COOPERATIVE WITH CARE. VSS. HS CBG 299 AND SCHEDULED 60 UNITS LONG ACTING INSULIN GIVEN. PT PAIN BEING MANAGED PER EMAR. DOSAGE OF NORCO CHANGED BACK TO 7.5/325 WITH PT TOLERATING WELL WITHOUT ISSUE. PT ON TELE SINUS RHYTHM IN 80'S. PT REFUSED AM LABS DUE TO NOT WANTING NEEDLE STICK, PT EDUCATED ON IMPORTANCE OF LAB DRAW, BUT STILL DECLINED. PT CURRENTLY RESTING WITH BED IN LOWEST POSITION, AND CALL LIGHT WITHIN REACH.
[2024-08-17 07:23] VITALS: BP 141/60
[2024-08-17 11:38] LABS: Bun/Creatinine Ratio 39.2 (12.0-20.0); Calcium, Blood 9.1 mg/dL (8.5-10.1); Creatinine, Blood 0.77 mg/dL (0.40-1.00); Potassium, Blood 4.4 mmol/L (3.5-5.5)
[2024-08-17 12:21] LABS: BASOPHILS ABSOLUTE AUTO 0.14 K/mm3 (0.00-0.23); BASOPHILS PERCENT AUTO 1 % (0-2); EOSINOPHILS PERCENT AUTO 8 % (0-6); Hematocrit 35.7 % (33.0-51.0); Hemoglobin 11.6 g/dL (11.5-16.0); IMMATURE GRAN ABSOLUTE AUTO 0.06 K/mm3 (0.00-0.10); IMMATURE GRAN PERCENT AUTO 1 % (0-1); LYMPHOCYTES ABSOLUTE AUTO 4.03 K/mm3 (0.84-5.20); LYMPHOCYTES PERCENT AUTO 38 % (21-46); MONOCYTES ABSOLUTE AUTO 0.97 K/mm3 (0.16-1.47); MONOCYTES PERCENT AUTO 9 % (4-13); Mean Corpuscular HGB 27.6 pg (26.0-34.0); Mean Corpuscular HGB Conc 32.5 g/dL (31.5-36.5); Mean Corpuscular Volume 85 fL (80-100); Mean Platelet Volume 10.8 fL (9.1-12.4); NEUTROPHILS ABSOLUTE AUTO 4.72 K/mm3 (1.96-9.15); NEUTROPHILS PERCENT AUTO 44 % (41-73); Platelet Count 413 K/mm3 (150-400); RDW Coefficient Variation 13.9 % (11.7-14.2); Red Blood Cell Count 4.21 M/mm3 (3.80-5.20); White Blood Cell Count 10.72 K/mm3 (4.00-11.30)
[2024-08-17] MEDS ORDERED: Insulin Human Lispro 100 Units/ML 3ML Syringe SC ONE (12:40)
--- NOTE | 2024-08-17 15:38 | NUR ---
DISCHARGE NOTE PT DISCHARGED HOME AT 1530. PT PROVIDED W/ VERBAL AND WRITTEN INSTRUCTIONS AND REPORTED UNDERSTANDING. PER , THIS NURSE EDUCATED PT ON PAIN MANAGEMENT/SCRIPTS TO COME FROM ONE PROVIDER. PT STATED, "I CAN GET MY PAIN MEDICATION REFILLED ON THE . I HAVE AN APPT W/ MY PCP." PT A&OX4, VSS, AMB IND, TOLERATING PO, VOIDING, AND PAIN MANAGED PER EMAR. BELONGINGS WERE RETURNED AND PT ESCOURTED OUT VIA W/C BY BELLA JOHNSON.
[2024-08-18 11:23] LABS: HOMOCYSTEINE, TOTAL 12 umol/L (0-15)
[2024-08-18 12:23] LABS: PROTEIN S AG FREE 135 % (55-123)
[2024-08-18 13:31] LABS: PROTEIN C FUNCTIONAL 164 % (83-168)
[2024-08-18 13:31] LABS: PROTEIN S FUNCTIONAL 100 % (57-131)
[2024-08-18 14:16] LABS: FACTOR V LEIDEN BY PCR Not Done; FACV REF SPECIMEN Not Done
[2024-08-18 15:44] LABS: CARDIOLIPIN ANTIBODY IGG <10 GPL (<=14); CARDIOLIPIN ANTIBODY IGM 11 MPL (<=12)
[2024-08-18 18:02] LABS: B2GLYCOPROTEIN 1, IGG ANTIBODY <10 SGU (<=20); B2GLYCOPROTEIN 1, IGM ANTIBODY <10 SMU (<=20)
[2024-08-18 18:24] LABS: ANTITHROMBIN, ENZYMAT ACTIVITY 128 % (76-128)
[2024-08-20 20:38] LABS: ANTI-XA QUALITATIVE INTERP Not Performed (Not Present); ANTICOAG MEDICATION NEUTRALIZ Not Performed (Not Performed); DRVVT 1:1 MIX RATIO Not Performed (<=1.20); DRVVT CONFIRMATION RATIO Not Performed (<=1.20); DRVVT SCREEN RATIO 0.66 (<=1.20); HEXAGONAL PHOSPHOLIPID CONFIRM Not Performed s (<=7.9); NEUTRALIZED DRVVT SCREEN RATIO Not Performed (<=1.20); NEUTRALIZED PTT-LA RATIO Not Performed (<=1.20); PROTHROMBIN TIME (PT) 13.4 s (12.0-15.5); PTT-LA RATIO 0.63 (<=1.20); THROMBIN TIME (TT) Not Performed s (<=19.5)
[2024-08-21 16:55] LABS: FACTOR V LEIDEN F5 R506Q MUTAT Negative; FACV SPECIMEN Whole Blood
== END 2024-08-17 15:50 | disposition home health service (06) | DRG 66 ==
LOC: ER 17:21 → ERHOLD 17:22 → MEDS 17:22
PROVIDERS: Emergency Medicine; Family Medicine; Student in an Organized Health Care Education/Training Program; ADMIT Student in an Organized Health Care Education/Training Program
DX: I63.9 Cerebral infarction, unspecified (principal); E78.5 Hyperlipidemia, unspecified; I25.10 Atherosclerotic heart disease of native coronary artery without angina pectoris; I10 Essential (primary) hypertension; K21.9 Gastro-esophageal reflux disease without esophagitis; I65.21 Occlusion and stenosis of right carotid artery; K58.9 Irritable bowel syndrome, unspecified; J44.9 Chronic obstructive pulmonary disease, unspecified; I65.02 Occlusion and stenosis of left vertebral artery; R47.1 Dysarthria and anarthria; Z66 Do not resuscitate; E10.9 Type 1 diabetes mellitus without complications; M54.50 Low back pain, unspecified; G89.29 Other chronic pain; Z86.19 Personal history of other infectious and parasitic diseases; R29.702 NIHSS score 2; F41.9 Anxiety disorder, unspecified; Z90.710 Acquired absence of both cervix and uterus; Z90.722 Acquired absence of ovaries, bilateral; Z90.79 Acquired absence of other genital organ(s); Z98.890 Other specified postprocedural states; Z90.49 Acquired absence of other specified parts of digestive tract; Z88.5 Allergy status to narcotic agent; Z87.442 Personal history of urinary calculi; Z95.5 Presence of coronary angioplasty implant and graft; Z87.891 Personal history of nicotine dependence; Z88.8 Allergy status to other drugs, medicaments and biological substances; Z91.041 Radiographic dye allergy status; Z79.82 Long term (current) use of aspirin; Z79.02 Long term (current) use of antithrombotics/antiplatelets; Z79.4 Long term (current) use of insulin; Z79.891 Long term (current) use of opiate analgesic; Z79.899 Other long term (current) drug therapy; Z87.19 Personal history of other diseases of the digestive system; D75.839 Thrombocytosis, unspecified
CPT/HCPCS: 0241U; 36415; 70450; 70496; 70498; 70551; 71046; 80048; 80053; 80061; 82947; 83036; 83735; 84443; 84484; 85025; 85300; 85306; 85520; 85610; 85730; 92610; 93005; 93010; 93308; 93321; 96365; 96374-59; 96375; 96375-59; 97116; 97162; 97165; 97535; 99285-25; A9270; G0378; J1200; J1790; J1815; J1885; J3010; J3475; Q9967

== ENCOUNTER 2024-09-24 15:53 | Observation (INO) | payer OTHER ==
[~2024-09-24] VITALS: Ht 160 cm; Wt 74.3 kg
[~2024-09-24 15:53] MED LIST changes: -Insulin Glargine-Yfgn 100 Unit/mL 3 ML SYR SC SCH
[2024-09-24 17:15] LABS: BASOPHILS ABSOLUTE AUTO 0.12 K/mm3 (0.00-0.23); BASOPHILS PERCENT AUTO 1 % (0-2); EOSINOPHILS PERCENT AUTO 7 % (0-6); Hematocrit 40.4 % (33.0-51.0); Hemoglobin 12.7 g/dL (11.5-16.0); IMMATURE GRAN ABSOLUTE AUTO 0.08 K/mm3 (0.00-0.10); IMMATURE GRAN PERCENT AUTO 1 % (0-1); LYMPHOCYTES ABSOLUTE AUTO 3.62 K/mm3 (0.84-5.20); LYMPHOCYTES PERCENT AUTO 32 % (21-46); MONOCYTES ABSOLUTE AUTO 0.86 K/mm3 (0.16-1.47); MONOCYTES PERCENT AUTO 8 % (4-13); Mean Corpuscular HGB 26.2 pg (26.0-34.0); Mean Corpuscular HGB Conc 31.4 g/dL (31.5-36.5); Mean Corpuscular Volume 84 fL (80-100); Mean Platelet Volume 9.8 fL (9.1-12.4); NEUTROPHILS ABSOLUTE AUTO 5.86 K/mm3 (1.96-9.15); NEUTROPHILS PERCENT AUTO 52 % (41-73); Platelet Count 357 K/mm3 (150-400); RDW Coefficient Variation 13.2 % (11.7-14.2); RDW Standard Deviation 40.4 fL (35.1-46.3); Red Blood Cell Count 4.84 M/mm3 (3.80-5.20); White Blood Cell Count 11.34 K/mm3 (4.00-11.30)
[2024-09-24 17:52] LABS: Beta-hydroxybutyrate 1.7 mg/dL (0.2-2.8)
[2024-09-24 18:02] LABS: Albumin, Blood 3.2 g/dL (3.4-5.0); Albumin/Globulin Ratio 0.7 (0.8-1.8); Bilirubin, Total 0.3 mg/dL (0.1-1.0); Bun/Creatinine Ratio 28.7 (12.0-20.0); Calcium, Blood 9.9 mg/dL (8.5-10.1); Creatinine, Blood 0.7 mg/dL (0.40-1.00); Globulin, Blood 4.5 g/dL (2.2-4.0); Potassium, Blood 4.3 mmol/L (3.5-5.5); Total Protein, Blood 7.7 g/dL (6.4-8.2)
[2024-09-24] MEDS ORDERED: NS 1,000 ML IV SCH (21:35)
[2024-09-24] MEDS ORDERED: Prochlorperazine Edisylate 10 mg Vial IV ONE (21:55)
[2024-09-24] MEDS ORDERED: DiphenhydrAMINE HCl 50 MG/ML 1ML Vial IV ONE (21:55)
[2024-09-24] MEDS ORDERED: Aspirin 325 MG Tab PO ONE (22:15)
[2024-09-24] MEDS ORDERED: Insulin Human Regular 100 UNIT in NS 100 ML IV SCH (22:20)
[2024-09-24 22:31] LABS: Bun/Creatinine Ratio 24.5 (12.0-20.0); Calcium, Blood 10.4 mg/dL (8.5-10.1); Creatinine, Blood 0.82 mg/dL (0.40-1.00); Potassium, Blood 3.8 mmol/L (3.5-5.5)
[2024-09-24] MEDS ORDERED: Ibuprofen 600 MG Tab PO ONE (22:35)
[2024-09-24] MEDS ORDERED: FentaNYL Citrate 50 MCG/ML 2 ML Injection IV PRN (23:30)
[2024-09-24] MEDS ORDERED: FLU VACC TS2024-25(6MOS UP)/PF 45 MCG/0.5 ML SYRINGE IM ONE (23:30)
[2024-09-24] MEDS ORDERED: NS 1,000 ML IV ONE (23:35)
[2024-09-24] MEDS ORDERED: Ondansetron HCl 2 MG / ML 2ML Vial IV PRN (23:35)
[2024-09-24] MEDS ORDERED: Metoclopramide HCl 5MG / ML 2ML Vial IV PRN (23:35)
[2024-09-24] MEDS ORDERED: Insulin Glargine-Yfgn 100 Unit/mL 3 ML SYR SC ONE (23:45)
[2024-09-24] MEDS ORDERED: Diazepam 5 MG / ML 2ML SYR IV ONE (23:50)
[2024-09-25] MEDS ORDERED: Atorvastatin 40 MG Tab PO SCH
[2024-09-25] MEDS ORDERED: Clopidogrel Bisulfate 75 MG Tab PO SCH
[2024-09-25] MEDS ORDERED: Enoxaparin 40 MG/0.4 ML SYR SC SCH
[2024-09-25] MEDS ORDERED: HYDROmorphone HCl/Pf 1MG SYR IV ONE (04:25)
[2024-09-25 05:25] LABS: BASOPHILS ABSOLUTE AUTO 0.11 K/mm3 (0.00-0.23); BASOPHILS PERCENT AUTO 1 % (0-2); EOSINOPHILS ABSOLUTE AUTO 0.72 K/mm3 (0.00-0.68); EOSINOPHILS PERCENT AUTO 8 % (0-6); Hematocrit 31.1 % (33.0-51.0); Hemoglobin 10.2 g/dL (11.5-16.0); IMMATURE GRAN ABSOLUTE AUTO 0.03 K/mm3 (0.00-0.10); IMMATURE GRAN PERCENT AUTO 0 % (0-1); LYMPHOCYTES ABSOLUTE AUTO 3.11 K/mm3 (0.84-5.20); LYMPHOCYTES PERCENT AUTO 34 % (21-46); MONOCYTES ABSOLUTE AUTO 0.77 K/mm3 (0.16-1.47); MONOCYTES PERCENT AUTO 8 % (4-13); Mean Corpuscular HGB 26.7 pg (26.0-34.0); Mean Corpuscular HGB Conc 32.8 g/dL (31.5-36.5); Mean Corpuscular Volume 81 fL (80-100); Mean Platelet Volume 9.9 fL (9.1-12.4); NEUTROPHILS ABSOLUTE AUTO 4.51 K/mm3 (1.96-9.15); NEUTROPHILS PERCENT AUTO 49 % (41-73); Platelet Count 284 K/mm3 (150-400); RDW Coefficient Variation 13.4 % (11.7-14.2); RDW Standard Deviation 39.8 fL (35.1-46.3); Red Blood Cell Count 3.82 M/mm3 (3.80-5.20); White Blood Cell Count 9.25 K/mm3 (4.00-11.30)
[2024-09-25 06:06] LABS: Albumin, Blood 2.5 g/dL (3.4-5.0); Albumin/Globulin Ratio 0.8 (0.8-1.8); Bilirubin, Total 0.3 mg/dL (0.1-1.0); Bun/Creatinine Ratio 22.3 (12.0-20.0); Calcium, Blood 8.7 mg/dL (8.5-10.1); Creatinine, Blood 0.81 mg/dL (0.40-1.00); Globulin, Blood 3.1 g/dL (2.2-4.0); Potassium, Blood 4.1 mmol/L (3.5-5.5)
[2024-09-25 06:09] LABS: Total Protein, Blood 5.6 g/dL (6.4-8.2)
[2024-09-25] MEDS ORDERED: Acetaminophen 325 MG TABLET PO PRN (06:30)
[2024-09-25] MEDS ORDERED: Albuterol HFA200 ACT/6.7 GM INH INH PRN (07:10)
[2024-09-25] MEDS ORDERED: Insulin Human Lispro 100 Units/ML 3ML Syringe SC SCH ×5 (07:30→20:00)
[2024-09-25] MEDS ORDERED: Insulin Glargine-Yfgn 100 Unit/mL 3 ML SYR SC ONE (08:00)
[2024-09-25] MEDS ORDERED: HYDROcodone 7.5-APAP 325 TAB PO PRN ×2 (09:00→15:35)
[2024-09-25] MEDS ORDERED: Metoprolol Tartrate 25 MG Tab PO SCH (09:00)
[2024-09-25] MEDS ORDERED: Pantoprazole Sodium 40 MG Tab PO SCH (09:00)
[2024-09-25] MEDS ORDERED: Gabapentin 300 MG Cap PO SCH ×2 (09:00→21:00)
[2024-09-25] MEDS ORDERED: Aspirin 81 MG Chew PO SCH (09:00)
[2024-09-25 11:49] LABS: Bun/Creatinine Ratio 25.9 (12.0-20.0); Calcium, Blood 8.7 mg/dL (8.5-10.1); Creatinine, Blood 0.81 mg/dL (0.40-1.00); Potassium, Blood 4.4 mmol/L (3.5-5.5)
[2024-09-25 12:45] VITALS: BP 158/82
[2024-09-25 14:17] LABS: Glucose, Blood 555 mg/dL (70-99)
[2024-09-25] MEDS ORDERED: Insulin Human Lispro 100 Units/ML 3ML Syringe SC ONE (14:25)
[2024-09-25 14:32] LABS: Source, Urine Clean Catch
[2024-09-25 14:53] LABS: Bilirubin, Urine Neg (Neg); Blood, Urine Neg (Neg); Glucose Qualitative, Urine 4+ (Neg); Ketones, Urine Neg (Neg); Leukocyte Esterase, Urine 1+ (Neg); Nitrite, Urine Neg (Neg); Protein, Urine Neg (Neg); Urobilinogen, Urine NORM (Normal)
[2024-09-25 15:15] LABS: Appearance, Urine Hazy (Clear); Color, Urine Pale Yellow (P-Yellow)
[2024-09-25 15:16] LABS: Red Blood Cells, Urine 0-2 /hpf (0-2)
[2024-09-25 15:17] LABS: Bacteria Mod /hpf; Squamous Epithelial Cells Rare /hpf (Few); Yeast/Fungi Urine Few /hpf
[2024-09-25] MEDS ORDERED: Lactated Ringer's 1,000 ML IV ONE (16:00)
--- NOTE | 2024-09-25 17:41 | NUR ---
SHIFT SUMMARY PT A&OX3 W/ SOME CONFUSION, VSS, AMB W/ 2P ASSIST TO THE BSC, TOLERATING PO, VOIDING, AND PAIN MANAGED PER EMAR. PT REMAINS ON 4L O2 NC. INOCENTE AREA AND COCCYX IMPROVED FROM YESTERDAY. PLAN FOR BARIUM SWALLOW TOMORROW. NO OTHER ACUTE CHANGES. CALL LIGHT WITHIN REACH AND BED ALARM ON FOR SAFETY.
--- NOTE | 2024-09-25 17:50 | NUR ---
SHIFT SUMMARY PT A&OX4, VSS, AMB FROM GURNEY TO BED W/ 1P PIVOT ASSIST, VOIDING VIA PUREWICK, AND PAIN MANAGED PER EMAR. PT NPO AT THIS TIME UNTIL BLOOD GLUCOSE <350. LAST BLOOD GLUCOSE WAS 375. INSULIN GIVEN PER ORDER AND LR INFUSED AND COMPLETE. CALL LIGHT WITHIN REACH AND PT ABLE TO MAKE NEEDS KNOWN.
[2024-09-25] MEDS ORDERED: Cyclobenzaprine HCl 10 MG Tab PO PRN (19:10)
[2024-09-25 19:36] VITALS: BP 173/65
[2024-09-25] MEDS ORDERED: Insulin Glargine-Yfgn 100 Unit/mL 3 ML SYR SC SCH ×2 (21:00)
[2024-09-25 21:19] LABS: Bun/Creatinine Ratio 32.3 (12.0-20.0); Creatinine, Blood 0.56 mg/dL (0.40-1.00); Potassium, Blood 3.5 mmol/L (3.5-5.5)
[2024-09-26 03:38] VITALS: BP 127/74
--- NOTE | 2024-09-26 06:32 | NUR ---
NOC SHIFT SUMMARY: NO ACUTE EVENTS TO REPORT THIS SHIFT. PT A&O X4; CALM AND COOPERATIVE WITH CARE. MEDICATED FOR PAIN PER EMAR. DIET ADVANCED TO CONS CARB THIS SHIFT WITH POC GLUCOSE <350. POC GLUCOSE CHECKS Q2H; INSULIN PER EMAR. TELE IN PLACE; SR @ 73 PER OFFSET PLATE MAKER DURING SHIFT ASSESSMENT. PER HOSPITALIST, PT IS IN OBSERVTION STATUS, EXPECT <2 DAY STAY. BED LOW AND LOCKED; CALL LIGHT WITHIN [place]. WCTM.
[2024-09-26 07:30] VITALS: BP 131/82
[2024-09-26] MEDS ORDERED: Insulin Human Lispro 100 Units/ML 3ML Syringe SC SCH (07:30)
[2024-09-26] MEDS ORDERED: Gabapentin 100 MG Cap PO SCH (14:00)
[2024-09-26 15:37] VITALS: BP 116/77
--- NOTE | 2024-09-26 18:39 | NUR ---
SHIFT SUMMARY PT C/O PAIN T/O SHIFT THAT WAS MEDICATED PER EMAR. BLOOD GLUCOSE IMPROVED. PT WORKED W/ PHYSICAL THERAPY, SEE THERAPY NOTE. NO OTHER ACUTE CHANGES. CALL LIGHT WITHIN REACH AND PT ABLE TO MAKE NEEDS KNOWN.
[2024-09-26 20:17] VITALS: BP 109/66
[2024-09-26] MEDS ORDERED: Insulin Glargine-Yfgn 100 Unit/mL 3 ML SYR SC SCH (21:00)
[2024-09-26] MEDS ORDERED: Benzonatate 100 MG Cap PO PRN (21:05)
--- NOTE | 2024-09-27 05:14 | NUR ---
SHIFT SUMMARY PATIENT IS ALERT AND ORIENTED X3. PATIENT HAS HAD NO ACUTE EVENTS THIS SHIFT. VITAL SIGNS REVIEWED. PATIENT HAS COMPLAINED OF PAIN THIS SHIFT AND MEDICATED PER EMAR. PATIENT HAS COMPLAINED OF COUGH AND MEDICATED PER EMAR. PATIENT HAS NO COMPLAINTS OF SOB, NAUSEA OR VOMITTING THIS SHIFT. BED IN LOCKED AND LOWEST POSITION. CALL LIGHT IN PLACE. WILL MONITOR UNTIL SHIFT CHANGE.
[2024-09-27 07:29] VITALS: BP 122/79
[2024-09-27] MEDS ORDERED: Gabapentin 300 MG Cap PO SCH ×2 (09:00→21:00)
[2024-09-27] MEDS ORDERED: Gabapentin 100 MG Cap PO SCH (09:00)
[2024-09-27] MEDS ORDERED: Lidocaine 4% 1 Patch TOP SCH (11:00)
[2024-09-27 11:47] LABS: Influenza B, PCR NEGATIVE (NEGATIVE); Resp Syncytial Virus, PCR NEGATIVE (NEGATIVE); SARS-Cov-2 (COVID-19) PCR, MMC NEGATIVE (NEGATIVE)
[2024-09-27 11:48] LABS: Influenza A, PCR POSITIVE (NEGATIVE)
[2024-09-27] MEDS ORDERED: Cyclobenzaprine5 MG PO (12:49)
[2024-09-27 13:33] LABS: Hematocrit 38.6 % (33.0-51.0); Hemoglobin 12.4 g/dL (11.5-16.0)
[2024-09-27 14:02] LABS: Calcium, Blood 9.5 mg/dL (8.5-10.1); Creatinine, Blood 0.71 mg/dL (0.40-1.00); Potassium, Blood 4.5 mmol/L (3.5-5.5)
[2024-09-27 15:28] VITALS: BP 148/67
--- NOTE | 2024-09-27 16:25 | NUR ---
report received verified pt a/o x3 but is forgetful. pt c/o sever pain to left ft, temp on ft is cool to the touch anf has a good pulse. pt medicated for pain per dec and md is aware, plan for discharge to [facility].
[2024-09-27 16:44] VITALS: BP 126/93
--- NOTE | 2024-09-27 16:48 | NUR ---
1300 covid results negative but inf a positive, transfer held for now. pt not feeling well and increased pain to left foot. Dr jimenez into see pt and arterial study to left foot ordered. pt placed on droplet precautions. call light within reach, pt denies needing anything at this point and pain is managed so far.
[2024-09-27] MEDS ORDERED: Acetaminophen 650 MG Supp PR PRN (18:15)
[2024-09-27 19:55] VITALS: BP 141/64
[2024-09-27] MEDS ORDERED: Oseltamivir Phosphate 75 MG Cap PO SCH (21:00)
--- NOTE | 2024-09-28 04:51 | NUR ---
AAOX 1-2, CONFUSED THE WHY AND WHERE SHE IS AT, RE-ORIENTED PRN. FEBRILE @ BEGINING OF SHFIT, PREVIOUS SHIFT GAVE TYLENOL SUPP. WHICH DECREASED TEMP. PT EASILY AWAKENED FOR REPO AND BRIEF CHANGES PRN. BED ALARM ON, D/T PT TRYING TO GET OUT OF BED FOR CONFUCIANISM. BLOOD CULTURES PENDING, STILL NEED UA.
[2024-09-28 05:12] VITALS: BP 167/60
[2024-09-28] MEDS ORDERED: Piperacillin/Tazobactam Sod 4.5 GM in NS 100 ML IV SCH (07:00)
[2024-09-28 07:44] VITALS: BP 135/56
[2024-09-28 08:50] LABS: Source, Urine Straight Cath
[2024-09-28] MEDS ORDERED: Aspirin 81 MG Chew PO SCH (09:00)
[2024-09-28 09:07] LABS: Appearance, Urine Clear (Clear); Bilirubin, Urine Neg (Neg); Blood, Urine 2+ (Neg); Color, Urine Yellow (P-Yellow); Glucose Qualitative, Urine Neg (Neg); Ketones, Urine Neg (Neg); Leukocyte Esterase, Urine 2+ (Neg); Nitrite, Urine Pos (Neg); Protein, Urine 2+ (Neg); Urobilinogen, Urine NORM (Normal)
[2024-09-28 09:15] LABS: Bacteria Few /hpf; Squamous Epithelial Cells Rare /hpf (Few)
[2024-09-28 09:16] LABS: Amorphous Light (0-Heavy)
[2024-09-28 11:30] LABS: BASOPHILS ABSOLUTE AUTO 0.05 K/mm3 (0.00-0.23); BASOPHILS PERCENT AUTO 1 % (0-2); EOSINOPHILS ABSOLUTE AUTO 0.01 K/mm3 (0.00-0.68); EOSINOPHILS PERCENT AUTO 0 % (0-6); Hematocrit 34.8 % (33.0-51.0); Hemoglobin 11.4 g/dL (11.5-16.0); IMMATURE GRAN ABSOLUTE AUTO 0.05 K/mm3 (0.00-0.10); IMMATURE GRAN PERCENT AUTO 1 % (0-1); LYMPHOCYTES ABSOLUTE AUTO 1.78 K/mm3 (0.84-5.20); LYMPHOCYTES PERCENT AUTO 22 % (21-46); MONOCYTES ABSOLUTE AUTO 1.24 K/mm3 (0.16-1.47); MONOCYTES PERCENT AUTO 16 % (4-13); Mean Corpuscular HGB 26.2 pg (26.0-34.0); Mean Corpuscular HGB Conc 32.8 g/dL (31.5-36.5); Mean Corpuscular Volume 80 fL (80-100); Mean Platelet Volume 9.9 fL (9.1-12.4); NEUTROPHILS ABSOLUTE AUTO 4.88 K/mm3 (1.96-9.15); NEUTROPHILS PERCENT AUTO 61 % (41-73); Platelet Count 255 K/mm3 (150-400); RDW Coefficient Variation 13.2 % (11.7-14.2); RDW Standard Deviation 38.1 fL (35.1-46.3); Red Blood Cell Count 4.35 M/mm3 (3.80-5.20); White Blood Cell Count 8.01 K/mm3 (4.00-11.30)
[2024-09-28 11:48] LABS: Bun/Creatinine Ratio 18.4 (12.0-20.0); Calcium, Blood 8.9 mg/dL (8.5-10.1); Creatinine, Blood 0.81 mg/dL (0.40-1.00); Potassium, Blood 3.5 mmol/L (3.5-5.5)
[2024-09-28 12:46] VITALS: BP 131/52
--- NOTE | 2024-09-28 12:56 | NUR ---
NOTIFIED DR. HARTMAN ON FINDINGS ON CARDIOLOGY ASSESSMENT AND THAT I GOT A MANUAL BP ON THE R SIDE OF 122/62, UNABLE TO GET A BP ON THE L SIDE MANUALLY AND AN AUTOMATED BP ON THE R WAS 131/51. MD AWARE AND NO NEW ORDERED; ADVISED TO GET THE ODERED 30 UNITS OF HUMALOG WITH CORRECTION FOR LUNCH.
[2024-09-28 15:41] VITALS: BP 143/47
--- NOTE | 2024-09-28 17:21 | NUR ---
SHIFT SUMMARY: PATIENT'S ORIENTATION HAS BEEN WELL TODAY, MAKES NEEDS KNOWN, COMPLAINING OF PAIN. PATIENT RESTING OFF AND ON THROUGHOUT THE DAY. BLOOD SUGARS HAVE BEEN ELEVATED. PATIENT EATING ALL MEALS. GIVING COVERAGE INSULIN. PATIENT 1 PERSON ASSIST THE BEDSIDE COMMODE; CONTINENT/INCONTIENT. PATIENT IN BED, CALL LIGHT WITHIN REACH, BED ALARM ON; HASN'T BEEN IMPULSIVE, NO SIGNS OR SYMPTOMS OF DISTRESS, PLAN OF CARE ONGOING.
[2024-09-28 19:46] VITALS: BP 143/52
[2024-09-29 01:36] VITALS: BP 124/47
--- NOTE | 2024-09-29 04:11 | NUR ---
AAOX4, PT DOES REMEMBER BEING "OUT OF IT" LAST NIGHT AND DISCUSSED FRAGMENTS OF MEMORY FROM LAST NIGHT. USES DANDRE LIGHT APPROPRIATELY. C/O BODY ACHES AND L ANKLE/FOOT PAIN. PT TELE IN PLACE, SR. INCONTINENT OF URINE, BRIEFS CHANGED PRN. AFEBRILE THROUGHOUT NIGHT. PT DID NOT GET OUT OF BED THIS SHIFT. DC PLAN IS [place].
[2024-09-29 07:43] VITALS: BP 112/57
[2024-09-29 10:03] LABS: BASOPHILS ABSOLUTE AUTO 0.05 K/mm3 (0.00-0.23); BASOPHILS PERCENT AUTO 1 % (0-2); EOSINOPHILS ABSOLUTE AUTO 0.27 K/mm3 (0.00-0.68); EOSINOPHILS PERCENT AUTO 4 % (0-6); Hematocrit 35.3 % (33.0-51.0); Hemoglobin 11.2 g/dL (11.5-16.0); IMMATURE GRAN ABSOLUTE AUTO 0.02 K/mm3 (0.00-0.10); IMMATURE GRAN PERCENT AUTO 0 % (0-1); LYMPHOCYTES ABSOLUTE AUTO 2.56 K/mm3 (0.84-5.20); LYMPHOCYTES PERCENT AUTO 33 % (21-46); MONOCYTES ABSOLUTE AUTO 1.43 K/mm3 (0.16-1.47); MONOCYTES PERCENT AUTO 18 % (4-13); Mean Corpuscular HGB Conc 31.7 g/dL (31.5-36.5); Mean Corpuscular Volume 82 fL (80-100); Mean Platelet Volume 10.2 fL (9.1-12.4); NEUTROPHILS ABSOLUTE AUTO 3.44 K/mm3 (1.96-9.15); NEUTROPHILS PERCENT AUTO 44 % (41-73); Platelet Count 273 K/mm3 (150-400); RDW Coefficient Variation 13.6 % (11.7-14.2); RDW Standard Deviation 40.4 fL (35.1-46.3); White Blood Cell Count 7.77 K/mm3 (4.00-11.30)
[2024-09-29 10:23] LABS: Bun/Creatinine Ratio 22.7 (12.0-20.0); Creatinine, Blood 0.71 mg/dL (0.40-1.00); Potassium, Blood 4.3 mmol/L (3.5-5.5)
[2024-09-29] MEDS ORDERED: HYDROcodone 5-APAP 325 TAB PO PRN (10:35)
--- NOTE | 2024-09-29 12:15 | NUR ---
NOTIFIED DR. GRANT OF PATIENT'S BLOOD SUGAR OF 350; AWAITING NEW ORDERS.
[2024-09-29] MEDS ORDERED: Capsaicin 0.025% Cream TOP PRN (13:20)
[2024-09-29 15:34] VITALS: BP 138/49
[2024-09-29] MEDS ORDERED: Insulin Human Lispro 100 Units/ML 3ML Syringe SC SCH (17:30)
[2024-09-29 19:42] VITALS: BP 139/59
[2024-09-30 02:35] VITALS: BP 129/76
--- NOTE | 2024-09-30 04:48 | NUR ---
AAOX4, USES CALL LIGHT TO MAKE NEEDS KNOWN. TELE IN PLACE, SR @77. NO ACUTE NEEDS OVER NIGHT. PT DID AMBULATE TO BR WITH SBA, GAIT BELT AND WALKER. QUALITY ASSURANCE CALIBRATOR REPORTS UNSTEADY GAIT D/T LLE PAIN. PLAN IS DC TO [facility].
[2024-09-30 08:04] VITALS: BP 103/87
[2024-09-30] MEDS ORDERED: HYDROcodone 7.5-APAP 325 TAB PO PRN (09:30)
[2024-09-30] MEDS ORDERED: Insulin Human Lispro 100 Units/ML 3ML Syringe SC SCH (12:30)
--- NOTE | 2024-09-30 12:32 | NUR ---
PHONE CALL TO PHYSICIAN - PT'S CBG IS 372, CALLED PROVIDER PER PROTOCOL GREATER THAN 350 BLOOD SUGAR. NO NEW ORDERS, WILL GIVE 47 UNITS HUMALOG PER CORRECTION SCALE AND SCHEDULED WITH MEALS. DR. HARTMAN VERBALIZED APPRECIATION FOR THE PHONE CALL.
[2024-09-30 15:22] VITALS: BP 121/74
--- NOTE | 2024-09-30 19:32 | NUR ---
DAMIEN HAD HIGH BLOOD SUGARS TODAY, AND HAD INCREASES TO HER LONG ACTING AND SHORT ACTING INSULIN. CHANGES MADE TO HER PAIN MANAGEMENT TO PREPARE FOR OUTPATIENT DISCHARGE. PAIN IS INTERMITTMENT SPASM TO HER LOWER LEFT LEG. PT WAS OUT OF BED TO CHAIR FOR LUNCH, AGREED TO EAT DINNER AND BREAKFAST DANGLING ON SIDE OF BED. ONE PERSON TRANSFER WITH GB AND FWW FOR SAFETY. PLAN IS FOR DISCHARGE TO [facility], TOMORROW.
[2024-09-30 19:50] VITALS: BP 151/58
[2024-09-30] MEDS ORDERED: Insulin Glargine-Yfgn 100 Unit/mL 3 ML SYR SC SCH (21:00)
[2024-10-01 03:58] VITALS: BP 130/67
--- NOTE | 2024-10-01 04:25 | NUR ---
AAOX4, USES CALL LIGHT FOR NEEDS. TELE IN PLACE, SR IN THE 70'S. RA WITH A DRY COUGH. MOSTLY CONTINENET BUT PT DOES SAY SHE DOES URINATE WITHOUT KNOWING UNTIL SHE NOTICES HER BRIEFS ARE WET. C/O LLE PAIN AND CHRONIC BACK PAIN, ADMIN PRN PAIN MEDICATION ORDERED. AMBULATES TO BR WITH WALKER AND SBA, VERY MINIMAL. PLAN TO DC TO [facility] TODAY.
[2024-10-01 07:59] VITALS: BP 113/81
[2024-10-01 09:27] LABS: BASOPHILS ABSOLUTE AUTO 0.07 K/mm3 (0.00-0.23); BASOPHILS PERCENT AUTO 1 % (0-2); EOSINOPHILS ABSOLUTE AUTO 0.82 K/mm3 (0.00-0.68); EOSINOPHILS PERCENT AUTO 10 % (0-6); Hematocrit 35.7 % (33.0-51.0); Hemoglobin 11.3 g/dL (11.5-16.0); IMMATURE GRAN ABSOLUTE AUTO 0.01 K/mm3 (0.00-0.10); IMMATURE GRAN PERCENT AUTO 0 % (0-1); LYMPHOCYTES ABSOLUTE AUTO 3.27 K/mm3 (0.84-5.20); LYMPHOCYTES PERCENT AUTO 40 % (21-46); MONOCYTES PERCENT AUTO 10 % (4-13); Mean Corpuscular HGB 25.9 pg (26.0-34.0); Mean Corpuscular HGB Conc 31.7 g/dL (31.5-36.5); Mean Corpuscular Volume 82 fL (80-100); Mean Platelet Volume 9.7 fL (9.1-12.4); NEUTROPHILS ABSOLUTE AUTO 3.18 K/mm3 (1.96-9.15); NEUTROPHILS PERCENT AUTO 39 % (41-73); Platelet Count 357 K/mm3 (150-400); RDW Coefficient Variation 13.2 % (11.7-14.2); RDW Standard Deviation 39.8 fL (35.1-46.3); Red Blood Cell Count 4.36 M/mm3 (3.80-5.20); White Blood Cell Count 8.15 K/mm3 (4.00-11.30)
[2024-10-01 09:47] LABS: Bun/Creatinine Ratio 27.9 (12.0-20.0); Calcium, Blood 9.2 mg/dL (8.5-10.1); Creatinine, Blood 0.68 mg/dL (0.40-1.00); Potassium, Blood 4.4 mmol/L (3.5-5.5)
[2024-10-01] MEDS ORDERED: OSEL75CA PO (12:46)
--- NOTE | 2024-10-01 15:37 | NUR ---
CALLED REPORT TO CRESCENCIO [facility]ANDOV[facility].
--- NOTE | 2024-10-01 16:12 | NUR ---
PT WHEELED OUT WITH TRANSPORT [id number]
== END 2024-10-01 16:06 ==
LOC: ER 15:53 → ERHOLD 15:54 → MEDS 15:54 → ER 15:54 → ERHOLD 15:54 → MEDS 09-25 12:50
PROVIDERS: Family Medicine; Hospitalist; Internal Medicine; Physician Assistant; ADMIT Internal Medicine
DX: E11.65 Type 2 diabetes mellitus with hyperglycemia (principal); E78.5 Hyperlipidemia, unspecified; I10 Essential (primary) hypertension; I65.29 Occlusion and stenosis of unspecified carotid artery; I25.10 Atherosclerotic heart disease of native coronary artery without angina pectoris; J44.9 Chronic obstructive pulmonary disease, unspecified; K21.9 Gastro-esophageal reflux disease without esophagitis; Z79.4 Long term (current) use of insulin; Z79.899 Other long term (current) drug therapy; Z86.73 Personal history of transient ischemic attack (TIA), and cerebral infarction without residual deficits; Z88.5 Allergy status to narcotic agent; Z91.041 Radiographic dye allergy status; Z88.8 Allergy status to other drugs, medicaments and biological substances
CPT/HCPCS: 0241U; 36415; 70450; 71045; 80048; 80053; 81001; 82010; 82947; 83605; 83880; 84145; 84484; 85014; 85018; 85025; 87040; 87077; 87086; 87147; 87186; 93880; 93922; 93971; 94640; 94664; 94760; 94762; 96361; 96372; 96374; 96375; 96376; 97110; 97116; 97162; 99285-25; A9270; G0378; J0780; J1171; J1200; J1650; J1815; J2405; J2543; J3010; J3360; J7030; J7120

== ENCOUNTER 2024-11-06 06:26 | Emergency (ER) | payer OTHER ==
[~2024-11-06] VITALS: Ht 162.6 cm; Wt 77.1 kg
[~2024-11-06 06:26] MED LIST changes: +Cyclobenzaprine5 MG PO; +OSEL75CA PO
[2024-11-06] MEDS ORDERED: Acetaminophen 500 MG Tab PO ONE (06:55)
[2024-11-06] MEDS ORDERED: HYDROmorphone HCl/Pf 1MG SYR IV ONE (06:55)
[2024-11-06] MEDS ORDERED: Ibuprofen 400 MG Tab PO ONE (08:25)
[2024-11-06] MEDS ORDERED: Cyclobenzaprine HCl 10 MG Tab PO ONE (08:25)
[2024-11-06] MEDS ORDERED: Cyclobenzaprine5 MG PO (08:28)
[2024-11-06 10:07] VITALS: BP 133/65
== END 2024-11-06 10:09 | disposition home or self-care (01) ==
LOC: ER 06:26
DX: S39.012A Strain of muscle, fascia and tendon of lower back, initial encounter (principal); K21.9 Gastro-esophageal reflux disease without esophagitis; E11.9 Type 2 diabetes mellitus without complications; J44.9 Chronic obstructive pulmonary disease, unspecified; E78.5 Hyperlipidemia, unspecified; W01.0XXA Fall on same level from slipping, tripping and stumbling without subsequent striking against object, initial encounter; Z86.73 Personal history of transient ischemic attack (TIA), and cerebral infarction without residual deficits; Z87.891 Personal history of nicotine dependence; Z79.02 Long term (current) use of antithrombotics/antiplatelets; Z79.4 Long term (current) use of insulin; Z79.899 Other long term (current) drug therapy; Z88.5 Allergy status to narcotic agent; Z91.041 Radiographic dye allergy status; Z88.6 Allergy status to analgesic agent; Z88.8 Allergy status to other drugs, medicaments and biological substances
CPT/HCPCS: 72100; 96374; 99283-25; A9270; J1171

== ENCOUNTER 2024-11-14 02:15 | Emergency (ER) | payer OTHER ==
[~2024-11-14] VITALS: Ht 162.6 cm; Wt 77.1 kg
[2024-11-14 03:00] VITALS: BP 160/67
[2024-11-14 03:28] LABS: CORONAVIRUS COVID-19 AG Negative (NEGATIVE); INFLUENZA A AG Negative (NEGATIVE); INFLUENZA B AG Negative (NEGATIVE)
[2024-11-14] MEDS ORDERED: Acetaminophen 325 MG TABLET PO ONE (03:55)
[2024-11-14] MEDS ORDERED: Ibuprofen 600 MG Tab PO ONE (03:55)
== END 2024-11-14 05:18 | disposition home or self-care (01) ==
LOC: ER 02:15
PROVIDERS: Emergency Medicine
DX: B34.9 Viral infection, unspecified (principal); K21.9 Gastro-esophageal reflux disease without esophagitis; E11.9 Type 2 diabetes mellitus without complications; I10 Essential (primary) hypertension; E78.5 Hyperlipidemia, unspecified; J44.9 Chronic obstructive pulmonary disease, unspecified; Z87.891 Personal history of nicotine dependence; Z86.73 Personal history of transient ischemic attack (TIA), and cerebral infarction without residual deficits; Z79.4 Long term (current) use of insulin; Z79.82 Long term (current) use of aspirin; Z79.02 Long term (current) use of antithrombotics/antiplatelets; Z79.899 Other long term (current) drug therapy; Z88.5 Allergy status to narcotic agent; Z91.041 Radiographic dye allergy status; Z88.6 Allergy status to analgesic agent; Z88.8 Allergy status to other drugs, medicaments and biological substances
CPT/HCPCS: 87428-QW; 99284; A9270

== ENCOUNTER 2024-11-16 09:44 | Emergency (ER) | payer OTHER ==
[~2024-11-16] VITALS: Ht 160 cm; Wt 77.1 kg
[2024-11-16] MEDS ORDERED: Methocarbamol500 MG PO (10:04)
[2024-11-16] MEDS ORDERED: Methocarbamol 500 MG Tab PO ONE (10:05)
[2024-11-16] MEDS ORDERED: Acetaminophen 325 MG TABLET PO ONE (10:05)
[2024-11-16] MEDS ORDERED: Ibuprofen 600 MG Tab PO ONE (10:05)
[2024-11-16 10:32] VITALS: BP 147/58
== END 2024-11-16 10:38 | disposition home or self-care (01) ==
LOC: ER 09:44
DX: M54.50 Low back pain, unspecified (principal); G89.29 Other chronic pain; K21.9 Gastro-esophageal reflux disease without esophagitis; E78.00 Pure hypercholesterolemia, unspecified; I10 Essential (primary) hypertension; F17.200 Nicotine dependence, unspecified, uncomplicated; Z91.041 Radiographic dye allergy status; Z79.4 Long term (current) use of insulin; Z79.899 Other long term (current) drug therapy; Z79.02 Long term (current) use of antithrombotics/antiplatelets; Z79.82 Long term (current) use of aspirin
CPT/HCPCS: 99283; A9270

== ENCOUNTER → 2024-11-26 | Emergency (ER) | payer OTHER ==
[~2024-11-26] VITALS: Ht 160 cm; Wt 72.6 kg
[~2024-11-26] MED LIST changes: +Amoxicillin 500 MG Cap PO ONE; +Amoxicillin500 M1 PO; +Methocarbamol500 MG PO
[2024-11-26 22:45] LABS: BASOPHILS ABSOLUTE AUTO 0.13 K/mm3 (0.00-0.23); BASOPHILS PERCENT AUTO 2 % (0-2); EOSINOPHILS ABSOLUTE AUTO 0.12 K/mm3 (0.00-0.68); EOSINOPHILS PERCENT AUTO 2 % (0-6); Hematocrit 33.9 % (33.0-51.0); Hemoglobin 10.7 g/dL (11.5-16.0); IMMATURE GRAN ABSOLUTE AUTO 0.02 K/mm3 (0.00-0.10); IMMATURE GRAN PERCENT AUTO 0 % (0-1); LYMPHOCYTES ABSOLUTE AUTO 1.98 K/mm3 (0.84-5.20); LYMPHOCYTES PERCENT AUTO 26 % (21-46); MONOCYTES ABSOLUTE AUTO 1.02 K/mm3 (0.16-1.47); MONOCYTES PERCENT AUTO 14 % (4-13); Mean Corpuscular HGB 23.9 pg (26.0-34.0); Mean Corpuscular HGB Conc 31.6 g/dL (31.5-36.5); Mean Corpuscular Volume 76 fL (80-100); Mean Platelet Volume 9.2 fL (9.1-12.4); NEUTROPHILS ABSOLUTE AUTO 4.29 K/mm3 (1.96-9.15); NEUTROPHILS PERCENT AUTO 57 % (41-73); Platelet Count 399 K/mm3 (150-400); RDW Coefficient Variation 14.5 % (11.7-14.2); RDW Standard Deviation 39.4 fL (35.1-46.3); Red Blood Cell Count 4.47 M/mm3 (3.80-5.20); White Blood Cell Count 7.56 K/mm3 (4.00-11.30)
[2024-11-26 23:00] VITALS: BP 106/53
[2024-11-26 23:03] LABS: Albumin, Blood 3.4 g/dL (3.4-5.0); Albumin/Globulin Ratio 0.8 (0.8-1.8); Beta-hydroxybutyrate 1.6 mg/dL (0.2-2.8); Bilirubin, Total 0.3 mg/dL (0.1-1.0); Bun/Creatinine Ratio 22.8 (12.0-20.0); Calcium, Blood 10.5 mg/dL (8.5-10.1); Creatinine, Blood 0.92 mg/dL (0.40-1.00); Globulin, Blood 4.4 g/dL (2.2-4.0); Magnesium, Blood 1.6 mg/dL (1.6-2.4); Potassium, Blood 3.9 mmol/L (3.5-5.5); Total Protein, Blood 7.8 g/dL (6.4-8.2)
== END ==
LOC: ER 21:12
PROVIDERS: Student in an Organized Health Care Education/Training Program
DX: J18.9 Pneumonia, unspecified organism (principal); E11.22 Type 2 diabetes mellitus with diabetic chronic kidney disease; K21.9 Gastro-esophageal reflux disease without esophagitis; I69.954 Hemiplegia and hemiparesis following unspecified cerebrovascular disease affecting left non-dominant side; I25.10 Atherosclerotic heart disease of native coronary artery without angina pectoris; I10 Essential (primary) hypertension; J44.9 Chronic obstructive pulmonary disease, unspecified; Z88.5 Allergy status to narcotic agent; Z88.8 Allergy status to other drugs, medicaments and biological substances; Z88.1 Allergy status to other antibiotic agents; Z91.041 Radiographic dye allergy status; Z79.82 Long term (current) use of aspirin; Z79.4 Long term (current) use of insulin; Z79.899 Other long term (current) drug therapy; Z87.891 Personal history of nicotine dependence
CPT/HCPCS: 71045; 80053; 82010; 83735; 85025; A9270

== ENCOUNTER 2024-11-27 17:16 | Emergency (ER) | payer OTHER ==
[~2024-11-27] VITALS: Ht 160 cm; Wt 77.1 kg
[~2024-11-27 17:16] MED LIST changes: -Amoxicillin 500 MG Cap PO ONE
[2024-11-27 17:26] VITALS: BP 125/62
[2024-11-27] MEDS ORDERED: Acetaminophen 325 MG TABLET PO ONE (18:30)
[2024-11-27] MEDS ORDERED: Benzonatate 100 MG Cap PO ONE (18:30)
[2024-11-27 19:23] LABS: BASOPHILS ABSOLUTE AUTO 0.09 K/mm3 (0.00-0.23); BASOPHILS PERCENT AUTO 1 % (0-2); EOSINOPHILS ABSOLUTE AUTO 0.13 K/mm3 (0.00-0.68); EOSINOPHILS PERCENT AUTO 2 % (0-6); Hemoglobin 9.8 g/dL (11.5-16.0); IMMATURE GRAN ABSOLUTE AUTO 0.02 K/mm3 (0.00-0.10); IMMATURE GRAN PERCENT AUTO 0 % (0-1); LYMPHOCYTES ABSOLUTE AUTO 2.41 K/mm3 (0.84-5.20); LYMPHOCYTES PERCENT AUTO 33 % (21-46); MONOCYTES ABSOLUTE AUTO 0.87 K/mm3 (0.16-1.47); MONOCYTES PERCENT AUTO 12 % (4-13); Mean Corpuscular HGB 23.7 pg (26.0-34.0); Mean Corpuscular HGB Conc 31.6 g/dL (31.5-36.5); Mean Corpuscular Volume 75 fL (80-100); NEUTROPHILS ABSOLUTE AUTO 3.82 K/mm3 (1.96-9.15); NEUTROPHILS PERCENT AUTO 52 % (41-73); Platelet Count 345 K/mm3 (150-400); RDW Coefficient Variation 14.5 % (11.7-14.2); RDW Standard Deviation 39.6 fL (35.1-46.3); Red Blood Cell Count 4.14 M/mm3 (3.80-5.20); White Blood Cell Count 7.34 K/mm3 (4.00-11.30)
[2024-11-27 19:47] LABS: Base Excess Venous -0.6 mmol/L; Bicarbonate Venous 24.1 mmol/L (24.0-30.0); PCO2 Venous 37.8 mmHg (38-42); pH Blood Venous 7.41 (7.34-7.37)
[2024-11-27 19:49] LABS: Albumin/Globulin Ratio 0.8 (0.8-1.8); Beta-hydroxybutyrate 2.8 mg/dL (0.2-2.8); Bilirubin, Total 0.3 mg/dL (0.1-1.0); Bun/Creatinine Ratio 20.8 (12.0-20.0); Calcium, Blood 9.4 mg/dL (8.5-10.1); Creatinine, Blood 0.87 mg/dL (0.40-1.00); Globulin, Blood 3.8 g/dL (2.2-4.0); Potassium, Blood 3.9 mmol/L (3.5-5.5); Total Protein, Blood 6.8 g/dL (6.4-8.2)
[2024-11-27] MEDS ORDERED: Insulin Regular 100 Unit/ML 1ML Dose IV ONE (19:55)
[2024-11-27] MEDS ORDERED: Insulin Regular 100 Unit/ML 1ML Dose SC ONE (20:05)
== END 2024-11-27 21:01 | disposition home or self-care (01) ==
LOC: ER 17:16
PROVIDERS: Student in an Organized Health Care Education/Training Program
DX: E11.65 Type 2 diabetes mellitus with hyperglycemia (principal); J18.9 Pneumonia, unspecified organism; I10 Essential (primary) hypertension; I25.10 Atherosclerotic heart disease of native coronary artery without angina pectoris; E78.5 Hyperlipidemia, unspecified; J44.9 Chronic obstructive pulmonary disease, unspecified; I69.954 Hemiplegia and hemiparesis following unspecified cerebrovascular disease affecting left non-dominant side; Z79.4 Long term (current) use of insulin; Z79.899 Other long term (current) drug therapy; Z79.82 Long term (current) use of aspirin; Z88.5 Allergy status to narcotic agent; Z88.8 Allergy status to other drugs, medicaments and biological substances; Z88.1 Allergy status to other antibiotic agents; Z91.041 Radiographic dye allergy status; Z87.891 Personal history of nicotine dependence
CPT/HCPCS: 80053; 82010; 82803; 82947; 85025; 99285; A9270; J1815

== ENCOUNTER 2024-12-14 12:28 | Emergency (ER) | payer OTHER ==
[~2024-12-14] VITALS: Ht 160 cm; Wt 72.6 kg
[2024-12-14 12:31] VITALS: BP 155/50
[2024-12-14 13:49] LABS: BASOPHILS ABSOLUTE AUTO 0.12 K/mm3 (0.00-0.23); BASOPHILS PERCENT AUTO 1 % (0-2); EOSINOPHILS ABSOLUTE AUTO 0.98 K/mm3 (0.00-0.68); EOSINOPHILS PERCENT AUTO 10 % (0-6); Hematocrit 33.1 % (33.0-51.0); Hemoglobin 10.1 g/dL (11.5-16.0); IMMATURE GRAN ABSOLUTE AUTO 0.01 K/mm3 (0.00-0.10); IMMATURE GRAN PERCENT AUTO 0 % (0-1); LYMPHOCYTES ABSOLUTE AUTO 3.49 K/mm3 (0.84-5.20); LYMPHOCYTES PERCENT AUTO 37 % (21-46); MONOCYTES ABSOLUTE AUTO 1.04 K/mm3 (0.16-1.47); MONOCYTES PERCENT AUTO 11 % (4-13); Mean Corpuscular HGB 23.3 pg (26.0-34.0); Mean Corpuscular HGB Conc 30.5 g/dL (31.5-36.5); Mean Corpuscular Volume 76 fL (80-100); Mean Platelet Volume 9.5 fL (9.1-12.4); NEUTROPHILS ABSOLUTE AUTO 3.91 K/mm3 (1.96-9.15); NEUTROPHILS PERCENT AUTO 41 % (41-73); Platelet Count 436 K/mm3 (150-400); RDW Standard Deviation 41.7 fL (35.1-46.3); Red Blood Cell Count 4.34 M/mm3 (3.80-5.20); White Blood Cell Count 9.55 K/mm3 (4.00-11.30)
[2024-12-14 14:06] LABS: Albumin, Blood 3.1 g/dL (3.4-5.0); Albumin/Globulin Ratio 0.7 (0.8-1.8); Bilirubin, Total 0.3 mg/dL (0.1-1.0); Bun/Creatinine Ratio 21.8 (12.0-20.0); Calcium, Blood 10.1 mg/dL (8.5-10.1); Creatinine, Blood 0.96 mg/dL (0.40-1.00); Globulin, Blood 4.3 g/dL (2.2-4.0); Potassium, Blood 4.1 mmol/L (3.5-5.5); Total Protein, Blood 7.4 g/dL (6.4-8.2)
[2024-12-14] MEDS ORDERED: LASIX20 M2 PO (16:30)
[2024-12-14] MEDS ORDERED: Furosemide 20 MG Tab PO ONE (16:30)
== END 2024-12-14 16:48 | disposition home or self-care (01) ==
LOC: ER 12:28
PROVIDERS: Student in an Organized Health Care Education/Training Program
DX: R60.9 Edema, unspecified (principal); E11.9 Type 2 diabetes mellitus without complications; K21.9 Gastro-esophageal reflux disease without esophagitis; I10 Essential (primary) hypertension; Z88.5 Allergy status to narcotic agent; Z91.041 Radiographic dye allergy status; Z88.1 Allergy status to other antibiotic agents; Z79.899 Other long term (current) drug therapy
CPT/HCPCS: 71046; 80053; 83880; 84484; 85025; 93005; 93010; 99285-25; A9270

== ENCOUNTER → 2025-01-08 | Outpatient (CLI) | payer OTHER ==
[~2025-01-08] MED LIST changes: +LASIX20 M2 PO
[2025-01-08 15:55] LABS: Source, Urine Clean Catch
[2025-01-08 17:23] LABS: Red Blood Cells, Urine 0-2 /hpf (0-2); White Blood Cells, Urine 50-100 /hpf (0-5)
[2025-01-08 17:24] LABS: Bacteria Mod /hpf; Squamous Epithelial Cells Not Seen /hpf (Few)
== END ==
LOC: LAB 15:51 → LAB SHORT 15:51
PROVIDERS: Family Medicine
DX: R30.0 Dysuria (principal)
CPT/HCPCS: 81015; 87077; 87086; 87186

== ENCOUNTER → 2025-01-23 | Outpatient (CLI) | payer OTHER ==
[2025-01-23 13:50] LABS: Source, Urine Clean Catch
[2025-01-23 17:03] LABS: Bacteria Many /hpf; Red Blood Cells, Urine 0-2 /hpf (0-2); Squamous Epithelial Cells Few /hpf (Few); White Blood Cells, Urine TNTC /hpf (0-5)
== END ==
LOC: LAB SHORT 13:44 → LAB 13:44
PROVIDERS: Family Medicine
DX: R35.0 Frequency of micturition (principal)
CPT/HCPCS: 81015; 87077; 87086; 87186

== ENCOUNTER 2025-04-23 20:12 | Emergency (ER) | payer OTHER ==
[~2025-04-23] VITALS: Ht 165.1 cm; Wt 63.5 kg
[~2025-04-23 20:12] MED LIST changes: +BASAGLAR K100 UNIT/3 SC; +BUPRENORPHINE HC2 M1 SL; +Cetirizine HCl10 MG PO; +KLOR-CON 1010 ME9 PO; +METOPROLOL TART25 MG PO; +ONDA4 PO; +PERM5TC TOP; +Pyridium100 MG PO
[2025-04-23] MEDS ORDERED: Buprenorphine HCL/Naloxone HCL 2-0.5MG 1 EA SL ONE (20:20)
[2025-04-23 20:22] VITALS: BP 161/60
== END 2025-04-23 22:42 | disposition home or self-care (01) ==
LOC: ER 20:12
DX: S16.1XXA Strain of muscle, fascia and tendon at neck level, initial encounter (principal); S09.90XA Unspecified injury of head, initial encounter; E11.9 Type 2 diabetes mellitus without complications; I25.10 Atherosclerotic heart disease of native coronary artery without angina pectoris; I69.354 Hemiplegia and hemiparesis following cerebral infarction affecting left non-dominant side; I10 Essential (primary) hypertension; E78.5 Hyperlipidemia, unspecified; J44.9 Chronic obstructive pulmonary disease, unspecified; K21.9 Gastro-esophageal reflux disease without esophagitis; Z87.891 Personal history of nicotine dependence; Z88.5 Allergy status to narcotic agent; Z91.041 Radiographic dye allergy status; Z88.1 Allergy status to other antibiotic agents; Z88.6 Allergy status to analgesic agent; Z88.8 Allergy status to other drugs, medicaments and biological substances; Z79.02 Long term (current) use of antithrombotics/antiplatelets; Z79.82 Long term (current) use of aspirin; Z79.4 Long term (current) use of insulin; Z79.899 Other long term (current) drug therapy; W10.1XXA Fall (on)(from) sidewalk curb, initial encounter
CPT/HCPCS: 70450; 72125; 99284-25; A9270; J0572; L0160

== ENCOUNTER 2025-05-07 21:15 | Emergency (ER) | payer OTHER ==
[~2025-05-07] VITALS: Ht 160 cm; Wt 63.0 kg
[2025-05-07 22:54] LABS: Alanine Aminotransfer (ALT/SGP 26.0 U/L (12-78); Albumin, Blood 3.6 g/dL (3.4-5.0); Albumin/Globulin Ratio 0.8 (0.8-1.8); Anion Gap 11.0 mmol/L (3-11); Aspartate Aminotrans (AST/SGOT 27.0 U/L (12-37); Bilirubin, Total 0.4 mg/dL (0.1-1.0); Blood Urea Nitrogen 25.0 mg/dL (8-24); CO2, Blood 22.0 mmol/L (21-32); Calcium, Blood 9.3 mg/dL (8.5-10.1); Chloride, Blood 104.0 mmol/L (98-108); Creatinine, Blood 1.33 mg/dL (0.40-1.00); Globulin, Blood 4.4 g/dL (2.2-4.0); Glucose, Blood 196.0 mg/dL (70-99); Potassium, Blood 4.0 mmol/L (3.5-5.5); Sodium, Blood 133.0 mmol/L (136-145); Total Protein, Blood 8.0 g/dL (6.4-8.2)
[2025-05-07 23:12] LABS: BASOPHILS ABSOLUTE AUTO 0.14 K/mm3 (0.00-0.23); BASOPHILS PERCENT AUTO 1 % (0-2); EOSINOPHILS ABSOLUTE AUTO 0.33 K/mm3 (0.00-0.68); EOSINOPHILS PERCENT AUTO 2 % (0-6); Hematocrit 40.2 % (33.0-51.0); Hemoglobin 12.3 g/dL (11.5-16.0); IMMATURE GRAN ABSOLUTE AUTO 0.07 K/mm3 (0.00-0.10); IMMATURE GRAN PERCENT AUTO 1 % (0-1); LYMPHOCYTES ABSOLUTE AUTO 4.57 K/mm3 (0.84-5.20); LYMPHOCYTES PERCENT AUTO 30 % (21-46); MONOCYTES ABSOLUTE AUTO 1.40 K/mm3 (0.16-1.47); MONOCYTES PERCENT AUTO 9 % (4-13); Mean Corpuscular HGB Conc 30.6 g/dL (31.5-36.5); Mean Corpuscular Volume 74 fL (80-100); NEUTROPHILS ABSOLUTE AUTO 8.58 K/mm3 (1.96-9.15); NEUTROPHILS PERCENT AUTO 57 % (41-73); NRBC ABSOLUTE 0.00 K/mm3 (0.00-0.02); NRBC Auto 0.0 /100 WBC (0.0-0.2); Platelet Count 399 K/mm3 (150-400); RDW Coefficient Variation 18.8 % (11.7-14.2); RDW Standard Deviation 49.8 fL (35.1-46.3)
[2025-05-07] MEDS ORDERED: NS 1,000 ML IV SCH (23:55)
[2025-05-07] MEDS ORDERED: Magnesium Sulf 2 GM/Water 50ML 50 ML IV ONE (23:55)
[2025-05-07] MEDS ORDERED: CALCIUM GLUC IN NACL, ISO-OSM 50 ML IV ONE (23:55)
[2025-05-08 00:11] LABS: Magnesium, Blood 1.3 mg/dL (1.6-2.4)
[2025-05-08] MEDS ORDERED: Magnesium Sulf 2 GM/Water 50ML 50 ML IV ONE (00:30)
[2025-05-08 01:30] VITALS: BP 159/69
== END 2025-05-08 03:24 | disposition home or self-care (01) ==
LOC: ER 21:15
PROVIDERS: Student in an Organized Health Care Education/Training Program
DX: E83.42 Hypomagnesemia (principal); E86.0 Dehydration; N17.9 Acute kidney failure, unspecified; E11.9 Type 2 diabetes mellitus without complications; K21.9 Gastro-esophageal reflux disease without esophagitis; I69.354 Hemiplegia and hemiparesis following cerebral infarction affecting left non-dominant side; I25.10 Atherosclerotic heart disease of native coronary artery without angina pectoris; I10 Essential (primary) hypertension; E78.5 Hyperlipidemia, unspecified; J44.9 Chronic obstructive pulmonary disease, unspecified; Z87.891 Personal history of nicotine dependence; Z88.5 Allergy status to narcotic agent; Z91.041 Radiographic dye allergy status; Z88.1 Allergy status to other antibiotic agents; Z88.6 Allergy status to analgesic agent; Z88.8 Allergy status to other drugs, medicaments and biological substances; Z79.02 Long term (current) use of antithrombotics/antiplatelets; Z79.82 Long term (current) use of aspirin; Z79.4 Long term (current) use of insulin; Z79.899 Other long term (current) drug therapy
CPT/HCPCS: 80053; 82550; 83735; 85025; 93971; 96365; 96368; 96375; 99284-25; A9270; J0612; J3475; J7030

== ENCOUNTER 2025-05-10 02:31 | Emergency (ER) | payer OTHER ==
[~2025-05-10] VITALS: Ht 162.6 cm; Wt 63.0 kg
[2025-05-10 03:24] LABS: BASOPHILS ABSOLUTE AUTO 0.07 K/mm3 (0.00-0.23); BASOPHILS PERCENT AUTO 1 % (0-2); EOSINOPHILS ABSOLUTE AUTO 0.22 K/mm3 (0.00-0.68); EOSINOPHILS PERCENT AUTO 2 % (0-6); Hematocrit 30.6 % (33.0-51.0); Hemoglobin 9.5 g/dL (11.5-16.0); IMMATURE GRAN ABSOLUTE AUTO 0.04 K/mm3 (0.00-0.10); IMMATURE GRAN PERCENT AUTO 0 % (0-1); LYMPHOCYTES ABSOLUTE AUTO 2.39 K/mm3 (0.84-5.20); LYMPHOCYTES PERCENT AUTO 20 % (21-46); MONOCYTES ABSOLUTE AUTO 1.25 K/mm3 (0.16-1.47); MONOCYTES PERCENT AUTO 11 % (4-13); Mean Corpuscular HGB Conc 31.0 g/dL (31.5-36.5); Mean Corpuscular Volume 74 fL (80-100); NEUTROPHILS ABSOLUTE AUTO 7.95 K/mm3 (1.96-9.15); NEUTROPHILS PERCENT AUTO 67 % (41-73); NRBC ABSOLUTE 0.00 K/mm3 (0.00-0.02); NRBC Auto 0.0 /100 WBC (0.0-0.2); Platelet Count 305 K/mm3 (150-400); RDW Coefficient Variation 18.1 % (11.7-14.2); RDW Standard Deviation 48.3 fL (35.1-46.3)
[2025-05-10 03:49] LABS: Alanine Aminotransfer (ALT/SGP 22.0 U/L (12-78); Albumin, Blood 3.2 g/dL (3.4-5.0); Albumin/Globulin Ratio 0.9 (0.8-1.8); Anion Gap 9.0 mmol/L (3-11); Aspartate Aminotrans (AST/SGOT 25.0 U/L (12-37); Bilirubin, Total 0.3 mg/dL (0.1-1.0); Blood Urea Nitrogen 27.0 mg/dL (8-24); CO2, Blood 23.0 mmol/L (21-32); Calcium, Blood 9.0 mg/dL (8.5-10.1); Chloride, Blood 108.0 mmol/L (98-108); Creatinine, Blood 0.99 mg/dL (0.40-1.00); Globulin, Blood 3.6 g/dL (2.2-4.0); Glucose, Blood 70.0 mg/dL (70-99); Potassium, Blood 4.1 mmol/L (3.5-5.5); Sodium, Blood 136.0 mmol/L (136-145); Total Protein, Blood 6.8 g/dL (6.4-8.2)
[2025-05-10] MEDS ORDERED: NS 1,000 ML IV SCH (03:50)
[2025-05-10] MEDS ORDERED: FentaNYL Citrate 50 MCG/ML 2 ML Injection IV ONE (04:10)
[2025-05-10 04:22] LABS: Source, Urine Clean Catch
[2025-05-10 04:28] LABS: Bilirubin, Urine Neg (Neg); Color, Urine Yellow (P-Yellow); Glucose Qualitative, Urine Neg (Neg); Ketones, Urine Neg (Neg); Leukocyte Esterase, Urine 3+ (Neg); Protein, Urine 2+ (Neg); Specific Gravity, Urine 1.015 (1.003-1.022); Urobilinogen, Urine NORM (Normal)
[2025-05-10 04:38] LABS: Red Blood Cells, Urine 0-2 /hpf (0-2)
[2025-05-10] MEDS ORDERED: Trimethoprim/Sulfamethoxazole DS Tab PO ONE (05:05)
[2025-05-10] MEDS ORDERED: SULTRIDS PO (05:10)
[2025-05-10 05:15] VITALS: BP 131/48
== END 2025-05-10 05:51 | disposition home or self-care (01) ==
LOC: ER 02:31
PROVIDERS: Emergency Medicine
DX: S39.012A Strain of muscle, fascia and tendon of lower back, initial encounter (principal); N39.0 Urinary tract infection, site not specified; K21.9 Gastro-esophageal reflux disease without esophagitis; E11.9 Type 2 diabetes mellitus without complications; I10 Essential (primary) hypertension; J44.9 Chronic obstructive pulmonary disease, unspecified; D72.829 Elevated white blood cell count, unspecified; W01.0XXA Fall on same level from slipping, tripping and stumbling without subsequent striking against object, initial encounter; Z86.73 Personal history of transient ischemic attack (TIA), and cerebral infarction without residual deficits; Z87.891 Personal history of nicotine dependence; Z79.02 Long term (current) use of antithrombotics/antiplatelets; Z79.4 Long term (current) use of insulin; Z88.5 Allergy status to narcotic agent; Z91.041 Radiographic dye allergy status; Z88.8 Allergy status to other drugs, medicaments and biological substances; Z88.1 Allergy status to other antibiotic agents
CPT/HCPCS: 51798; 72220; 80053; 81001; 84484; 85025; 87086; 93005; 93010; 96361; 96374; 99284-25; A9270; J3010; J7030

== ENCOUNTER 2025-09-03 14:43 | Emergency (ER) | payer OTHER ==
[~2025-09-03] VITALS: Ht 160 cm; Wt 63.5 kg
[2025-09-03 15:58] LABS: BASOPHILS ABSOLUTE AUTO 0.11 K/mm3 (0.00-0.23); BASOPHILS PERCENT AUTO 1 % (0-2); EOSINOPHILS ABSOLUTE AUTO 0.43 K/mm3 (0.00-0.68); EOSINOPHILS PERCENT AUTO 5 % (0-6); Hematocrit 34.4 % (33.0-51.0); Hemoglobin 10.8 g/dL (11.5-16.0); IMMATURE GRAN ABSOLUTE AUTO 0.03 K/mm3 (0.00-0.10); IMMATURE GRAN PERCENT AUTO 0 % (0-1); LYMPHOCYTES ABSOLUTE AUTO 2.83 K/mm3 (0.84-5.20); LYMPHOCYTES PERCENT AUTO 32 % (21-46); MONOCYTES ABSOLUTE AUTO 0.89 K/mm3 (0.16-1.47); MONOCYTES PERCENT AUTO 10 % (4-13); Mean Corpuscular HGB Conc 31.4 g/dL (31.5-36.5); Mean Corpuscular Volume 76 fL (80-100); NEUTROPHILS ABSOLUTE AUTO 4.70 K/mm3 (1.96-9.15); NEUTROPHILS PERCENT AUTO 52 % (41-73); NRBC ABSOLUTE 0.00 K/mm3 (0.00-0.02); NRBC Auto 0.0 /100 WBC (0.0-0.2); Platelet Count 408 K/mm3 (150-400); RDW Coefficient Variation 16.6 % (11.7-14.2); RDW Standard Deviation 46.1 fL (35.1-46.3)
[2025-09-03] MEDS ORDERED: Prochlorperazine Edisylate 10 mg Vial IV ONE (16:15)
[2025-09-03 16:17] LABS: Alanine Aminotransfer (ALT/SGP 15.0 U/L (12-78); Albumin, Blood 3.4 g/dL (3.4-5.0); Albumin/Globulin Ratio 0.9 (0.8-1.8); Anion Gap 10.0 mmol/L (3-11); Aspartate Aminotrans (AST/SGOT 18.0 U/L (12-37); Bilirubin, Total 0.7 mg/dL (0.1-1.0); Blood Urea Nitrogen 16.0 mg/dL (8-24); CO2, Blood 24.0 mmol/L (21-32); Calcium, Blood 9.5 mg/dL (8.5-10.1); Chloride, Blood 103.0 mmol/L (98-108); Creatinine, Blood 0.77 mg/dL (0.40-1.00); Globulin, Blood 3.9 g/dL (2.2-4.0); Glucose, Blood 351.0 mg/dL (70-99); Magnesium, Blood 1.3 mg/dL (1.6-2.4); Potassium, Blood 4.2 mmol/L (3.5-5.5); Sodium, Blood 133.0 mmol/L (136-145); Total Protein, Blood 7.3 g/dL (6.4-8.2)
[2025-09-03 16:32] LABS: Influenza A, PCR NEGATIVE (NEGATIVE); Influenza B, PCR NEGATIVE (NEGATIVE); Resp Syncytial Virus, PCR NEGATIVE (NEGATIVE); SARS-Cov-2 (COVID-19) PCR, MMC NEGATIVE (NEGATIVE)
[2025-09-03] MEDS ORDERED: HYDROmorphone HCl/Pf 1MG SYR IV ONE (17:55)
[2025-09-03] MEDS ORDERED: DiphenhydrAMINE HCl 50 MG/ML 1ML Vial IV ONE (17:55)
[2025-09-03 21:14] VITALS: BP 139/87
== END 2025-09-03 21:14 | disposition home or self-care (01) ==
LOC: ER 14:43
PROVIDERS: Emergency Medicine
DX: R10.13 Epigastric pain (principal); E11.65 Type 2 diabetes mellitus with hyperglycemia; K21.9 Gastro-esophageal reflux disease without esophagitis; I69.354 Hemiplegia and hemiparesis following cerebral infarction affecting left non-dominant side; I25.10 Atherosclerotic heart disease of native coronary artery without angina pectoris; I10 Essential (primary) hypertension; E78.5 Hyperlipidemia, unspecified; J44.9 Chronic obstructive pulmonary disease, unspecified; Z87.11 Personal history of peptic ulcer disease; Z87.891 Personal history of nicotine dependence; Z88.5 Allergy status to narcotic agent; Z91.041 Radiographic dye allergy status; Z88.1 Allergy status to other antibiotic agents; Z88.6 Allergy status to analgesic agent; Z88.8 Allergy status to other drugs, medicaments and biological substances; Z79.02 Long term (current) use of antithrombotics/antiplatelets; Z79.82 Long term (current) use of aspirin; Z79.4 Long term (current) use of insulin; Z79.899 Other long term (current) drug therapy
CPT/HCPCS: 74177; 80053; 83605; 83690; 83735; 83880; 84484; 85025; 87637; 93005; 93010; 96374-59; 96375; 99285-25; A9270; J0780; J1171; J1200; J2919; Q9967

== ENCOUNTER 2025-09-07 00:22 | Inpatient (IN) | payer OTHER ==
[2025-09-07] VITALS (14 sets, daily range): BP systolic 106–226; BP diastolic 48–96
[~2025-09-07] VITALS: Ht 162.6 cm; Wt 59.0 kg
[2025-09-07] MEDS ORDERED: FentaNYL Citrate 50 MCG/ML 2 ML Injection IV ONE (01:10)
[2025-09-07] MEDS ORDERED: NS 1,000 ML IV SCH ×3 (01:10→20:00)
[2025-09-07] MEDS ORDERED: Pantoprazole Sodium 40 MG Injection IV ONE (01:10)
[2025-09-07 01:54] LABS: Alanine Aminotransfer (ALT/SGP 21.0 U/L (12-78); Albumin, Blood 3.3 g/dL (3.4-5.0); Albumin/Globulin Ratio 0.8 (0.8-1.8); Anion Gap 11.0 mmol/L (3-11); Aspartate Aminotrans (AST/SGOT 24.0 U/L (12-37); Bilirubin, Total 0.6 mg/dL (0.1-1.0); Blood Urea Nitrogen 20.0 mg/dL (8-24); CO2, Blood 22.0 mmol/L (21-32); Calcium, Blood 9.6 mg/dL (8.5-10.1); Chloride, Blood 106.0 mmol/L (98-108); Creatinine, Blood 0.74 mg/dL (0.40-1.00); Globulin, Blood 4.3 g/dL (2.2-4.0); Glucose, Blood 277.0 mg/dL (70-99); Potassium, Blood 4.3 mmol/L (3.5-5.5); Sodium, Blood 135.0 mmol/L (136-145); Total Protein, Blood 7.6 g/dL (6.4-8.2)
[2025-09-07 02:01] LABS: BASOPHILS ABSOLUTE AUTO 0.14 K/mm3 (0.00-0.23); BASOPHILS PERCENT AUTO 1 % (0-2); EOSINOPHILS ABSOLUTE AUTO 0.48 K/mm3 (0.00-0.68); EOSINOPHILS PERCENT AUTO 4 % (0-6); Hematocrit 37.4 % (33.0-51.0); Hemoglobin 11.8 g/dL (11.5-16.0); IMMATURE GRAN ABSOLUTE AUTO 0.08 K/mm3 (0.00-0.10); IMMATURE GRAN PERCENT AUTO 1 % (0-1); LYMPHOCYTES ABSOLUTE AUTO 3.60 K/mm3 (0.84-5.20); LYMPHOCYTES PERCENT AUTO 28 % (21-46); MONOCYTES ABSOLUTE AUTO 1.15 K/mm3 (0.16-1.47); MONOCYTES PERCENT AUTO 9 % (4-13); Mean Corpuscular HGB Conc 31.6 g/dL (31.5-36.5); Mean Corpuscular Volume 76 fL (80-100); NEUTROPHILS ABSOLUTE AUTO 7.29 K/mm3 (1.96-9.15); NEUTROPHILS PERCENT AUTO 57 % (41-73); NRBC ABSOLUTE 0.00 K/mm3 (0.00-0.02); NRBC Auto 0.0 /100 WBC (0.0-0.2); Platelet Count 434 K/mm3 (150-400); RDW Coefficient Variation 16.5 % (11.7-14.2); RDW Standard Deviation 45.0 fL (35.1-46.3)
[2025-09-07 05:27] LABS: Source, Urine Straight Cath
[2025-09-07] MEDS ORDERED: Prochlorperazine Edisylate 10 mg Vial IV ONE (05:35)
[2025-09-07] MEDS ORDERED: DiphenhydrAMINE HCl 50 MG/ML 1ML Vial IV ONE (05:35)
[2025-09-07 05:51] LABS: Bilirubin, Urine Neg (Neg); Color, Urine Yellow (P-Yellow); Glucose Qualitative, Urine 4+ (Neg); Ketones, Urine 2+ (Neg); Leukocyte Esterase, Urine 2+ (Neg); Protein, Urine 3+ (Neg); Specific Gravity, Urine 1.010 (1.003-1.022); Urobilinogen, Urine NORM (Normal)
[2025-09-07 06:00] LABS: White Blood Cells, Urine 25-50 /hpf (0-5)
[2025-09-07] MEDS ORDERED: Nitrofurantoin/Nitrofuran Mac 100 MG Cap PO ONE (06:05)
[2025-09-07] MEDS ORDERED: HydrALAZINE HCl 20 MG / ML 1ML Vial IV ONE (06:50)
[2025-09-07] MEDS ORDERED: Ondansetron HCl 2 MG / ML 2ML Vial IV PRN (07:30)
[2025-09-07] MEDS ORDERED: Metoclopramide HCl 5MG / ML 2ML Vial IV PRN (07:30)
[2025-09-07] MEDS ORDERED: FLU VACC TS2025(65UP)/MF59C/PF 45 MCG/0.5 ML SYRINGE IM SCH (07:40)
[2025-09-07] MEDS ORDERED: Trimethoprim/Sulfamethoxazole DS Tab PO SCH (09:00)
[2025-09-07] MEDS ORDERED: Enoxaparin 40 MG/0.4 ML SYR SC SCH (09:00)
[2025-09-07] MEDS ORDERED: Labetalol HCL 5 MG/ML 4ML Injection (Single Dose) IV PRN (10:15)
[2025-09-07] MEDS ORDERED: Ciprofloxacin 400MG/D5 200ML 200 ML IV SCH (10:44)
[2025-09-07] MEDS ORDERED: FentaNYL Citrate 50 MCG/ML 2 ML Injection IV PRN (10:45)
[2025-09-07] MEDS ORDERED: MetroNIDAZOLE 500MG/NS 100 ml 100 ML IV SCH (10:45)
--- NOTE | 2025-09-07 11:23 | NUR ---
SPOKE WITH DR HEIN REGARDING ELEVATED BLOOD PRESSURE ON ARRIVAL TO FLOOR. STATED HE WILL SEE PATIENT ON FLOOR. ORDERS RECEIVED, BLOOD PRESSURE RECHECKED.
[2025-09-07] MEDS ORDERED: Albuterol HFA200 ACT/6.7 GM INH INH PRN (11:35)
[2025-09-07] MEDS ORDERED: Insulin Regular 100 UNIT/ML 10ML Vial SC SCH ×2 (12:00→18:00)
[2025-09-07] MEDS ORDERED: HYDROmorphone HCl/Pf 1MG SYR IV PRN (12:40)
[2025-09-07] MEDS ORDERED: Enalaprilat 1.25 MG/ML 2ML Vial IV PRN (12:50)
--- NOTE | 2025-09-07 17:32 | NUR ---
CALLED DR HEIN REGARDING ELEVATED BLOOD SUGAR READING. ORDERS FOR LABS AND INSULIN RECEIVED.
[2025-09-07] MEDS ORDERED: Insulin Human Lispro 100 Units/ML 3ML Syringe SC ONE (17:35)
[2025-09-07 18:11] LABS: Anion Gap 18.0 mmol/L (3-11); Blood Urea Nitrogen 18.0 mg/dL (8-24); CO2, Blood 16.0 mmol/L (21-32); Calcium, Blood 8.9 mg/dL (8.5-10.1); Chloride, Blood 103.0 mmol/L (98-108); Creatinine, Blood 0.82 mg/dL (0.40-1.00); Glucose, Blood 442.0 mg/dL (70-99); Potassium, Blood 3.8 mmol/L (3.5-5.5); Sodium, Blood 133.0 mmol/L (136-145)
[2025-09-07] MEDS ORDERED: Insulin Human Regular 100 UNIT in NS 100 ML IV SCH (18:25)
--- NOTE | 2025-09-07 18:33 | NUR ---
CONTACTED DR HEIN REGARDING LAB VALUES, ORDERED TRANSFER TO ICU. NOTIFIED CHARGE.
--- NOTE | 2025-09-07 19:39 | NUR ---
CALLED REPORT TO ICU. DID NOT ADMINISTER 15 UNITS INSULIN, PATIENT IS TRANSFERING TO ICU AND WILL BE ON DRIP. ORDERS RECEIVED FOR HEPARIN DRIP.
--- NOTE | 2025-09-07 20:01 | NUR ---
1950 patient transferred to ICU 14 via bed with all belongings. Pt was administered dilaudid 1mg IV and zofran 4 mg IV prior to transfer. Rn in ICU updated.
[2025-09-07] MEDS ORDERED: Dose Adjust by Pharmacy XX STA (20:51)
[2025-09-07] MEDS ORDERED: Heparin Sodium,Porcine/0.5 NS 500 ML IV SCH (20:55)
[2025-09-07] MEDS ORDERED: Insulin Glargine 100 Unit/ML 3 ML SYR SC SCH (21:00)
[2025-09-07] MEDS ORDERED: Lactobacil 2-S.Thermo-Bifido 1 1 Cap PO SCH (21:00)
[2025-09-07 21:14] LABS: Anion Gap 15.0 mmol/L (3-11); Anti-Xa UFH, PHA Monitoring 0.5 IU/mL; Blood Urea Nitrogen 20.0 mg/dL (8-24); CO2, Blood 20.0 mmol/L (21-32); Calcium, Blood 8.8 mg/dL (8.5-10.1); Chloride, Blood 103.0 mmol/L (98-108); Creatinine, Blood 1.02 mg/dL (0.40-1.00); Glucose, Blood 409.0 mg/dL (70-99); Potassium, Blood 3.9 mmol/L (3.5-5.5); Prothrombin Time Results 12.3 Sec (9.7-11.5); Sodium, Blood 134.0 mmol/L (136-145)
[2025-09-07] MEDS ORDERED: Enoxaparin 60 MG/0.6 ML SYR SC SCH (21:30)
[2025-09-08] VITALS (31 sets, daily range): BP systolic 95–195; BP diastolic 49–95
[2025-09-08] MEDS ORDERED: D5W-1/2NS 1,000 ML IV SCH (00:45)
[2025-09-08 01:02] LABS: Anion Gap 10.0 mmol/L (3-11); Blood Urea Nitrogen 23.0 mg/dL (8-24); CO2, Blood 21.0 mmol/L (21-32); Calcium, Blood 8.3 mg/dL (8.5-10.1); Chloride, Blood 112.0 mmol/L (98-108); Creatinine, Blood 0.94 mg/dL (0.40-1.00); Glucose, Blood 257.0 mg/dL (70-99); Potassium, Blood 3.9 mmol/L (3.5-5.5); Sodium, Blood 139.0 mmol/L (136-145)
[2025-09-08 05:06] LABS: BASOPHILS ABSOLUTE AUTO 0.04 K/mm3 (0.00-0.23); BASOPHILS PERCENT AUTO 0 % (0-2); EOSINOPHILS ABSOLUTE AUTO 0.00 K/mm3 (0.00-0.68); EOSINOPHILS PERCENT AUTO 0 % (0-6); Hematocrit 30.0 % (33.0-51.0); Hemoglobin 9.7 g/dL (11.5-16.0); IMMATURE GRAN ABSOLUTE AUTO 0.06 K/mm3 (0.00-0.10); IMMATURE GRAN PERCENT AUTO 0 % (0-1); LYMPHOCYTES ABSOLUTE AUTO 2.62 K/mm3 (0.84-5.20); LYMPHOCYTES PERCENT AUTO 19 % (21-46); MONOCYTES ABSOLUTE AUTO 1.26 K/mm3 (0.16-1.47); MONOCYTES PERCENT AUTO 9 % (4-13); Mean Corpuscular HGB Conc 32.3 g/dL (31.5-36.5); Mean Corpuscular Volume 75 fL (80-100); NEUTROPHILS ABSOLUTE AUTO 9.95 K/mm3 (1.96-9.15); NEUTROPHILS PERCENT AUTO 72 % (41-73); NRBC ABSOLUTE 0.00 K/mm3 (0.00-0.02); NRBC Auto 0.0 /100 WBC (0.0-0.2); Platelet Count 378 K/mm3 (150-400); RDW Coefficient Variation 16.6 % (11.7-14.2); RDW Standard Deviation 45.4 fL (35.1-46.3)
[2025-09-08 05:29] LABS: Anion Gap 10.0 mmol/L (3-11); Blood Urea Nitrogen 24.0 mg/dL (8-24); CO2, Blood 19.0 mmol/L (21-32); Calcium, Blood 8.4 mg/dL (8.5-10.1); Chloride, Blood 113.0 mmol/L (98-108); Creatinine, Blood 0.88 mg/dL (0.40-1.00); Glucose, Blood 272.0 mg/dL (70-99); Magnesium, Blood 1.4 mg/dL (1.6-2.4); Phosphorus, Blood 1.8 mg/dL (2.5-4.9); Potassium, Blood 3.7 mmol/L (3.5-5.5); Sodium, Blood 138.0 mmol/L (136-145)
--- NOTE | 2025-09-08 05:43 | NUR ---
SHIFT SUMMARY PT A/OX4, CALLS APPROPRIATLY. ROOM AIR, SATS >94%. HR 70-90'S, BP STABLE, HTN WHEN IN PAIN AND VOMITTING. PT NOT TOLERATING PO INTAKE, PERSISTENT NAUSEA AND OCCASSIONAL VOMITTING. PT HAD PUREWICK AND ATTENDS IN PLACE, VOIDED DURING TRANSFER TO UNIT BUT NOTHING SINCE THEN. PT ATTEMPTED TO VOID BUT WAS UNABLE TO. BLADDER SCANNER SHOWED 575ML OF URINE. STRAIGHT CATH WITH SUCCESS, 900ML OUT. PT HAD TWO LINES PLACED AFTER ARRIVING TO UNIT WITH ONE 24G PIV THAT WAS INFILTRATED. PIV WAS REMOVED, POWERGLIDE PLACED AND CENTRAL LINE PLACED FOR MED COMPATIBILTY. PT HAS HAD PERSISTENT LLQ PAIN THAT IS RELIEVED WITH PRN DILAUDID. NO OTHER EVENTS THIS SHIFT. CALL LIGHT IN REACH.
[2025-09-08] MEDS ORDERED: Pantoprazole Sodium 40 MG Injection IV SCH (06:00)
[2025-09-08] MEDS ORDERED: Magnesium Sulf 2 GM/Water 50ML 50 ML IV STA (07:40)
[2025-09-08] MEDS ORDERED: Potassium Phosphate Dibasic 20 MM in Dextrose 5% 500 ML IV STA (07:40)
--- NOTE | 2025-09-08 08:43 | NUR ---
DR. HEIN TO ROOM FOR PT EVAL/ UPDATE POC. CT W/ CONTRAST DISCUSSED. PT ALLERGY TO CONTRAST ADDRESSED, PLAN TO PREMEDICATE FOR IMAGING PER PT TOLERATING PO INTAKE AT THIS TIME.
[2025-09-08] MEDS ORDERED: Vancomycin (Pharmacy Consult) IV SCH (10:55)
[2025-09-08] MEDS ORDERED: Insulin Glargine-Yfgn 100 Unit/mL 3 ML SYR SC SCH (11:00)
[2025-09-08] MEDS ORDERED: Insulin Glargine 100 Unit/ML 3 ML SYR SC SCH (11:23)
[2025-09-08] MEDS ORDERED: Insulin Glargine-Yfgn 100 Unit/mL 3 ML SYR SC ONE (12:00)
[2025-09-08 13:01] LABS: Anion Gap 10.0 mmol/L (3-11); Blood Urea Nitrogen 20.0 mg/dL (8-24); CO2, Blood 19.0 mmol/L (21-32); Calcium, Blood 8.2 mg/dL (8.5-10.1); Chloride, Blood 109.0 mmol/L (98-108); Creatinine, Blood 0.9 mg/dL (0.40-1.00); Glucose, Blood 226.0 mg/dL (70-99); Potassium, Blood 3.7 mmol/L (3.5-5.5); Sodium, Blood 134.0 mmol/L (136-145)
[2025-09-08] MEDS ORDERED: Insulin Human Lispro 100 Units/ML 3ML Syringe SC SCH (16:30)
--- NOTE | 2025-09-08 17:28 | NUR ---
Shift summary No acute events today. Pt tolerated po intake on clear diet well. Did not require any nausea meds during this shift. Pt requesting pain medication q2hrs t/o day for abdominal pain. Insulin gtt turned off at approx 1300. Pt using call light appropriately. PT aox4. Participating in turns/ attends change. Pure wick placed w/ good output. No bm this shift. Pt on room air, o2 sats>95%. Lungs clear. Hr 70s, nsr. Bp stable, SBP 130s, map>65. Afebrile. Plan for abdominal ct tomorrow per Dr. Ley. Call light w/in reach. Plan of care ongoing
[2025-09-08] MEDS ORDERED: HYDROmorphone HCl/Pf 1MG SYR IV PRN (18:25)
[2025-09-08] MEDS ORDERED: Lactobacil 2-S.Thermo-Bifido 1 1 Cap PO SCH (21:00)
[2025-09-09] VITALS (17 sets, daily range): BP systolic 100–200; BP diastolic 47–154
[2025-09-09 03:44] LABS: BASOPHILS ABSOLUTE AUTO 0.09 K/mm3 (0.00-0.23); BASOPHILS PERCENT AUTO 1 % (0-2); EOSINOPHILS ABSOLUTE AUTO 0.49 K/mm3 (0.00-0.68); EOSINOPHILS PERCENT AUTO 4 % (0-6); Hematocrit 28.8 % (33.0-51.0); Hemoglobin 9.2 g/dL (11.5-16.0); IMMATURE GRAN ABSOLUTE AUTO 0.05 K/mm3 (0.00-0.10); IMMATURE GRAN PERCENT AUTO 0 % (0-1); LYMPHOCYTES ABSOLUTE AUTO 2.31 K/mm3 (0.84-5.20); LYMPHOCYTES PERCENT AUTO 19 % (21-46); MONOCYTES ABSOLUTE AUTO 1.30 K/mm3 (0.16-1.47); MONOCYTES PERCENT AUTO 11 % (4-13); Mean Corpuscular HGB Conc 31.9 g/dL (31.5-36.5); Mean Corpuscular Volume 78 fL (80-100); NEUTROPHILS ABSOLUTE AUTO 7.76 K/mm3 (1.96-9.15); NEUTROPHILS PERCENT AUTO 65 % (41-73); NRBC ABSOLUTE 0.00 K/mm3 (0.00-0.02); NRBC Auto 0.0 /100 WBC (0.0-0.2); Platelet Count 330 K/mm3 (150-400); RDW Coefficient Variation 17.1 % (11.7-14.2); RDW Standard Deviation 48.6 fL (35.1-46.3)
[2025-09-09 03:59] LABS: Anion Gap 8.0 mmol/L (3-11); Blood Urea Nitrogen 21.0 mg/dL (8-24); CO2, Blood 20.0 mmol/L (21-32); Calcium, Blood 8.0 mg/dL (8.5-10.1); Chloride, Blood 114.0 mmol/L (98-108); Creatinine, Blood 0.85 mg/dL (0.40-1.00); Glucose, Blood 268.0 mg/dL (70-99); Magnesium, Blood 1.7 mg/dL (1.6-2.4); Phosphorus, Blood 2.3 mg/dL (2.5-4.9); Potassium, Blood 4.1 mmol/L (3.5-5.5); Sodium, Blood 138.0 mmol/L (136-145)
--- NOTE | 2025-09-09 06:35 | NUR ---
END OF USER SUPPORT ANALYST SUPERVISOR SUMMARY: PATIENT ALERT AND ORIENT X4. PATIENT FINDING DIFFICULTY SLEEPING AT NIGHT WITH SMALL REST PERIODS NOTED. REPORTS CONSISTENT RIGHT SIDE PAIN WITH REQUESTS FOR PAIN MEDICATION 3.5 HOURS. PAIN TREATED WITH PRN PAIN MEDICATIONS ORDERED. REPORTS OXY IS NOT EFFECITVE TO TREAT PAIN AND PREFERS DILAUDID WHEN IT COULD BE GIVEN. UPDATED PATIENT ON CURRENT PAIN PLAN (REFER TO MAR) MOVES EXTREMITIES X4. EATING AND DRINKING WITHOUT DIFFICULTY. STREIGHT CATH PATIENT X1 FOR URINATRY RETENTION. BLADDER SCAN THIS AM AND RESULTS NOTED WITHIN CHART. RESPORATIONS EVEN AND NON-LABORED ON ROOM AIR. NO S/S OF DISTRESS. SAFETY MAINTAINED.
[2025-09-09] MEDS ORDERED: Sodium Phosphate 15 MM in Dextrose 5% 250 ML IV STA (07:20)
[2025-09-09 08:13] LABS: Ferritin, Serum 24.0 ng/mL (8-252); Total Iron Binding Capacity 277.0 ug/dL (250-450)
[2025-09-09] MEDS ORDERED: FURO20 PO (11:38)
[2025-09-09] MEDS ORDERED: Clobex59 ML TOP (11:40)
--- NOTE | 2025-09-09 12:29 | NUR ---
DAMIEN HAS BEEN HAVING PAIN IN THE LEFT LOWER QUADRANT T/O HER STAY. ATTEMPTS TO MEDICATE HER AND OFFER ALTERNATE WAYS OF DEALING WITH THE PAIN. WAS ALSO TRYING TO EDUCATE HER ABOUT NARCOTIC PAIN MEDICATION USAGE. SHE IS ABLE TO EAT, SHE IS ABLE TO GET UP TO THE BSC, SHE IS VERY COOPERATIVE WITH HER CARE.
--- NOTE | 2025-09-09 12:59 | NUR ---
PT'S CENTRAL LINE IS BEING DC'D. REPORT HAS BEEN GIVEN TO LAINEY KING ON MEDICAL FLOOR. PT EATING HER LUNCH WITHOUT INCIDENT.
--- NOTE | 2025-09-09 13:52 | NUR ---
TRANSFER NOTE PT A&OX4. PT ADMITTED DUE TO INTACTABLE PAIN. PT REPORTS NO SOB, NO CHEST PAIN. PT REPORTS ABD PAIN 04/25. MEDICATED PER EMAR. PT ARRIVED ON FLOOR AT 1330. PT STAND PIVOT INDEPENDENTLY FROM ICU BED TO BED IN ROOM. PT REPORTS NO NAUSEA. PT ACHS. MEDS IN PT LOCKED DRAWER THAT CAME FROM ICU. THIS RN GOT REPORT FROM PROVIDER RELATIONS ADVOCATE. TOOK VITALS, VSS. PT R BP ONLY. PT IN CONTACT ISO FOR MRSA IN URINE, PT ON TELE, TELE NOTIFIED, REPORTED PT IS IN SR AT 68BPM, PLAN FOR IMAGING AT 1OPM. PT ORIENTED TO UNIT/FALL PRECAUTIONS/CALL LIGHT. PT IN BED, BED IN LOWEST POSITION, CALL LIGHT IN REACH.
--- NOTE | 2025-09-09 14:29 | NUR ---
INITIAL VISIT TO REQUEST INFORMATION ABOUT HER CATS. PT STATED SHE WANTS TO LEAVE TO GET BACK HOME TO THEM. HOWEVER, SHE STATES SHE CURRENTLY HAS SOMEONE AVAIABLE TO WATCH THEM. PLAN TO SEE PT WHEN SHE IS SETTLED INTO HER ROOM ON MEDICAL FLOOR.
[2025-09-09] MEDS ORDERED: NS 250 ML IV PRN (16:35)
--- NOTE | 2025-09-09 19:18 | NUR ---
SHIFT SUMMARY PT HAS IJ CENTRAL LINE DRESSING ON R NECK, DRESSING C/D/I. NO ACUTE CHANGES SINCE TRANSFER. (SEE TRANSFER NOTE FOR DETAILS) PT IN BED, BED IN LOWEST POSITION, LOCKED, CALL LIGHT IN REACH.
--- NOTE | 2025-09-09 23:14 | NUR ---
CALLED HOSPITALIST REGARDING CBG OF 366. PER HOSPITALIST START HOME [facility] 23 UNITS QHS AND CONTINUE WITH HUMALOG ORDERED AT 4 UNITS.
--- NOTE | 2025-09-10 00:14 | NUR ---
AT APPROXIMATELY 2140 CALLED HOSPITALIST REGARDING CBG OF 434. PER HOSPITALIST CONTINUE WITH ORDERED DOSE OF HUMALOG ORDERED FOR HIGHEST DOSE.
--- NOTE | 2025-09-10 04:50 | NUR ---
PTS DAUGHTER ROXANNE ROCHE-DAUGHTER CALLED BACK. INFORMED HER OF HIS STATUS. SHE VERIFIED SHE WOULD LIKE HIM TO BE COMFORTABLE AND IS ON HER WAY IN.
[2025-09-10 05:14] VITALS: BP 145/100
[2025-09-10 05:17] VITALS: BP 153/58
[2025-09-10 06:06] LABS: BASOPHILS ABSOLUTE AUTO 0.02 K/mm3 (0.00-0.23); BASOPHILS PERCENT AUTO 0 % (0-2); EOSINOPHILS ABSOLUTE AUTO 0.00 K/mm3 (0.00-0.68); EOSINOPHILS PERCENT AUTO 0 % (0-6); Hematocrit 28.1 % (33.0-51.0); Hemoglobin 9.4 g/dL (11.5-16.0); IMMATURE GRAN ABSOLUTE AUTO 0.07 K/mm3 (0.00-0.10); IMMATURE GRAN PERCENT AUTO 1 % (0-1); LYMPHOCYTES ABSOLUTE AUTO 1.10 K/mm3 (0.84-5.20); LYMPHOCYTES PERCENT AUTO 9 % (21-46); MONOCYTES ABSOLUTE AUTO 0.31 K/mm3 (0.16-1.47); MONOCYTES PERCENT AUTO 3 % (4-13); Mean Corpuscular HGB Conc 33.5 g/dL (31.5-36.5); Mean Corpuscular Volume 75 fL (80-100); NEUTROPHILS ABSOLUTE AUTO 11.08 K/mm3 (1.96-9.15); NEUTROPHILS PERCENT AUTO 88 % (41-73); NRBC ABSOLUTE 0.00 K/mm3 (0.00-0.02); NRBC Auto 0.0 /100 WBC (0.0-0.2); Platelet Count 332 K/mm3 (150-400); RDW Coefficient Variation 16.7 % (11.7-14.2); RDW Standard Deviation 45.1 fL (35.1-46.3)
[2025-09-10 06:26] LABS: Anion Gap 10.0 mmol/L (3-11); Blood Urea Nitrogen 22.0 mg/dL (8-24); CO2, Blood 19.0 mmol/L (21-32); Calcium, Blood 8.6 mg/dL (8.5-10.1); Chloride, Blood 109.0 mmol/L (98-108); Creatinine, Blood 0.84 mg/dL (0.40-1.00); Glucose, Blood 302.0 mg/dL (70-99); Phosphorus, Blood 2.0 mg/dL (2.5-4.9); Potassium, Blood 4.2 mmol/L (3.5-5.5); Sodium, Blood 134.0 mmol/L (136-145)
--- NOTE | 2025-09-10 06:26 | NUR ---
SHIFT SUMMARY A&OX4. ABLE TO MAKE NEEDS KNOWN. HAS HAD PAIN ON LEFT LOWER QUADRANT THROUGHOUT THE NIGHT. HEAT HAS BEEN APPLIED AND PT HAS REQUIRED PAIN MEDICATIONS PER EMAR. PT HAS X2 EPISODES OF NAUSEA WITHOUT VOMITING. SHE HAS BEEN ABLE TO TOLERATE LIQUIDS AND SOLIDS. SHE DID HAVE A SOFT BM AT START OF SHIFT WITHOUT DIFFICULTY AND THERE DID NOT APPEAR TO BE ANY BLOOD PRESENT. PT WENT FOR CT SCAN AROUND 2200 AND TOLERATED THIS WELL WITHOUT ANY REACTION SHE HAD PRIOR. CURRENTLY SHE IS SITTING UP IN BED WATCHING TV WITH BED AT LOWEST POSITION AND CALL LIGHT WITHIN REACH.
[2025-09-10 07:24] VITALS: BP 147/53
[2025-09-10 11:05] VITALS: BP 127/104
[2025-09-10 11:16] LABS: Vancomycin, Trough 16.6 ug/mL (5.0-10.0)
[2025-09-10] MEDS ORDERED: Insulin Human Lispro 100 Units/ML 3ML Syringe SC ONE (12:10)
[2025-09-10] MEDS ORDERED: Potassium Phos/Sodium Phos 250 MG PACK PO SCH (13:00)
[2025-09-10] MEDS ORDERED: Trimethoprim/Sulfamethoxazole DS Tab PO SCH (13:00)
[2025-09-10] MEDS ORDERED: AMLO5 PO (15:49)
[2025-09-10] MEDS ORDERED: ELIQUIS5 M3 PO (15:50)
[2025-09-10] MEDS ORDERED: ELIQUIS5 M2 PO (15:50)
[2025-09-10] MEDS ORDERED: Colace100 MG PO (15:51)
[2025-09-10] MEDS ORDERED: ATOR40TA PO (15:51)
[2025-09-10] MEDS ORDERED: SENN187 PO (15:53)
[2025-09-10] MEDS ORDERED: POTASSIUM PHOSPHATE PO (15:53)
[2025-09-10] MEDS ORDERED: VISBIOME 112.51 EACH PO (15:54)
[2025-09-10] MEDS ORDERED: BACTRIM DS TAB1 EAC6 PO (15:54)
--- NOTE | 2025-09-10 17:29 | NUR ---
DISCHARGE NOTE PT A&OX4. PT ADMITTED DUE TO INTRACTABLE PAIN. PT REPORTS NO CHEST PAIN. PT REPORTS PAIN, PAIN MANAGED PER EMAR. PT REPORTED NAUSEA, MEDICATED PER EMAR. DENIED SOB. PT IN CONTACT ISO FOR MRSA IN URINE. PT ON ROOM AIR. PT WAS ON TELE, NO TELE REPORTS. PT IS A SBA W FWW. PT ACHS. PT GOT AN EXTRA COVERAGE OF INSULIN ORDER FOR LUNCH. ORDERED DISCHARGE. BREAK RN D/C [facility] IN [facility]. FLAME CHANNELER SET UP TRANSPORT. TILE HELPER JEN COMPLETED DISCHARGE. THIS RN FAXED MEDS TO PT PREFERRED PHARMACY. PT ESCORTED BY WHEELCHAIR TO PT [facility] AND PICKED UP VIA [facility].
== END 2025-09-10 16:54 | disposition home or self-care (01) | DRG 689 ==
LOC: ER 00:22 → MEDS 00:23 → ICUE 00:23 → MEDS 09:38 → ICUE 19:26 → MEDS 09-08 12:17 → ICUE 09-08 12:17 → MEDS 09-09 13:23
PROVIDERS: Emergency Medicine; Nurse Practitioner Acute Care; ADMIT Student in an Organized Health Care Education/Training Program
DX: N39.0 Urinary tract infection, site not specified (principal); E11.10 Type 2 diabetes mellitus with ketoacidosis without coma; I69.354 Hemiplegia and hemiparesis following cerebral infarction affecting left non-dominant side; I74.2 Embolism and thrombosis of arteries of the upper extremities; J44.9 Chronic obstructive pulmonary disease, unspecified; K21.9 Gastro-esophageal reflux disease without esophagitis; I25.10 Atherosclerotic heart disease of native coronary artery without angina pectoris; I10 Essential (primary) hypertension; E78.5 Hyperlipidemia, unspecified; F41.9 Anxiety disorder, unspecified; I16.0 Hypertensive urgency; D75.839 Thrombocytosis, unspecified; E83.42 Hypomagnesemia; E83.39 Other disorders of phosphorus metabolism; R33.9 Retention of urine, unspecified; B95.62 Methicillin resistant Staphylococcus aureus infection as the cause of diseases classified elsewhere; D50.9 Iron deficiency anemia, unspecified; L27.0 Generalized skin eruption due to drugs and medicaments taken internally; T50.8X5A Adverse effect of diagnostic agents, initial encounter; Z87.19 Personal history of other diseases of the digestive system; Z95.5 Presence of coronary angioplasty implant and graft; Z79.899 Other long term (current) drug therapy; Z79.02 Long term (current) use of antithrombotics/antiplatelets; Z79.82 Long term (current) use of aspirin; Z79.4 Long term (current) use of insulin; Z95.828 Presence of other vascular implants and grafts; Z90.710 Acquired absence of both cervix and uterus; Z90.722 Acquired absence of ovaries, bilateral; Z90.79 Acquired absence of other genital organ(s); Z90.49 Acquired absence of other specified parts of digestive tract; Z91.041 Radiographic dye allergy status; Z88.1 Allergy status to other antibiotic agents; Z88.8 Allergy status to other drugs, medicaments and biological substances; Z88.5 Allergy status to narcotic agent
CPT/HCPCS: 36415; 36556; 71045; 74176; 74177; 80048; 80053; 80202; 81001; 82010; 82607; 82728; 82746; 82947; 83540; 83550; 83605; 83690; 83735; 84100; 85025; 85520; 85610; 85730; 87040; 87077; 87086; 87147; 87186; 93930; 94760; 94762; 96361; 96365; 96372; 96374; 96375; 96376; 99285-25; A9270; C1751; G0378; J0360; J0744; J0780; J1171; J1200; J1650; J1790; J1815; J2405; J2470; J2765; J3010; J3373; J3475; J3480; J7030; J7042; J7050; J7060; J7512; Q9967

== ENCOUNTER 2025-09-11 07:11 | Emergency (ER) | payer OTHER ==
[~2025-09-11] VITALS: Ht 160 cm; Wt 56.7 kg
[~2025-09-11 07:11] MED LIST changes: +AMLO5 PO; +BACTRIM DS TAB1 EAC6 PO; +Clobex59 ML TOP; +Colace100 MG PO; +ELIQUIS5 M2 PO; +ELIQUIS5 M3 PO; +FURO20 PO; +POTASSIUM PHOSPHATE PO; +SENN187 PO
[2025-09-11] MEDS ORDERED: Ondansetron HCl 2 MG / ML 2ML Vial IV ONE (07:45)
[2025-09-11] MEDS ORDERED: Metoprolol Tartrate 1 MG/ML 5 ML VIAL IV ONE ×2 (07:45→11:15)
[2025-09-11 09:19] LABS: BASOPHILS ABSOLUTE AUTO 0.10 K/mm3 (0.00-0.23); BASOPHILS PERCENT AUTO 1 % (0-2); EOSINOPHILS ABSOLUTE AUTO 0.16 K/mm3 (0.00-0.68); EOSINOPHILS PERCENT AUTO 1 % (0-6); Hematocrit 35.6 % (33.0-51.0); Hemoglobin 11.4 g/dL (11.5-16.0); IMMATURE GRAN ABSOLUTE AUTO 0.12 K/mm3 (0.00-0.10); IMMATURE GRAN PERCENT AUTO 1 % (0-1); LYMPHOCYTES ABSOLUTE AUTO 3.26 K/mm3 (0.84-5.20); LYMPHOCYTES PERCENT AUTO 23 % (21-46); MONOCYTES ABSOLUTE AUTO 1.30 K/mm3 (0.16-1.47); MONOCYTES PERCENT AUTO 9 % (4-13); Mean Corpuscular HGB Conc 32.0 g/dL (31.5-36.5); Mean Corpuscular Volume 75 fL (80-100); NEUTROPHILS ABSOLUTE AUTO 9.36 K/mm3 (1.96-9.15); NEUTROPHILS PERCENT AUTO 66 % (41-73); NRBC ABSOLUTE 0.00 K/mm3 (0.00-0.02); NRBC Auto 0.0 /100 WBC (0.0-0.2); Platelet Count 481 K/mm3 (150-400); RDW Coefficient Variation 17.2 % (11.7-14.2); RDW Standard Deviation 46.1 fL (35.1-46.3)
[2025-09-11 09:40] LABS: Alanine Aminotransfer (ALT/SGP 31.0 U/L (12-78); Albumin, Blood 3.3 g/dL (3.4-5.0); Albumin/Globulin Ratio 0.9 (0.8-1.8); Anion Gap 11.0 mmol/L (3-11); Aspartate Aminotrans (AST/SGOT 63.0 U/L (12-37); Bilirubin, Total 0.4 mg/dL (0.1-1.0); Blood Urea Nitrogen 18.0 mg/dL (8-24); CO2, Blood 19.0 mmol/L (21-32); Calcium, Blood 9.0 mg/dL (8.5-10.1); Chloride, Blood 111.0 mmol/L (98-108); Creatinine, Blood 0.85 mg/dL (0.40-1.00); Globulin, Blood 3.8 g/dL (2.2-4.0); Glucose, Blood 267.0 mg/dL (70-99); Potassium, Blood 3.7 mmol/L (3.5-5.5); Sodium, Blood 137.0 mmol/L (136-145); Total Protein, Blood 7.1 g/dL (6.4-8.2)
[2025-09-11 12:16] VITALS: BP 197/83
== END 2025-09-11 12:31 | disposition home or self-care (01) ==
LOC: ER 07:11
PROVIDERS: Emergency Medicine
DX: R10.9 Unspecified abdominal pain (principal); M79.602 Pain in left arm; G89.29 Other chronic pain; J44.9 Chronic obstructive pulmonary disease, unspecified; E78.00 Pure hypercholesterolemia, unspecified; I10 Essential (primary) hypertension; K21.9 Gastro-esophageal reflux disease without esophagitis; E11.40 Type 2 diabetes mellitus with diabetic neuropathy, unspecified; Z91.041 Radiographic dye allergy status; Z88.5 Allergy status to narcotic agent; Z88.1 Allergy status to other antibiotic agents; Z79.4 Long term (current) use of insulin; Z79.899 Other long term (current) drug therapy
CPT/HCPCS: 80053; 83690; 84484; 85025; 93005; 93010; 96374; 96375; 96376; 99284-25; A9270; J2405; J7120

== ENCOUNTER 2025-09-12 05:54 | Emergency (ER) | payer OTHER ==
[~2025-09-12] VITALS: Ht 160 cm; Wt 54.4 kg
[2025-09-12] MEDS ORDERED: Ondansetron 4 MG SoluTab SL ONE (08:20)
[2025-09-12] MEDS ORDERED: RX Prepack 2 Tabs Ondansetron ODT 4MG UD ONE (08:30)
[2025-09-12 08:45] VITALS: BP 166/77
== END 2025-09-12 08:48 | disposition home or self-care (01) ==
LOC: ER 05:54
DX: R11.2 Nausea with vomiting, unspecified (principal); I10 Essential (primary) hypertension; J44.9 Chronic obstructive pulmonary disease, unspecified; Z90.710 Acquired absence of both cervix and uterus; Z91.041 Radiographic dye allergy status; Z88.5 Allergy status to narcotic agent; Z88.1 Allergy status to other antibiotic agents; Z88.8 Allergy status to other drugs, medicaments and biological substances; Z59.89 Other problems related to housing and economic circumstances
CPT/HCPCS: 93005; 93010; 99284-25; A9270

== ENCOUNTER 2025-10-12 21:51 | Emergency (ER) | payer OTHER ==
[~2025-10-12] VITALS: Ht 162.6 cm; Wt 70.3 kg
[2025-10-12] MEDS ORDERED: Ondansetron HCl 2 MG / ML 2ML Vial IV PRN (22:00)
[2025-10-12] MEDS ORDERED: BUPRENORPHINE HC8 MG SL (22:01)
[2025-10-12] MEDS ORDERED: HYDHCL25 (22:01)
[2025-10-12] MEDS ORDERED: NS 1,000 ML IV SCH (22:40)
[2025-10-12] MEDS ORDERED: HYDROmorphone HCl/Pf 1MG SYR IV PRN (22:40)
[2025-10-12] MEDS ORDERED: DiphenhydrAMINE HCl 50 MG/ML 1ML Vial IV ONE (22:45)
[2025-10-12 23:10] LABS: BASOPHILS ABSOLUTE AUTO 0.10 K/mm3 (0.00-0.23); BASOPHILS PERCENT AUTO 1 % (0-2); EOSINOPHILS ABSOLUTE AUTO 0.26 K/mm3 (0.00-0.68); EOSINOPHILS PERCENT AUTO 3 % (0-6); Hematocrit 35.1 % (33.0-51.0); Hemoglobin 11.1 g/dL (11.5-16.0); IMMATURE GRAN ABSOLUTE AUTO 0.03 K/mm3 (0.00-0.10); IMMATURE GRAN PERCENT AUTO 0 % (0-1); LYMPHOCYTES ABSOLUTE AUTO 1.81 K/mm3 (0.84-5.20); LYMPHOCYTES PERCENT AUTO 19 % (21-46); MONOCYTES ABSOLUTE AUTO 0.67 K/mm3 (0.16-1.47); MONOCYTES PERCENT AUTO 7 % (4-13); Mean Corpuscular HGB Conc 31.6 g/dL (31.5-36.5); Mean Corpuscular Volume 77 fL (80-100); NEUTROPHILS ABSOLUTE AUTO 6.45 K/mm3 (1.96-9.15); NEUTROPHILS PERCENT AUTO 69 % (41-73); NRBC ABSOLUTE 0.00 K/mm3 (0.00-0.02); NRBC Auto 0.0 /100 WBC (0.0-0.2); Platelet Count 461 K/mm3 (150-400); RDW Coefficient Variation 16.0 % (11.7-14.2); RDW Standard Deviation 44.8 fL (35.1-46.3)
[2025-10-12 23:32] LABS: Alanine Aminotransfer (ALT/SGP 24.0 U/L (12-78); Albumin, Blood 3.6 g/dL (3.4-5.0); Albumin/Globulin Ratio 0.8 (0.8-1.8); Anion Gap 9.0 mmol/L (3-11); Aspartate Aminotrans (AST/SGOT 27.0 U/L (12-37); Bilirubin, Total 0.4 mg/dL (0.1-1.0); Blood Urea Nitrogen 16.0 mg/dL (8-24); CO2, Blood 24.0 mmol/L (21-32); Calcium, Blood 10.0 mg/dL (8.5-10.1); Chloride, Blood 106.0 mmol/L (98-108); Creatinine, Blood 0.86 mg/dL (0.40-1.00); Globulin, Blood 4.7 g/dL (2.2-4.0); Glucose, Blood 423.0 mg/dL (70-99); Potassium, Blood 4.2 mmol/L (3.5-5.5); Sodium, Blood 135.0 mmol/L (136-145); Total Protein, Blood 8.3 g/dL (6.4-8.2)
[2025-10-13] MEDS ORDERED: Metoclopramide HCl 5MG / ML 2ML Vial IV ONE (00:40)
[2025-10-13] MEDS ORDERED: PLAVIX75 MG PO (00:59)
[2025-10-13 01:34] VITALS: BP 113/71
[2025-10-13] MEDS ORDERED: Insulin Regular 100 Unit/ML 1ML Dose IV ONE (01:40)
[2025-10-13] MEDS ORDERED: DICY20 PO (02:14)
[2025-10-13] MEDS ORDERED: ONDA4ODT MM (02:14)
[2025-10-13] MEDS ORDERED: RX Prepack 2 Tabs Ondansetron ODT 4MG UD ONE (02:15)
== END 2025-10-13 02:24 | disposition home or self-care (01) ==
LOC: ER 21:51
PROVIDERS: Student in an Organized Health Care Education/Training Program
DX: K52.9 Noninfective gastroenteritis and colitis, unspecified (principal); E11.65 Type 2 diabetes mellitus with hyperglycemia; D53.9 Nutritional anemia, unspecified; I25.10 Atherosclerotic heart disease of native coronary artery without angina pectoris; J44.9 Chronic obstructive pulmonary disease, unspecified; K21.9 Gastro-esophageal reflux disease without esophagitis; I10 Essential (primary) hypertension; E78.00 Pure hypercholesterolemia, unspecified; Z91.148 Patient's other noncompliance with medication regimen for other reason; Z95.0 Presence of cardiac pacemaker; Z87.891 Personal history of nicotine dependence; Z86.73 Personal history of transient ischemic attack (TIA), and cerebral infarction without residual deficits; Z88.5 Allergy status to narcotic agent; Z91.041 Radiographic dye allergy status; Z88.1 Allergy status to other antibiotic agents; Z88.6 Allergy status to analgesic agent; Z88.8 Allergy status to other drugs, medicaments and biological substances; Z79.4 Long term (current) use of insulin; Z79.01 Long term (current) use of anticoagulants; Z79.899 Other long term (current) drug therapy
CPT/HCPCS: 74177; 80053; 82947; 83605; 83690; 85025; 93005; 93010; 96361; 96374; 96375; 96376; 99284-25; A9270; J1171; J1200; J1815; J2405; J2765; J2919; J7030; Q9967